=== PATIENT | male | born 1955 | race Caucasian/White ===

== ENCOUNTER 2018-05-06 17:23 | Inpatient (IN) ==
--- NOTE | 2018-05-06 17:44 | Emergency Department Note ---
Disposition Clinical Impression: ACS (acute coronary syndrome) Disposition: Admitted As Inpatient Referrals: NONE,PCP [Primary Care Provider] - General Adult HPI - General Chief complaint: ED Chest Pain Stated complaint: CP Time Seen by Provider: 05/06/18 17:29 Source: patient Limitations: no limitations Nursing Notes Reviewed: Yes Vital Signs Reviewed: Yes - History of Present Illness HPI Narrative: ED attending attestation note: I examined this patient and my medical decision-making was reviewed with the transitional year resident PGY1, angélica MENDIOLA. I agree with the documented findings, disposition and treatment plan as described except to the extent set forth below. Briefly: 62-year-old male history of September 27 years ago had a stress test done in 2005 but nothing since several weeks to months of chest pain nonexertional worse over the past several days going to his neck and left arm. Patient has a heart score of 5+, patient will undergo troponin chest x-ray screening labs. Patient and aspirated this morning. Admission anticipated, disposition pending Pain Scale: 5 - Related Data Home Medications Medication Instructions Recorded Confirmed Amlodipine Besylate 10 mg PO HS 09/11/15 02/07/18 Dicyclomine 20 mg PO QID 09/11/15 02/07/18 Losartan Potassium [Cozaar] 100 mg PO HS 09/11/15 02/07/18 Metformin HCl [Glucophage] 1,000 mg PO BID 09/11/15 02/07/18 Metoprolol [Lopressor] 25 mg PO BID 09/11/15 02/07/18 [place]-3/Dha/Epa/Fish Oil [Fish Oil 1 each PO HS 09/11/15 02/07/18 1,000 mg Softgel] Potassium Chloride [Klor-Con 10 meq PO HS 09/11/15 02/07/18 Sprinkle] Pravastatin Sodium [Pravachol] 80 mg PO HS 09/11/15 02/07/18 Zolpidem [Ambien] 10 mg PO HS 09/11/15 02/07/18 hydroCHLOROthiazide 12.5 mg PO HS 09/11/15 02/07/18 [Hydrochlorothiazide] Aspirin Enteric Coated [Aspirin EC] 81 mg PO DAILY 10/18/15 02/07/18 Cholecalciferol (Vitamin D3) 10,000 unit PO DAILY 10/18/15 02/07/18 [Vitamin D3] Diltiazem HCl [Cardizem LA] 360 mg PO HS 10/18/15 02/07/18 Omeprazole [PriLOSEC] 20 mg PO BIDAC 10/18/15 02/07/18 Vitamin E 1,000 unit PO DAILY 10/18/15 02/07/18 Oxycodone HCl/Acetaminophen 1 tab PO Q6H PRN 11/08/15 02/07/18 [Percocet 10-325 mg Tablet] Pregabalin [Lyrica] 150 mg PO DAILY 11/02/16 02/07/18 Insulin Glargine,Hum.rec.anlog 80 units SQ HS 08/02/17 02/07/18 [[place]jeo Solostar] Insulin NPH, HUMAN [HumuLIN N] 30 unit SQ ACHS 08/02/17 02/07/18 Previous Rx's Medication Instructions Recorded Loperamide HCl [Imodium A-D] 2 - 4 mg PO BID PRN #120 tablet 02/03/16 diazePAM [Valium] 10 mg PO BID PRN #60 tablet 02/28/16 Venlafaxine [Effexor] 37.5 mg PO BID #60 tablet 08/03/16 Allergies Allergy/AdvReac Type Severity Reaction Status Date / Time ibuprofen Allergy Hives Verified 02/07/18 11:06 Past Medical History - Past Medical History Medical history: Reports: arthritis, cancer, COPD, coronary artery disease, diabetes, hypertension Surgical history: Reports: cancer surgery, cholecystectomy, coronary bypass (CABG) Psychiatric history: Reports: anxiety - Social History Smoking Status: Current every day smoker Smokeless Tobacco Status: No Alcohol use: Reports: none Drug use: Reports: none Physical Exam - General Limitations: no limitations Course Vital Signs Temperature 97.7 F 05/06/18 17:27 Pulse Rate 89 05/06/18 17:27 Respiratory Rate 21 05/06/18 17:27 Blood Pressure 117/71 05/06/18 17:27 O2 Sat by Pulse Oximetry 96 05/06/18 17:27 Temperature 97.7 F 05/06/18 17:27 Pulse Rate 89 05/06/18 17:27 Respiratory Rate 21 05/06/18 17:27 Blood Pressure 117/71 05/06/18 17:27 O2 Sat by Pulse Oximetry 97 05/06/18 17:27 Oxygen Delivery Oxygen Delivery Room Air
[2018-05-06 17:55] LABS: Basophils # 0.1 K/mcL (0.0-0.2); Basophils % 0.6 %; Eosinophils # 0.1 K/mcL (0.0-0.6); Eosinophils % 0.9 %; Hematocrit 41.2 % (37.5-50.1); Hemoglobin 13.5 g/dL (12.9-16.9); Immature Granulocytes % 0.3 % (0-4); Lymphocytes # 1.8 K/mcL (0.6-4.6); Mean Corpuscular HGB Conc 32.8 g/dL (31.6-35.5); Mean Corpuscular Volume 91.6 fL (83.0-100.0); Mean Platelet Volume 11.6 fL (9.4-12.4); Monocytes # 0.8 K/mcL (0.0-1.3); Monocytes % 8.4 %; Platelet Count 150 K/mcL (140-400); Red Cell Distribution Width 13.9 % (11.5-14.5); Segmented Neutrophils % 71.8 %
[2018-05-06] MEDS ORDERED: Nitroglycerin 0.4 MG TAB.SUBL SL PRN (17:55)
[2018-05-06 18:03] LABS: INR 1.4; Prothrombin Time 15.4 Seconds (9.4-12.1)
[2018-05-06 18:15] LABS: BUN/Creatinine Ratio 14 (6-26); Blood Urea Nitrogen 16 mg/dL (8-23); Calcium 9.3 mg/dL (8.6-10.3); Carbon Dioxide 21 mEq/L (23-29); Chloride 103 mEq/L (98-107); Glucose 190 mg/dL (70-105); Osmolality,Calculated 290 (280-300); Potassium 3.2 mEq/L (3.5-5.1); Sodium 137 mEq/L (136-145); eGFR For Non-African Americans > 60 (> 60)
[2018-05-06 18:27] LABS: Troponin I 1.62 ng/mL (< 0.04)
[2018-05-06] MEDS ORDERED: *HR* Heparin 5,000 UNIT/ML VIAL IVP ONE (18:35)
[2018-05-06] MEDS ORDERED: *HR* Heparin 5,000 UNIT/ML VIAL IVP PRN (18:35)
--- NOTE | 2018-05-06 18:43 | Emergency Department Note ---
Disposition Clinical Impression: ACS (acute coronary syndrome) Disposition: Admitted As Inpatient Condition: Fair Referrals: NONE,PCP [Non-Partnered Physician] - Forms: ED Satisfaction Letter Time of Disposition: 18:42 General Adult HPI - General Chief complaint: ED Chest Pain Stated complaint: CP Time Seen by Provider: 05/06/18 17:29 Source: patient Mode of arrival: ambulatory Limitations: no limitations - History of Present Illness HPI Narrative: Patient is a 62-year-old male with past medical history of quadruple bypass 18 years ago, PCI in 2006 hours CAD, diabetes, hypertension presents to the emergency room in for evaluation of chest pain has been going on for the past m onth intermittently however it was constant today. Describes it as a left-sided chest pressure with radiation into the left arm. Rates it as a 5 out of 10. States is made worse with exertion. Pain Scale: 2 - Related Data Home Medications Medication Instructions Recorded Confirmed Amlodipine Besylate 10 mg PO HS 09/11/15 02/07/18 Dicyclomine 20 mg PO QID 09/11/15 02/07/18 Losartan Potassium [Cozaar] 100 mg PO HS 09/11/15 02/07/18 Metformin HCl [Glucophage] 1,000 mg PO BID 09/11/15 02/07/18 Metoprolol [Lopressor] 25 mg PO BID 09/11/15 02/07/18 [place]-3/Dha/Epa/Fish Oil [Fish Oil 1 each PO HS 09/11/15 02/07/18 1,000 mg Softgel] Potassium Chloride [Klor-Con 10 meq PO HS 09/11/15 02/07/18 Sprinkle] Pravastatin Sodium [Pravachol] 80 mg PO HS 09/11/15 02/07/18 Zolpidem [Ambien] 10 mg PO HS 09/11/15 02/07/18 hydroCHLOROthiazide 12.5 mg PO HS 09/11/15 02/07/18 [Hydrochlorothiazide] Aspirin Enteric Coated [Aspirin EC] 81 mg PO DAILY 10/18/15 02/07/18 Cholecalciferol (Vitamin D3) 10,000 unit PO DAILY 10/18/15 02/07/18 [Vitamin D3] Diltiazem HCl [Cardizem LA] 360 mg PO HS 10/18/15 02/07/18 Omeprazole [PriLOSEC] 20 mg PO BIDAC 10/18/15 02/07/18 Vitamin E 1,000 unit PO DAILY 10/18/15 02/07/18 Oxycodone HCl/Acetaminophen 1 tab PO Q6H PRN 11/08/15 02/07/18 [Percocet 10-325 mg Tablet] Pregabalin [Lyrica] 150 mg PO DAILY 11/02/16 02/07/18 Insulin Glargine,Hum.rec.anlog 80 units SQ HS 08/02/17 02/07/18 [Toujeo Solostar] Insulin NPH, HUMAN [HumuLIN N] 30 unit SQ ACHS 08/02/17 02/07/18 Previous Rx's Medication Instructions Recorded Loperamide HCl [Imodium A-D] 2 - 4 mg PO BID PRN #120 tablet 02/03/16 diazePAM [Valium] 10 mg PO BID PRN #60 tablet 02/28/16 Venlafaxine [Effexor] 37.5 mg PO BID #60 tablet 08/03/16 Allergies Allergy/AdvReac Type Severity Reaction Status Date / Time ibuprofen Allergy Hives Verified 02/07/18 11:06 All systems ED: reviewed and negative except as stated. Review of Systems: As Per HPI Constitutional: Denies: fever, chills Cardiovascular: Reports: chest pain. Denies: palpitations, dyspnea on exertion, edema, syncope, paroxysmal nocturnal dyspnea Respiratory: Denies: cough, dyspnea, wheezes Gastrointestinal: Denies: abdominal pain, nausea, vomiting Musculoskeletal: Denies: back pain, neck pain Integumentary: Denies: rash Past Medical History - Past Medical History Attestation: Yes The following information was validated with the patient. Medical history: Reports: arthritis, cancer, COPD, coronary artery disease, diabetes, hypertension Surgical history: Reports: cancer surgery, cholecystectomy, coronary bypass (CABG) Psychiatric history: Reports: anxiety - Social History Smoking Status: Current every day smoker Smokeless Tobacco Status: No Alcohol use: Reports: none Drug use: Reports: none Physical Exam CONSTITUTIONAL: Well-appearing; well-nourished; A&O X 3, in no apparent distress. Vitals within normal limits. HEAD: Normocephalic; atraumatic EYES: PERRL, no scleral icterus NOSE: The nose is normal in appearance without rhinorrhea NECK: No JVD or distended neck veins RESP: Normal chest excursion with respiration; breath sounds clear and equal bi laterally; no wheezes, rhonchi, or rales CARD: Regular rhythm, without murmurs, rub or gallop ABD: Non-distended; non-tender, soft, without rigidity, rebound or guarding,no pulsatile mass CHEST: No pain with palpation SKIN: Normal for age and race; warm and dry without diaphoresis ; no apparent l esions EXTREMITIES: Pulses are 2 plus and equal times 4 extremities, no peripheral edema or calf muscle pain - General Limitations: no limitations Course Course Narrative: Patient underwent evaluation for his chest pain. He received 1 dose of nitroglycerin which completely resolved his pain. He take a full dose of aspirin prior to arrival at home. His EKG is not ischemic however his troponin is elevated. I discussed the patient's case with cardiology on-call, Dr. Henson and he agreed with starting the patient on ACS low-dose heparin. I discussed the patient's case with the hospitalist on-call, Dr. Delicia ruiz and he agrees to accept the patient. Vital Signs Temperature 97.7 F 05/06/18 17:27 Pulse Rate 89 05/06/18 17:27 Respiratory Rate 21 05/06/18 17:27 Blood Pressure 117/71 05/06/18 17:27 O2 Sat by Pulse Oximetry 96 05/06/18 17:27 Temperature 97.7 F 05/06/18 17:27 Pulse Rate 75 05/06/18 18:20 Respiratory Rate 22 05/06/18 18:20 Blood Pressure 97/59 05/06/18 18:20 O2 Sat by Pulse Oximetry 100 05/06/18 18:22 Oxygen Delivery Oxygen Delivery Room Air Medical Decision Making - Medical Records Medical records reviewed: Yes I reviewed the patient's medical records. - Lab Data Lab results reviewed: Yes I reviewed the patient's lab results. Result diagrams: 05/06/18 17:30 05/06/18 17:30 Lab Results 05/06/18 05/06/18 05/06/18 Range/Units 17:30 17:30 17:30 WBC 9.8 (4.3-11.1) K/mcL RBC 4.50 (4.19-5.50) M/mcL Hgb 13.5 (12.9-16.9) g/dL Hct 41.2 (37.5-50.1) % MCV 91.6 (83.0-100.0) fL MCH 30.0 (28.0-33.3) pg MCHC 32.8 (31.6-35.5) g/dL RDW 13.9 (11.5-14.5) % Plt Count 150 (140-400) K/mcL MPV 11.6 (9.4-12.4) fL Immature Gran % 0.3 (0-4) % Seg Neutrophils % 71.8 % Lymphocytes % 18.0 % Monocytes % 8.4 % Eosinophils % 0.9 % Basophils % 0.6 % Neutrophils # 7.0 (1.6-8.9) K/mcL Lymphocytes # 1.8 (0.6-4.6) K/mcL Monocytes # 0.8 (0.0-1.3) K/mcL Eosinophils # 0.1 (0.0-0.6) K/mcL Basophils # 0.1 (0.0-0.2) K/mcL PT 15.4 H (9.4-12.1) Seconds INR 1.4 Sodium 137 (136-145) mEq/L Potassium 3.2 L (3.5-5.1) mEq/L Chloride 103 (98-107) mEq/L Carbon Dioxide 21 L (23-29) mEq/L BUN 16 (8-23) mg/dL Creatinine 1.17 (0.70-1.30) mg/dL Est GFR ( Amer) > 60 (> 60) Est GFR (Non-Af Amer) > 60 (> 60) BUN/Creatinine Ratio 14 (6-26) Glucose 190 H (70-105) mg/dL Calculated Osmolality 290 (280-300) Calcium 9.3 (8.6-10.3) mg/dL Troponin I 1.62 H* (< 0.04) ng/mL - Radiology Data Radiology results reviewed: Yes I reviewed the patient's radiology results. Chest X-Ray 05/06/18 17:41 IMPRESSION: Small right pleural effusion. D/ / Trevor Duncan / Trevor Duncan Interpreting Provider: Trevor Duncan - EKG Data EKG #1 EKG attestation: Yes I reviewed and interpreted this EKG. EKG results narrative: EKG done at 17:29 shows atrial fibrillation at a rate of 77 normal axis, intervals within normal limits no signs of ST elevation or Q waves present. Patient does have an isolated PVC as well as minimal depressions in the V4 th rough V6 however these are unchanged when compared to EKG done on April 172017.
[2018-05-06] MEDS ORDERED: Heparin 25,000 UNIT/500 ML D5W 25,000 UNIT/500 ML BAG IVC SCH (18:45)
[2018-05-06] MEDS ORDERED: Aspirin 325 MG TABLET PO ONE (19:03)
[2018-05-06] MEDS ORDERED: OXYCODONE Oral CONC 10 MG/0.5 ML ORAL.SYG SL PRN ×2 (19:05)
[2018-05-06] MEDS ORDERED: Naloxone 0.4 MG/ML INJ IVP PRN (19:05)
[2018-05-06] MEDS ORDERED: Dextrose Gel 15 GM/37.5 ML TUBE PO PRN ×2 (19:09)
[2018-05-06] MEDS ORDERED: *HR* Dextrose 50 % in Water (Syg) 50 ML SYRINGE IVP PRN (19:09)
[2018-05-06] MEDS ORDERED: D5% in Water 1,000 ML IVC PRN (19:09)
[2018-05-06] MEDS ORDERED: Perflutren Lipid Microsphere 1.3 ML in 0.9 % Sodium Chloride 8.7 ML IVP ONE (20:11)
[2018-05-06 20:15] LABS: Hematocrit 38.6 % (37.5-50.1); Hemoglobin 12.5 g/dL (12.9-16.9); Mean Corpuscular HGB Conc 32.4 g/dL (31.6-35.5); Mean Corpuscular Hemoglobin 29.8 pg (28.0-33.3); Mean Corpuscular Volume 91.9 fL (83.0-100.0); Mean Platelet Volume 11.9 fL (9.4-12.4); Platelet Count 137 K/mcL (140-400); Red Cell Distribution Width 14.1 % (11.5-14.5)
--- NOTE | 2018-05-06 20:15 | Internal Med History&Physical ---
Date of Encounter: 05/06/18 Time of Encounter: 19:45 Internal Medicine - H&P: HPI Chief complaint: Chest pain Admitted From: Home History of present illness: Mr. Hernández is a 62 year old male with past medical history of CAD status post CABG in 2005, hypertension, diabetes, prostate cancer status post TURBT and radiotherapy, ex-smoker, who presented to the ED with 1 month history of chest pain. Substernal, described as heaviness, initially was intermittent but became constant for the last 2 days, radiates to L arm, relieved with nitro given in the ED. No aggravating factors. Denies SOB, palpitation, lightheadedness, N/V, or diaphoresis. No orthopnea, PND, or leg swelling. Denies any fever/chills, or GI/ symptoms. In the ED, he was afebrile and hemodynamically stable. Labwork showed elevated troponin of 1.62 with EKG showing atrial fibrillation and ST depression in V5 and 6 which appears to be slightly more prominent compared to the previous. Potassium was low at 3.2. Patient was started on heparin drip and admitted for further management. Past Med Surg Social Fam HX - Past Medical History Attestation: Yes The following information was validated with the patient. Medical history: arthritis, cancer, COPD, coronary artery disease, diabetes, hypertension Additional medical history: prostate cancer with mets to bladder Psychiatric history: anxiety - Past Surgical History Surgical History: cancer surgery, cholecystectomy, coronary bypass (CABG) Additional surgical history: back surgery, carpal tunnel, transurethral resection bladder tumor removal surgery - Social History Smoking Status: Former smoker Smokeless Tobacco Status: No Alcohol use: none Drug use: none - Additional Family History Additional family history: No family history of premature CAD Internal Medicine - H&P: Meds Amlodipine Besylate 10 mg PO HS 09/11/15 [History] Dicyclomine 20 mg PO QID 09/11/15 [History] Losartan Potassium [Cozaar] 100 mg PO HS 09/11/15 [History] Metformin HCl [Glucophage] 1,000 mg PO BID 09/11/15 [History] Metoprolol [Lopressor] 25 mg PO BID 09/11/15 [History] [place]-3/Dha/Epa/Fish Oil [Fish Oil 1,000 mg Softgel] 1 each PO HS 09/11/15 [History] Potassium Chloride [Klor-Con Sprinkle] 10 meq PO HS 09/11/15 [History] Pravastatin Sodium [Pravachol] 80 mg PO HS 09/11/15 [History] Zolpidem [Ambien] 10 mg PO HS 09/11/15 [History] hydroCHLOROthiazide [Hydrochlorothiazide] 12.5 mg PO HS 09/11/15 [History] Aspirin Enteric Coated [Aspirin EC] 81 mg PO DAILY 10/18/15 [History] Cholecalciferol (Vitamin D3) [Vitamin D3] 10,000 unit PO DAILY 10/18/15 [History] Diltiazem HCl [Cardizem LA] 360 mg PO HS 10/18/15 [History] Omeprazole [PriLOSEC] 20 mg PO BIDAC 10/18/15 [History] Vitamin E 1,000 unit PO DAILY 10/18/15 [History] Oxycodone HCl/Acetaminophen [Percocet 10-325 mg Tablet] 1 tab PO Q6H PRN 11/08/15 [History] Loperamide HCl [Imodium A-D] 2 - 4 mg PO BID PRN #120 tablet 02/03/16 [Rx] diazePAM [Valium] 10 mg PO BID PRN #60 tablet 02/28/16 [Rx] Venlafaxine [Effexor] 37.5 mg PO BID #60 tablet 08/03/16 [Rx] Pregabalin [Lyrica] 150 mg PO DAILY 11/02/16 [History] Insulin Glargine,Hum.rec.anlog [Magdalene [place]] 80 units SQ HS 08/02/17 [History] Insulin NPH, HUMAN [HumuLIN N] [address] [facility] 08/02/17 [History] Allergy/AdvReac Type Severity Reaction Status Date / Time ibuprofen Allergy Hives Verified 02/07/18 11:06 All Systems PM: A 10-system review of systems was performed and is negative for pertinent findings except as documented above in the HPI. - Constitutional Vitals: Temp Pulse Resp BP Pulse Ox 97.7 F 75 22 97/59 100 05/06/18 17:27 05/06/18 18:20 05/06/18 18:20 05/06/18 18:20 05/06/18 18:22 Exam: General: Alert and oriented, not in acute distress. HEENT:EOMI, pupils equal, round and reactive. Cardiovascular:Normal S1 & S2, No JVD. Pulse irregular but normal rate Lungs: clear to auscultation, no wheezes/rales Abdomen:Soft, non-tender, no rigidity. Extremities:No deformity or swelling Neurological:Normal cognition and motor skills. Non-focal Skin:Normal color, no rash, no lesions. Pulses:Carotid and radial pulses normal +2. Rest of the physical exam is non contributory Internal Med - H&P Results - Labs CBC & Chem 7: 05/06/18 17:30 05/06/18 17:30 Labs: Short CBC 05/06/18 Range/Units 17:30 WBC 9.8 (4.3-11.1) K/mcL Hgb 13.5 (12.9-16.9) g/dL Hct 41.2 (37.5-50.1) % Plt Count 150 (140-400) K/mcL Neutrophils # 7.0 (1.6-8.9) K/mcL BMP 05/06/18 17:30 Sodium 137 Potassium 3.2 L Chloride 103 Carbon Dioxide 21 L BUN 16 Creatinine 1.17 Glucose 190 H Calcium 9.3 Cardiac Enzymes 05/06/18 Range/Units 17:30 Troponin I 1.62 H* (< 0.04) ng/mL - Impressions ITS Impressions Chest X-Ray 05/06/18 17:41 IMPRESSION: Small right pleural effusion. D/ / Trevor Duncan / Trevor Duncan Interpreting Provider: Trevor Duncan - Assessment and plan (1) NSTEMI (non-ST elevated myocardial infarction) Current Visit: Yes Status: Acute Assessment and plan: presented with atypical chest pain over a month, known history of CAD s/p CABG in 2005 trop 1.62, EKG afib with ST depression in V5-6 started on heparin gtt in the ED, continue load with ASA, continue 81mg QD from tomorrow onward continue home dose of statin and bb nitro PRN telemetry, trend troponin echocardiogram cardiology consult, NPO after midnight in case he is taken for [facility] (2) Afib Current Visit: Yes Status: Acute Assessment and plan: new onset, no prior history of afib noted CHADSVASC 3 for history of HTN, vascular disease, and DM currently rate controlled on heparin gtt for NSTEMI as above, continue continue home dose of bb will likely need terminal press operator AC at the time of discharge Qualifiers: Atrial fibrillation type: unspecified Qualified Code(s): I48.91 - Unspecified atrial fibrillation (3) Diabetes Current Visit: No Status: Chronic Assessment and plan: moderate dose sliding scale coverage while home meds are being reconciled Accuchecks AC+HS Qualifiers: Diabetes mellitus type: type 2 Diabetes mellitus [facility] insulin use: with [facility] use Diabetes mellitus complication status: with unspecified complications Qualified Code(s): E11.8 - Type 2 diabetes mellitus with unspecified complications; Z79.4 - [facility] (current) use of insulin (4) Hypertension Current Visit: Yes Status: Chronic Assessment and plan: hold off on home meds Qualifiers: Hypertension type: essential hypertension Qualified Code(s): I10 - Essential (primary) hypertension (5) Hypokalemia Current Visit: Yes Status: Acute Assessment and plan: replete orally check tomorrow with Mg (6) DVT prophylaxis Current Visit: Yes Status: Acute Assessment and plan: heparin gtt - Time Spent With Patient Total time spent is greater than 50% in coordination of care (as documented) at patient's floor/unit and/or counseling patient: Greater than 35 minutes
[2018-05-06 20:22] LABS: Heparin anti-factor XA UFH 0.5 IU/mL (0.30-0.70)
[2018-05-06 20:23] LABS: INR 1.4; Prothrombin Time 15.4 Seconds (9.4-12.1)
[2018-05-06] MEDS: Insulin LISPRO 300 UNITS/3 ML VIAL SQ SCH (22:27)
[2018-05-07 01:10] LABS: Basophils # 0.1 K/mcL (0.0-0.2); Basophils % 0.6 %; Eosinophils # 0.1 K/mcL (0.0-0.6); Eosinophils % 1.4 %; Hematocrit 38.2 % (37.5-50.1); Hemoglobin 12.5 g/dL (12.9-16.9); Immature Granulocytes % 0.2 % (0-4); Lymphocytes # 1.8 K/mcL (0.6-4.6); Lymphocytes % 19.7 %; Mean Corpuscular HGB Conc 32.7 g/dL (31.6-35.5); Mean Corpuscular Hemoglobin 29.8 pg (28.0-33.3); Mean Corpuscular Volume 91.2 fL (83.0-100.0); Mean Platelet Volume 11.7 fL (9.4-12.4); Monocytes # 0.9 K/mcL (0.0-1.3); Monocytes % 9.7 %; Neutrophils # 6.2 K/mcL (1.6-8.9); Platelet Count 134 K/mcL (140-400); Red Blood Count 4.19 M/mcL (4.19-5.50); Red Cell Distribution Width 13.9 % (11.5-14.5); Segmented Neutrophils % 68.4 %
[2018-05-07 01:26] LABS: BUN/Creatinine Ratio 16 (6-26); Blood Urea Nitrogen 17 mg/dL (8-23); Carbon Dioxide 21 mEq/L (23-29); Chloride 107 mEq/L (98-107); Glucose 155 mg/dL (70-105); Osmolality,Calculated 293 (280-300); Potassium 3.2 mEq/L (3.5-5.1); Sodium 139 mEq/L (136-145); eGFR For Non-African Americans > 60 (> 60)
[2018-05-07] MEDS: *HR* Heparin 5,000 UNIT/ML VIAL IVP PRN ×2 (01:35→08:49)
[2018-05-07] MEDS: Insulin LISPRO 300 UNITS/3 ML VIAL SQ SCH ×4 (08:16→21:20)
[2018-05-07] MEDS: Aspirin Enteric Coated 81 MG Tablet PO SCH (08:17)
--- NOTE | 2018-05-07 09:41 | Internal Med Progress Note ---
Hospitalist Progress Note - Encounter Date of Encounter: 05/07/18 Time of Encounter: 09:40 - Subjective Interval History: 62 year old male with past medical history of CAD status post CABG in 2005, hypertension, diabetes, prostate cancer status post TURBT and radiotherapy, ex- smoker he is admitted and being managed for Afib with RVR and suspected NSTEMI Currently chest pain free, awaiting cardio eval - Exam Vitals: Temp Pulse Resp BP Pulse Ox 98.3 F 98 16 118/84 91 05/07/18 06:33 05/07/18 06:33 05/07/18 06:33 05/07/18 06:33 05/07/18 06:33 Exam: General: Alert and oriented, not in acute distress. HEENT:EOMI, pupils equal, round and reactive. Cardiovascular:Normal S1 & S2, No JVD. Pulse irregular but normal rate Lungs: clear to auscultation, no wheezes/rales Abdomen:Soft, non-tender, no rigidity. Extremities:No deformity or swelling Neurological:Normal cognition and motor skills. Non-focal Skin:Normal color, no rash, no lesions. Pulses:Carotid and radial pulses normal +2. Rest of the physical exam is non contributory - Assessment and Plan (1) NSTEMI (non-ST elevated myocardial infarction) Current Visit: Yes Status: Acute Assessment and Plan: presented with atypical chest pain over a month, known history of CAD s/p CABG in 2005 trop 1.62, EKG afib with ST depression in V5-6 Peak trop 2.01 Continue ASA, BB, Statin Continue heparin drip, keep NPO for possible LHC today Follow ECHO Follow cardio eval (2) Afib Current Visit: Yes Status: Acute Assessment and Plan: new onset, no prior history of afib noted CHADSVASC 3 for history of HTN, vascular disease, and DM Follow ECHO Continue heparin, BB Currently HR controlled, continue tele Will need oral a/c on discharge-defer to cardiology (3) Diabetes Current Visit: Yes Status: Chronic Assessment and Plan: moderate dose sliding scale coverage while home meds are being reconciled Patient is on high doses of insulin at home Start levemir HS Continue Accuchecks AC+HS A1C with morning labs (4) Hypertension Current Visit: Yes Status: Chronic Assessment and Plan: Resume home HCTZ Continue BB Continue to monitor (5) DVT prophylaxis Current Visit: Yes Status: Acute Assessment and Plan: heparin gtt (6) Hypokalemia Current Visit: Yes Status: Acute Assessment and Plan: replaced po Mag WNL continue to monitor - Time Spent with Patient Total time spent is greater than 50% in coordination of care (as documented) at patient's floor/unit and/or counseling patient: Plan of Care Discussed with: patient Internal Medicine: Result - Labs CBC & Chem 7: 05/07/18 00:47 05/07/18 00:47 Labs: Short CBC 05/06/18 05/06/18 05/07/18 Range/Units 17:30 19:34 00:47 WBC 9.8 9.1 9.0 (4.3-11.1) K/mcL Hgb 13.5 12.5 L 12.5 L (12.9-16.9) g/dL Hct 41.2 38.6 38.2 (37.5-50.1) % Plt Count 150 137 L 134 L (140-400) K/mcL Neutrophils # 7.0 6.2 (1.6-8.9) K/mcL BMP 05/06/18 05/07/18 17:30 00:47 Sodium 137 139 Potassium 3.2 L 3.2 L Chloride 103 107 Carbon Dioxide 21 L 21 L BUN 16 17 Creatinine 1.17 1.04 Glucose 190 H 155 H Calcium 9.3 9.0 Cardiac Enzymes 05/06/18 05/06/18 05/07/18 Range/Units 17:30 23:15 05:42 Troponin I 1.62 H* 2.01 H* 1.59 H* (< 0.04) ng/mL - ABG Interpretation ABG results: PT/INR, D-dimer PT 15.4 Seconds (9.4-12.1) H 05/06/18 19:34 - Impressions Impressions Chest X-Ray 05/06/18 17:41 IMPRESSION: Small right pleural effusion. D/ / Trevor Duncan / Trevor Duncan Interpreting Provider: Trevor Duncan Consult Discharge Plan - Plan Referrals: Pennie Guardado [Primary Care Provider] - (2) Afib Qualifiers: Atrial fibrillation type: unspecified Qualified Code(s): I48.91 - Unspecified atrial fibrillation (3) Diabetes Qualifiers: Diabetes mellitus type: type 2 Diabetes mellitus terminal press operator insulin use: with terminal press operator use Diabetes mellitus complication status: with unspecified complications Qualified Code(s): E11.8 - Type 2 diabetes mellitus with unspecified complications; Z79.4 - longterm (current) use of insulin (4) Hypertension Qualifiers: Hypertension type: essential hypertension Qualified Code(s): I10 - Essential (primary) hypertension
--- NOTE | 2018-05-07 10:16 | Cardiology Consult Note ---
Addendum entered and electronically signed by Jennifer Henson MD 05/07/18 10:31: I have personally performed a face to face evaluation on this patient. I have reviewed and agree with the care plan. History and Exam by me shows: Pt with intermittent CP for past month worsening yesterday. Tried taking ASA with no relief of symptoms. Cardiac enzymes abnormal consistent with nonSTEMI. Has known hx of CAD s/p CABGx4 in 2007 (MITCHELL to LAD, SVG to diag 1, SVG to OM1, SVG to R PDA). Will proceed with diagnostic cardiac catheterization and possible PCI later today. All risks/benefits discussed with patient by me. Agreeable to proceed. Original Note: Date of Encounter: 05/07/18 Time of Encounter: 08:45 Assessment and Plan (1) NSTEMI (non-ST elevated myocardial infarction) Current Visit: Yes Status: Acute C/o ongoing chest pain increasing over past week. He is found to have NSTEMI. He has a history of a four-vessel bypass with no recent workup. Troponin elevated up to 2.01 and now trending down. He is currently chest pain- free. I agree with heparin drip. LHC is recommended. LHC risks, benefits, and alternatives reviewed with patient and he agrees to proceed. TTE is pending. Continue aspirin, statin, and beta ruslan. (2) Afib Current Visit: Yes Status: Acute EKG shows atrial fibrillation with heart rate 80. There is ST depression in the lateral leads. Patient denies history of A. fib. He is currently rate controlled. Continue beta ruslan. Continue heparin drip. Further recommendation for long-term anticoagulation after his left heart cath. We did discuss anticoagulation with Coumadin versus NOAC. Qualifiers: Atrial fibrillation type: unspecified Qualified Code(s): I48.91 - Unspecified atrial fibrillation (3) CAD (coronary artery disease) Current Visit: Yes Status: Acute H/o 4V (MITCHELL-LAD, SVG-1st dx, SVG-1st OM, SVG-PDA) CABG [place] [address] Mixon. Qualifiers: Coronary Disease-Associated Artery/Lesion type: [place] artery [place] vs. transplanted heart: [place] heart Associated angina: without angina Qualified Code(s): I25.10 - Atherosclerotic heart disease of [place] coronary artery without angina pectoris Discussion w patient/family: The assessment and plan as outlined above was discussed with the patient and/or family members who expressed understanding and agreement. All questions were answered. Thank you for involving us in the care of your patient. Please call with any questions. History of Present Illness Consult date: 05/07/17 Requesting physician: Eduar Hayes Consult reason: NSTEMI Chief complaint: Chest pain for one month History of present illness: Mr. Hernández is a 62 year old male with past medical history of CAD status post 4V CABG in 2005, COPD, hypertension, diabetes type 2, and hyperlipidemia. He presents with complaint of midsternal chest pain ongoing for one month that is increased over the past week. Complains of intermittent shortness of breath and lower extremity edema. Denies nausea, vomiting, or diaphoresis. Denies palpi tations. He was taking frequent doses of asa at home with no relief. He is given one sublingual nitroglycerin in the ER with relief of his chest pain. He denies recent cardiac workup and does not follow with cardiology. Cardiology consulted for NSTEMI. Past Med Surg Social Fam HX - Past Medical History Medical history: arthritis, cancer, COPD, coronary artery disease, diabetes, hypertension Additional medical history: prostate cancer with mets to bladder Psychiatric history: anxiety - Past Surgical History Surgical History: cancer surgery, cholecystectomy, coronary bypass (CABG) Additional surgical history: back surgery, carpal tunnel, transurethral resection bladder tumor removal surgery - Social History Smoking Status: Former smoker Smokeless Tobacco Status: No Alcohol use: none Drug use: none - Family History Father Hx Family Cardiac Disorders: Yes (CABG, CAD) Medications and Allergies Amlodipine Besylate 10 mg PO HS 09/11/15 [History] Dicyclomine 20 mg PO QID 09/11/15 [History] Losartan Potassium [Cozaar] 100 mg PO HS 09/11/15 [History] Metformin HCl [Glucophage] 1,000 mg PO DAILY 09/11/15 [History] Metoprolol [Lopressor] 25 mg PO DAILY 09/11/15 [History] [place]-3/Dha/Epa/Fish Oil [Fish Oil 1,000 mg Softgel] 2 each PO HS 09/11/15 [History] Potassium Chloride [Klor-Con Sprinkle] 10 meq PO HS 09/11/15 [History] Pravastatin Sodium [Pravachol] 80 mg PO HS 09/11/15 [History] Zolpidem [Ambien] 10 mg PO HS 09/11/15 [History] hydroCHLOROthiazide [Hydrochlorothiazide] 25 mg PO HS 09/11/15 [History] Aspirin Enteric Coated [Aspirin EC] 81 mg PO DAILY 10/18/15 [History] Cholecalciferol (Vitamin D3) [Vitamin D3] 1,000 unit PO DAILY 10/18/15 [History] Diltiazem HCl [Cardizem LA] 360 mg PO DAILY 10/18/15 [History] Omeprazole [PriLOSEC] 20 mg PO DAILY 10/18/15 [History] Vitamin E 1,000 unit PO DAILY 10/18/15 [History] Oxycodone HCl/Acetaminophen [Percocet 10-325 mg Tablet] 1 tab PO Q6H PRN 11/08/15 [History] Loperamide HCl [Imodium A-D] 2 - 4 mg PO BID PRN #120 tablet 02/03/16 [Rx] diazePAM [Valium] 10 mg PO BID PRN #60 tablet 02/28/16 [Rx] Venlafaxine [Effexor] 37.5 mg PO BID #60 tablet 08/03/16 [Rx] Pregabalin [Lyrica] 300 mg PO DAILY 11/02/16 [History] Insulin Glargine,Hum.rec.anlog [Magdalene Garciaostnaman] 80 units SQ HS 08/02/17 [History] Insulin NPH, HUMAN [HumuLIN N] 30 unit SQ ACHS 08/02/17 [History] Albuterol Sulfate [Proair Hfa] 1 puff IH Q6HR PRN 05/06/18 [History] Atorvastatin [Lipitor] 20 mg PO HS 05/06/18 [History] Budesonide/Formoterol 160/4.5 [Symbicort 160/4.5] 2 puff IH BID 05/06/18 [History] Empagliflozin [Jardiance] 25 mg PO DAILY 05/06/18 [History] Glimepiride [Amaryl] 4 mg PO DAILY 05/06/18 [History] Insulin Glargine,Hum.rec.anlog [Toujeo Solostar] 100 units SQ HS 05/06/18 [History] Iron Polysaccharide Complex [Pro Fe] 180 mg PO DAILY 05/06/18 [History] Lipase/Protease/Amylase [[place] Saeed 24,000 Units Capsule] 24,000 units PO DAILY 05/06/18 [History] OxyCODONE/APAP 10325 1 tab PO TID PRN 05/06/18 [History] SitaGLIPtin [Januvia] 100 mg PO DAILY 05/06/18 [History] Tamsulosin [Flomax] 0.4 mg PO DAILY 05/06/18 [History] Tiotropium [Spiriva] 18 mcg IH DAILY 05/06/18 [History] Allergy/AdvReac Type Severity Reaction Status Date / Time ibuprofen Allergy Hives Verified 02/07/18 11:06 All Systems Review: The remainder of the systems were reviewed and are negative Physical Examination Vital Signs, Last 4 Hours Temp Pulse Resp BP Pulse Ox 05/07/18 06:33 98.3 F 98 16 118/84 91 General: Conversant, No Apparent Distress HEENT: Atraumatic, Normocephaly, Mucus Membranes Moist Neck: No JVD, Normal carotid pulses Cardiac: Reg Rate and Rhythm, Normal S1 and S2, No Murmur Lungs: Normal Breath Sounds, No Wheeze, Rales, Rhonchi Neuro: Alert and responsive, No focal deficits noted Abdomen: Soft, Non-Tender Skin: No rashes noted on visualized skin Musculoskeletal: No Chest Wall Tenderness Extremities: No Clubbing, No Cyanosis, No Edema, Normal Pulses Results 05/07/18 00:47 05/07/18 00:47 Lab Results 05/06/18 05/06/18 05/06/18 17:30 17:30 17:30 WBC 9.8 Hgb 13.5 Hct 41.2 Plt Count 150 INR 1.4 Sodium 137 Potassium 3.2 L Chloride 103 Carbon Dioxide 21 L BUN 16 Creatinine 1.17 Glucose 190 H Calcium 9.3 Magnesium Troponin I 1.62 H* 05/06/18 05/06/18 05/06/18 19:34 19:34 23:15 WBC 9.1 Hgb 12.5 L Hct 38.6 Plt Count 137 L INR 1.4 Sodium Potassium Chloride Carbon Dioxide BUN Creatinine Glucose Calcium Magnesium Troponin I 2.01 H* 05/07/18 05/07/18 05/07/18 00:47 00:47 05:42 WBC 9.0 Hgb 12.5 L Hct 38.2 Plt Count 134 L INR Sodium 139 Potassium 3.2 L Chloride 107 Carbon Dioxide 21 L BUN 17 Creatinine 1.04 Glucose 155 H Calcium 9.0 Magnesium 2.0 Troponin I 1.59 H* - Imaging and Cardiology Echo: pending - EKG Interpretation EKG results cardiology: personally reviewed Consult Discharge Plan - Plan Referrals: Pennie Guardado [Primary Care Provider] -
--- NOTE | 2018-05-07 10:37 | Pre-Sedation Evaluation ---
Pre-sedation evaluation - Pre-sedation checklist Date of procedure: 05/07/18 Procedure: [facility] Recent Vitals: Last Vital Signs Temp 98.3 F 05/07/18 06:33 Pulse 98 05/07/18 06:33 Resp 16 05/07/18 06:33 BP 118/84 05/07/18 06:33 Pulse Ox 91 05/07/18 06:33 H&P (including ROS) documented in medical record: Yes Previous reaction to sedatives/anesthetics: No Dietary Status: NPO after Midnight Airway Assessment: Patient can open mouth completely, TMJ function normal, Micrognathia (under-bite, receding chin) absent, Neck with adequate range of mot ion Dentition: No loose teeth or bridges Possible difficult airway: No ASA Classification *see protocol: CLASS II-Mild systemic disease Plan of Care: Pt appropriate candidate for procedure/moderate/conscious sedation, Risks/benefits of procedure/sedation discussed w/ patient/family Cardiac Registry (Cardio Only) - Functional Capacity Functional Capacity: < 4 METS - Clincal Frailty Scale Clinical Frailty Scale: Vulnerable
[2018-05-07] MEDS ORDERED: diazePAM 10 MG TABLET PO PRN (11:19)
[2018-05-07] MEDS ORDERED: Ipratropium/Albuterol Neb 3 ML IH PRN (11:20)
[2018-05-07] MEDS ORDERED: 0.9 % Sodium Chloride 1,000 ML ONE (11:51)
[2018-05-07] MEDS ORDERED: *HR* Heparin 10,000 UNIT/10 ML VIAL ONE (11:51)
[2018-05-07] MEDS ORDERED: Heparin 1,000 UNITS/500 mL 500 ML ONE (11:51)
[2018-05-07] MEDS ORDERED: Nitroglycerin 1,000 MCG/10 ML VIAL IV ONE (11:52)
[2018-05-07] MEDS ORDERED: ISOVUE-370 200 ML INFUS..BTL ONE (11:52)
[2018-05-07] MEDS ORDERED: *HR* Midazolam HCl 2 MG/2 ML VIAL ONE ×2 (12:02→12:40)
[2018-05-07] MEDS ORDERED: *HR* FentaNYL (PF) 100 MCG/2 ML VIAL ONE (12:02)
[2018-05-07] MEDS ORDERED: *HR* Bivalirudin 250 MG VIAL IVC ONE (12:56)
[2018-05-07] MEDS ORDERED: *HR* Ticagrelor 90 MG TABLET ONE (13:03)
--- NOTE | 2018-05-07 13:43 | Invasive Diagnostic Lab Proc ---
Name: Dickson Hernández Date of Study: 05/07/2018 Date: 1955 Ht: 72.8in Medical Record#: [id number] Age: 62 Wt: 242.51lb Gender: Male BSA: 2.33 Order #: [id number] BMI: 32.14 Physicians Procedure Physician: Jennifer Henson MD, [facility] Referring MD: Referring MD: Staff Name Position Time In Sites, Sun RT (R) Monitor 12:01 PM Socorro Monroe RT (R) Scrub 12:01 PM Geoff Robles RN Enterostomal Therapy Nurse 12:01 PM Procedures Performed Procedure L HRT ART/GRFT ANGIO PRQ REVASC BYP GRAFT 1 VSL Pre-Procedure Checklist Informed consent is complete signed and on chart. H&P is on chart. ID band is on and ID verified with patient. Patient NPO for procedure The procedure was described for the patient and questions were answered. Blood Pressure: 128/80 ECG is on chart. Rhythm: Atrial Fibrillation Plan of Care Patient will tolerate the procedure without complications. Adequate level of comfort will be maintained. Hemodynamics will remain stable Patient will recover from procedure without complications. Respiratory function will be maintained. Cardiac rhythm will remain stable. Patient temperature will be maintained. Patient and/or family have verbalized understanding of the procedure. Patient Education Chief Complaint/Reason for Test: Cardiac Cath Developmental Category: Geriatric (65+ years) Developmentally Appropriate for Age: Yes Learning Barriers: None Education Needs: Procedure Education Method: Verbal Information Taught: Cardiac Cath Educational Evaluation: Able to repeat information Intravenous Access Time IV Size Location DC'd Fluid/Drip Rate Units RN 20g 1 04/15" Patent On Arrival Lt Antecubital 0.9NaCl 50 ml/hr Geoff Robles RN Allergies ibuprofen Vital Signs Time BP (mmHg) HR (bpm) O2 Sat. RR (bpm) LOC 12:12 PM / % 5 = Fully awake and oriented or at pre-proc level 12:12 PM / % 4 = Oriented but drowsy 12:27 PM / % 4 = Oriented but drowsy 12:43 PM / % 4 = Oriented but drowsy 12:58 PM / % 4 = Oriented but drowsy 12:14 PM 103 / 52 193 94 % 14 12:19 PM 128 / 80 107 96 % 21 12:24 PM 122 / 82 112 95 % 10 12:29 PM 129 / 90 106 94 % 22 12:34 PM 122 / 83 98 94 % 19 12:39 PM 129 / 95 96 94 % 14 12:44 PM 129 / 86 131 93 % 22 12:49 PM 111 / 88 99 93 % 12:54 PM 121 / 81 109 95 % 21 12:59 PM 118 / 84 103 93 % 20 01:04 PM 120 / 79 103 94 % 22 01:09 PM 121 / 77 % Procedural Medications Time Medication Dose Units Method Given By 12:12 PM Oxygen 2 L/min nasal cannula Geoff Robles RN 12:13 PM Versed 2 mg Intravenous Geoff Robles RN 12:13 PM Fentanyl 50 mcg Intravenous Geoff Robles RN 12:23 PM Benadryl 25 mg Intravenous Geoff Robles RN 12:24 PM Lidocaine 2% 20 ml Subcutaneous Jennifer Henson MD, FAC 12:39 PM Angiomax 0.75mg/kg bolus: 16.5 ml Intravenous Geoff Robles RN 12:39 PM Angiomax 1.75mg/kg/hr: 38.5 ml Intravenous Geoff Robles RN 12:40 PM Versed 1 mg Intravenous Geoff Robles RN 12:40 PM Fentanyl 25 mcg Intravenous Geoff Robles RN 01:03 PM Nitroglycerin 200 mcg Intracoronary Jennifer Henson MD, FACC 01:15 PM Brilinta 180 mg Orally crushed Geoff Robles RN ASA Classification: CLASS II- Mild systemic disease (i.e. well-controlled diabetes, hypertension, asthma, cigarette smoking) Danny Score Preprocedure Postprocedure Activity 2- Moves 4 extremities sustained head lift Activity 2- Moves 4 extremities sustained head lift Circulation 2- SBP +/= 20 points of pre-anesthetic level Circulation 2- SBP +/= 20 points of pre-anesthetic level Consciousness 2- Awake and alert oriented x 3 Consciousness 2- Awake and alert oriented x 3 O2 Saturation 2- Able to maintain O2 satruation of 92% on room air O2 Saturation 2- Able to maintain O2 satruation of 92% on room air Respiratory 2- Able to deep breathe and cough well Respiratory 2- Able to deep breathe and cough well Total Score 10 Total Score 10 Contrast Agent: Isovue Diagnostic Contrast: 150 ml Total Contrast: 150 ml Fluoro Dose: 52803 mGy Procedure Log Time Note Enter By 12:01 PM Pt arrived to label rewinder 2 at 12:01 [email or web address] 12:01 PM Sun Khan RT (R) Position: Monitor Time in: 12: [email or web address] 12:01 PM Socorro Monroe RT (R) Position: Scrub Time in: 12: [email or web address] 12:01 PM Geoff Robles RN Position: Enterostomal Therapy Nurse Time in: 12:01 [email or web address] 12:01 PM Patient charges- Angio tray pack, Navilyst 3mm J, Pulse Oximetry and ACIST tubing and transducer [email or web address] 12:02 PM CathStat 12:12 PM Physician arrived 12:12 tsites 12:12 PM Meet and greet completed tsites 12:12 PM Sign in performed according to hospital policy. Informed consent was obtained. tsites 12:12 PM Procedure start 12:12 tsites 12:12 PM Time: 12:12 Oxygen on at 2 L/min per nasal cannula by Geoff Robles RN tsites 12:12 PM Time: 12:12 Patient comfortable and pain free: Yes tsites 12:12 PM Time: 12:12LOC: 5 = Fully awake and oriented or at pre-proc level tsites 12:12 PM Clinical Presentation: Non-STEMI tsites 12:13 PM Hair removed from procedure site in procedure lab using clippers. Bilateral groin prepped with Chloraprep by Geoff Robles RN, then patient was draped. Skin intact. tsites 12:13 PM Time: 12:13 Versed 2 mg Intravenous Given by Geoff Robles RN tsites 12:13 PM Time: 12:13 Fentanyl 50 mcg Intravenous Given by Geoff Robles RN tsites 12:13 PM Vitals capture started with the following parameters, Patient=Adult, Interval=5 min, Initial Yqmfxwyt=674 mmHg, Deflation Rate=5 mmHg, Cuff placed on Right Arm 12:14 PM JQ=072 bpm, NGQX=525/52 mmhg, SpO2=94.0 %, Resp=14 B/min, EtCO2=28 mmHg 12:16 PM Recorded ECG: HR=96 Condition=Condition 1 12:16 PM Pressure channel 1 zero failed. 12:19 PM CM=272 bpm, BRDF=804/80 mmhg, SpO2=96.0 %, Resp=21 B/min, EtCO2=36 mmHg 12:21 PM Pressure channel 1 zero failed. 12:21 PM Pressure channel 1 zero failed. 12:21 PM Pressure channel 1 zero failed. 12:21 PM Pressure channel 1 zero failed. 12:23 PM Time out was performed according to hospital policy. Conscious sedation and anesthesia was achieved (see medication log with in this report above) tsites 12:23 PM Time: 12:23 Benadryl 25 mg Intravenous Given by Geoff Robles RN tsites 12:24 PM IV=042 bpm, RJQA=695/82 mmhg, SpO2=95.0 %, Resp=10 B/min, EtCO2=36 mmHg 12:24 PM Time: 12:24 20 ml Lidocaine 2% to right groin Subcutaneous Given by Jennifer Henson MD, [facility] tsites 12:24 PM Access obtained by percutaneous puncture. 5Fr 10cm Terumo [place] sheath placed in right Femoral artery. [id number] tsites 12:25 PM 5Fr FL 4 catheter inserted over the wire [facility] tsites 12:25 PM 0.035 145cm Navilyst 3mmJ wire [id number] tsites 12:25 PM LCA angiography performed in multiple views. tsites 12:26 PM Recorded Pressure: Ao, HR=94, Condition=Condition 1 (Aorta) Ao 92/65/79 12:27 PM wire reinserted catheter removed tsites 12:27 PM Time: 12:12LOC: 4 = Oriented but drowsy tsites 12:27 PM Time: 12:12 Patient comfortable and pain free: Yes tsites 12:28 PM RCA angiography performed in multiple views. tsites 12:29 PM CI=134 bpm, NWSQ=304/90 mmhg, SpO2=94.0 %, Resp=22 B/min 12:30 PM wire reinserted catheter removed tsites 12:31 PM 5Fr IM catheter inserted over the wire [id number] tsites 12:32 PM Recorded Pressure: Ao, NB=698, Condition=Condition 1 (Aorta) Ao 14/-29/-11 12:32 PM wire reinserted catheter removed tsites 12:33 PM 5Fr Pigtail catheter inserted over the wire [facility] tsites 12:33 PM Catheter crossed the aortic valve and was selectively placed in the left ventricle. Pressures recorded on pullback for left heart catheterization. tsites 12:33 PM Pressure channel 1 zero failed. 12:33 PM Pressure channel 1 zero failed. 12:33 PM Pressure channel 1 zero failed. 12:33 PM Recorded Pressure: LV, HA=994, Condition=Condition 1 (Left Ventricle) LV 125/6/20 12:34 PM Bolus angiogram of left Ventricle complete: 8 ml/sec for a total of 24 mls tsites 12:34 PM HR=98 bpm, GXFZ=088/83 mmhg, SpO2=94.0 %, Resp=19 B/min 12:34 PM Recorded Pressure: LV, Ao, HR=90, Condition=Condition 1 (Left Ventricle) LV 223/99/178, (Aorta) Ao 100/75/87 12:35 PM PCI Status Urgent tsites 12:35 PM Sheath exchanged for a 6 Fr 11 cm Cordis Charisse sheath [id number] tsites 12:36 PM Inflation device was opened. tsites 12:39 PM HR=96 bpm, QVRL=534/95 mmhg, SpO2=94.0 %, Resp=14 B/min, EtCO2=36 mmHg 12:39 PM Time: 12:39 Angiomax 0.75mg/kg bolus: 16.5 ml Intravenous Given by Geoff Robles RN Pinedo pump tsites 12:39 PM Time: 12:39 Angiomax 1.75mg/kg/hr: 38.5 ml Intravenous Given by Geoff Robles RN Pinedo pump tsites 12:40 PM 6Fr JR 4 Runway guide catheter was used to cannulate the PCI vessel successfully. reused? No tsites 12:40 PM Time: 12:40 Versed 1 mg Intravenous Given by Geoff Robles RN tsites 12:40 PM Time: 12:40 Fentanyl 25 mcg Intravenous Given by Geoff Robles RN tsites 12:41 PM Filter wire inserted to target lesion. tsites 12:43 PM Time: 12:27 Patient comfortable and pain free: Yes tsites 12:43 PM Time: 12:27LOC: 4 = Oriented but drowsy tsites 12:44 PM BZ=035 bpm, HIZI=206/86 mmhg, SpO2=93.0 %, Resp=22 B/min, EtCO2=36 mmHg 12:48 PM 2.75mm x 16mm Synergy drug-eluting stent across target lesion- successful Lot #[id number] tsites 12:48 PM unable to advance tsites 12:48 PM Stent delivery system removed intact. undeployed tsites 12:48 PM 2.0 mm x 12 mm Emerge Monorail balloon across target lesion- successful. reused? No tsites 12:49 PM Lesion found in Ramus. Pre Stenosis: 95 Pre PURVI Flow: 3: Complete and Brisk Flow/Perfusion tsites 12:49 PM HR=99 bpm, DUUE=889/88 mmhg, SpO2=93.0 %, EtCO2=36 mmHg 12:49 PM Lesion found in Ramus. Pre Stenosis: 80 Pre PURVI Flow: 3: Complete and Brisk Flow/Perfusion tsites 12:51 PM Balloon catheter removed intact. tsites 12:51 PM 1.2 mm x 15 mm Emerge Monorail balloon across target lesion- successful. reused? No tsites 12:52 PM Balloon catheter removed intact. tsites 12:52 PM filter wire removed intact. tsites 12:53 PM .014 [place] 190cm guide wire across target lesion- successful. reused? No tsites 12:54 PM WP=251 bpm, MBTV=369/81 mmhg, SpO2=95 %, Resp=21 B/min 12:54 PM 1.2x 15 balloon reinserted tsites 12:56 PM Balloon inflated @ 10 ozzy for 20 seconds tsites 12:56 PM Balloon catheter removed intact. tsites 12:56 PM 2.75x 16 synergy reinserted tsites 12:58 PM Time: 12:43LOC: 4 = Oriented but drowsy tsites 12:58 PM Time: 12:43 Patient comfortable and pain free: Yes tsites 12:59 PM LA=329 bpm, TQKI=115/84 mmhg, SpO2=93 %, Resp=20 B/min 12:59 PM Stent deployed @ 12 ozzy for 30 seconds tsites 01:00 PM Stent balloon reinflated @ 12 ozzy for 13 seconds tsites 01:00 PM Stent delivery system removed intact. tsites 01:01 PM 2.75mm x 12mm Synergy drug-eluting stent across target lesion- successful Lot #[id number] tsites 01:02 PM Stent deployed @ 14 ozzy for 30 seconds tsites 01:03 PM Stent delivery system removed intact. tsites 01:04 PM Time: 13:03 Nitroglycerin 200 mcg Intracoronary Given by Jennifer Henson MD, [facility] tsites 01:04 PM MR=868 bpm, DUEF=532/79 mmhg, SpO2=94 %, Resp=22 B/min 01:04 PM Guide wire removed intact. tsites 01:05 PM wire reinserted catheter removed tsites 01:05 PM Bolus angiogram of right Femoral complete: 2 ml/sec for a total of 4 mls tsites 01:06 PM Procedure completed at 13:06 05/07/2018 tsites 01:06 PM Sign out completed: Radiation Dose 1575 mGy, 24898 cGy/cm2 Fluoro Time: 14.6 Isovue 370 - 200ml contrast 150 ml given by Jennifer Henson MD, [facility]. Complications: None. The patient was discharged out of the clinical lab clerk in stable condition. Cardiac Rehab Consult needed: YesConfirmed administered medications: No tsites 01:09 PM YZXR=607/77 mmhg 01:09 PM Isovue 370 - 200ml,1 Bottle(s) used. tsites 01:09 PM Sheath left in place to be pulled on floor/holding areaV+Pad tsites 01:09 PM Estimated Blood Loss: less than 20cc tsites 01:09 PM Post ECG Atrial Fibrillation tsites 01:09 PM Post Blood Pressure 121/77 tsites 01:09 PM 13:09 Post Pulses Bilateral DP & PT 2+ tsites 01:10 PM Information taught Cardiac Cath and PCI tsites 01:13 PM Education needs Procedure, Plan of Care, and Responsibilities of Patient in Care tsites 01:13 PM Learning barriers :None tsites 01:13 PM Education Methods Verbal tsites 01:13 PM Education evaluation Able to repeat information tsites 01:13 PM Site status No bleeding/hematoma - Rt Groin as reported by Socorro Monroe RT (R) at 13:13 tsites 01:13 PM Opsite applied tsites 01:13 PM Plavix, Effient or Brilinta given Yes tsites 01:13 PM Delay to floor No tsites 01:13 PM no family tsites 01:14 PM Time: 12:58 Patient comfortable and pain free: Yes tsites 01:14 PM Time: 12:58LOC: 4 = Oriented but drowsy tsites 01:15 PM Time: 13:15 Brilinta 180 mg Orally crushed Given by Geoff Robles RN tsites 01:17 PM Report given to bettie [email or web address] Pt taken to ICU Room #7. 13:17 tsites 01:17 PM Patient out of room: 13:17 tsites 01:22 PM Lesion found in Proximal RCA. Pre Stenosis: 100 Pre PURVI Flow: tsites 01:22 PM Lesion found in Proximal LMCA. Pre Stenosis: 50 Pre PURVI Flow: tsites 01:22 PM Lesion found in Distal LMCA. Pre Stenosis: 99 Pre PURVI Flow: tsites 01:23 PM Lesion found in Proximal LAD. Pre Stenosis: 100 Pre PURVI Flow: tsites 01:23 PM Lesion found in Proximal Circumflex. Pre Stenosis: 90 Pre PURVI Flow: tsites 01:23 PM Lesion found in 1st Marginal. Pre Stenosis: 50 Pre PURVI Flow: tsites 01:24 PM Lesion found in Ramus. Pre Stenosis: 100 Pre PURVI Flow: tsites Complications Complication None Hemodynamics Pressures Site Systolic/A Wave Diastolic/V Wave Mean AO 92 65 79 AO 14 -29 -11 LV 125 6 20 LV 223 99 178 AO 100 75 87 Post Procedure Information Blood Pressure: 121/77 mmHg Rhythm: Atrial Fibrillation Post procedural instructions were given Closure Device Time Device Success/Fail 05/07/2018 1:21:00 PM Manual Compression Site Checks Time Location Status Staff Sheath In? Note 01:13 PM Rt Groin No bleeding/hematoma Socorro Monroe RT (R) Pulses Time Site Pre-Procedure Post-Procedure Note Bilateral DP & PT 1+ Bilateral radial 2+ 1:09:00 PM Bilateral DP & PT 2+ Updated by Sun Khan RT (R) on 05/07/2018 1:35:34 PM Sun Khan RT electronically signed on 05/07/2018 1:36:08 PM with status of Final
[2018-05-07] MEDS ORDERED: *HR* LORazepam 2 MG/ML VIAL IVP ONE (14:47)
[2018-05-07] MEDS ORDERED: *HR* Metoprolol 5 MG/5 ML VIAL IVP ONE ×3 (14:48→14:57)
[2018-05-07] MEDS ORDERED: methylPREDNISolone 125 MG/2 ML VIAL ONE (14:53)
[2018-05-07] MEDS ORDERED: *HR* Morphine 2 MG/ML SYRINGE IVP ONE (14:55)
[2018-05-07] MEDS: methylPREDNISolone 125 MG/2 ML VIAL IVP ONE ×2 (14:56→15:13)
[2018-05-07] MEDS ORDERED: Ondansetron 4 MG/2 ML VIAL ONE (15:22)
[2018-05-07] MEDS ORDERED: Furosemide 40 MG/4 ML VIAL IVP ONE (15:25)
[2018-05-07] MEDS ORDERED: Ondansetron 4 MG/2 ML VIAL IVP PRN (15:27)
[2018-05-07] MEDS ORDERED: *HR* Morphine 2 MG/ML SYRINGE IVP PRN (15:34)
[2018-05-07] MEDS: Ipratropium Neb 0.5 MG NEBULIZER IH SCH ×2 (16:07→19:52)
[2018-05-07] MEDS: Levalbuterol Neb 0.63 MG/3 ML IH SCH ×2 (16:07→19:52)
--- NOTE | 2018-05-07 16:11 | Event Note ---
<Kane James - Last Filed: 05/07/18 15:58> Date of Encounter: 05/07/18 Time of Encounter: 14:40 Rapid response was called on this patient at approximately 1440 and I responded immediately. I presented to the room where the patient was in atrial fibrillation with rapid ventricular response. He appeared in severe distress and was pale, cool and diaphoretic. I reviewed the patient's history with the nurse. He was admitted for an STEMI and had cardiac catheterization today with 2 stents. On my arrival, the patient had a heart rate of 144 those irregularly irregular. Blood pressure was elevated with systolic blood pressure in 140s, and heart rate greater than 35. His respiratory sounds included significant wheezes bilaterally with diminished breath sounds. I was informed that Dr. Jennifer Henson had been informed of the patient's current condition and had ordered a Cardizem drip however it was on route from pharmacy. I was also informed that the patient had received 10 mg push with little effect. I immediately ordered for the patient to receive 5 mg of Lopressor q5m and for his blood pressure to be recycled. I also ordered 125 mg Solu-Medrol IV. She did not complain of significant chest pain however he did have significant shortness of breath and a sense of impending doom and felt that he was going to . He continued to stay very diaphoretic. Blood pressure remained strongly give the patient 1 mg of Ativan and 2 mg of IV morphine. Cardizem drip was initiated first at 5 mg and then uptitrated to 10 mg with very little success. The Lopressor pushes did initially break the RVR, however he rapidly went back into atrial fibrillation with RVR. Dr. Jennifer Henson was contacted again and spoke with the patient's nurse. It was her opinion that the symptoms may be associated with crush Sultana toe which the patient received prior to catheterization. She recommended that the patient received 40 mg Lasix IV, IV Ativan/Valium for supportive measures, and breathing treatments. I continued IV morphine as the patient appears to be suffering from pain and symptoms related to the NSTEMI from which he presented. the patient has improved clinically however he will continue to be monitored in the ICU. his cardizem drip is currently at 15mg and he appears to be more comfortable. HR has come down to 100-115 with intermittent bumps. He no longer feels as though he will . <Eduar Hayes T - Last Filed: 05/07/18 16:24> Date of Encounter: 05/07/18 Symptomatic but stable Afib with RVR, as well as anxiety , he may have some COPDE component as he was wheezing diffusely. I was present for most of the event and agree with Dr. James's documentation as above
[2018-05-07] MEDS ORDERED: *HR* Heparin 5,000 UNIT/ML VIAL IVP PRN ×2 (18:00)
[2018-05-07] MEDS ORDERED: *HR* Heparin 5,000 UNIT/ML VIAL IVP ONE (18:00)
[2018-05-07] MEDS: Insulin DETEMIR 100 UNIT/ML X5UNITS SQ SCH (21:20)
[2018-05-07] MEDS: hydroCHLOROthiazide 25 MG TABLET PO SCH (21:22)
[2018-05-08] MEDS: Levalbuterol Neb 0.63 MG/3 ML IH SCH ×6 (00:30→21:07)
[2018-05-08] MEDS: Ipratropium Neb 0.5 MG NEBULIZER IH SCH ×6 (00:30→21:07)
[2018-05-08] MEDS: Heparin 25,000 UNIT/500 ML D5W 25,000 UNIT/500 ML BAG IVC SCH ×3 (01:30→16:37)
[2018-05-08] MEDS: Tiotropium 18 MCG inhalation IH SCH (07:49)
[2018-05-08 08:24] LABS: Basophils % 0.1 %; Eosinophils % 0.1 %; Hematocrit 38.8 % (37.5-50.1); Hemoglobin 12.7 g/dL (12.9-16.9); Immature Granulocytes % 0.6 % (0-4); Lymphocytes # 0.9 K/mcL (0.6-4.6); Lymphocytes % 9.5 %; Mean Corpuscular HGB Conc 32.7 g/dL (31.6-35.5); Mean Corpuscular Hemoglobin 30.2 pg (28.0-33.3); Mean Corpuscular Volume 92.2 fL (83.0-100.0); Mean Platelet Volume 11.9 fL (9.4-12.4); Monocytes # 0.6 K/mcL (0.0-1.3); Monocytes % 5.6 %; Neutrophils # 8.3 K/mcL (1.6-8.9); Platelet Count 151 K/mcL (140-400); Red Blood Count 4.21 M/mcL (4.19-5.50); Red Cell Distribution Width 13.9 % (11.5-14.5); Segmented Neutrophils % 84.1 %
[2018-05-08 08:43] LABS: BUN/Creatinine Ratio 21 (6-26); Blood Urea Nitrogen 19 mg/dL (8-23); Calcium 9.3 mg/dL (8.6-10.3); Carbon Dioxide 23 mEq/L (23-29); Chloride 107 mEq/L (98-107); Glucose 169 mg/dL (70-105); Osmolality,Calculated 298 (280-300); Potassium 3.6 mEq/L (3.5-5.1); Sodium 141 mEq/L (136-145); eGFR For Non-African Americans > 60 (> 60)
[2018-05-08] MEDS: Pregabalin 75 MG CAPSULE PO SCH (09:04)
[2018-05-08] MEDS: Aspirin Enteric Coated 81 MG Tablet PO SCH (09:04)
[2018-05-08] MEDS: Insulin LISPRO 300 UNITS/3 ML VIAL SQ SCH ×4 (09:05→20:46)
--- NOTE | 2018-05-08 10:44 | Internal Med Progress Note ---
Hospitalist Progress Note - Encounter Date of Encounter: 05/08/18 Time of Encounter: 10:25 - Subjective Interval History: Patient is doing better today. Denies any chest pain or palpitations. No nausea or vomiting. No shortness of breath. Wants to get up from bed and ambulate in his room. - Exam Vitals: Temp Pulse Resp BP Pulse Ox 98.4 F 98 16 93/78 98 05/08/18 00:26 05/08/18 08:00 05/08/18 07:35 05/08/18 06:00 05/08/18 10:00 Exam: General: Patient is alert, no acute distress, oriented x 3 ENT: Mucous membranes moist Respiratory: Good respiratory effort. Normal breath sounds. No wheezing or crackles. Cardiovascular: Regular rate and rhythm. s1 and s2 normal No clicks, rubs, gallops, or murmurs. No pedal edema Abdomen: Abdomen is soft, nontender. Bowel sounds are present Musculoskeletal: Spontaneously moving all extremities Skin: warm, dry, intact. Neuro: Alert oriented x 3 normal cranial nerves, no focal deficits - Assessment and Plan (1) NSTEMI (non-ST elevated myocardial infarction) Current Visit: Yes Status: Acute Assessment and Plan: Status post-left heart catheterization and placement of drug-eluting stents. Continue aspirin and Plavix. Plan is for staged PCI possibly tomorrow. (2) Afib Current Visit: Yes Status: Chronic Assessment and Plan: Patient's Cardizem drip was held earlier this morning. Heart rate ranging bet ween 101 10 at this time. Patient is asymptomatic. Continue IV heparin. (3) Diabetes Current Visit: Yes Status: Chronic Assessment and Plan: Blood glucose 150 this morning. Continue current sliding scale insulin and Levemir. We will continue to monitor blood sugars closely. (4) Hypertension Current Visit: Yes Status: Chronic Assessment and Plan: Blood pressure is well controlled. We will continue to monitor closely. (5) DVT prophylaxis Current Visit: Yes Status: Acute Assessment and Plan: Continue IV heparin (6) Hypokalemia Current Visit: Yes Status: Acute Assessment and Plan: Resolved. - Time Spent with Patient Total time spent is greater than 50% in coordination of care (as documented) at patient's floor/unit and/or counseling patient: Plan of Care Discussed with: patient Internal Medicine: Result - Labs CBC & Chem 7: 05/08/18 07:53 05/08/18 07:53 Labs: Short CBC 05/08/18 Range/Units 07:53 WBC 9.9 (4.3-11.1) K/mcL Hgb 12.7 L (12.9-16.9) g/dL Hct 38.8 (37.5-50.1) % Plt Count 151 (140-400) K/mcL Neutrophils # 8.3 (1.6-8.9) K/mcL BMP 05/08/18 07:53 Sodium 141 Potassium 3.6 Chloride 107 Carbon Dioxide 23 BUN 19 Creatinine 0.90 Glucose 169 H Calcium 9.3 - ABG Interpretation ABG results: PT/INR, D-dimer PT 15.4 Seconds (9.4-12.1) H 05/06/18 19:34 Consult Discharge Plan - Plan Referrals: Pennie Guardado [Primary Care Provider] - (2) Afib Qualifiers: Atrial fibrillation type: unspecified Qualified Code(s): I48.91 - Unspecified atrial fibrillation (3) Diabetes Qualifiers: Diabetes mellitus type: type 2 Diabetes mellitus mcfp insulin use: with intermediate school teacher use Diabetes mellitus complication status: with unspecified complications Qualified Code(s): E11.8 - Type 2 diabetes mellitus with unspecified complications; Z79.4 - terminal clerk (current) use of insulin (4) Hypertension Qualifiers: Hypertension type: essential hypertension Qualified Code(s): I10 - Essential (primary) hypertension
--- NOTE | 2018-05-08 10:49 | Cardiology Progress Note ---
Date of Encounter: 05/08/18 Time of Encounter: 10:47 Assessment and Plan Discussion w patient/family: The assessment and plan as outlined above was discussed with the patient and/or family members who expressed understanding and agreement. All questions were answered. Thank you for involving us in the care of your patient. Please call with any questions. Stable, NSTEMI. Plan for staged PCI, possibly tomorrow. Continue rate control for AF. Subjective Principal diagnosis: NSTEMI Interval history: Episode of SOB yesterday, possibly secondary to Brillinta. Has resolved. No symptoms today. Objective Vital Signs, Last 4 Hours Temp Pulse Resp BP Pulse Ox 05/08/18 10:00 98 05/08/18 09:00 111 16 144/105 95 05/08/18 08:00 97.5 F L 99 18 143/93 93 05/08/18 07:35 16 97 05/08/18 07:00 98 18 96/64 98 General: Conversant, No Apparent Distress HEENT: Atraumatic, Normocephaly, Mucus Membranes Moist Neck: No JVD, Normal carotid pulses Cardiac: Reg Rate and Rhythm, Normal S1 and S2, No Murmur Lungs: Normal Breath Sounds, No Wheeze, Rales, Rhonchi Neuro: Alert and responsive, No focal deficits noted Abdomen: Soft, Non-Tender Skin: No rashes noted on visualized skin Results 05/08/18 07:53 05/08/18 07:53 Lab Results 05/08/18 05/08/18 07:53 07:53 WBC 9.9 Hgb 12.7 L Hct 38.8 Plt Count 151 Sodium 141 Potassium 3.6 Chloride 107 Carbon Dioxide 23 BUN 19 Creatinine 0.90 Glucose 169 H Calcium 9.3 Consult Discharge Plan - Plan Referrals: Pennie Guardado [Primary Care Provider] -
[2018-05-08] MEDS: hydroCHLOROthiazide 25 MG TABLET PO SCH (20:44)
[2018-05-08] MEDS: Insulin DETEMIR 100 UNIT/ML X5UNITS SQ SCH (20:44)
[2018-05-08] MEDS: Budesonide/Formoterol 160/4.5 1 PUFF INH IH SCH (21:06)
[2018-05-08] MEDS: Cholecalciferol (D-3) 1,000 UNIT TABLET PO SCH (21:06)
[2018-05-09] MEDS: Levalbuterol Neb 0.63 MG/3 ML IH SCH ×7 (00:13→23:38)
[2018-05-09] MEDS: Ipratropium Neb 0.5 MG NEBULIZER IH SCH ×7 (00:13→23:38)
[2018-05-09 06:58] LABS: Basophils # 0.1 K/mcL (0.0-0.2); Basophils % 0.7 %; Eosinophils # 0.2 K/mcL (0.0-0.6); Eosinophils % 1.9 %; Hematocrit 39.8 % (37.5-50.1); Hemoglobin 12.9 g/dL (12.9-16.9); Immature Granulocytes % 0.1 % (0-4); Lymphocytes # 2.9 K/mcL (0.6-4.6); Lymphocytes % 27.6 %; Mean Corpuscular HGB Conc 32.4 g/dL (31.6-35.5); Mean Corpuscular Hemoglobin 29.5 pg (28.0-33.3); Mean Corpuscular Volume 91.1 fL (83.0-100.0); Mean Platelet Volume 11.6 fL (9.4-12.4); Monocytes # 0.8 K/mcL (0.0-1.3); Monocytes % 7.2 %; Neutrophils # 6.6 K/mcL (1.6-8.9); Platelet Count 147 K/mcL (140-400); Red Blood Count 4.37 M/mcL (4.19-5.50); Red Cell Distribution Width 13.6 % (11.5-14.5); Segmented Neutrophils % 62.5 %
[2018-05-09 07:17] LABS: BUN/Creatinine Ratio 26 (6-26); Blood Urea Nitrogen 23 mg/dL (8-23); Calcium 9.2 mg/dL (8.6-10.3); Carbon Dioxide 25 mEq/L (23-29); Chloride 106 mEq/L (98-107); Glucose 176 mg/dL (70-105); Osmolality,Calculated 296 (280-300); Potassium 3.7 mEq/L (3.5-5.1); Sodium 139 mEq/L (136-145); eGFR For Non-African Americans > 60 (> 60)
[2018-05-09] MEDS: Heparin 25,000 UNIT/500 ML D5W 25,000 UNIT/500 ML BAG IVC SCH ×2 (08:04→23:10)
[2018-05-09] MEDS: Cholecalciferol (D-3) 1,000 UNIT TABLET PO SCH (08:05)
[2018-05-09] MEDS: Pregabalin 75 MG CAPSULE PO SCH (08:05)
[2018-05-09] MEDS: Aspirin Enteric Coated 81 MG Tablet PO SCH (08:06)
[2018-05-09] MEDS: Iron Polysaccharide Complex 150 MG CAPSULE PO SCH (08:06)
[2018-05-09] MEDS: Insulin LISPRO 300 UNITS/3 ML VIAL SQ SCH ×4 (08:07→20:02)
[2018-05-09] MEDS: Budesonide/Formoterol 160/4.5 1 PUFF INH IH SCH ×2 (08:18→20:13)
[2018-05-09] MEDS: Tiotropium 18 MCG inhalation IH SCH (08:20)
--- NOTE | 2018-05-09 08:49 | Internal Med Progress Note ---
<Emiliano Dominguez - Last Filed: 05/09/18 12:05> Hospitalist Progress Note - Encounter Date of Encounter: 05/09/18 Time of Encounter: 10:00 - Exam Vitals: Temp Pulse Resp BP Pulse Ox 98.5 F 106 24 132/86 99 05/09/18 07:53 05/09/18 11:00 05/09/18 11:00 05/09/18 11:00 05/09/18 11:00 - Assessment and Plan (1) NSTEMI (non-ST elevated myocardial infarction) Current Visit: Yes Status: Acute (2) Afib Current Visit: Yes Status: Chronic (3) Diabetes Current Visit: Yes Status: Chronic (4) Hypertension Current Visit: Yes Status: Chronic (5) DVT prophylaxis Current Visit: Yes Status: Acute (6) Hypokalemia Current Visit: Yes Status: Acute - Time Spent with Patient Total time spent is greater than 50% in coordination of care (as documented) at patient's floor/unit and/or counseling patient: Internal Medicine: Result - Labs CBC & Chem 7: 05/09/18 06:23 05/09/18 06:23 Labs: Short CBC 05/09/18 Range/Units 06:23 WBC 10.5 (4.3-11.1) K/mcL Hgb 12.9 (12.9-16.9) g/dL Hct 39.8 (37.5-50.1) % Plt Count 147 (140-400) K/mcL Neutrophils # 6.6 (1.6-8.9) K/mcL BMP 05/09/18 06:23 Sodium 139 Potassium 3.7 Chloride 106 Carbon Dioxide 25 BUN 23 Creatinine 0.88 Glucose 176 H Calcium 9.2 - ABG Interpretation ABG results: PT/INR, D-dimer PT 15.4 Seconds (9.4-12.1) H 05/06/18 19:34 Consult Discharge Plan - Plan Referrals: Pennie Guardado [Primary Care Provider] - Prescriptions: Apixaban [Eliquis] 5 mg PO BID #60 tablet - Attending Attestation I saw evaluated and examined this patient and my medical decision-making was reviewed with the Resident Physician, Skyler Vidales. I agree with the documented findings, disposition and treatment plan as described except to any changes set forth below. We independently had [id number] contact with the patient. Patient is doing better today. Denies any more chest pain. Has been nothing by mouth overnight in anticipation for possible high risk PCI planned for later today. Denies any palpitations. No nausea or vomiting. General: Patient is alert, no acute distress, oriented x 3 Respiratory: Good respiratory effort. Normal breath sounds. No wheezing or crackles. Cardiovascular: Regular rate and rhythm. s1 and s2 normal No clicks, rubs, gal lops, or murmurs. No pedal edema Abdomen: Abdomen is soft, nontender. Bowel sounds are present Musculoskeletal: Spontaneously moving all extremities Skin: warm, dry, intact. Neuro: Alert oriented x 3 normal cranial nerves, no focal deficits Acute non-ST elevation RI: Patient found to have severe three-vessel disease. Had successful drug-eluting stents placed in the proximal and distal body of the SVG to ramus. Cardiology following. Plan for staged PCI of left main and proximal circumflex. Continue aspirin, Plavix, statin and metoprolol. High risk for complications Atrial fibrillation with RVR: Rate controlled this morning. We will resume oral Cardizem that the patient was taking at home. Continue metoprolol. Plan for anticoagulation with Eliquis at discharge. Patient remains on IV heparin for now. Diabetes mellitus type 2: Fairly controlled. Continue current insulin regimen. Essential hypertension: Blood pressure is well controlled at this time. DVT prophylaxis with IV heparin at this time. <Skyler Vidales - Last Filed: 05/09/18 14:52> Hospitalist Progress Note - Encounter Date of Encounter: 05/09/18 Time of Encounter: 08:49 - Subjective Interval History: Patient was seen and examined at bedside this morning. He states that overall he is feeling well with no complaints at this time. His chest pain has resolved and has not been present since his admission. He did undergo a left heart catheterization yesterday with 1 stent placed. He tolerated the procedure well. No overnight events. - Exam Vitals: Temp Pulse Resp BP Pulse Ox 98.5 F 119 20 199/67 97 05/09/18 07:53 05/09/18 08:19 05/09/18 08:19 05/09/18 08:19 05/09/18 08:19 Exam: Gen.: Vitals noted. No acute distress. AAOx3, resting comfortably in bed. HEENT: PERRL/EOMI, oropharynx clear, Normocephalic, atraumatic, MMM Cardiac: Irregularly irregular rhythm, rate controlled. no murmur, +S1/S2, No BLE edema Pulmonary: CTA bilaterally, no wheezes, rales or rhonchi, equal chest expansion, unlabored breathing Abdomen: soft, nontender, BS noted, no guarding, no palpable HSM Skin: warm and dry, no visible lesions. MSK: ROM not assessed, no joint swelling noted, gait no assessed while in bed. Non tender calf or clubbing Neuro: A&Ox3, moves all extremities, no focal deficits, sensation intact Psych: Appropriate mood and behavior, AOx3 - Assessment and Plan (1) NSTEMI (non-ST elevated myocardial infarction) Current Visit: Yes Status: Acute Assessment and Plan: - Patient presented with chest pains, resolved. - Previous history of CAD status post CABG in 2005 - Troponin on presentation peaked at 2.01 - Lateral ST depressions on EKG on presentation - Cardiology has been consulted, appreciate recommendations - Patient is status post left heart catheterization with 1 drug-eluting stent placed on 05/08/18 - Echocardiogram 05/06/18 shows ejection fraction of 5055% with indeterminate diastolic dysfunction - LHC on 05/08/18 shows severe three-vessel CAD and EF of 50%. Successful ANGELINA to the proximal and distal body of the SVG to ramus. Patent bypass grafts - Patient also notably had a reaction to Brillinta, has been monitored in ICU. Desaturated, became cool, diaphoretic, feeling of impending , please see event note. Plan - Patient scheduled for staged PCI of left main, proximal circumflex this afternoon - Continue aggressive medical management - Continue medications per cardiology recommendations including DAPT (2) CAD (coronary artery disease) Current Visit: Yes Status: Chronic Assessment and Plan: - As above for NSTEMI (3) Afib Current Visit: Yes Status: Chronic Assessment and Plan: - Per cardiology note, new onset - Currently in normal sinus rhythm - Possibly brought on by NSTEMI above/ischemia - Currently rate is elevated and 130s - Cardiology following, appreciate recommendations - Currently anticoagulated with heparin drip for NSTEMI as above Plan - Continue rate control as BP allows. Currently on cardizem 360 mg, metoprolol 100 mg BID - Per cardiology notes, to discuss anticoagulation as outpatient after PCI today (4) Diabetes Current Visit: Yes Status: Chronic Assessment and Plan: - Relatively well controlled on this admission with most recent reading of 169 - Insulin-dependent at home with 30 units twice a day basal - Hemoglobin A1c on 05/08/18 of 6.6% - Continue sliding scale insulin, ADA diet when cleared by cardiology (5) Hypertension Current Visit: Yes Status: Chronic Assessment and Plan: - We will control this time with most recent reading of 103/83 - Continue home medications (6) DVT prophylaxis Current Visit: Yes Status: Acute Assessment and Plan: - On heparin gtt for NSTEMI as above - Time Spent with Patient Total time spent is greater than 50% in coordination of care (as documented) at patient's floor/unit and/or counseling patient: Internal Medicine: Result - Labs CBC & Chem 7: 05/09/18 06:23 05/09/18 06:23 Labs: Short CBC 05/09/18 Range/Units 06:23 WBC 10.5 (4.3-11.1) K/mcL Hgb 12.9 (12.9-16.9) g/dL Hct 39.8 (37.5-50.1) % Plt Count 147 (140-400) K/mcL Neutrophils # 6.6 (1.6-8.9) K/mcL BMP 05/09/18 06:23 Sodium 139 Potassium 3.7 Chloride 106 Carbon Dioxide 25 BUN 23 Creatinine 0.88 Glucose 176 H Calcium 9.2 - ABG Interpretation ABG results: PT/INR, D-dimer PT 15.4 Seconds (9.4-12.1) H 05/06/18 19:34 <Emiliano Dominguez - Last Filed: 05/09/18 12:05> (2) Afib Qualifiers: Atrial fibrillation type: unspecified Qualified Code(s): I48.91 - Unspecified atrial fibrillation (3) Diabetes Qualifiers: Diabetes mellitus type: type 2 Diabetes mellitus terminal superintendent insulin use: with terminal superintendent use Diabetes mellitus complication status: with unspecified complications Qualified Code(s): E11.8 - Type 2 diabetes mellitus with unspecified complications; Z79.4 - [facility] (current) use of insulin (4) Hypertension Qualifiers: Hypertension type: essential hypertension Qualified Code(s): I10 - Essential (primary) hypertension <Skyler Vidales - Last Filed: 05/09/18 14:52> (2) CAD (coronary artery disease) Qualifiers: Coronary Disease-Associated Artery/Lesion type: bypass graft [place] vs. transplanted heart: [place] heart Associated angina: without angina Qualified Code(s): I25.810 - Atherosclerosis of coronary artery bypass graft(s) without angina pectoris (3) Afib Qualifiers: Atrial fibrillation type: unspecified Qualified Code(s): I48.91 - Unspecified atrial fibrillation (4) Diabetes Qualifiers: Diabetes mellitus type: type 2 Diabetes mellitus prison insulin use: with prison use Diabetes mellitus complication status: with unspecified complications Qualified Code(s): E11.8 - Type 2 diabetes mellitus with unspecified complications; Z79.4 - [facility] (current) use of insulin (5) Hypertension Qualifiers: Hypertension type: essential hypertension Qualified Code(s): I10 - Essential (primary) hypertension
[2018-05-09 09:07] LABS: Estimated Average Glucose 143 mg/dl; Hemoglobin A1C 6.6 %
--- NOTE | 2018-05-09 09:18 | Event Note ---
Date of Encounter: 05/09/18 Time of Encounter: 09:16 - Cardiology Event Note Plan for review of [facility] films by interventionalist and possible [facility] later today for staged PCI with rotablade later today. Patient denies chest pain or SOB. He is resting comfortable. Remains of heparin gtt for afib. I will antonio check eliquis for d/c planning. Indication for snf AC with coumadin or NOAC reviewed. Patient voiced understanding. Continue asa, plavix, statin, bb. [facility] 05/07/18: There is a 50% stenosis in the Proximal LMCA. Heavily calicified There is a 99% stenosis in the Distal LMCA. heavily calcified * Left Anterior Descending There is a 100% stenosis in the Proximal LAD- GRADE AND CENTER MARKER. * Circumflex There is a 90% stenosis in the Proximal Circumflex- heavy calicified There is a 50% stenosis in the 1st Marginal. * Ramus There is a 12 mm long, 95% stenosis in the proximal body of the SVG to Ramus. The lesion has a PURVI flow of 3 and has no thrombus present. An intervention was performed on the svg to Ramus with a final stenosis of 0%. There were no lesion complications. The final PURVI flow was 3. There is a 16 mm long, 80% stenosis in the distal body of the SVG to Ramus. The lesion has a PURVI flow of 3 and has no thrombus present. An intervention was performed on the svg to Ramus with a final stenosis of 0%. There were no lesion complications. The final PURVI flow was 3. There is a 100% stenosis in the [place] Ramus. * Right Coronary Artery There is a 100% stenosis in the Proximal RCA- GRADE AND CENTER MARKER. Additional Findings: Grafts * The saphenous vein graft to the 1st Diagonal is occluded. * The left internal mammary graft to the LAD is patent. * The saphenous vein graft to the Right PDA is occluded. * The saphenous vein graft to the Ramus has a 95% stenosis in the proximal body of graft and 80% stenosis in the distal body of graft. Vital Signs Temp Pulse Resp BP Pulse Ox 05/09/18 09:00 89 20 115/63 95 05/09/18 08:19 119 20 99/67 97 05/09/18 07:53 98.5 F 05/09/18 07:00 98 20 123/92 96 05/09/18 06:00 102 17 126/73 93 05/09/18 05:01 96 15 112/66 93 05/09/18 04:45 16 94 05/09/18 04:02 97.8 F 83 19 108/74 94 05/09/18 03:00 100 16 113/74 94 05/09/18 02:18 105 05/09/18 02:00 97.8 F 91 16 117/80 94 05/09/18 01:01 107 16 114/72 94 05/09/18 00:16 96 14 102/63 95 05/09/18 00:13 18 95 05/08/18 23:00 97.7 F 101 17 120/71 95 05/08/18 22:00 112 16 105/61 95 05/08/18 21:09 14 97 05/08/18 21:00 108 14 112/83 94 05/08/18 20:21 97.7 F 05/08/18 20:00 118 19 127/84 95 05/08/18 19:00 99 18 143/86 95 05/08/18 18:00 115 18 103/76 94 05/08/18 17:00 100 14 119/62 91 05/08/18 16:00 100 16 117/63 05/08/18 15:54 97.7 F 05/08/18 15:35 20 96 05/08/18 15:00 104 16 125/85 95 05/08/18 14:00 99 18 112/81 05/08/18 12:16 98.4 F 05/08/18 12:00 81 16 115/76 94 05/08/18 11:30 16 97 05/08/18 11:00 86 16 91/63 96 05/08/18 10:00 93 16 112/67 99 Intake and Output 05/08/18 05/09/18 05/09/18 23:59 07:59 15:59 Intake Total 279 / 279 500 / 500 Output Total 800 / 800 350 / 350 500 / 500 Balance -521 / -521 150 / 150 -500 / -500 Intake: IV Fluids 279 / 279 500 / 500 Heparin 25,000 UNIT/500 ML D5W 279 / 279 500 / 500 25,000 unit In 500 ml @ 14 UNIT /KG/HR 30.688 mls/hr IVC . [id number] NEREIDA Rx#:[id number] Output: Urine 800 / 800 500 / 500 Catheter 350 / 350 Other: Stool Size Moderate Stool Consistency formed Stool Color Brown # Bowel Movements 1 Weight 115 kg 115 kg Blood Glucose* 210 156 Patient Weight 05/09/18 23:59 Weight 115 kg
--- NOTE | 2018-05-09 10:03 | Electrocardiograph Report ---
[address] [place], [place] [address] Test Date: 2018-05-06 Pat Name: [facility] Department: EXAMC1 Room: [facility] Gender: M Learning Consultant: : 1955 Requested By: Truman Fisher Order Number: [id number] Reading MD: Hair Bates Measurements Intervals [place] Rate: 77 P: [place]: QRS: 73 QRSD: 112 T: 167 QT: 366 QTc: 415 Interpretive Statements Atrial fibrillation Ventricular premature complex Borderline intraventricular conduction delay Abnormal T, consider ischemia, lateral leads Electronically Signed On 05-09-2018 10:02:11 EST by Hair Bates
[2018-05-09] MEDS ORDERED: *HR* Heparin 10,000 UNIT/10 ML VIAL ONE (12:18)
[2018-05-09] MEDS ORDERED: Heparin 1,000 UNITS/500 mL 500 ML ONE (12:18)
[2018-05-09] MEDS ORDERED: 0.9 % Sodium Chloride 1,000 ML ONE ×5 (12:18→16:51)
[2018-05-09] MEDS ORDERED: ISOVUE-370 200 ML INFUS..BTL ONE ×3 (12:18→15:17)
[2018-05-09] MEDS ORDERED: Nitroglycerin 1,000 MCG/10 ML VIAL IV ONE (12:19)
[2018-05-09] MEDS: Diltiazem CD (24hr) 180 MG CAPSULE PO SCH (13:08)
--- NOTE | 2018-05-09 14:02 | Pre-Sedation Evaluation ---
Pre-sedation evaluation - Pre-sedation checklist Date of procedure: 05/09/18 Procedure: Heart sadie Recent Vitals: Last Vital Signs Temp 98.6 F 05/09/18 12:08 Pulse 135 05/09/18 13:00 Resp 18 05/09/18 13:00 BP 103/83 05/09/18 13:00 Pulse Ox 96 05/09/18 13:00 H&P (including ROS) documented in medical record: Yes Previous reaction to sedatives/anesthetics: Yes; explain in comment Dietary Status: NPO after Midnight Dentition: No loose teeth or bridges ASA Classification *see protocol: CLASS II-Mild systemic disease Cardiac Registry (Cardio Only) - Functional Capacity Functional Capacity: >=4 METS with symptoms - Clincal Frailty Scale Clinical Frailty Scale: Managing Well
[2018-05-09] MEDS ORDERED: *HR* FentaNYL (PF) 100 MCG/2 ML VIAL ONE (14:06)
[2018-05-09] MEDS ORDERED: *HR* Midazolam HCl 2 MG/2 ML VIAL ONE (14:06)
[2018-05-09] MEDS ORDERED: *HR* Atropine Sulfate 1 MG/10 ML SYRINGE ONE ×2 (14:17→16:51)
[2018-05-09] MEDS ORDERED: Tirofiban 12.5 MG/250ML 12.5 MG/250 ML BAG ONE (14:28)
--- NOTE | 2018-05-09 14:58 | Electrocardiograph Report ---
[address] [address] Test Date: 2018-05-07 Pat Name: [facility] Department: 109 Room: [facility] Gender: M Hose Maker: : 1955 Requested By: Jennifer Henson Order Number: [id number] Reading MD: Hair Bates Measurements Intervals [place] Rate: 109 P: [place]: 0 QRS: 56 QRSD: 106 T: 35 QT: 367 QTc: 431 Interpretive Statements ATRIAL FIBRILLATION WITH RAPID VENTRICULAR RESPONSE WITH ABERRANT CONDUCTION OR VENTRICULAR PREMATURE COMPLEXES MODERATE ST DEPRESSION Electronically Signed On 05-09-2018 14:57:07 EST by Hair Bates
[2018-05-09] MEDS ORDERED: Tirofiban 12.5 MG/250ML 12.5 MG/250 ML BAG IVC SCH (15:45)
--- NOTE | 2018-05-09 16:00 | Invasive Diagnostic Lab Proc ---
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 H&P is on chart. ID band is on and ID verified with patient. Patient NPO for procedure The procedure was described for the patient and questions were answered. Blood Pressure: 123/63 ECG is on chart. Rhythm: NSR Plan of Care Patient will tolerate the procedure without complications. Adequate level of comfort will be maintained. Hemodynamics will remain stable Patient will recover from procedure without complications. Respiratory function will be maintained. Cardiac rhythm will remain stable. Patient temperature will be maintained. Patient and/or family have verbalized understanding of the procedure. Patient Education Chief Complaint/Reason for Test: Cardiac Cath Developmental Category: Adult (18-64 years) Developmentally Appropriate for Age: Yes Learning Barriers: None Education Needs: Procedure Education Method: Verbal Information Taught: Cardiac Cath Educational Evaluation: Able to repeat information Intravenous Access Time IV Size Location DC'd Fluid/Drip Rate Units RN 18g 1 1/4" Patent On Arrival Rt Antecubital 18g 1 1/4" Patent On Arrival Lt Antecubital 0.9NaCl 25 ml/hr Yulissa Go RN Allergies ibuprofen Vital Signs Time BP (mmHg) HR (bpm) O2 Sat. RR (bpm) LOC 02:04 PM / % 5 = Fully awake and oriented or at pre-proc level 03:09 PM / % 4 = Oriented but drowsy 03:24 PM / % 4 = Oriented but drowsy 02:08 PM 137 / 107 86 97 % 17 02:13 PM 141 / 92 113 95 % 11 02:18 PM 119 / 99 70 96 % 14 02:23 PM 133 / 100 96 96 % 18 02:28 PM 141 / 94 102 95 % 17 02:34 PM 124 / 88 121 96 % 17 02:38 PM 130 / 99 111 97 % 17 02:43 PM 137 / 89 90 96 % 17 02:49 PM 135 / 89 101 96 % 18 02:54 PM 132 / 70 104 96 % 17 02:58 PM 116 / 94 100 96 % 17 03:03 PM 122 / 90 103 97 % 18 03:08 PM 129 / 102 93 97 % 17 03:13 PM 130 / 100 94 96 % 18 03:18 PM 129 / 104 115 95 % 19 03:23 PM 133 / 90 115 97 % 15 03:29 PM 134 / 97 105 97 % 21 03:34 PM 124 / 83 96 97 % 16 Procedural Medications Time Medication Dose Units Method Given By 02:04 PM Oxygen 2 L/min nasal cannula Yulissa Go RN 02:08 PM Versed 1 mg Intravenous Yulissa Go RN 02:08 PM Fentanyl 50 mcg Intravenous Yulissa Go RN 02:17 PM Lidocaine 2% 19 ml Subcutaneous Lebron Leavitt MD 02:28 PM Aggrastat Bolus: 58 ml Intravenous Yulissa Go RN 02:28 PM Aggrastat 12.5mg/250ml 21 ml Intravenous Yulissa Go RN 03:18 PM Heparin 2000 units Intravenous Yulissa Go RN 03:22 PM Heparin 1000 units Intravenous Yulissa Go RN 03:33 PM Plavix 75 mg Orally Yulissa Go RN ASA Classification: CLASS II- Mild systemic disease (i.e. well-controlled diabetes, hypertension, asthma, cigarette smoking) Danny Score Preprocedure Postprocedure Activity 2- Moves 4 extremities sustained head lift Activity 2- Moves 4 extremities sustained head lift Circulation 2- SBP +/= 20 points of pre-anesthetic level Circulation 2- SBP +/= 20 points of pre-anesthetic level Consciousness 2- Awake and alert oriented x 3 Consciousness 2- Awake and alert oriented x 3 O2 Saturation 2- Able to maintain O2 satruation of 92% on room air O2 Saturation 2- Able to maintain O2 satruation of 92% on room air Respiratory 2- Able to deep breathe and cough well Respiratory 2- Able to deep breathe and cough well Total Score 10 Total Score 10 Contrast Agent: Isovue Diagnostic Contrast: 173 ml Total Contrast: 173 ml Fluoro Dose: 573 mGy Activated Clotting Time Time Seconds to Clot 02:30 PM 241 03:19 PM 156 03:34 PM 186 Procedure Log Time Note Enter By 02:03 PM 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 Informed consent was obtained. tsites 02:04 PM Procedure start 14:04 tsites 02:04 PM Time: 14: Oxygen on at 2 L/min per nasal cannula by Yulissa Go RN tsites 02:04 PM Time: 14:04 Patient comfortable and pain free: Yes tsites 02:04 PM Time: 14:04LOC: 5 = Fully awake and oriented or at pre-proc level tsites 02:04 PM Clinical Presentation: Unstable angina tsites 02:08 PM Recorded ECG: FT=227 Condition=Condition 1 02:08 PM Vitals capture started with the following parameters, Patient=Adult, Interval=5 min, Initial Fgircfoa=867 mmHg, Deflation Rate=3 mmHg, Cuff placed on Right Arm 02:08 PM CathStat 02:08 PM Recorded ECG: CJ=834 Condition=Condition 1 02:08 PM Hair removed from procedure site in holding area using clippers. Bilateral groin prepped with Chloraprep by Socorro Monroe RT (R), then patient was draped. Skin intact. tsites 02:08 PM HR=86 bpm, VBZP=259/107 mmhg, SpO2=97.0 %, Resp=17 B/min, EtCO2=36 mmHg 02:08 PM Time: 14:08 Versed 1 mg Intravenous Given by Yulissa Go RN tsites 02:09 PM Time: 14:08 Fentanyl 50 mcg Intravenous Given by Yulissa Go RN tsites 02:13 PM IZ=174 bpm, XQKN=576/92 mmhg, SpO2=95.0 %, Resp=11 B/min 02:14 PM Pressure channel 1 zeroed. 02:17 PM Time out was performed according to hospital policy. Conscious sedation and anesthesia was achieved (see medication log with in this report above) tsites 02:18 PM HR=70 bpm, EOMJ=208/99 mmhg, SpO2=96.0 %, Resp=14 B/min, EtCO2=30 mmHg 02:20 PM Time: 14:17 19 ml Lidocaine 2% to right groin Subcutaneous Given by Lebron Leavitt MD tsites 02:21 PM Micro-Introducer Kit utilized for sheath placement tsites 02:21 PM Access obtained by percutaneous puncture. 4Fr 10cm Micro kit sheath placed in right Femoral artery. [id number] tsites 02:23 PM HR=96 bpm, ZRGT=735/100 mmhg, SpO2=96.0 %, Resp=18 B/min, EtCO2=32 mmHg 02:24 PM Sheath exchanged for a 6 Fr 11 cm Terumo [place] sheath [id number] tsites 02:24 PM PCI Status Urgent tsites 02:24 PM 6Fr XB LAD 3.5 [place] Bright-Tip guide catheter was used to cannulate the PCI vessel successfully. reused? No tsites 02:24 PM Inflation device was opened. tsites 02:24 PM 0.035 145cm Navilyst 3mmJ wire [id number] tsites 02:25 PM LCA angiography performed in multiple views. tsites 02:25 PM Recorded Pressure: Ao, XA=286, Condition=Condition 1 (Aorta) Ao 128/90/108 02:27 PM .014 [employer] [place] 190cm guide wire across target lesion- successful. reused? no LAD tsites 02:28 PM Time: 14:28 Aggrastat Bolus: 58 ml Intravenous Given by Yulissa Go RN Pinedo pump tsites 02:28 PM LB=991 bpm, WEJH=669/94 mmhg, SpO2=95.0 %, Resp=17 B/min, EtCO2=36 mmHg 02:29 PM Time: 14:28 Aggrastat 12.5mg/250ml 21 ml Intravenous Given by Yulissa Go RN Pinedo pump tsites 02:30 PM At 14:30 the ACT was 241 seconds. tsites 02:33 PM .014 [place] Scaler 50 190cm guide wire across target lesion- successful. reused? No tsites 02:34 PM MC=380 bpm, AATY=559/88 mmhg, SpO2=96.0 %, Resp=17 B/min, EtCO2=36 mmHg 02:36 PM Recorded Pressure: Ao, RH=560, Condition=Condition 1 (Aorta) Ao 113/85/99 02:38 PM YE=563 bpm, UYVJ=616/99 mmhg, SpO2=97.0 %, Resp=17 B/min, EtCO2=36 mmHg 02:43 PM HR=90 bpm, YDMZ=921/89 mmhg, SpO2=96 %, Resp=17 B/min 02:46 PM Guide wire removed intact. tsites 02:47 PM .014 [place] 190cm guide wire across target lesion- successful. reused? No tsites 02:49 PM 02:54 PM 02:55 PM 02:57 PM 2.0 mm x 12 mm Emerge Monorail balloon across target lesion- successful. reused? No tsites 02:58 PM Balloon inflated @ 6 ozzy for 7 seconds tsites 02:58 PM Balloon inflated @ 10 ozzy for 10 seconds tsites 02:58 PM 02:58 PM Balloon inflated @ 12 ozzy for 8 seconds tsites 02:59 PM Balloon inflated @ 10 ozzy for 5 seconds tsites 03:01 PM Balloon catheter removed intact. tsites 03:01 PM 2.5 mm x 12 mm Emerge [employer]orail balloon across target lesion- successful. reused? No tsites 03:02 PM Balloon inflated @ 10 ozzy for 11 seconds tsites 03:03 PM Balloon inflated @ 12 ozzy for 9 seconds tsites 03:03 PM 03:06 PM Guide wire removed intact. tsites 03:08 PM 2.0x12 balloon reinserted tsites 03:08 PM 03:13 PM 03:14 PM Balloon catheter removed intact. tsites 03:15 PM Guide wire removed intact. tsites 03:15 PM .014 [place] 300cm guide wire across target lesion- successful. reused? No tsites 03:16 PM 6Fr [place] microguide guide catheter was used to cannulate the PCI vessel successfully. reused? No tsites 03:16 PM ACT drawn tsites 03:18 PM Time: 15:18 Heparin 2000 units Intravenous Given by Yulissa Go RN tsites 03:18 PM 03:19 PM At 15:19 the ACT was 156 seconds. tsites 03:22 PM Guide wire removed intact. tsites 03:22 PM Time: 15:22 Heparin 1000 units Intravenous Given by Yulissa Go RN tsites 03:23 PM 03:24 PM Time: 15:09 Patient comfortable and pain free: Yes tsites 03:24 PM Time: 15:09LOC: 4 = Oriented but drowsy tsites 03:[address] Leavitt notified of radiation exposure tsites 03:25 PM micro catheter removed intact. tsites 03:26 PM 2.5x 12 balloon reinserted tsites 03:27 PM Balloon inflated @ 14 ozzy for 8 seconds tsites 03:27 PM Balloon inflated @ 14 ozzy for 20 seconds tsites 03:29 PM Balloon catheter removed intact. tsites 03:29 PM Guide wire removed intact. tsites 03:29 PM Guide catheter removed intact. tsites 03:29 PM 03:30 PM Procedure completed at 15:29 05/09/2018 tsites 03:30 PM Did you address PURVI flow and Dominance? Yes tsites 03:30 PM Sign out completed: Radiation Dose 5596 mGy, 573 Gy/cm2 Fluoro Time: 41.3 Isovue 370 - 200ml contrast 173 ml given by Lebron Leavitt MD. Complications: None. 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 Cardiac Rehab Consult needed: YesConfirmed administered medications: Yes tsites 03:30 PM Isovue 370 - 200ml,2 Bottle(s) used. tsites 03:31 PM Sheath left in place to be pulled on floor/holding areaV+Pad tsites 03:31 PM Estimated Blood Loss: less than 20cc tsites 03:31 PM Post ECG Atrial Fibrillation tsites 03:31 PM Post Blood Pressure 134/97 tsites 03:31 PM 15:31 Post Pulses Bilateral DP & PT 2+ tsites 03:31 PM Information taught Cardiac Cath, PCI, and ALL AROUND PRESSER tsites 03:31 PM Education needs Procedure, Responsibilities of Patient in Care, and Plan of Care tsites 03:31 PM Learning barriers :None tsites 03:31 PM Education Methods Verbal tsites 03:32 PM Education evaluation Able to repeat information tsites 03:32 PM Site status No bleeding/hematoma - Rt Groin as reported by Socorro Monroe RT (R) at 15:32 tsites 03:32 PM Opsite applied tsites 03:32 PM Plavix, Effient or Brilinta given Yes tsites 03:32 PM Delay to floor No tsites 03:32 PM Family placed in consult room. tsites 03:33 PM Report given to aditya ÁLVAREZ Pt taken to ICU Room #7. 15:33 tsites 03:33 PM Time: 15:33 Plavix 75 mg Orally Given by Yulissa Go RN tsites 03:33 PM act drawn tsites 03:34 PM Patient out of room: 15:34 tsites 03:35 PM At 15:34 the ACT was 186 seconds. tsites 03:35 PM Lesion found in Distal LMCA. Pre Stenosis: 99 Pre PURVI Flow: 2: Partial Flow/Perfusion (> 1 but < 3) tsites 03:35 PM Left Main Coronary Artery with 99% stenosis tsites 03:39 PM Time: 15:24LOC: 4 = Oriented but drowsy tsites 03:39 PM Time: 15:24 Patient comfortable and pain free: Yes tsites 03:42 PM Lesion found in Proximal Circumflex. Pre Stenosis: 90 Pre PURVI Flow: tsites Complications Complication None Hemodynamics Pressures Site Systolic/A Wave Diastolic/V Wave Mean AO 128 90 108 AO 113 85 99 Post Procedure Information Blood Pressure: 134/97 mmHg Rhythm: Atrial Fibrillation Post procedural instructions were given Closure Device Time Device Success/Fail 05/09/2018 3:36:00 PM Manual Compression Successful Site Checks Time Location Status Staff Sheath In? Note 03:32 PM Rt Groin No bleeding/hematoma Socorro Monroe RT (R) Pulses Time Site Pre-Procedure Post-Procedure Note Bilateral radial 2+ Bilateral DP 2+ 3:31:00 PM Bilateral DP & PT 2+ Updated by Sun Khan RT (R) on 05/09/2018 3:50:17 PM Sun Khan RT electronically signed on 05/09/2018 3:51:05 PM with status of Final
[2018-05-09] MEDS: hydroCHLOROthiazide 25 MG TABLET PO SCH (20:01)
[2018-05-09] MEDS: Insulin DETEMIR 100 UNIT/ML X5UNITS SQ SCH (21:48)
[2018-05-10] MEDS: Levalbuterol Neb 0.63 MG/3 ML IH SCH ×2 (03:54→07:45)
[2018-05-10] MEDS: Ipratropium Neb 0.5 MG NEBULIZER IH SCH ×2 (03:54→07:45)
[2018-05-10 04:25] LABS: Basophils # 0.1 K/mcL (0.0-0.2); Basophils % 0.8 %; Eosinophils # 0.2 K/mcL (0.0-0.6); Eosinophils % 2.5 %; Hematocrit 38.6 % (37.5-50.1); Hemoglobin 12.5 g/dL (12.9-16.9); Immature Granulocytes % 0.3 % (0-4); Lymphocytes % 21.9 %; Mean Corpuscular HGB Conc 32.4 g/dL (31.6-35.5); Mean Corpuscular Hemoglobin 29.6 pg (28.0-33.3); Mean Corpuscular Volume 91.5 fL (83.0-100.0); Mean Platelet Volume 11.3 fL (9.4-12.4); Monocytes # 0.8 K/mcL (0.0-1.3); Neutrophils # 6.1 K/mcL (1.6-8.9); Platelet Count 158 K/mcL (140-400); Red Blood Count 4.22 M/mcL (4.19-5.50); Red Cell Distribution Width 13.7 % (11.5-14.5); Segmented Neutrophils % 65.5 %
[2018-05-10 04:44] LABS: BUN/Creatinine Ratio 20 (6-26); Blood Urea Nitrogen 17 mg/dL (8-23); Carbon Dioxide 23 mEq/L (23-29); Chloride 105 mEq/L (98-107); Glucose 203 mg/dL (70-105); Osmolality,Calculated 291 (280-300); Potassium 3.9 mEq/L (3.5-5.1); Sodium 137 mEq/L (136-145); eGFR For Non-African Americans > 60 (> 60)
[2018-05-10] MEDS: Pregabalin 75 MG CAPSULE PO SCH (07:22)
[2018-05-10] MEDS: Diltiazem CD (24hr) 180 MG CAPSULE PO SCH (07:22)
[2018-05-10] MEDS: Aspirin Enteric Coated 81 MG Tablet PO SCH (07:22)
[2018-05-10] MEDS: Iron Polysaccharide Complex 150 MG CAPSULE PO SCH (07:23)
[2018-05-10] MEDS: Cholecalciferol (D-3) 1,000 UNIT TABLET PO SCH (07:23)
[2018-05-10] MEDS: Insulin LISPRO 300 UNITS/3 ML VIAL SQ SCH (07:24)
[2018-05-10] MEDS: Budesonide/Formoterol 160/4.5 1 PUFF INH IH SCH (07:44)
[2018-05-10] MEDS: Tiotropium 18 MCG inhalation IH SCH (07:47)
[2018-05-10 09:00] VITALS: BP 113/75
--- NOTE | 2018-05-10 09:44 | Cardiology Progress Note ---
Date of Encounter: 05/10/18 Time of Encounter: 09:40 Assessment and Plan (1) NSTEMI (non-ST elevated myocardial infarction) Current Visit: Yes Status: Acute Patient with PMH significant for 4V CABG in 2008 presented with typical chest pain. Troponin elevated up to 2.01 and now trending down. Urgent LHC completed showed 2/4 patent bypass. 05/07/18 and he received PCI to the SVG to Ramus artery. MITCHELL -LAD patent. See report above. LHC 05/09/18 with plan for staged PCI to severe LMCA and LCx artery. He received PTCA to the LMCA to 50%. Recommended to have staged PCI of the LCx artery in out-patient setting. DAPT with asa and plavix uninterrupted for minimum one year reviewed with patient. Continue statin , bb, SL NTG PRN, and imdur. He will be on triple therapy with eliquis due to afib. He will need to hold eliquis 48 hours prior to his next LHC. Cardiac rehab will be considered after staged PCI. Patient is chest pain free. Out-pt f/u will be coordinated by [facility]. (2) Afib Current Visit: Yes Status: Chronic EKG shows atrial fibrillation with heart rate 80. There is ST depression in the lateral leads. Patient denies history of A. fib. He is currently rate controlled. Continue beta ruslan. AVg HR 93 BMP over last 24 hours. We did discuss anticoagulation with Coumadin versus NOAC including indication, benefits, SE, and alternatives. He agrees with plan. Eliquis antonio checked and is 3$ a month. Qualifiers: Atrial fibrillation type: unspecified Qualified Code(s): I48.91 - Unspecified atrial fibrillation (3) CAD (coronary artery disease) Current Visit: Yes Status: Chronic H/o 4V (MITCHELL-LAD, SVG-1st dx, SVG-1st OM, SVG-PDA) CABG [place] [address] Mixon. Qualifiers: Coronary Disease-Associated Artery/Lesion type: bypass graft [place] vs. transplanted heart: [place] heart Associated angina: without angina Qualified Code(s): I25.810 - Atherosclerosis of coronary artery bypass graft(s) without angina pectoris Discussion w patient/family: The assessment and plan as outlined above was discussed with the patient and/or family members who expressed understanding and agreement. All questions were answered. Thank you for involving us in the care of your patient. Please call wi th any questions. Subjective Principal diagnosis: NSTEMI Objective Vital Signs, Last 4 Hours Temp Pulse Resp BP Pulse Ox 05/10/18 08:00 80 16 113/75 93 05/10/18 07:34 97.7 F 05/10/18 06:00 92 15 113/69 99 General: Conversant, No Apparent Distress HEENT: Atraumatic, Normocephaly, Mucus Membranes Moist Neck: No JVD, Normal carotid pulses Cardiac: Reg Rate and Rhythm, Normal S1 and S2, No Murmur Lungs: Normal Breath Sounds, No Wheeze, Rales, Rhonchi Neuro: Alert and responsive, No focal deficits noted Abdomen: Soft, Non-Tender Skin: No rashes noted on visualized skin Musculoskeletal: No Chest Wall Tenderness Extremities: No Clubbing, No Cyanosis, No Edema, Normal Pulses, Other (right groin with ecchymosis, no hematoma. ) Results 05/10/18 04:08 05/10/18 04:08 Lab Results 05/10/18 05/10/18 04:08 04:08 WBC 9.2 Hgb 12.5 L Hct 38.6 Plt Count 158 Sodium 137 Potassium 3.9 Chloride 105 Carbon Dioxide 23 BUN 17 Creatinine 0.83 Glucose 203 H Calcium 9.0 - Imaging and Cardiology Cardiac cath: report reviewed (There is a 50% stenosis in the Proximal LMCA. Heavily calicified There is a 99% stenosis in the Distal LMCA. 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 * Circumflex There is a 90% stenosis in the Proximal Circumflex- heavy calici fied There is a 50% stenosis in the 1st Marginal. * Ramus There is a 12 mm long, 95% stenosis in the proximal body of the SVG to Ramus. The lesion has a PURVI flow of 3 and has no thrombus present. An intervention was performed on the svg to Ramus with a final stenosis of 0%. There were no lesion complications. The final PURVI flow was 3. There is a 16 mm long, 80% stenosis in the distal body of the SVG to Ramus. The lesion has a PURVI flow of 3 and has no thrombus present. An intervention was performed on the svg to Ramus with a final stenosis of 0%. There were no lesion complications. The final PURVI flow was 3. There is a 100% stenosis in the [place] Ramus. 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 Additional Findings: Grafts * The saphenous vein graft to the 1st Diagonal is occluded. * The left internal mammary graft to the LAD is patent. * The saphenous vein graft to the Right PDA is occluded. * The saphenous vein graft to the Ramus has a 95% stenosis in the proximal body of graft and 80% stenosis in the distal body of graft.) Consult Discharge Plan - Plan Referrals: Pennie Guardado [Primary Care Provider] - Prescriptions: Apixaban [Eliquis] 5 mg PO BID #60 tablet
[2018-05-10] MEDS ORDERED: Isosorbide MONOnitrate (24 HR) 30 MG TAB.ER.24H PO SCH (10:15)
[2018-05-10] MEDS ORDERED: Apixaban 5 MG TABLET PO SCH (10:15)
--- NOTE | 2018-05-10 10:21 | Discharge Summary ---
<Emiliano Dominguez - Last Filed: 05/10/18 15:36> Orders not resulted at time of discharge: Pending orders 05/09/18 15:52 ECG 12 lead ECG [ECG] Routine 05/10/18 07:00 ECG 12 lead ECG [ECG] Routine Date of Encounter: 05/10/18 Time of Encounter: 15:36 - Discharge Diagnosis (1) NSTEMI (non-ST elevated myocardial infarction) Status: Acute (2) Afib Status: Chronic Qualifiers: Atrial fibrillation type: unspecified Qualified Code(s): I48.91 - Unspecified atrial fibrillation (3) Diabetes Status: Chronic Qualifiers: Diabetes mellitus type: type 2 Diabetes mellitus buttermaker continuous churn insulin use: with buttermaker continuous churn use Diabetes mellitus complication status: with unspecified complications Qualified Code(s): E11.8 - Type 2 diabetes mellitus with unspecified complications; Z79.4 - residential (current) use of insulin (4) Hypertension Status: Chronic Qualifiers: Hypertension type: essential hypertension Qualified Code(s): I10 - Essential (primary) hypertension (5) DVT prophylaxis Status: Acute (6) Hypokalemia Status: Acute Hospital course: Mr. Hernández is a 62 year old male - Time Spent with Patient Total time spent providing and/or coordinating discharge services: - Discharge Medications Prescriptions: Nitroglycerin 0.4 mg SL Q5MIN PRN #20 tab PRN Reason: Chest Pain Apixaban [Eliquis] 5 mg PO BID #60 tablet Clopidogrel [Plavix] 75 mg PO DAILY #20 tablet Home Medications: Aspirin Enteric Coated [Aspirin EC] 162 mg PO DAILY 10/18/15 [History] Diltiazem HCl [Cardizem LA] 360 mg PO DAILY 10/18/15 [History] diazePAM [Valium] 10 mg PO BID PRN #60 tablet 02/28/16 [Rx] Insulin NPH, HUMAN [HumuLIN N] 30 unit SQ TID 08/02/17 [History] Albuterol Sulfate [Proair Hfa] 1 puff IH Q6HR PRN 05/06/18 [History] Budesonide/Formoterol 160/4.5 [Symbicort 160/4.5] 2 puff IH BID 05/06/18 [History] Glimepiride [Amaryl] 4 mg PO DAILY 05/06/18 [History] Insulin Glargine,Hum.rec.anlog [Tousethpetra Solostar] 100 units SQ HS 05/06/18 [History] Iron Polysaccharide Complex [Pro Fe] 180 mg PO DAILY 05/06/18 [History] Lipase/Protease/Amylase [[place] Saeed 24,000 Units Capsule] 1 each PO TIDWM 05/06/18 [History] Tiotropium [Spiriva] 18 mcg IH DAILY 05/06/18 [History] Atorvastatin Calcium [Lipitor] 20 mg PO DAILY 05/07/18 [History] Cholecalciferol (D-3) [Vitamin D] 1,000 unit PO BID 05/07/18 [History] Empagliflozin [Jardiance] 10 mg PO DAILY 05/07/18 [History] Lipase/Protease/Amylase [Georgia Saeed 12,000 Units Capsule] 1 each PO BID PRN 05/07/18 [History] Losartan/Hydrochlorothiazide [Losartan-Hctz 100-25 mg Tab] 1 each PO DAILY 05/07/18 [History] Metformin HCl [Glucophage] 1,000 mg PO BID 05/07/18 [History] Metoprolol [Lopressor] 25 mg PO BID 05/07/18 [History] Multivitamin [Daily Multiple Vitamin] 1 each PO DAILY 05/07/18 [History] NALOXONE 4 MG Nasal Eolia [Narcan] 4 mg NS AD 05/07/18 [History] Mcclelland-3/Dha/Epa/Fish Oil [Fish Oil 1,000 mg Softgel] 2 each PO BID 05/07/18 [History] Omeprazole [PriLOSEC] 20 mg PO DAILY 05/07/18 [History] Oxycodone HCl/Acetaminophen [Percocet 10-325 mg Tablet] 1 each PO TID PRN 05/07/18 [History] Potassium Chloride [Klor-Con 10] 10 meq PO DAILY 05/07/18 [History] Pregabalin [Lyrica] 300 mg PO DAILY 05/07/18 [History] SitaGLIPtin [Januvia] 100 mg PO DAILY 05/07/18 [History] Tamsulosin HCl [Flomax] 0.4 mg PO DAILY 05/07/18 [History] Zolpidem [Ambien] 10 mg PO HS 05/07/18 [History] Apixaban [Eliquis] 5 mg PO BID #60 tablet 05/09/18 [Rx] Clopidogrel [Plavix] 75 mg PO DAILY #20 tablet 05/10/18 [Rx] Nitroglycerin 0.4 mg SL Q5MIN PRN #20 tab 05/10/18 [Rx] Allergies/Adverse Reactions: Allergy/AdvReac Type Severity Reaction Status Date / Time ibuprofen Allergy Hives Verified 05/07/18 15:15 ticagrelor [From Brilinta] AdvReac Difficulty Verified 05/10/18 08:47 Breathing Date of admission: 05/07/18 09:59 Primary care physician: Pennie Guardado Consults: 05/06/18 19:08 Consult to Cardiology [CONS] Routine Comment: Consulting Provider: Cardiology Ayleen Reason for Consult: NSTEMI Call Completed: No 05/07/18 13:20 Consult to Cardiac Rehabilitation-Phase1 [CONS] Routine Comment: Reason for Consult: post op PCI Call Completed: Yes 05/09/18 15:52 Consult to Cardiac Rehabilitation-Phase1 [CONS] Routine Comment: Reason for Consult: AMI Call Completed: Yes Consult to Nurse Navigator [CONS] Routine Comment: - Constitutional Vitals: Temp Pulse Resp BP Pulse Ox 97.7 F 80 16 113/75 93 05/10/18 07:34 05/10/18 08:00 05/10/18 08:00 05/10/18 08:00 05/10/18 08:00 - Patient Status Disposition: Home, Self-Care Condition: Good - Discharge Instructions Follow Up With: Pennie Guardado [Primary Care Provider] - Additional Instructions: Please follow up with both your PCP as well as cardiology. Take all medications as prescribed and return to the emergency room with any further chest pains, or signs of bleeding. - Attending Attestation My medical decision-making was reviewed with the Resident Physician, Skyler Vidales. I agree with the documented findings, disposition and treatment pl an as described except to any changes set forth below. Patient with history of coronary artery disease, diabetes, hypertension, COPD was hospitalized here for non-ST elevation UT. He was evaluated by cardiology and placed on IV heparin drip. He underwent left heart catheterization which showed severe three-vessel disease. Patient initially underwent placement of drug-eluting stents to the SVG to Ramus. He also had lesions in his left main and left proximal circumflex. He underwent a staged PCI to his left mainstem today. He still requires PCI to his left circumflex and cardiology plans to do this as outpatient at a later date. Patient has been chest pain-free since his initial stents. He is clinically stable for discharge at this time. He will continue to take aspirin and plavix. I was not able to see him today as he left the hospital prior to my rounds. <Skyler Vidales - Last Filed: 05/10/18 16:57> - NOTES TO OUTPATIENT PROVIDER Notes to Outpatient Provider: Patient admitted with NSTEMI. Did undergo left heart catheterization with 1 drug eluding stent placed. Discharged on eliquis, aspirin and plavix. Orders not resulted at time of discharge: Pending orders 05/09/18 15:52 ECG 12 lead ECG [ECG] Routine 05/10/18 07:00 ECG 12 lead ECG [ECG] Routine Date of Encounter: 05/10/18 Time of Encounter: 08:00 - Discharge Diagnosis (1) NSTEMI (non-ST elevated myocardial infarction) Priority: Primary Status: Acute (2) CAD (coronary artery disease) Priority: Secondary Status: Chronic Qualifiers: Coronary Disease-Associated Artery/Lesion type: bypass graft Samish vs. transplanted heart: menominee heart Associated angina: without angina Qualified Code(s): I25.810 - Atherosclerosis of coronary artery bypass graft(s) without angina pectoris (3) Afib Priority: Secondary Status: Chronic Qualifiers: Atrial fibrillation type: unspecified Qualified Code(s): I48.91 - Unspecified atrial fibrillation (4) Diabetes Priority: Secondary Status: Chronic Qualifiers: Diabetes mellitus type: type 2 Diabetes mellitus buttermaker continuous churn insulin use: with chcf use Diabetes mellitus complication status: with unspecified complications Qualified Code(s): E11.8 - Type 2 diabetes mellitus with unspecified complications; Z79.4 - residential (current) use of insulin (5) Hypertension Priority: Secondary Status: Chronic Qualifiers: Hypertension type: essential hypertension Qualified Code(s): I10 - Essential (primary) hypertension (6) DVT prophylaxis Priority: Secondary Status: Acute Hospital course: Mr. Hernández is a 62 year old male with past medical history of COPD, CAD status post CABG, diabetes, hypertension, prostate cancer presenting emergency room with complaint of chest pains. Patient described typical chest pain in the emergency department and EKG at that time shows atrial fibrillation with ST depressions in V5 and 6 which were slightly more prominent when compared to previous. Vital signs at time of presentation showed respiratory rate of 21. Otherwise within normal limits. Labs were significant for an elevated troponin with a peak at 2.01 and potassium of 3.2. He was evaluated by cardiology and did undergo left heart catheterization on 05/07/18 with 1 drug-eluting stent placed to the ramus artery. Staged left heart catheterization performed on 05/09/18 for severe LMCA and left circumflex artery. He did have PTCA to the LMCA and had resolution of his chest pains. He was placed on aspirin and Brillinta initially however he did experience a reaction to the brillinta and was subsequently transferred to the ICU for tachycardia, hypoxia and altered mental status. The symptoms have since resolved after discontinuation. He was subsequently placed on aspirin and Plavix for dual antiplatelet therapy for 1 year. It is recommended that he follow-up with [facility] cardiology for possible PCI to left circumflex in outpatient setting. This is being arranged through [facility]. He will also be started on eliquis for atrial fibrillation. On day of discharge, he is anxious to return home and agrees to follow-up as outpatient. He will be discharged home in stable medical condition with close follow-up. All questions were answered. - Time Spent with Patient Total time spent providing and/or coordinating discharge services: Date of admission: 05/07/18 09:59 Primary care physician: Pennie Guardado Consults: 05/06/18 19:08 Consult to Cardiology [CONS] Routine Comment: Consulting Provider: Jake Abbasi Reason for Consult: NSTEMI Call Completed: No 05/07/18 13:20 Consult to Cardiac Rehabilitation-Phase1 [CONS] Routine Comment: Reason for Consult: post op PCI Call Completed: Yes 05/09/18 15:52 Consult to Cardiac Rehabilitation-Phase1 [CONS] Routine Comment: Reason for Consult: AMI Call Completed: Yes Consult to Nurse Navigator [CONS] Routine Comment: Discharging clinician: Skyler Vidales Anticipated date of discharge: 05/10/18 - Constitutional Vitals: Temp Pulse Resp BP Pulse Ox 97.7 F 80 16 113/75 93 05/10/18 07:34 05/10/18 08:00 05/10/18 08:00 05/10/18 08:00 05/10/18 08:00 Exam: Gen.: Vitals noted. No acute distress. AAOx3, resting comfortably in bed. HEENT: PERRL/EOMI, oropharynx clear, Normocephalic, atraumatic, MMM Cardiac: Irregularly irregular rhythm, rate controlled. no murmur, +S1/S2, No BLE edema Pulmonary: CTA bilaterally, no wheezes, rales or rhonchi, equal chest expansion, unlabored breathing Abdomen: soft, nontender, BS noted, no guarding, no palpable HSM Skin: warm and dry, no visible lesions. MSK: ROM not assessed, no joint swelling noted, gait no assessed while in bed. Non tender calf or clubbing Neuro: A&Ox3, moves all extremities, no focal deficits, sensation intact Psych: Appropriate mood and behavior, AOx3 - Patient Status Functional capacity at discharge: independent ambulation Overall status at discharge: patient is back to baseline - Diet and Activity Activity: increase activity as tolerated, return to work once cleared by your PCP/specialist, resume usual activities as tolerated Diet: low salt diet
--- NOTE | 2018-05-10 18:54 | Electrocardiograph Report ---
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
== END 2018-05-10 10:30 | disposition home or self-care (01) | DRG 247 ==
LOC: EMEROOARM 17:23 → 2NENU 17:23 → SUATTDRO 05-07 09:59 → ICNU 05-07 14:39
PROVIDERS: ADMIT Internal Medicine; ATTEND Internal Medicine

== ENCOUNTER 2018-11-15 20:17 | Observation (INO) ==
[2018-11-15 21:11] LABS: INR 1.5; Prothrombin Time 17.4 Seconds (9.4-12.1)
[2018-11-15 21:13] LABS: Activated Partial Thrombo Time 33.3 Seconds (26.0-36.0)
[2018-11-15 21:34] LABS: BUN/Creatinine Ratio 23 (6-26); Blood Urea Nitrogen 24 mg/dL (8-23); Calcium 9.1 mg/dL (8.6-10.3); Carbon Dioxide 21 mEq/L (23-29); Chloride 97 mEq/L (98-107); Glucose 459 mg/dL (70-105); Osmolality,Calculated 292 (280-300); Sodium 129 mEq/L (136-145); Troponin I 19.17 ng/mL (< 0.04); eGFR For African Americans > 60 (> 60); eGFR For Non-African Americans > 60 (> 60)
[2018-11-15 21:42] LABS: Basophils % 0.3 %; Eosinophils % 0.2 %; Hematocrit 43.1 % (37.5-50.1); Hemoglobin 13.7 g/dL (12.9-16.9); Immature Granulocytes % 0.6 % (0-4); Lymphocytes # 1.1 K/mcL (0.6-4.6); Lymphocytes % 7.7 %; Mean Corpuscular HGB Conc 31.8 g/dL (31.6-35.5); Mean Corpuscular Hemoglobin 26.2 pg (28.0-33.3); Mean Corpuscular Volume 82.4 fL (83.0-100.0); Mean Platelet Volume 11.8 fL (9.4-12.4); Monocytes % 6.9 %; Neutrophils # 11.8 K/mcL (1.6-8.9); Platelet Count 216 K/mcL (140-400); Red Blood Count 5.23 M/mcL (4.19-5.50); Red Cell Distribution Width 17.2 % (11.5-14.5); Segmented Neutrophils % 84.3 %
[2018-11-16] MEDS ORDERED: 0.9 % Sodium Chloride 1,000 ML IVC SCH (00:30)
[2018-11-16] MEDS ORDERED: Nitroglycerin 1 INCH/GM PACKET TP ONE (00:31)
[2018-11-16] MEDS ORDERED: Naloxone 0.4 MG/ML INJ IVP PRN (06:35)
[2018-11-16] MEDS ORDERED: D5% in Water 1,000 ML IVC PRN (06:54)
[2018-11-16] MEDS ORDERED: Dextrose Gel 15 GM/37.5 ML TUBE PO PRN ×2 (06:54)
[2018-11-16] MEDS ORDERED: *HR* Dextrose 50 % in Water (Syg) 50 ML SYRINGE IVP PRN (06:54)
--- NOTE | 2018-11-16 07:11 | Internal Med History&Physical ---
Date of Encounter: 11/16/18 Time of Encounter: 06:26 Internal Medicine - H&P: HPI Chief complaint: Chest pain Admitted From: Emergency Dept Plans for Post Hospital Care: Home History of present illness: Mr. Hernández is a 63 year old male Patient presented to the emergency department with chest pain. He has significant history of recent PCI at [facility] on 10/22/18. He was discharged and had follow up with his PCP with no issues. He had a scheduled appointment with his dentist to have 2 teeth extracted at was causing him discomfort. He had the teeth removed on11/14/18, and had increased discomfort throughout the day since en. He also had on and off chest pain. He took multiple snaps but the discomfort and chest pain did not improve. Due to his history he was concerned of possible cardiac issue and he came to the emergency department for further evaluation. In the emergency room patient's initial vital signs were within normal limits. CBC: Notable for a white count of 14.0 BMP: Sodium 129, chloride 97, Glucose 459. Troponin 19.17 BNP 543 INR 1.5 Chest xray: No acute process. Initial EKG: atrial fibrillation with RVR, rate 123, QTc 434, No ST elevations. Compared to previous EKG no significant changes In the ER patient received IV fluids and 0.5 inch nitropaste. He was admitted to the hospital for further evaluation. Medical records from [facility] were requested by the patient's nurse upon arrival to the medical floor. On my assessment patient is resting comfortably in the hospital bed in no acute distress. He denies chest pain, abdominal pain, diarrhea and constipation. He did have an episode of vomiting on the ride over to the ER. He is a full code. Past Med Surg Social Fam HX - Past Medical History Medical history: arthritis, atrial fibrillation, cancer, COPD, coronary artery disease, diabetes, hypertension Additional medical history: prostate cancer with mets to bladder Psychiatric history: anxiety - Past Surgical History Surgical History: cancer surgery, cholecystectomy, coronary bypass (CABG) Additional surgical history: back surgery, carpal tunnel, transurethral resection bladder tumor removal surgery - Social History Smoking Status: Former smoker Smokeless Tobacco Status: No Alcohol use: none Drug use: none - Family History Father Hx Family Cardiac Disorders: Yes (CABG, CAD) Brother Hx Family Cardiac Disorders: Yes Internal Medicine - H&P: Meds Diltiazem HCl [Cardizem LA] 360 mg PO DAILY 10/18/15 [History] Albuterol Sulfate [Proair Hfa] 1 puff IH Q6HR PRN 05/06/18 [History] Budesonide/Formoterol 160/4.5 [Symbicort 160/4.5] 2 puff IH BID 05/06/18 [History] Glimepiride [Amaryl] 4 mg PO DAILY 05/06/18 [History] Insulin Glargine,Hum.rec.anlog [Toujeo Solostar] 100 units SQ HS 05/06/18 [History] Iron Polysaccharide Complex [Pro Fe] 180 mg PO DAILY 05/06/18 [History] Lipase/Protease/Amylase [Georgia Saeed 24,000 Units Capsule] 2 each PO TIDWM 05/06/18 [History] Tiotropium [Spiriva] 18 mcg IH DAILY 05/06/18 [History] Atorvastatin Calcium [Lipitor] 20 mg PO DAILY 05/07/18 [History] Cholecalciferol (D-3) [Vitamin D] 1,000 unit PO BID 05/07/18 [History] Lipase/Protease/Amylase [Georgia Saeed 12,000 Units Capsule] 1 each PO BID PRN 05/07/18 [History] Losartan/Hydrochlorothiazide [Losartan-Hctz 100-25 mg Tab] 1 each PO DAILY 05/07/18 [History] Naloxone [Narcan] 4 mg NS AD 05/07/18 [History] Omeprazole [PriLOSEC] 20 mg PO DAILY 05/07/18 [History] Oxycodone HCl/Acetaminophen [Percocet 10-325 mg Tablet] 1 each PO TID PRN 05/07/18 [History] Potassium Chloride [Klor-Con 10] 10 meq PO DAILY 05/07/18 [History] Pregabalin [Lyrica] 300 mg PO DAILY 05/07/18 [History] SitaGLIPtin [Januvia] 100 mg PO DAILY 05/07/18 [History] Tamsulosin HCl [Flomax] 0.4 mg PO DAILY 05/07/18 [History] Zolpidem [Ambien] 10 mg PO HS 05/07/18 [History] Apixaban [Eliquis] 5 mg PO BID #60 tablet 05/09/18 [Rx] Clopidogrel [Plavix] 75 mg PO DAILY #20 tablet 05/10/18 [Rx] Nitroglycerin 0.4 mg SL Q5MIN PRN #20 tab 05/10/18 [Rx] Insulin LISPRO [Humalog Kwikpen U-100] See Protocol SQ TIDWM PRN 09/22/18 [History] Metformin HCl [Glucophage] 1,000 mg PO BID #0 09/22/18 [Rx] Empagliflozin [Jardiance] 25 mg PO DAILY 10/21/18 [History] Venlafaxine [Effexor] 37.5 mg PO BID 10/21/18 [History] Aspirin Enteric Coated [Aspirin EC] 81 mg PO HS #0 10/22/18 [Rx] Metoprolol XL (24 HR) Succ [Toprol Xl] 50 mg PO BID #60 tab.er.24h 10/22/18 [Rx] Spironolactone [Aldactone] 12.5 mg PO DAILY #15 tablet 10/22/18 [Rx] Allergy/AdvReac Type Severity Reaction Status Date / Time ibuprofen Allergy Hives Verified 11/15/18 20:22 ticagrelor [From Brilinta] AdvReac Difficulty Verified 11/15/18 20:22 Breathing All Systems PM: A 10-system review of systems was performed and is negative for pertinent findings except as documented above in the HPI. - Constitutional Vitals: Temp Pulse Resp BP Pulse Ox 97.5 F L 89 17 114/77 96 11/16/18 04:49 11/16/18 04:49 11/16/18 04:49 11/16/18 04:49 11/16/18 04:49 General appearance: Present: cooperative, A&O X 3, pleasant, no acute distress, answers questions appropriately Exam: - - Head Head exam: Present: normal inspection - Eye Eye exam: Present: EOMI, normal appearance - Respiratory Respiratory exam: Present: CTAB. Absent: rales, respiratory distress, rhonchi, wheezes - Cardiovascular Cardiovascular exam: Present: irregular rhythm. Absent: diastolic murmur, systolic murmur - GI/Abdominal GI/Abdominal exam: Present: normal bowel sounds, soft. Absent: tenderness - Extremities Exam Extremities exam: Present: warm, radial pulses palpable and symmetrical. Absent: calf tenderness, pedal edema, tenderness - Neurological Exam Neurological exam: Present: no focal deficits, strengths equal and symetr throughout. Absent: facial droop, speech deficit - Skin Skin exam: Present: dry, normal color, warm Internal Med - H&P Results - Labs CBC & Chem 7: 11/15/18 21:17 11/15/18 20:44 Labs: Short CBC 11/15/18 Range/Units 21:17 WBC 14.0 H (4.3-11.1) K/mcL Hgb 13.7 (12.9-16.9) g/dL Hct 43.1 (37.5-50.1) % Plt Count 216 (140-400) K/mcL Neutrophils # 11.8 H (1.6-8.9) K/mcL BMP 11/15/18 20:44 Sodium 129 L Potassium 4.0 Chloride 97 L Carbon Dioxide 21 L BUN 24 H Creatinine 1.04 Glucose 459 H Calcium 9.1 Cardiac Enzymes 11/15/18 Range/Units 20:44 Troponin I 19.17 H* (< 0.04) ng/mL - Impressions ITS Impressions Chest X-Ray 11/15/18 20:29 IMPRESSION: No acute process. D/ / Matt Hyde MD / Matt Hyde MD Interpreting Provider: Matt Hyde MD - Assessment and Plan (1) Chest pain Current Visit: No Status: Acute Assessment and plan: With associated elevated troponin of 19.17. Patient's chest pain now resolved with application of nitropaste. Elevated troponin could be related to recent heart cath, patient's chest pain now resolved. Cardiac telemetry Continue to trend troponin Cardiology consult, follow up recommendations Hold Eliquis, start heparin drip Qualifiers: Chest pain type: unspecified Qualified Code(s): R07.9 - Chest pain, unspecified (2) Afib Current Visit: No Status: Chronic Assessment and plan: Initially atrial fibrillation with RVR, patient's rate improved without much intervention. He remains in afib which is chronic for him. Continue home meds and anticoagulation. Continue to monitor. Qualifiers: Atrial fibrillation type: chronic Qualified Code(s): I48.2 - Chronic atrial fibrillation (3) Hyponatremia Current Visit: Yes Status: Acute Assessment and plan: Sodium of 129 on ER lab work. Patient has been started on IV fluids by the ER. Continue to monitor Repeat labs in the morning. (4) Diabetes Current Visit: No Status: Chronic Assessment and plan: Patient is an insulin dependent diabetic Monitor sugars Q6H NPO except meds until evaluated by cardiology Low dose insulin sliding scale as needed Hold home meds. 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
[2018-11-16] MEDS ORDERED: *HR* Heparin 5,000 UNIT/ML VIAL IVP ONE (07:19)
[2018-11-16] MEDS ORDERED: *HR* Heparin 5,000 UNIT/ML VIAL IVP PRN ×2 (07:19)
[2018-11-16] MEDS ORDERED: *HR* OxyCODONE/APAP 10/325 TABLET PO PRN (07:25)
[2018-11-16] MEDS ORDERED: Heparin 25,000 UNIT/250 ML D5W 25,000 UNIT/250 ML IV.SOLN IVC SCH (07:30)
[2018-11-16 08:07] LABS: Hematocrit 40.8 % (37.5-50.1); Mean Corpuscular HGB Conc 31.9 g/dL (31.6-35.5); Mean Corpuscular Volume 81.6 fL (83.0-100.0); Mean Platelet Volume 11.3 fL (9.4-12.4); Platelet Count 175 K/mcL (140-400); Red Cell Distribution Width 17.3 % (11.5-14.5); White Blood Count 13.8 K/mcL (4.3-11.1)
[2018-11-16 08:09] LABS: Heparin anti-factor XA UFH 0.48 IU/mL (0.30-0.70); INR 1.4
[2018-11-16 08:24] LABS: BUN/Creatinine Ratio 24 (6-26); Blood Urea Nitrogen 21 mg/dL (8-23); Carbon Dioxide 24 mEq/L (23-29); Chloride 100 mEq/L (98-107); Glucose 374 mg/dL (70-105); Osmolality,Calculated 288 (280-300); Potassium 3.8 mEq/L (3.5-5.1); Sodium 130 mEq/L (136-145); eGFR For African Americans > 60 (> 60); eGFR For Non-African Americans > 60 (> 60)
[2018-11-16] MEDS ORDERED: Diltiazem CD (24hr) 180 MG CAPSULE PO SCH (09:00)
[2018-11-16] MEDS ORDERED: Aspirin 81 MG TAB.CHEW PO SCH (09:00)
[2018-11-16] MEDS ORDERED: Pregabalin 50 MG CAPSULE PO SCH (09:00)
[2018-11-16] MEDS ORDERED: Apixaban 5 MG TABLET PO SCH (09:00)
[2018-11-16] MEDS ORDERED: Metoprolol XL (24 HR) Succ 50 MG TAB.ER.24H PO SCH (09:00)
--- NOTE | 2018-11-16 11:00 | Cardiology Consult Note ---
<Abdiaziz Sky R - Last Filed: 11/16/18 11:20> Date of Encounter: 11/16/18 Time of Encounter: 10:59 Assessment and Plan (1) NSTEMI (non-ST elevated myocardial infarction) Status: Acute Troponins 19.17, 16.88. On Heparin gtt, ASA, Plavix, Statin, BB. Hx of CAD s/p CABG s/p recent ANGELINA to LM in September 2018. Was transferred to [facility] 10/2018 for high risk PCI. No records to review to see details. Per pt, stent cards are at home. Discussed repeat LHC. R/B/A discussed. Given hx of complexity of lesions, pt prefers to be transferred back to [facility], which is reasonable. Of note, pt is unsure if he has been on Plavix on home. On currently. Known reduced EF 30-35% 10/2018. Will continue to follow until transferred to [facility]. Discussed with hospitalist. (2) Ischemic cardiomyopathy Status: Acute EF 30-35%. Continue BB. On ARB at home, would recommend resuming. (3) CAD (coronary artery disease) Status: Chronic Hx of CAD s/p CABG s/p recent ANGELINA to LM in September 2018, then high risk PCI at [facility] 10/2018. NSTEMI as above. Continue ASA, Plavix, Statin, BB. Qualifiers: Coronary Disease-Associated Artery/Lesion type: bypass graft [place] vs. transplanted heart: teller heart Associated angina: with unspecified angina Qualified Code(s): I25.709 - Atherosclerosis of coronary artery bypass graft(s), unspecified, with unspecified angina pectoris Discussion w patient/family: The assessment and plan as outlined above was discussed with the patient and/or family members who expressed understanding and agreement. All questions were answered. Thank you for involving us in the care of your patient. Please call with any questions. I will discuss all the above with Dr. Mcmahon and make changes as necessary. History of Present Illness Consult date: 11/16/18 Consult reason: NSTEMI Chief complaint: chest pain History of present illness: Mr. Hernández is a 63 year old male with PMH of CAD s/p CABG s/p PCI, HFrEF, Afib, HTN, DMII, and COPD who presented to the ED with complaints of chest pain. He had recent high risk PCI at [facility] 10/2018. On Wednesday he saw his dentist to have 2 teeth extracted at was causing him discomfort. Since tooth extraction he has been having midsternal chest pain with left arm aching. Troponin 19.17, 16.88. Cardiology consulted for further recs. He is unsure if he has been taking Plavix since PCI. Per pt, so many med adjustments have been made that it is difficult for him to keep straight. Prior CV testing: Limited TTE 10/22/18: LVEF 30-35%. Grossly normal right ventricular size with mild hypokinesis. LHC 09/21/18: There is severe three vessel coronary artery disease. S/P CABG 2 of 4 patent bypass grafts. Patient had successful PTCA/Drug-Eluting Stent placement in the distal Left Main. Heavily calcified highly tortuous Left main to CIRC. Dilation of calcified Left main into ostial CIRC with type A dissection covered with Stent Circ distal to distal edge of Left Main/Ostial CIRC STENT severe disease 95% focal lesion unable to cross any balloons (Threader1.2 failed to cross). Highly tortuous proximal CIRC less likely candidate for Rotablator. PURVI 3 Flow Left main into all branches of CIRC. Limited TTE 09/14/18: LVEF 45%. Mild global LV systolic dysfunction. Past Med Surg Social Fam HX - Past Medical History Medical history: arthritis, atrial fibrillation, cancer, COPD, coronary artery disease, diabetes, hypertension Additional medical history: prostate cancer with mets to bladder Psychiatric history: anxiety - Past Surgical History Surgical History: cancer surgery, cholecystectomy, coronary bypass (CABG) Additional surgical history: back surgery, carpal tunnel, transurethral resection bladder tumor removal surgery - Social History Smoking Status: Former smoker Smokeless Tobacco Status: No Alcohol use: none Drug use: none - Family History Father Hx Family Cardiac Disorders: Yes (CABG, CAD) Brother Hx Family Cardiac Disorders: Yes Medications and Allergies Diltiazem HCl [Cardizem LA] 360 mg PO DAILY 10/18/15 [History] Albuterol Sulfate [Proair Hfa] 1 puff IH Q6HR PRN 05/06/18 [History] Budesonide/Formoterol 160/4.5 [Symbicort 160/4.5] 2 puff IH BID 05/06/18 [Histor y] Glimepiride [Amaryl] 4 mg PO DAILY 05/06/18 [History] Insulin Glargine,Hum.rec.anlog [Toujeo Solostar] 100 units SQ HS 05/06/18 [History] Iron Polysaccharide Complex [Pro Fe] 180 mg PO DAILY 05/06/18 [History] Lipase/Protease/Amylase [[place] Saeed 24,000 Units Capsule] 2 each PO TIDWM 05/06/18 [History] Tiotropium [Spiriva] 18 mcg IH DAILY 05/06/18 [History] Atorvastatin Calcium [Lipitor] 20 mg PO DAILY 05/07/18 [History] Cholecalciferol (D-3) [Vitamin D] 1,000 unit PO BID 05/07/18 [History] Lipase/Protease/Amylase [[place] Saeed 12,000 Units Capsule] 1 each PO BID PRN 05/07/18 [History] Losartan/Hydrochlorothiazide [Losartan-Hctz 100-25 mg Tab] 1 each PO DAILY 05/07/18 [History] Naloxone [Narcan] 4 mg NS AD 05/07/18 [History] Omeprazole [PriLOSEC] 20 mg PO DAILY 05/07/18 [History] Oxycodone HCl/Acetaminophen [Percocet 10-325 mg Tablet] 1 each PO TID PRN 05/07/18 [History] Potassium Chloride [Klor-Con 10] 10 meq PO DAILY 05/07/18 [History] Pregabalin [Lyrica] 300 mg PO DAILY 05/07/18 [History] SitaGLIPtin [Januvia] 100 mg PO DAILY 05/07/18 [History] Tamsulosin HCl [Flomax] 0.4 mg PO DAILY 05/07/18 [History] Zolpidem [Ambien] 10 mg PO HS 05/07/18 [History] Apixaban [Eliquis] 5 mg PO BID #60 tablet 05/09/18 [Rx] Clopidogrel [Plavix] 75 mg PO DAILY #20 tablet 05/10/18 [Rx] Nitroglycerin 0.4 mg SL Q5MIN PRN #20 tab 05/10/18 [Rx] Insulin LISPRO [Humalog Kwikpen U-100] See Protocol SQ TIDWM PRN 09/22/18 [History] Metformin HCl [Glucophage] 1,000 mg PO BID #0 09/22/18 [Rx] Empagliflozin [Jardiance] 25 mg PO DAILY 10/21/18 [History] Venlafaxine [Effexor] 37.5 mg PO BID 10/21/18 [History] Aspirin Enteric Coated [Aspirin EC] 81 mg PO HS #0 10/22/18 [Rx] Metoprolol XL (24 HR) Succ [Toprol Xl] 50 mg PO BID #60 tab.er.24h 10/22/18 [Rx] Spironolactone [Aldactone] 12.5 mg PO DAILY #15 tablet 10/22/18 [Rx] Allergy/AdvReac Type Severity Reaction Status Date / Time ibuprofen Allergy Hives Verified 11/15/18 20:22 ticagrelor [From Brilinta] AdvReac Difficulty Verified 11/15/18 20:22 Breathing All Systems Review: The remainder of the systems were reviewed and are negative - Cardiovascular Cardiovascular: as per HPI, chest pain at rest, radiating jaw, neck or arm pain - Gastrointestinal Gastrointestinal: nausea Physical Examination Vital Signs, Last 4 Hours Temp Pulse Resp BP Pulse Ox 11/16/18 07:08 99.1 F 94 16 104/59 97 Vital Signs Temp Pulse Resp BP Pulse Ox 11/16/18 07:08 99.1 F 94 16 104/59 97 11/16/18 04:49 97.5 F L 89 17 114/77 96 11/15/18 23:30 94 21 105/65 99 11/15/18 21:38 96 24 119/79 97 11/15/18 20:54 100 11/15/18 20:23 98.8 F 59 20 120/75 99 Intake and Output 11/15/18 11/16/18 11/16/18 23:59 07:59 15:59 Intake Total 24 / 24 Output Total 350 / 350 Balance -350 / -326 24 / -326 Intake: Oral 24 / 24 Output: Urine 350 / 350 Other: Weight 106.594 kg 113.3 kg Patient Weight 11/16/18 23:59 Weight 113.3 kg General: Conversant, No Apparent Distress HEENT: Atraumatic, Normocephaly, Mucus Membranes Moist Neck: No JVD, Normal carotid pulses Cardiac: Other (irregularly irregular rhythm) Lungs: Normal Breath Sounds, No Wheeze, Rales, Rhonchi Neuro: Alert and responsive, No focal deficits noted Abdomen: Soft, Non-Tender Skin: No rashes noted on visualized skin Musculoskeletal: No Chest Wall Tenderness Extremities: No Clubbing, No Cyanosis, No Edema, Normal Pulses Results 11/16/18 07:51 11/16/18 07:51 Lab Results 11/15/18 11/15/18 11/15/18 20:44 20:44 21:17 WBC 14.0 H Hgb 13.7 Hct 43.1 Plt Count 216 INR 1.5 APTT 33.3 Sodium 129 L Potassium 4.0 Chloride 97 L Carbon Dioxide 21 L BUN 24 H Creatinine 1.04 Glucose 459 H Calcium 9.1 Troponin I 19.17 H* B-Natriuretic Peptide 11/15/18 11/16/18 11/16/18 21:17 07:51 07:51 WBC 13.8 H Hgb 13.0 Hct 40.8 Plt Count 175 INR APTT Sodium Potassium Chloride Carbon Dioxide BUN Creatinine Glucose Calcium Troponin I 16.88 H* B-Natriuretic Peptide 543 H 11/16/18 11/16/18 07:51 07:51 WBC Hgb Hct Plt Count INR 1.4 APTT Sodium 130 L Potassium 3.8 Chloride 100 Carbon Dioxide 24 BUN 21 Creatinine 0.88 Glucose 374 H Calcium 9.0 Troponin I B-Natriuretic Peptide Short CBC 11/16/18 11/15/18 Range/Units 07:51 21:17 WBC 13.8 H 14.0 H (4.3-11.1) K/mcL Hgb 13.0 13.7 (12.9-16.9) g/dL Hct 40.8 43.1 (37.5-50.1) % Plt Count 175 216 (140-400) K/mcL Neutrophils # 11.8 H (1.6-8.9) K/mcL BMP 11/16/18 11/15/18 Range/Units 07:51 20:44 Sodium 130 L 129 L (136-145) mEq/L Potassium 3.8 4.0 (3.5-5.1) mEq/L Chloride 100 97 L (98-107) mEq/L Carbon Dioxide 24 21 L (23-29) mEq/L BUN 21 24 H (8-23) mg/dL Creatinine 0.88 1.04 (0.70-1.30) mg/dL Glucose 374 H 459 H (70-105) mg/dL Calcium 9.0 9.1 (8.6-10.3) mg/dL Cardiac Enzymes 11/16/18 11/15/18 Range/Units 07:51 20:44 Troponin I 16.88 H* 19.17 H* (< 0.04) ng/mL Impressions Chest X-Ray 11/15/18 20:29 IMPRESSION: No acute process. D/ / Matt Hyde MD / Matt Hyde MD Interpreting Provider: Matt Hyde MD Active Medications Aspirin (Aspirin) 162 mg PO DAILY [facility] Stop: 05/18/19 09:01 Last Admin: 11/16/18 09:39 Dose: 162 mg Documented by: Aspirin (Aspirin Ec) 81 mg PO HS [facility] Stop: 05/18/19 21:01 Atorvastatin Calcium (Lipitor) 20 mg PO DAILY [facility] Stop: 05/18/19 09:01 Last Admin: 11/16/18 09:38 Dose: 20 mg Documented by: Clopidogrel Bisulfate (Plavix) 75 mg PO DAILY [facility] Stop: 05/18/19 09:01 Last Admin: 11/16/18 09:38 Dose: 75 mg Documented by: Dextrose/Water (Dextrose 50% (Syg)) 25 ml IVP AD PRN PRN Reason: Hypoglycemia Stop: 05/18/19 06:55 Diltiazem HCl (Cardizem Cd) 360 mg PO DAILY [facility] Stop: 05/18/19 09:01 Last Admin: 11/16/18 09:37 Dose: 360 mg Documented by: Glucagon (Glucagen) 1 mg IM ONCE PRN PRN Reason: Hypoglycemia Stop: 05/18/19 06:55 Glucose (Gluctose) 15 gm PO ONCE PRN PRN Reason: Hypoglycemia Stop: 05/18/19 06:55 Glucose (Gluctose) 30 gm PO ONCE PRN PRN Reason: Hypoglycemia Stop: 05/18/19 06:55 Heparin Sodium (Porcine) (Heparin) 4,000 unit IVP Q6HR PRN PRN Reason: SEE COMMENTS Stop: 05/18/19 07:20 Heparin Sodium (Porcine) (Heparin) 2,000 unit IVP Q6H PRN PRN Reason: SEE COMMENTS Stop: 05/18/19 07:20 Sodium Chloride (0.9 % Sodium Chloride) 1,000 mls @ 100 mls/hr IVC .Q10H [facility] Stop: 05/18/19 00:31 Last Admin: 11/16/18 00:48 Dose: 100 mls/hr Documented by: Dextrose (Dextrose 5%) 1,000 mls @ 100 mls/hr IVC .Q10H PRN PRN Reason: HYPOGLYCEMIA Stop: 05/18/19 06:55 Heparin Sodium/Dextrose (Heparin 25,000 Unit/250 Ml D5w) 25,000 unit in 250 mls @ 13.596 mls/hr IVC .[id number] [facility]; Protocol Stop: 05/18/19 07:31 Insulin Human Lispro (Humalog) 0 units SQ Q6HR [facility]; Protocol Stop: 05/18/19 12:01 Metoprolol Succinate (Toprol Xl) 50 mg PO BID [facility] Stop: 05/18/19 09:01 Last Admin: 11/16/18 09:41 Dose: Not Given Documented by: Naloxone HCl (Narcan) 0.4 mg IVP Q2MPRN PRN PRN Reason: SEE COMMENTS Stop: 05/18/19 06:36 Omeprazole (Prilosec) 20 mg PO DAILY [facility]; Protocol Stop: 05/18/19 09:01 Last Admin: 11/16/18 09:38 Dose: 20 mg Documented by: Oxycodone/Acetaminophen (Percocet 10/325) 1 each PO TID PRN PRN Reason: Pain Stop: 05/18/19 07:26 Pregabalin (Lyrica) 300 mg PO DAILY [facility] Stop: 05/18/19 09:01 Last Admin: 11/16/18 09:39 Dose: 300 mg Documented by: - Imaging and Cardiology Echo: report reviewed Cardiac cath: report reviewed - EKG Interpretation EKG results cardiology: personally reviewed (A-Fib RVR rate 123), other (12 hr tele AVG HR 95, A-Fib) Consult Discharge Plan - Plan Instructions: Chest Pain (DC) Referrals: Pennie Guardado [Primary Care Provider] - <Pratibha Mcmahon - Last Filed: 11/16/18 19:44> Date of Encounter: 11/16/18 - Attending Attestation Patient was seen and evaluated independently by me. Findings, assessment and plan were discussed at length with patient, questions answered. Agree with nurse practitioner's/resident's documentation. Addition as follows, 63yoCM ho HFrEF 30-35%, CAD CABG, 2/4 grafts patent (MITCHELL-LAD, SVG-ramus), LM- ostial LCx stent and recent high risk PCI to LCx at [facility] , Afib, DM2, HTN, COPD. P/w chest pain radiation to left arm. Trop max 19. ECG Afib, IVCD, LAD. Unclear why pt has been only on eliquis and ASA instead of plavix after [facility] PCI. A: NSTEMI after <1 month PCI-LCx, on eliquis/ASA without plavix CAD CABG 2/4 patent grafts, complicated LM-ostial LCx then LCx PCI HFrEF, chronic, recent worsening LVEF Afib, rate ctr ok, on eliquis P: c/w heparin drip, ASA resume plavix plan LHC, but pt wants to be transfer to [facility] for LHC outpt f/u for indication of ICD Pratibha Mcmahon MD, PhD Assessment and Plan Discussion w patient/family: The assessment and plan as outlined above was discussed with the patient and/or family members who expressed understanding and agreement. All questions were answered. Thank you for involving us in the care of your patient. Please call with any questions. History of Present Illness History of present illness: Mr. Hernández is a 63 year old male All Systems Review: The remainder of the systems were reviewed and are negative Physical Examination Vital Signs, Last 4 Hours Temp Pulse Resp BP Pulse Ox 11/16/18 15:55 98.5 F 78 16 91/65 97 Results 11/16/18 07:51 11/16/18 07:51 Lab Results 11/15/18 11/15/18 11/15/18 20:44 20:44 21:17 WBC 14.0 H Hgb 13.7 Hct 43.1 Plt Count 216 INR 1.5 APTT 33.3 Sodium 129 L Potassium 4.0 Chloride 97 L Carbon Dioxide 21 L BUN 24 H Creatinine 1.04 Glucose 459 H Calcium 9.1 Troponin I 19.17 H* B-Natriuretic Peptide 11/15/18 11/16/18 11/16/18 21:17 07:51 07:51 WBC 13.8 H Hgb 13.0 Hct 40.8 Plt Count 175 INR APTT Sodium Potassium Chloride Carbon Dioxide BUN Creatinine Glucose Calcium Troponin I 16.88 H* B-Natriuretic Peptide 543 H 11/16/18 11/16/18 11/16/18 07:51 07:51 13:35 WBC Hgb Hct Plt Count INR 1.4 APTT Sodium 130 L Potassium 3.8 Chloride 100 Carbon Dioxide 24 BUN 21 Creatinine 0.88 Glucose 374 H Calcium 9.0 Troponin I 15.06 H* B-Natriuretic Peptide
--- NOTE | 2018-11-16 11:34 | Discharge Summary ---
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 Hernández is a 63 year old male Patient presented to the emergency department with chest pain. He has significant history of recent PCI at [facility] on 10/22/18. He was discharged and had follow up with his PCP with no issues. He had a scheduled appointment with his dentist to have 2 teeth extracted at was causing him discomfort. He had the teeth removed on11/14/18, and had increased discomfort throughout the day since then. He also had on and off chest pain. He took multiple snaps but the discomfort and chest pain did not improve. Due to his history he was concerned of possible cardiac issue and he came to the emergency department for further evaluation. In the emergency room patient's initial vital signs were within normal limits. CBC: Notable for a white count of 14.0 BMP: Sodium 129, chloride 97, Glucose 459. Troponin 19.17 BNP 543 INR 1.5 Chest xray: No acute process. Initial EKG: atrial fibrillation with RVR, rate 123, QTc 434, No ST elevations. Compared to previous EKG no significant changes In the ER patient received IV fluids and 0.5 inch nitropaste. He was admitted to the hospital for further evaluation. Medical records from [facility] were requested by the patient's nurse upon arrival to the medical floor. On my assessment patient is resting comfortably in the hospital bed in no acute distress. He denies chest pain, abdominal pain, diarrhea and constipation. He did have an episode of vomiting on the ride over to the ER. He is a full code." She presented with above presentation and had above ED course. Opponents was 19, BNP of 543 he was started on heparin drip ( eliquis held) and his aspirin and Plavix was continued. pt is unsure if he has been on Plavix and eliquis at home. Losartan, HCTZ and spironolactone was held secondary to blood pressure (91/60). His beta blockers adn statins were resumed. Chest pain resolved with Nitropaste. Cardiology was consulted - recommended to continue with heparin drip. and he which to be transferred to [facility] for further management of above. [facility] was called and accepted the patient. nursing staff aware. i discussed risks of transfer including deat, cardiopulmonry arrest and he would like to be transferred to [facility]. previous cardiovascular testing. Limited TTE 10/22/18: LVEF 30-35%. Grossly normal right ventricular size with mild hypokinesis. [facility] 09/21/18: There is severe three vessel coronary artery disease. S/P CABG 2 of 4 patent bypass grafts. Patient had successful PTCA/Drug-Eluting Stent placement in the distal Left Main. Heavily calcified highly tortuous Left main to CIRC. Dilation of calcified Left main into ostial CIRC with type A dissection covered with Stent Circ distal to distal edge of Left Main/Ostial CIRC STENT severe disease 95% focal lesion unable to cross any balloons (Threader1.2 failed to cross). Highly tortuous proximal CIRC less likely candidate for Rotablator. PURVI 3 Flow Left main into all branches of CIRC. Limited TTE 09/14/18: LVEF 45%. Mild global LV systolic dysfunction. medications below were not reconciled as he will be transferred to [facility]- for Dr. Hernández to reconcile home medications as per his discretion. Discharge discussed with: patient, family, human performance consultant - Time Spent with Patient Total time spent providing and/or coordinating discharge services: Time spent: Greater than 30 minutes (35) - Discharge Medications Prescriptions: No Action Diltiazem HCl [Cardizem LA] 360 mg PO DAILY Iron Polysaccharide Complex [Pro Fe] 180 mg PO DAILY Tiotropium [Spiriva] 18 mcg IH DAILY Budesonide/Formoterol 160/4.5 [Symbicort 160/4.5] 2 puff IH BID Albuterol Sulfate [Proair Hfa] 1 puff IH Q6HR PRN PRN Reason: Shortness Of Breath Glimepiride [Amaryl] 4 mg PO DAILY Lipase/Protease/Amylase [[place] Saeed 24,000 Units Capsule] 2 each PO TIDWM Insulin Glargine,Hum.rec.anlog [Toujeo Solostar] 100 units SQ HS Losartan/Hydrochlorothiazide [Losartan-Hctz 100-25 mg Tab] 1 each PO DAILY Pregabalin [Lyrica] 300 mg PO DAILY Lipase/Protease/Amylase [[place]ia Saeed 12,000 Units Capsule] 1 each PO BID PRN PRN Reason: with snacks Oxycodone HCl/Acetaminophen [Percocet 10-325 mg Tablet] 1 each PO TID PRN PRN Reason: Pain Tamsulosin HCl [Flomax] 0.4 mg PO DAILY Omeprazole [PriLOSEC] 20 mg PO DAILY SitaGLIPtin [Januvia] 100 mg PO DAILY Zolpidem [Ambien] 10 mg PO HS Naloxone [Narcan] 4 mg NS AD Potassium Chloride [Klor-Con 10] 10 meq PO DAILY Atorvastatin Calcium [Lipitor] 20 mg PO DAILY Cholecalciferol (D-3) [Vitamin D] 1,000 unit PO BID Apixaban [Eliquis] 5 mg PO BID #60 tablet Nitroglycerin 0.4 mg SL Q5MIN PRN #20 tab PRN Reason: Chest Pain Clopidogrel [Plavix] 75 mg PO DAILY #20 tablet Insulin LISPRO [Humalog Kwikpen U-100] See Protocol SQ TIDWM PRN PRN Reason: SLIDING SCALE Metformin HCl [Glucophage] 1,000 mg PO BID #0 Venlafaxine [Effexor] 37.5 mg PO BID Empagliflozin [Jardiance] 25 mg PO DAILY Spironolactone [Aldactone] 12.5 mg PO DAILY #15 tablet Metoprolol XL (24 HR) Succ [Toprol Xl] 50 mg PO BID #60 tab.er.24h Aspirin Enteric Coated [Aspirin EC] 81 mg PO HS #0 Home Medications: Diltiazem HCl [Cardizem LA] 360 mg PO DAILY 10/18/15 [History] Albuterol Sulfate [Proair Hfa] 1 puff IH Q6HR PRN 05/06/18 [History] Budesonide/Formoterol 160/4.5 [Symbicort 160/4.5] 2 puff IH BID 05/06/18 [History] Glimepiride [Amaryl] 4 mg PO DAILY 05/06/18 [History] Insulin Glargine,Hum.rec.anlog [Toujeo Solostar] 100 units SQ HS 05/06/18 [History] Iron Polysaccharide Complex [Pro Fe] 180 mg PO DAILY 05/06/18 [History] Lipase/Protease/Amylase [Georgia Saeed 24,000 Units Capsule] 2 each PO TIDWM 05/06/18 [History] Tiotropium [Spiriva] 18 mcg IH DAILY 05/06/18 [History] Atorvastatin Calcium [Lipitor] 20 mg PO DAILY 05/07/18 [History] Cholecalciferol (D-3) [Vitamin D] 1,000 unit PO BID 05/07/18 [History] Lipase/Protease/Amylase [Georgia Saeed 12,000 Units Capsule] 1 each PO BID PRN 05/07/18 [History] Losartan/Hydrochlorothiazide [Losartan-Hctz 100-25 mg Tab] 1 each PO DAILY 05/07/18 [History] Naloxone [Narcan] 4 mg NS AD 05/07/18 [History] Omeprazole [PriLOSEC] 20 mg PO DAILY 05/07/18 [History] Oxycodone HCl/Acetaminophen [Percocet 10-325 mg Tablet] 1 each PO TID PRN 05/07/18 [History] Potassium Chloride [Klor-Con 10] 10 meq PO DAILY 05/07/18 [History] Pregabalin [Lyrica] 300 mg PO DAILY 05/07/18 [History] SitaGLIPtin [Januvia] 100 mg PO DAILY 05/07/18 [History] Tamsulosin HCl [Flomax] 0.4 mg PO DAILY 05/07/18 [History] Zolpidem [Ambien] 10 mg PO HS 05/07/18 [History] Apixaban [Eliquis] 5 mg PO BID #60 tablet 05/09/18 [Rx] Clopidogrel [Plavix] 75 mg PO DAILY #20 tablet 05/10/18 [Rx] Nitroglycerin 0.4 mg SL Q5MIN PRN #20 tab 05/10/18 [Rx] Insulin LISPRO [Humalog Kwikpen U-100] See Protocol SQ TIDWM PRN 09/22/18 [History] Metformin HCl [Glucophage] 1,000 mg PO BID #0 09/22/18 [Rx] Empagliflozin [Jardiance] 25 mg PO DAILY 10/21/18 [History] Venlafaxine [Effexor] 37.5 mg PO BID 10/21/18 [History] Aspirin Enteric Coated [Aspirin EC] 81 mg PO HS #0 10/22/18 [Rx] Metoprolol XL (24 HR) Succ [Toprol Xl] 50 mg PO BID #60 tab.er.24h 10/22/18 [Rx] Spironolactone [Aldactone] 12.5 mg PO DAILY #15 tablet 10/22/18 [Rx] Allergies/Adverse Reactions: Allergy/AdvReac Type Severity Reaction Status Date / Time ibuprofen Allergy Hives Verified 11/15/18 20:22 ticagrelor [From Brilinta] AdvReac Difficulty Verified 11/15/18 20:22 Breathing Date of admission: 11/16/18 01:54 Primary care physician: Pennie Guardado Consults: 11/16/18 07:09 Consult to Cardiology [CONS] Routine Comment: Consulting Provider: Cardiology Ayleen Reason for Consult: Elevated troponin, chest pain Call Completed: No - Constitutional Vitals: Temp Pulse Resp BP Pulse Ox 98.5 F 87 16 91/66 97 11/16/18 11:06 11/16/18 11:06 11/16/18 11:06 11/16/18 11:06 11/16/18 11:06 General appearance: Present: cooperative, A&O X 3, pleasant, no acute distress, answers questions appropriately Exam: General: Patient is alert, oriented, no acute distress, obese Head: atraumatic, normocephalic, Eye: normal appearance, PERRL, no scleral icterus, no conjunctival injection ENT: mucous membranes moist, normal external ear exam Neck: normal inspection, trachea midline, full ROM, could not appreciate JVD Chest: normal inspection, symmetric chest rise Respiratory: Distant breath sounds secondary to body habitus, Good respiratory effort. Bilateral breath sounds are clear without wheezing, crackles, or rhonchi. Cardiovascular: Regular rate and rhythm. s1 and s2 No clicks, rubs, gallops, or murmors. Abdomen: Bowel sounds present normoactive x-4 quadrants. Abdomen is soft, nondistended. no Epigastric tenderness. No guarding or rebound. No organomegaly noted, obese musculoskeletal: Spontaneously moving all extremities. Skin: warm, dry, intact. Neuro: Alert and oriented x4. No focal deficit Psych: Patient's affect is normal - Patient Status Disposition: Transfer Critical Access Hosp Condition: Serious Functional capacity at discharge: independent ambulation Overall status at discharge: patient is not back to baseline - Discharge Instructions Follow Up With: Pennie Guardado [Primary Care Provider] - Forms: ED Satisfaction Letter
[2018-11-16] MEDS ORDERED: Insulin LISPRO 300 UNITS/3 ML VIAL SQ SCH (12:00)
--- NOTE | 2018-11-16 13:45 | Electrocardiograph Report ---
[address] [place], [place] [address] Test Date: 2018-11-15 Pat Name: [facility] Department: [id number] Room: 2NE16 Gender: M Banana Handler: : 1955 Requested By: [id number] Order Number: [id number] Reading MD: Davion Vasquez Measurements Intervals [place] Rate: 91 P: MS: QRS: -80 QRSD: 132 T: 112 QT: 389 QTc: 479 Interpretive Statements Atrial fibrillation Nonspecific IVCD with LAD LVH with secondary repolarization abnormality Electronically Signed On 11-16-2018 13:44:10 EDT by Davion Vasquez
[2018-11-16 15:57] VITALS: BP 91/65
[2018-11-16] MEDS ORDERED: Aspirin Enteric Coated 81 MG Tablet PO SCH (21:00)
--- NOTE | 2018-11-17 15:10 | Electrocardiograph Report ---
[address] [address] Test Date: 2018-11-15 Pat Name: [facility] Department: [id number] Room: 2NE16 Gender: M Security Tech: Jaylin : 1955 Requested By: Coy Robertson Order Number: [id number] Reading MD: Dagoberto Henson Measurements Intervals [place] Rate: 123 P: MT: 0 QRS: -28 QRSD: 130 T: 84 QT: 361 QTc: 434 Interpretive Statements ATRIAL FIBRILLATION WITH RAPID VENTRICULAR RESPONSE BORDERLINE LEFT AXIS DEVIATION MODERATE INTRAVENTRICULAR CONDUCTION DELAY MODERATE ST DEPRESSION Electronically Signed On 11-17-2018 15:08:47 EDT by Dagoberto Henson
== END 2018-11-16 16:35 | disposition critical access hospital (66) ==
LOC: 2NENU 20:17 → EMEROOARM 20:17 → 2NENU 11-16 03:24
PROVIDERS: ADMIT Internal Medicine; ATTEND Internal Medicine

== ENCOUNTER 2018-12-11 00:02 | Inpatient (IN) ==
[2018-12-11 02:25] LABS: Hematocrit 33.5 % (37.5-50.1); Hemoglobin 10.2 g/dL (12.9-16.9); Immature Granulocytes % 0.2 % (0-4); Lymphocytes % 15.4 %; Mean Corpuscular HGB Conc 30.4 g/dL (31.6-35.5); Mean Corpuscular Hemoglobin 26.9 pg (28.0-33.3); Mean Corpuscular Volume 88.4 fL (83.0-100.0); Mean Platelet Volume 11.5 fL (9.4-12.4); Platelet Count 140 K/mcL (140-400); Red Blood Count 3.79 M/mcL (4.19-5.50); Red Cell Distribution Width 19.1 % (11.5-14.5); Segmented Neutrophils % 72.7 %; White Blood Count 8.5 K/mcL (4.3-11.1)
[2018-12-11 02:26] LABS: Basophils # 0.1 K/mcL (0.0-0.2); Basophils % 0.6 %; Eosinophils # 0.2 K/mcL (0.0-0.6); Eosinophils % 1.8 %; Lymphocytes # 1.3 K/mcL (0.6-4.6); Monocytes # 0.8 K/mcL (0.0-1.3); Monocytes % 9.3 %; Neutrophils # 6.2 K/mcL (1.6-8.9)
[2018-12-11 02:35] LABS: BUN/Creatinine Ratio 26 (6-26); Blood Urea Nitrogen 34 mg/dL (8-23); Calcium 8.6 mg/dL (8.6-10.3); Carbon Dioxide 21 mEq/L (23-29); Chloride 106 mEq/L (98-107); Glucose 306 mg/dL (70-105); Osmolality,Calculated 303 (280-300); Potassium 3.4 mEq/L (3.5-5.1); Sodium 137 mEq/L (136-145); eGFR For African Americans > 60 (> 60); eGFR For Non-African Americans 55 (> 60)
[2018-12-11 02:41] LABS: Troponin I 0.04 ng/mL (< 0.04)
[2018-12-11] MEDS ORDERED: Furosemide 40 MG/4 ML VIAL IVP ONE (03:00)
--- NOTE | 2018-12-11 03:00 | Emergency Department Note ---
Disposition Clinical Impression: Congestive heart failure Qualifiers: Heart failure type: unspecified Heart failure chronicity: acute on chronic Qualified Code(s): I50.9 - Heart failure, unspecified Disposition: Admitted As Inpatient Condition: Fair Time of Disposition: 04:53 SOB HPI - General Chief Complaint: ED Extremity Problem,Nontraumatic Stated Complaint: SOB, BLE swelling Time Seen by Provider: 12/11/18 02:59 Source: patient Limitations: no limitations Nursing Notes Reviewed: Yes Vital Signs Reviewed: Yes - History of Present Illness Patient is a 63-year-old male presented with shortness of breath as well as bilateral lower extremity swelling. Patient has no history of CAD status post CABG 2 as well as multiple stents. Patient also has known history of hypertension, hyperlipidemia, diabetes, COPD and CHF. Patient is hypertensive shortness of breath over the past few days worse over the past 24-48 hours. He is also notes increase in his dry weight approximately 10-15 pounds. 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 Patient states that he does have increasing shortness of breath or any type of exertion, worse over the past few days. He also has increased shortness of breath when lying flat. Patient has been taking his home medications as prescribed. Patient denies chest pain, palpitations, nausea, vomiting, fevers or chills. No recent cough or change in sputum production. - Related Data Home Medications Medication Instructions Recorded Confirmed Diltiazem HCl [Cardizem LA] 360 mg PO DAILY 10/18/15 11/16/18 Albuterol Sulfate [Proair Hfa] 1 puff IH Q6HR PRN 05/06/18 11/16/18 Budesonide/Formoterol 160/4.5 2 puff IH BID 05/06/18 11/16/18 [Symbicort 160/4.5] Glimepiride [Amaryl] 4 mg PO DAILY 05/06/18 11/16/18 Insulin Glargine,Hum.rec.anlog 100 units SQ HS 05/06/18 11/16/18 [Magdalene Mayfield] Iron Polysaccharide Complex [Pro 180 mg PO DAILY 05/06/18 11/16/18 Fe] Lipase/Protease/Amylase [Elvison Dr 2 each PO TIDWM 05/06/18 11/16/18 24,000 Units Capsule] Tiotropium [Spiriva] 18 mcg IH DAILY 05/06/18 11/16/18 Atorvastatin Calcium [Lipitor] 20 mg PO DAILY 05/07/18 11/16/18 Cholecalciferol (D-3) [Vitamin D] 1,000 unit PO BID 05/07/18 11/16/18 Lipase/Protease/Amylase [Creon Dr 1 each PO BID PRN 05/07/18 11/16/18 12,000 Units Capsule] Losartan/Hydrochlorothiazide 1 each PO DAILY 05/07/18 11/16/18 [Losartan-Hctz 100-25 mg Tab] Naloxone [Narcan] 4 mg NS AD 05/07/18 11/16/18 Omeprazole [PriLOSEC] 20 mg PO DAILY 05/07/18 11/16/18 Oxycodone HCl/Acetaminophen 1 each PO TID PRN 05/07/18 11/16/18 [Percocet 10-325 mg Tablet] Potassium Chloride [Klor-Con 10] 10 meq PO DAILY 05/07/18 11/16/18 Pregabalin [Lyrica] 300 mg PO DAILY 05/07/18 11/16/18 SitaGLIPtin [Januvia] 100 mg PO DAILY 05/07/18 11/16/18 Tamsulosin HCl [Flomax] 0.4 mg PO DAILY 05/07/18 11/16/18 Zolpidem [Ambien] 10 mg PO HS 05/07/18 11/16/18 Insulin LISPRO [Humalog Kwikpen See Protocol SQ TIDWM PRN 09/22/18 11/16/18 U-100] Empagliflozin [Jardiance] 25 mg PO DAILY 10/21/18 11/16/18 Venlafaxine [Effexor] 37.5 mg PO BID 10/21/18 11/16/18 Previous Rx's Medication Instructions Recorded Apixaban [Eliquis] 5 mg PO BID #60 tablet 05/09/18 Clopidogrel [Plavix] 75 mg PO DAILY #20 tablet 05/10/18 Nitroglycerin 0.4 mg SL Q5MIN PRN #20 tab 05/10/18 Metformin HCl [Glucophage] 1,000 mg PO BID #0 09/22/18 Aspirin Enteric Coated [Aspirin EC] 81 mg PO HS #0 10/22/18 Metoprolol XL (24 HR) Succ [Toprol 50 mg PO BID #60 tab.er.24h 10/22/18 Xl] Spironolactone [Aldactone] 12.5 mg PO DAILY #15 tablet 10/22/18 Allergies Allergy/AdvReac Type Severity Reaction Status Date / Time ibuprofen Allergy Hives Verified 12/11/18 00:39 ticagrelor [From Brilinta] AdvReac Difficulty Verified 12/11/18 00:39 Breathing All systems ED: reviewed and negative except as stated. Review of Systems: As Per HPI Constitutional: Denies: fever, chills ENT ED: Denies: congestion Cardiovascular: Reports: dyspnea on exertion. Denies: chest pain, palpitations, syncope Respiratory: Reports: dyspnea. Denies: cough, wheezes, sputum production Gastrointestinal: Denies: abdominal pain, nausea, vomiting Genitourinary: Denies: urgency, dysuria Musculoskeletal: Denies: back pain Integumentary: Denies: rash Neurological: Denies: headache, weakness, numbness Endocrine: Denies: fatigue Past Medical History - Past Medical History Medical history: Reports: arthritis, atrial fibrillation, cancer, CHF, COPD, coronary artery disease, diabetes, hypertension, myocardial infarction Surgical history: Reports: cancer surgery, cholecystectomy, coronary bypass (CABG) Psychiatric history: Reports: anxiety - Social History Smoking Status: Former smoker Smokeless Tobacco Status: No Alcohol use: Reports: none Drug use: Reports: none Physical Exam - General Limitations: no limitations General appearance: alert - Head Head exam: atraumatic, normocephalic, normal inspection - Eye Eye exam: Present: normal appearance, PERRL, EOMI - ENT ENT exam: normal exam, normal oropharynx, mucous membranes moist - Neck Neck exam: Present: normal inspection, full ROM, trachea midline - Chest Chest inspection: Present: normal inspection, symmetric chest wall rise - Respiratory Respiratory exam: Present: prolonged expiratory phase (With diffuse crackles at the bases, minimal wheezing heard throughout) - Cardiovascular Cardiovascular exam: Present: regular rate, normal rhythm, normal heart sounds - Abdominal Exam Abdominal exam: Present: soft, Non-Tender. Absent: tenderness, distention, guarding, rebound, rigidity - Extremities Exam Extremities exam: Present: normal capillary refill, pedal edema (2+ pitting edema to the bilateral lower extremities). Absent: tenderness, calf tenderness - Expanded Lower Extremity Exam Neurovascular/Tendon exam: Absent: motor deficit, sensory deficit, tendon deficit - Neurological Exam Neurological exam: Present: alert, oriented X3 - Psychiatric Psychiatric exam: Present: normal affect, normal mood - Skin Skin exam: Present: warm, dry, intact, normal color Course Vital Signs Temperature 98 F 12/11/18 00:34 Pulse Rate 81 12/11/18 00:34 Respiratory Rate 16 12/11/18 00:34 Blood Pressure 123/75 12/11/18 00:34 O2 Sat by Pulse Oximetry 97 12/11/18 00:34 Temperature 98 F 12/11/18 00:34 Pulse Rate 81 12/11/18 00:34 Respiratory Rate 16 12/11/18 00:34 Blood Pressure 123/75 12/11/18 00:34 O2 Sat by Pulse Oximetry 97 12/11/18 00:34 Oxygen Delivery Oxygen Delivery Room Air Shortness of Breath/Dyspnea - MDM Narrative Medical decision making narrative: Patient is a 63-year-old male presenting with dyspnea and bilateral lower extremity swelling. On examination, patient is in no acute distress, does have crackles to the bases with 2+ bilateral pitting edema. Patient has increased from his dry weight. Patient does not wear oxygen at home. Patient has known history of CAD status post CABG as well as stenting, hypertension, hyperlipidemia, diabetes, COPD and CHF. CBC, BMP as well as troponin and BNP will be performed. CBC is relatively unremarkable. BMP shows slight elevation in kidney function. Troponin is 0.04. Patient denies all chest pain. He will be given aspirin here in the ER. BNP is elevated in the 1800s, he was given 40 mg IV of Lasix. Patient does not have any current respiratory distress, therefore BiPAP is not utilized at this time. Chest x-ray does show pulmonary edema. Given patient's fluid overload on examination as well as chest x-ray, patient will be admitted for fluid overload and CHF exacerbation. Patient agreeable to disposition of admission. - Differential Diagnosis Likely: acute exacerbation of chronic obstructive airways disease, congestive heart failure, pneumonia - Medical Records Medical records reviewed: Yes I reviewed the patient's medical records. - Lab Data Lab results reviewed: Yes I reviewed the patient's lab results. Result diagrams: 12/11/18 02:09 12/11/18 02:09 Lab Results 12/11/18 12/11/18 12/11/18 Range/Units 01:00 02:09 02:09 WBC (4.3-11.1) K/mcL RBC (4.19-5.50) M/mcL Hgb (12.9-16.9) g/dL Hct (37.5-50.1) % MCV (83.0-100.0) fL MCH (28.0-33.3) pg MCHC (31.6-35.5) g/dL RDW (11.5-14.5) % Plt Count (140-400) K/mcL MPV (9.4-12.4) fL Immature Gran % (0-4) % Seg Neutrophils % % Lymphocytes % % Monocytes % % Eosinophils % % Basophils % % Neutrophils # (1.6-8.9) K/mcL Lymphocytes # (0.6-4.6) K/mcL Monocytes # (0.0-1.3) K/mcL Eosinophils # (0.0-0.6) K/mcL Basophils # (0.0-0.2) K/mcL Sodium 137 (136-145) mEq/L Potassium 3.4 L (3.5-5.1) mEq/L Chloride 106 (98-107) mEq/L Carbon Dioxide 21 L (23-29) mEq/L BUN 34 H (8-23) mg/dL Creatinine 1.32 H (0.70-1.30) mg/dL Est GFR ( Amer) > 60 (> 60) Est GFR (Non-Af Amer) 55 L (> 60) BUN/Creatinine Ratio 26 (6-26) Glucose 306 H (70-105) mg/dL Calculated Osmolality 303 H (280-300) Calcium 8.6 (8.6-10.3) mg/dL Troponin I 0.04 H* (< 0.04) ng/mL B-Natriuretic Peptide 1838 H (Less than 100) pg/mL Specimen Rejected MCV Delta 12/11/18 Range/Units 02:09 WBC 8.5 (4.3-11.1) K/mcL RBC 3.79 L (4.19-5.50) M/mcL Hgb 10.2 L (12.9-16.9) g/dL Hct 33.5 L (37.5-50.1) % MCV 88.4 D (83.0-100.0) fL MCH 26.9 L (28.0-33.3) pg MCHC 30.4 L (31.6-35.5) g/dL RDW 19.1 H (11.5-14.5) % Plt Count 140 (140-400) K/mcL MPV 11.5 (9.4-12.4) fL Immature Gran % 0.2 (0-4) % Seg Neutrophils % 72.7 % Lymphocytes % 15.4 % Monocytes % 9.3 % Eosinophils % 1.8 % Basophils % 0.6 % Neutrophils # 6.2 (1.6-8.9) K/mcL Lymphocytes # 1.3 (0.6-4.6) K/mcL Monocytes # 0.8 (0.0-1.3) K/mcL Eosinophils # 0.2 (0.0-0.6) K/mcL Basophils # 0.1 (0.0-0.2) K/mcL Sodium (136-145) mEq/L Potassium (3.5-5.1) mEq/L Chloride (98-107) mEq/L Carbon Dioxide (23-29) mEq/L BUN (8-23) mg/dL Creatinine (0.70-1.30) mg/dL Est GFR ( Amer) (> 60) Est GFR (Non-Af Amer) (> 60) BUN/Creatinine Ratio (6-26) Glucose (70-105) mg/dL Calculated Osmolality (280-300) Calcium (8.6-10.3) mg/dL Troponin I (< 0.04) ng/mL B-Natriuretic Peptide (Less than 100) pg/mL Specimen Rejected - Radiology Data Radiology results reviewed: Yes I reviewed the patient's radiology results. Chest X-Ray 12/11/18 00:41 IMPRESSION: Findings compatible with pulmonary edema with moderate-sized right pleural effusion. D/ / Shade Dyson / Shade Dyson Interpreting Provider: Shade Dyson - EKG Data EKG attestation: Yes I reviewed and interpreted this EKG. Attestation Statement - Attestation Attestation: I have seen this patient with the resident physician, I have personally evaluated this patient. I had reviewed the chart and document dictation by the resident physician and aM in agreement with the information documented by the resident physician. Please see documentation by the resident physician for complete chart including past medical history, family medical history, review of systems, current history and physical and laboratory and imaging studies. I was present for all procedures, provided direct supervision for all procedures, was present for the entirety of all procedures and provided direct guidance during the procedures. Please see documentation by the resident physician for any procedures performed. I have reviewed all interpretations of EKGs, and reviewed all EKGs performed on patient's as well. I have also reviewed reports of imaging as provided by radiology. Patient presents emergency Department with chief complaint of 2-3 days of increasing bilateral lower extremity edema shortness of breath and weight gain consistent with his history of CHF. On physical examination patient had 1-2+ bilateral lower extremity edema, few faint crackles in the bases questionably on exam, but no evidence of significant increased work of breathing, no significant JVD. Cranial nerves are grossly intact. Heart is irregularly irregular, normal rate. Abdomen is soft and nontender. Basic laboratory studies revealed a troponin of 0.04, significantly elevated BNP at over 1800. Chest x-ray findings consistent with CHF. EKG was A. fib rate controlled no evidence of acute ischemia. Patient was admitted to the hospital for further evaluation and management of acute CHF exacerbation he was given IV Lasix.
[2018-12-11] MEDS ORDERED: Aspirin 81 MG TAB.CHEW PO ONE (04:53)
[2018-12-11] MEDS ORDERED: Acetaminophen 325 MG TABLET PO PRN (07:34)
[2018-12-11] MEDS ORDERED: Ondansetron 4 MG/2 ML VIAL IVP PRN (07:34)
[2018-12-11] MEDS ORDERED: Naloxone 0.4 MG/ML INJ IVP PRN (07:34)
--- NOTE | 2018-12-11 07:34 | Internal Med History&Physical ---
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 Was here in October for NSTEMI req xfer to [facility] for high risk PCI, and then after having stopped plavix experienced stent thrombosis treated medically again at [facility] in early November. He states he was at baseline weight 230, feeling good at that discharge, able to walk without dyspnea, and had only some residual ankle edema. States that he was given a scale, and told to weight himself daily and get checked if it increased. He states he has now gained 30 lbs, and with feeling SOB when lying flat or with any exertion, and his abd feel s full, he decided to come to ED. Denies fevers, chest pain, N/V/D. States compliance with meds. In the ED, vitals T 98, HR 80, RR 16, SBP 120, satting 95-97% RA. ECG shows A- Fib. CXR showing pulm vasc congestion and edema. Labs w BNP 1800, trop 0.04, Cr 1.3, K 3.4, Hb 10. Given lasix 40 iv x1 and admitted. Past medical, surgical, social, and family histories reviewed and updated as below. 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 cardiac stents x4 - Social History Smoking Status: Former smoker Smokeless Tobacco Status: No Alcohol use: none Drug use: none - Family History Father Hx Family Cardiac Disorders: Yes (CABG, CAD) Brother Hx Family Cardiac Disorders: Yes Internal Medicine - H&P: Meds Diltiazem HCl [Cardizem LA] 360 mg PO DAILY 10/18/15 [History] Budesonide/Formoterol 160/4.5 [Symbicort 160/4.5] 2 puff IH BID 05/06/18 [History] Insulin Glargine,Hum.rec.anlog [[place] Solostar] 100 units SQ HS 05/06/18 [History] Iron Polysaccharide Complex [Pro Fe] 180 mg PO DAILY 05/06/18 [History] Lipase/Protease/Amylase [Creon Dr 24,000 Units Capsule] 2 each PO TID 05/06/18 [History] Tiotropium [Spiriva] 18 mcg IH DAILY 05/06/18 [History] Atorvastatin Calcium [Lipitor] 20 mg PO DAILY 05/07/18 [History] Cholecalciferol (D-3) [Vitamin D] 1,000 unit PO BID 05/07/18 [History] Losartan/Hydrochlorothiazide [Losartan-Hctz 100-25 mg Tab] 1 each PO DAILY 05/07/18 [History] Naloxone [Narcan] 4 mg NS AD 05/07/18 [History] Oxycodone HCl/Acetaminophen [Percocet 10-325 mg Tablet] 1 each PO TID PRN 05/07/18 [History] Potassium Chloride [Klor-Con 10] 10 meq PO DAILY 05/07/18 [History] Pregabalin [Lyrica] 300 mg PO DAILY 05/07/18 [History] SitaGLIPtin [Januvia] 100 mg PO DAILY 05/07/18 [History] Zolpidem [Ambien] 10 mg PO HS 05/07/18 [History] Apixaban [Eliquis] 5 mg PO BID #60 tablet 05/09/18 [Rx] Clopidogrel [Plavix] 75 mg PO DAILY #20 tablet 05/10/18 [Rx] Nitroglycerin 0.4 mg SL Q5MIN PRN #20 tab 05/10/18 [Rx] Insulin LISPRO [Humalog Kwikpen U-100] See Protocol SQ TIDWM PRN 09/22/18 [History] Venlafaxine [Effexor] 37.5 mg PO BID 10/21/18 [History] Aspirin Enteric Coated [Aspirin EC] 81 mg PO HS #0 10/22/18 [Rx] Metoprolol XL (24 HR) Succ [Toprol Xl] 50 mg PO BID #60 tab.er.24h 10/22/18 [Rx] Spironolactone [Aldactone] 12.5 mg PO DAILY #15 tablet 10/22/18 [Rx] HumuLIN N 35 units SQ DAILY 12/11/18 [History] Allergy/AdvReac Type Severity Reaction Status Date / Time ibuprofen Allergy Hives Verified 12/11/18 00:39 ticagrelor [From Brilinta] AdvReac Difficulty Verified 12/11/18 00:39 Breathing All Systems PM: A 10-system review of systems was performed and is negative for pertinent findings except as documented above in the HPI. - Constitutional Vitals: Temp Pulse Resp BP Pulse Ox 97.7 F 68 16 125/86 93 12/11/18 06:03 12/11/18 06:03 12/11/18 06:03 12/11/18 06:03 12/11/18 06:03 Exam: General: NAD, good eye contact, chronically ill appearing but in no distress, obese Head: Atraumatic, normocephalic. Face symmetric Eyes: EOMI, sclerae anicteric ENT: Mucous membranes moist. Normal oral mucosa and poor dentition. Trachea midline. Thoracic: No visible chest wall deformities. Does have blunting R base a few inches, and bibasilar trace/fine crackles w inspiration Cardio: Normal S1 and S2, regular rate and rhythm, no murmurs. Unable to appreciate JVD Abdomen: Soft, nontender, nondistended, obese. Extremities: Warm, well perfused. DP pulses 2+ b/l. No clubbing, cyanosis. Significant pitting edema through b/l legs, mild dependent in thighs, and trace lower body wall edema Skin: Intact. No rashes, bruises, or ulcers Neuro: Awake, fully oriented. Good memory, concentration, attention. Speech fluent. CN II-XII grossly intact. Strength 5/5 in b/l UE and LE Internal Med - H&P Results - Labs CBC & Chem 7: 12/11/18 02:09 12/11/18 02:09 Labs: Short CBC 12/11/18 Range/Units 02:09 WBC 8.5 (4.3-11.1) K/mcL Hgb 10.2 L (12.9-16.9) g/dL Hct 33.5 L (37.5-50.1) % Plt Count 140 (140-400) K/mcL Neutrophils # 6.2 (1.6-8.9) K/mcL BMP 12/11/18 02:09 Sodium 137 Potassium 3.4 L Chloride 106 Carbon Dioxide 21 L BUN 34 H Creatinine 1.32 H Glucose 306 H Calcium 8.6 Cardiac Enzymes 12/11/18 Range/Units 02:09 Troponin I 0.04 H* (< 0.04) ng/mL - Impressions ITS Impressions Chest X-Ray 12/11/18 00:41 IMPRESSION: Findings compatible with pulmonary edema with moderate-sized right pleural effusion. D/ / Shade Dyson / Shade Dyson Interpreting Provider: Shade Dyson - Summary of Assessment and Plan Summary of Assessment and Plan: Dickson Hernández is a 63 M w hx ICM HFrEF 20%, HTN, DM2, A-Fib on AC, COPD, metastatic prostate cancer to bladder, CAD s/p 4vCABG '08 & 3x PCI, who p/w exertional dyspnea, pedal edema, 30 lb weight gain, CXR w edema, and BNP 1800, w Cr 1.3, consistent with acute on chronic HFrEF and SHRUTHI. Acute on Chronic HFrEF 20%: on last TTE at [facility] 11/2018 - Lasix 40 iv bid (home dose 40 po bid) - GDMT: BB as below for A-Fib, ARB as below for SHRUTHI - needs ICD SHRUTHI: holding losartan and hctz, check bmp daily A-Fib: AC on apixaban, rhythm on amio 200 daily, rate on toprol 75 bid R Pleural Effusion: noted, stable to mild increase from before, likely 2/2 CHF Hypokalemia: replace and monitor Hypomagnesemia: replace and monitor CAD s/p CABG, PCI: ASA, plavix, lipitor 40. Keep K>4, Mg>2 HTN: BB, ARB, HCTZ as above DM2: uncontrolled, w hyperglycemia, holding PO meds, home basal 50 qhs, +SSI COPD: home symbicort, spiriva BPH: home flomax Other home meds: creon, lyrica, omeprazole, zolipidem, venlafaxine Obesity: BMI 38 PPx: eliquis Tele: yes Activity: up ad kelly FEN: cardiac ADA 1.5L, no MIVF Lines: PIV Consults: Code: Full Dispo: patient requires inpatient eval and management at this time. Anticipate 3-4 days. Will be homegoing
[2018-12-11 09:36] LABS: Albumin 3.8 g/dL (3.5-5.7); Albumin/Globulin Ratio 1.6 (1.1-2.2); Bilirubin,Direct 0.2 mg/dL (0.0-0.2); Bilirubin,Indirect 0.4 mg/dL (0.0-1.2); Bilirubin,Total 0.6 mg/dL (0.3-1.0); Globulin 2.4 g/dL (2.4-3.5); Magnesium 1.8 mg/dL (1.6-2.6); Total Protein 6.2 g/dL (6.4-8.9)
[2018-12-11] MEDS: Furosemide 40 MG/4 ML VIAL IVP SCH ×2 (09:36→17:30)
[2018-12-11] MEDS: *HR* OxyCODONE/APAP 10/325 TABLET PO PRN (19:52)
[2018-12-11] MEDS: Budesonide/Formoterol 160/4.5 1 PUFF INH IH SCH (22:13)
[2018-12-11] MEDS: Levalbuterol Neb 1.25 MG/3 ML IH SCH (22:13)
[2018-12-12] MEDS: Levalbuterol Neb 1.25 MG/3 ML IH SCH ×4 (04:26→22:52)
[2018-12-12 06:48] LABS: Hematocrit 33.9 % (37.5-50.1); Hemoglobin 10.5 g/dL (12.9-16.9); Mean Corpuscular Hemoglobin 27.3 pg (28.0-33.3); Mean Corpuscular Volume 88.1 fL (83.0-100.0); Platelet Count 137 K/mcL (140-400); Red Blood Count 3.85 M/mcL (4.19-5.50); Red Cell Distribution Width 19.2 % (11.5-14.5); White Blood Count 8.2 K/mcL (4.3-11.1)
[2018-12-12 07:18] LABS: BUN/Creatinine Ratio 27 (6-26); Blood Urea Nitrogen 30 mg/dL (8-23); Calcium 8.9 mg/dL (8.6-10.3); Carbon Dioxide 27 mEq/L (23-29); Chloride 106 mEq/L (98-107); Glucose 260 mg/dL (70-105); Osmolality,Calculated 311 (280-300); Sodium 143 mEq/L (136-145); Troponin I 0.05 ng/mL (< 0.04); eGFR For African Americans > 60 (> 60); eGFR For Non-African Americans > 60 (> 60)
[2018-12-12] MEDS ORDERED: Insulin DETEMIR 100 UNIT/ML X5UNITS SQ STA (07:39)
[2018-12-12] MEDS: Furosemide 40 MG/4 ML VIAL IVP SCH ×2 (07:43→17:10)
[2018-12-12] MEDS ORDERED: *HR* Dextrose 50 % in Water (Syg) 50 ML SYRINGE IVP PRN (07:46)
[2018-12-12] MEDS ORDERED: D5% in Water 1,000 ML IVC PRN (07:46)
[2018-12-12] MEDS ORDERED: Dextrose Gel 15 GM/37.5 ML TUBE PO PRN ×2 (07:46)
[2018-12-12] MEDS ORDERED: Insulin LISPRO 300 UNITS/3 ML VIAL SQ ONE (07:58)
[2018-12-12] MEDS: Insulin LISPRO 300 UNITS/3 ML VIAL SQ SCH ×3 (08:02→17:10)
[2018-12-12] MEDS: Apixaban 5 MG TABLET PO SCH ×2 (09:53→20:56)
[2018-12-12] MEDS ORDERED: Tiotropium 18 MCG inhalation IH SCH (10:00)
[2018-12-12] MEDS: Budesonide/Formoterol 160/4.5 1 PUFF INH IH SCH ×2 (11:13→22:52)
[2018-12-12] MEDS: *HR* Amiodarone 200 MG TABLET PO SCH ×2 (12:03→20:56)
[2018-12-12] MEDS: Diltiazem CD (24hr) 180 MG CAPSULE PO SCH (12:03)
--- NOTE | 2018-12-12 12:05 | Internal Med Progress Note ---
Hospitalist Progress Note - Encounter Date of Encounter: 12/12/18 Time of Encounter: 12:03 - Subjective Interval History: Pt was seen and examined at bedside. Patient denies any acute issues and concerns only. Patient reports leg swelling. Pt reports shortness of breath. Patient reports that he gain 20-30 pounds and possible month or so. Patient rep orts that he felt a little better after diuresis yesterday. We will continue monitor patient. - Exam Vitals: Temp Pulse Resp BP Pulse Ox 97.6 F 98 18 118/70 93 12/12/18 11:47 12/12/18 11:47 12/12/18 11:47 12/12/18 11:47 12/12/18 11:47 Exam: General: NAD, alert and oriented 3 Head: Atraumatic, normocephalic. Face symmetric RS: Bibasilar rales Cardio: Normal S1 and S2, regular rate and rhythm, no murmurs. Unable to appreciate JVD Abdomen: Soft, nontender, nondistended, obese. Extremities: Warm, well perfused. DP pulses 2+ b/l pitting edema No clubbing, cyanosis. Significant pitting edema through b/l legs, mild dependent in thighs, and trace lower body wall edema Skin: Intact. No rashes, bruises, or ulcers Neuro: Awake, fully oriented. Good memory, concentration, attention. Speech fluent. CN II-XII grossly intact. Strength 5/5 in b/l UE and LE Psychiatry: Alert and oriented 3 - Assessment and Plan (1) CHF exacerbation Current Visit: Yes Status: Acute Assessment and Plan: Patient was hospitalized for acute CHF exacerbation with bilateral leg swelling and difficulty breathing. Patient has recorded on IV Lasix therapy. Patient also had a GI on presentation which seems to be cardiorenal in origin since his creatinine has improved. We will continue diuresis. - IV Lasix - Strict I's and O's - Dialy weight -Fluid and salt restricted cardiac diet (2) CAD (coronary artery disease) Current Visit: No Status: Chronic Assessment and Plan: Continue aspirin, Plavix, beta ruslan, ARB and statin. (3) Afib Current Visit: No Status: Chronic Assessment and Plan: Continue amiodarone, diltiazem, and ELiquis (4) Diabetes Current Visit: No Status: Chronic Assessment and Plan: Continue basal and bolus regimen. (5) Hypertension Current Visit: No Status: Chronic Assessment and Plan: Continue metoprolol and Cardizem. Continue losartan and hydrochlorothiazide. (6) Pancreatic insufficiency Current Visit: Yes Status: Chronic Assessment and Plan: Continue home Creon - Time Spent with Patient Total time spent is greater than 50% in coordination of care (as documented) at patient's floor/unit and/or counseling patient: 25 - 35 minutes Plan of Care Discussed with: patient Internal Medicine: Result - Labs CBC & Chem 7: 12/12/18 06:36 12/12/18 06:36 Labs: Short CBC 12/12/18 Range/Units 06:36 WBC 8.2 (4.3-11.1) K/mcL Hgb 10.5 L (12.9-16.9) g/dL Hct 33.9 L (37.5-50.1) % Plt Count 137 L (140-400) K/mcL BMP 12/12/18 06:36 Sodium 143 Potassium 4.0 Chloride 106 Carbon Dioxide 27 BUN 30 H Creatinine 1.13 Glucose 260 H Calcium 8.9 Cardiac Enzymes 12/11/18 12/12/18 Range/Units 13:52 06:36 Troponin I 0.04 H* 0.05 H* (< 0.04) ng/mL Consult Discharge Plan - Plan Referrals: Pennie Guardado [Primary Care Provider] - (1) CHF exacerbation Qualifiers: Heart failure type: systolic Qualified Code(s): I50.23 - Acute on chronic systolic (congestive) heart failure (2) CAD (coronary artery disease) Qualifiers: Coronary Disease-Associated Artery/Lesion type: bypass graft [place] vs. transplanted heart: [place] heart Associated angina: with unspecified angina Qualified Code(s): I25.709 - Atherosclerosis of coronary artery bypass graft(s), unspecified, with unspecified angina pectoris (3) Afib Qualifiers: Atrial fibrillation type: chronic Qualified Code(s): I48.2 - Chronic atrial fibrillation (4) Diabetes Qualifiers: Diabetes mellitus type: type 2 Diabetes mellitus superintendent marine oil terminal insulin use: with group home use Diabetes mellitus complication status: with hyperglycemia Qualified Code(s): E11.65 - Type 2 diabetes mellitus with hyperglycemia; Z79.4 - FDC (current) use of insulin (5) Hypertension Qualifiers: Hypertension type: essential hypertension Qualified Code(s): I10 - Essential (primary) hypertension
[2018-12-12] MEDS: *HR* OxyCODONE/APAP 10/325 TABLET PO PRN (17:13)
[2018-12-12] MEDS: Pregabalin 75 MG CAPSULE PO SCH (20:55)
[2018-12-12] MEDS ORDERED: Insulin LISPRO 300 UNITS/3 ML VIAL SQ SCH (21:22)
[2018-12-12] MEDS: Ciprofloxacin/Dex *EAR* Susp 7.5 ML BOTTLE LEFT EAR SCH (22:34)
[2018-12-13 02:15] LABS: Basophils # 0.1 K/mcL (0.0-0.2); Basophils % 0.6 %; Eosinophils # 0.2 K/mcL (0.0-0.6); Eosinophils % 1.9 %; Hematocrit 32.2 % (37.5-50.1); Hemoglobin 9.6 g/dL (12.9-16.9); Immature Granulocytes % 0.4 % (0-4); Lymphocytes # 1.4 K/mcL (0.6-4.6); Mean Corpuscular HGB Conc 29.8 g/dL (31.6-35.5); Mean Corpuscular Hemoglobin 26.8 pg (28.0-33.3); Mean Corpuscular Volume 89.9 fL (83.0-100.0); Mean Platelet Volume 11.5 fL (9.4-12.4); Monocytes # 0.8 K/mcL (0.0-1.3); Monocytes % 10.7 %; Neutrophils # 5.4 K/mcL (1.6-8.9); Platelet Count 135 K/mcL (140-400); Red Blood Count 3.58 M/mcL (4.19-5.50); Red Cell Distribution Width 19.3 % (11.5-14.5); Segmented Neutrophils % 68.4 %; White Blood Count 7.9 K/mcL (4.3-11.1)
[2018-12-13 02:37] LABS: BUN/Creatinine Ratio 25 (6-26); Blood Urea Nitrogen 26 mg/dL (8-23); Carbon Dioxide 24 mEq/L (23-29); Chloride 106 mEq/L (98-107); Glucose 295 mg/dL (70-105); Magnesium 1.8 mg/dL (1.6-2.6); Osmolality,Calculated 310 (280-300); Potassium 3.5 mEq/L (3.5-5.1); Sodium 142 mEq/L (136-145); eGFR For African Americans > 60 (> 60); eGFR For Non-African Americans > 60 (> 60)
[2018-12-13] MEDS ORDERED: Insulin Human Regular 10 UNIT in 0.9 % Sodium Chloride 10 ML IV ONE (02:40)
[2018-12-13] MEDS: Levalbuterol Neb 1.25 MG/3 ML IH SCH (04:07)
[2018-12-13] MEDS ORDERED: Tiotropium 18 MCG inhalation IH SCH (07:00)
[2018-12-13 07:16] VITALS: BP 125/76
[2018-12-13] MEDS: Diltiazem CD (24hr) 180 MG CAPSULE PO SCH (07:41)
[2018-12-13] MEDS: *HR* Amiodarone 200 MG TABLET PO SCH (07:41)
[2018-12-13] MEDS: Pregabalin 75 MG CAPSULE PO SCH (07:41)
[2018-12-13] MEDS: Insulin LISPRO 300 UNITS/3 ML VIAL SQ SCH (07:42)
[2018-12-13] MEDS: Apixaban 5 MG TABLET PO SCH (07:42)
[2018-12-13] MEDS: Furosemide 40 MG/4 ML VIAL IVP SCH (07:42)
[2018-12-13] MEDS: *HR* OxyCODONE/APAP 10/325 TABLET PO PRN (07:47)
[2018-12-13] MEDS: Ciprofloxacin/Dex *EAR* Susp 7.5 ML BOTTLE LEFT EAR SCH (07:54)
[2018-12-13] MEDS ORDERED: *HR* OxyCODONE/APAP 10/325 TABLET PO PRN (08:22)
[2018-12-13] MEDS ORDERED: Losartan/HCTZ 50-12.5 TABLET PO SCH (09:00)
[2018-12-13] MEDS ORDERED: Aspirin 81 MG TAB.CHEW PO SCH (09:00)
--- NOTE | 2018-12-13 09:05 | Discharge Summary ---
- NOTES TO OUTPATIENT PROVIDER Notes to Outpatient Provider: She was presented to the hospital with complaint of difficulty breathing, bilateral leg pain, and weight gain of approximately 30 pounds. Patient was admitted for CHF exacerbation. In hospital patient improved well with the diuretic therapy and was able to lost 25 pounds. She will be discharged on Lasix 40 twice a day and potassium supplements. Please follow up with patient within 1 week to repeat BMP. Date of Encounter: 12/13/18 Time of Encounter: 09:00 - Discharge Diagnosis (1) CHF exacerbation Priority: Primary Status: Acute Qualifiers: Heart failure type: systolic Qualified Code(s): I50.23 - Acute on chronic systolic (congestive) heart failure (2) CAD (coronary artery disease) Priority: Secondary Status: Chronic Qualifiers: Coronary Disease-Associated Artery/Lesion type: bypass graft [place] vs. transplanted heart: [place] heart Associated angina: with unspecified angina Qualified Code(s): I25.709 - Atherosclerosis of coronary artery bypass graft(s), unspecified, with unspecified angina pectoris (3) Afib Priority: Primary Status: Chronic Qualifiers: Atrial fibrillation type: chronic Qualified Code(s): I48.2 - Chronic atrial fibrillation (4) Diabetes Priority: Secondary Status: Chronic Qualifiers: Diabetes mellitus type: type 2 Diabetes mellitus long term care social worker insulin use: with long term care social worker use Diabetes mellitus complication status: with hyperglycemia Qualified Code(s): E11.65 - Type 2 diabetes mellitus with hyperglycemia; Z79.4 - watermelon inspector (current) use of insulin (5) Hypertension Priority: Secondary Status: Chronic Qualifiers: Hypertension type: essential hypertension Qualified Code(s): I10 - Essential (primary) hypertension (6) Pancreatic insufficiency Priority: Secondary Status: Chronic Hospital course: Mr. 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 Patient was hospitalized for CHF exacerbation. Patient responded very well to the IV diuretic therapy. Patient's admission weight was 121 kg and on discharge his weight dropped down to 109 kg. patient's Lasix dose changed to 40 mg by mouth twice a day. Patient was discharged in stable condition. Patient was discharged on Lasix 40 mg by mouth twice a day and potassium supplement. Follow-up with primary Wider within a week to repeat BMP. Follow up with firearms inspector in 2 weeks. Patient reports that he has appointment with his firearms inspector on 12/28/2018. Patient was advised to keep that appointment. Discharge discussed with: patient, nurse - Time Spent with Patient Total time spent providing and/or coordinating discharge services: 35 Time spent: Greater than 30 minutes - Discharge Medications Prescriptions: Continued Diltiazem HCl [Cardizem LA] 360 mg PO DAILY Iron Polysaccharide Complex [Pro Fe] 180 mg PO DAILY Tiotropium [Spiriva] 18 mcg IH DAILY Budesonide/Formoterol 160/4.5 [Symbicort 160/4.5] 2 puff IH BID Lipase/Protease/Amylase [[place] Dr 24,000 Units Capsule] 1 cap PO TIDWM Insulin Glargine,Hum.rec.anlog [Magdalene [place]] 80 units SQ HS Losartan/Hydrochlorothiazide [Losartan-Hctz 100-25 mg Tab] 1 each PO DAILY Pregabalin [Lyrica] 300 mg PO BID Oxycodone HCl/Acetaminophen [Percocet 10-325 mg Tablet] 1 each PO TID PRN PRN Reason: Pain SitaGLIPtin [Januvia] 100 mg PO DAILY Zolpidem [Ambien] 10 mg PO HS Naloxone [Narcan] 4 mg NS AD Cholecalciferol (D-3) [Vitamin D] 1,000 unit PO BID Apixaban [Eliquis] 5 mg PO BID #60 tablet Nitroglycerin 0.4 mg SL Q5MIN PRN #20 tab PRN Reason: Chest Pain Clopidogrel [Plavix] 75 mg PO DAILY #20 tablet Insulin LISPRO [Humalog Kwikpen U-100] See Protocol SQ TIDWM PRN PRN Reason: SLIDING SCALE Venlafaxine [Effexor] 37.5 mg PO BID Spironolactone [Aldactone] 12.5 mg PO DAILY #15 tablet Aspirin Enteric Coated [Aspirin EC] 81 mg PO HS #0 Insulin NPH, HUMAN [HumuLIN N] 35 unit SQ QAM Amiodarone HCl 200 mg PO BID Atorvastatin [Lipitor] 40 mg PO HS Docusate Sodium [Dok] 200 mg PO DAILY PRN PRN Reason: Constipation Metoprolol XL (24 HR) Succ [Toprol Xl] 75 mg PO BID Omeprazole 20 mg PO DAILY Polyethylene Glycol 3350 17 gm PO DAILY PRN PRN Reason: Constipation Tamsulosin HCl 0.4 mg PO DAILY Changed Potassium Chloride [Klor-Con 10] 20 meq PO DAILY 15 Days #15 tablet.er Furosemide [Lasix] 40 mg PO BID 15 Days #30 tablet Home Medications: Diltiazem HCl [Cardizem LA] 360 mg PO DAILY 10/18/15 [History] Budesonide/Formoterol 160/4.5 [Symbicort 160/4.5] 2 puff IH BID 05/06/18 [History] Insulin Glargine,Hum.rec.anlog [[place] Solostar] 80 units SQ HS 05/06/18 [History] Iron Polysaccharide Complex [Pro Fe] 180 mg PO DAILY 05/06/18 [History] Lipase/Protease/Amylase [[place] Dr 24,000 Units Capsule] 1 cap PO TIDWM 05/06/18 [History] Tiotropium [Spiriva] 18 mcg IH DAILY 05/06/18 [History] Cholecalciferol (D-3) [Vitamin D] 1,000 unit PO BID 05/07/18 [History] Losartan/Hydrochlorothiazide [Losartan-Hctz 100-25 mg Tab] 1 each PO DAILY 05/07/18 [History] Naloxone [Narcan] 4 mg NS AD 05/07/18 [History] Oxycodone HCl/Acetaminophen [Percocet 10-325 mg Tablet] 1 each PO TID PRN 05/07/18 [History] Pregabalin [Lyrica] 300 mg PO BID 05/07/18 [History] SitaGLIPtin [Januvia] 100 mg PO DAILY 05/07/18 [History] Zolpidem [Ambien] 10 mg PO HS 05/07/18 [History] Apixaban [Eliquis] 5 mg PO BID #60 tablet 05/09/18 [Rx] Clopidogrel [Plavix] 75 mg PO DAILY #20 tablet 05/10/18 [Rx] Nitroglycerin 0.4 mg SL Q5MIN PRN #20 tab 05/10/18 [Rx] Insulin LISPRO [Humalog Kwikpen U-100] See Protocol SQ TIDWM PRN 09/22/18 [History] Venlafaxine [Effexor] 37.5 mg PO BID 10/21/18 [History] Aspirin Enteric Coated [Aspirin EC] 81 mg PO HS #0 10/22/18 [Rx] Spironolactone [Aldactone] 12.5 mg PO DAILY #15 tablet 10/22/18 [Rx] Amiodarone HCl 200 mg PO BID 12/11/18 [History] Atorvastatin [Lipitor] 40 mg PO HS 12/11/18 [History] Docusate Sodium [Dok] 200 mg PO DAILY PRN 12/11/18 [History] Insulin NPH, HUMAN [HumuLIN N] 35 unit SQ QAM 12/11/18 [History] Metoprolol XL (24 HR) Succ [Toprol Xl] 75 mg PO BID 12/11/18 [History] Omeprazole 20 mg PO DAILY 12/11/18 [History] Polyethylene Glycol 3350 17 gm PO DAILY PRN 12/11/18 [History] Tamsulosin HCl 0.4 mg PO DAILY 12/11/18 [History] Furosemide [Lasix] 40 mg PO BID 15 Days #30 tablet 12/13/18 [Rx] Potassium Chloride [Klor-Con 10] 20 meq PO DAILY 15 Days #15 tablet.er 12/13/18 [Rx] Allergies/Adverse Reactions: Allergy/AdvReac Type Severity Reaction Status Date / Time ibuprofen Allergy Hives Verified 12/11/18 12:17 ticagrelor [From Brilinta] AdvReac Difficulty Verified 12/11/18 12:17 Breathing Date of admission: 12/11/18 07:34 Primary care physician: Pennie Guardado Discharging clinician: Chris Bergman - Constitutional Vitals: Temp Pulse Resp BP Pulse Ox 97.9 F 97 18 125/76 93 12/13/18 07:10 12/13/18 07:10 12/13/18 07:10 12/13/18 07:10 12/13/18 07:10 General appearance: Present: cooperative, A&O X 3 Exam: General: NAD, alert and oriented 3 Head: Atraumatic, normocephalic. Face symmetric RS: Bibasilar rales Cardio: Normal S1 and S2, regular rate and rhythm, no murmurs. Unable to appreciate JVD Abdomen: Soft, nontender, nondistended, obese. Extremities: Warm, well perfused. DP pulses 2+ b/l pitting edema No clubbing, cyanosis. Significant pitting edema through b/l legs, mild dependent in thighs, and trace lower body wall edema Skin: Intact. No rashes, bruises, or ulcers Neuro: Awake, fully oriented. Good memory, concentration, attention. Speech fluent. CN II-XII grossly intact. Strength 5/5 in b/l UE and LE Psychiatry: Alert and oriented 3 - Patient Status Disposition: Home, Self-Care Condition: Good Overall status at discharge: patient is progressing back to baseline - Discharge Instructions Follow Up With: Pennie Guardado [Primary Care Provider] - - Diet and Activity Activity: increase activity as tolerated Diet: diabetic diet, low salt diet
--- NOTE | 2018-12-15 11:13 | Electrocardiograph Report ---
[facility] Test Date: 2018-12-11 Pat Name: Ltac, Located Within [facility] Department: 104 Room: 2A34 Gender: M [employer] Delivery System: : 1955 Requested By: Valentin Huizar Order Number: [id number] Reading MD: Bin Crowley Measurements Intervals [place] Rate: 74 P: FL: 0 QRS: -20 QRSD: 145 T: 95 QT: 423 QTc: 451 Interpretive Statements ATRIAL FIBRILLATION INTRAVENTRICULAR CONDUCTION DELAY Electronically Signed On 12-15-2018 11:12:17 EDT by Bin Crowley
== END 2018-12-13 09:51 | disposition home or self-care (01) | DRG 292 ==
LOC: 2ANU 00:02 → EMEROOARM 00:02 → 2ANU 05:42 → SUATTDRO 07:34 → 2ANU 12-12 17:32
PROVIDERS: ADMIT Internal Medicine; ATTEND Family Medicine

== ENCOUNTER 2018-12-20 22:22 | Observation (INO) ==
[2018-12-20 23:00] LABS: Basophils # 0.1 K/mcL (0.0-0.2); Basophils % 0.4 %; Eosinophils % 0.1 %; Hematocrit 38.2 % (37.5-50.1); Hemoglobin 11.7 g/dL (12.9-16.9); Immature Granulocytes % 0.4 % (0-4); Lymphocytes # 1.5 K/mcL (0.6-4.6); Lymphocytes % 10.8 %; Mean Corpuscular HGB Conc 30.6 g/dL (31.6-35.5); Mean Corpuscular Hemoglobin 26.7 pg (28.0-33.3); Mean Corpuscular Volume 87.2 fL (83.0-100.0); Mean Platelet Volume 12.9 fL (9.4-12.4); Monocytes # 1.1 K/mcL (0.0-1.3); Monocytes % 8.2 %; Neutrophils # 10.8 K/mcL (1.6-8.9); Platelet Count 172 K/mcL (140-400); Red Blood Count 4.38 M/mcL (4.19-5.50); Red Cell Distribution Width 19.5 % (11.5-14.5); Segmented Neutrophils % 80.1 %; White Blood Count 13.6 K/mcL (4.3-11.1)
[2018-12-20] MEDS ORDERED: Ipratropium/Albuterol Neb 3 ML IH ONE (23:04)
[2018-12-20 23:15] LABS: Activated Partial Thrombo Time 39.4 Seconds (26.0-36.0)
[2018-12-20 23:20] LABS: INR 4.6
[2018-12-20 23:24] LABS: Calcium 9.2 mg/dL (8.6-10.3); Potassium 3.9 mEq/L (3.5-5.1)
--- NOTE | 2018-12-20 23:30 | Emergency Department Note ---
Disposition Clinical Impression: SHRUTHI (acute kidney injury), Elevated troponin Disposition: Admitted As Inpatient Condition: Good Forms: ED Satisfaction Letter Time of Disposition: 01:00 General Adult HPI - General Chief complaint: ED Chest Pain Stated complaint: Chest Tingle Time Seen by Provider: 12/20/18 22:52 Source: patient Mode of arrival: ambulatory Limitations: no limitations Nursing Notes Reviewed: Yes Vital Signs Reviewed: Yes - History of Present Illness HPI Narrative: Patient is a 63-year-old male that presents the emergency department with rep orts of chest tingling. Patient states that he had 2 episodes of approximately 20 seconds of tingling in his chest one last night and one tonight. Patient states that he does have some mild shortness of breath which is a little bit worse than his baseline shortness of breath. Patient denies any nausea vomiting or diarrhea. Patient denies any diaphoresis. Patient denies any radiation of his tingling. Patient states that he has chest pain-free. Patient states that he is supposed to be taken Lasix twice today is limited taking it once a day. Patient states that he does have some peripheral edema however is not significantly worse than usual. Pain Scale: 4 - Related Data Home Medications Medication Instructions Recorded Confirmed Diltiazem HCl [Cardizem LA] 360 mg PO DAILY 10/18/15 12/11/18 Budesonide/Formoterol 160/4.5 2 puff IH BID 05/06/18 12/11/18 [Symbicort 160/4.5] Insulin Glargine,Hum.rec.anlog 80 units SQ HS 05/06/18 12/11/18 [Magdalene Mayfield] Iron Polysaccharide Complex [Pro 180 mg PO DAILY 05/06/18 12/11/18 Fe] Lipase/Protease/Amylase [Creon Dr 1 cap PO TIDWM 05/06/18 12/11/18 24,000 Units Capsule] Tiotropium [Spiriva] 18 mcg IH DAILY 05/06/18 12/11/18 Cholecalciferol (D-3) [Vitamin D] 1,000 unit PO BID 05/07/18 12/11/18 Losartan/Hydrochlorothiazide 1 each PO DAILY 05/07/18 12/11/18 [Losartan-Hctz 100-25 mg Tab] Oxycodone HCl/Acetaminophen 1 each PO TID PRN 05/07/18 12/11/18 [Percocet 10-325 mg Tablet] Pregabalin [Lyrica] 300 mg PO BID 05/07/18 12/11/18 SitaGLIPtin [Januvia] 100 mg PO DAILY 05/07/18 12/11/18 Zolpidem [Ambien] 10 mg PO HS 05/07/18 12/11/18 Insulin LISPRO [Humalog Kwikpen See Protocol SQ TIDWM PRN 09/22/18 12/11/18 U-100] Venlafaxine [Effexor] 37.5 mg PO BID 10/21/18 12/11/18 Amiodarone HCl 200 mg PO BID 12/11/18 12/11/18 Atorvastatin [Lipitor] 40 mg PO HS 12/11/18 12/11/18 Docusate Sodium [Dok] 200 mg PO DAILY PRN 12/11/18 12/11/18 Insulin NPH, HUMAN [HumuLIN N] 35 unit SQ QAM 12/11/18 12/11/18 Metoprolol XL (24 HR) Succ [Toprol 75 mg PO BID 12/11/18 12/11/18 Xl] Omeprazole 20 mg PO DAILY 12/11/18 12/11/18 Polyethylene Glycol 3350 17 gm PO DAILY PRN 12/11/18 12/11/18 Tamsulosin HCl 0.4 mg PO DAILY 12/11/18 12/11/18 Previous Rx's Medication Instructions Recorded Apixaban [Eliquis] 5 mg PO BID #60 tablet 05/09/18 Clopidogrel [Plavix] 75 mg PO DAILY #20 tablet 05/10/18 Nitroglycerin 0.4 mg SL Q5MIN PRN #20 tab 05/10/18 Aspirin Enteric Coated [Aspirin EC] 81 mg PO HS #0 10/22/18 Spironolactone [Aldactone] 12.5 mg PO DAILY #15 tablet 10/22/18 Furosemide [Lasix] 40 mg PO BID 15 Days #30 tablet 12/13/18 Potassium Chloride [Klor-Con 10] 20 meq PO DAILY 15 Days #15 12/13/18 tablet.er Allergies Allergy/AdvReac Type Severity Reaction Status Date / Time ibuprofen Allergy Hives Verified 12/20/18 22:30 ticagrelor [From Brilinta] AdvReac Difficulty Verified 12/20/18 22:30 Breathing All systems ED: reviewed and negative except as stated. Constitutional: Denies: fever Cardiovascular: Reports: other (Chest tingling). Denies: chest pain Respiratory: Reports: dyspnea Gastrointestinal: Denies: abdominal pain, nausea, vomiting Integumentary: Reports: other Neurological: Denies: weakness, numbness, paresthesias Past Medical History - Past Medical History Medical history: Reports: arthritis, atrial fibrillation, cancer, CHF, COPD, coronary artery disease, diabetes, hypertension, myocardial infarction Surgical history: Reports: cancer surgery, cholecystectomy, coronary bypass (CABG) Psychiatric history: Reports: anxiety - Social History Smoking Status: Former smoker Smokeless Tobacco Status: No Alcohol use: Reports: none Drug use: Reports: none Physical Exam - General Limitations: no limitations General appearance: alert, in no apparent distress - Head Head exam: atraumatic, normocephalic - Eye Eye exam: Present: normal appearance, EOMI - Neck Neck exam: Present: normal inspection, full ROM, trachea midline - Respiratory Respiratory exam: Present: wheezes (Bilaterally ). Absent: respiratory distress - Cardiovascular Cardiovascular exam: Present: regular rate, normal rhythm, normal heart sounds, +S1, +S2 - Abdominal Exam Abdominal exam: Present: soft, Non-Tender, normal bowel sounds - Neurological Exam Neurological exam: Present: alert, oriented X3 - Psychiatric Psychiatric exam: Present: normal affect, normal mood - Skin Skin exam: Present: warm, dry, intact Course Vital Signs Temperature 97.9 F 12/20/18 22:30 Pulse Rate 110 12/20/18 22:30 Respiratory Rate 20 12/20/18 22:30 Blood Pressure 113/83 12/20/18 22:30 O2 Sat by Pulse Oximetry 96 12/20/18 22:30 Temperature 97.9 F 12/20/18 22:30 Pulse Rate 86 12/20/18 23:51 Respiratory Rate 18 12/21/18 00:24 Blood Pressure 142/78 12/20/18 23:51 O2 Sat by Pulse Oximetry 91 12/21/18 00:24 Oxygen Delivery Oxygen Delivery Room Air Medical Decision Making - MDM Narrative Medical decision making narrative: Due the patient is not emergency Department with reports of chest tingling and mild increase in shortness of breath we will obtain basic laboratory testing, chest x-ray EKG and presentation at the breathing treatment. Patient had a nonsustained run of ventricular tachycardia. Patient's laboratory testing shows no acute kidney injury. Patient's troponin is 0.054 this does appear to be intermittent chronic for the patient. Patient's EKG showed atrial fibrillation at a rate of 110. His rate did improve on its own without any acute intervention down into the 80s. Spoke with the patient's knee is comfortable with being admitted to the hospital. Patient will be admitted to the hospital for further evaluation and management of his acute kidney injury, ACS rule out. The patient's chest x-ray also showed a pleural effusion on the right. This did appear to be enlarged from his previous chest x-ray. Called spoke the admitting hospitalist and they have accepted the patient to their service. - Medical Records Medical records reviewed: Yes I reviewed the patient's medical records. - Lab Data Lab results reviewed: Yes I reviewed the patient's lab results. Result diagrams: 12/20/18 22:42 12/20/18 22:42 Lab Results 12/20/18 12/20/18 12/20/18 Range/Units 22:42 22:42 22:42 WBC 13.6 H (4.3-11.1) K/mcL RBC 4.38 (4.19-5.50) M/mcL Hgb 11.7 L (12.9-16.9) g/dL Hct 38.2 (37.5-50.1) % MCV 87.2 (83.0-100.0) fL MCH 26.7 L (28.0-33.3) pg MCHC 30.6 L (31.6-35.5) g/dL RDW 19.5 H (11.5-14.5) % Plt Count 172 (140-400) K/mcL MPV 12.9 H (9.4-12.4) fL Immature Gran % 0.4 (0-4) % Seg Neutrophils % 80.1 % Lymphocytes % 10.8 % Monocytes % 8.2 % Eosinophils % 0.1 % Basophils % 0.4 % Neutrophils # 10.8 H (1.6-8.9) K/mcL Lymphocytes # 1.5 (0.6-4.6) K/mcL Monocytes # 1.1 (0.0-1.3) K/mcL Eosinophils # 0.0 (0.0-0.6) K/mcL Basophils # 0.1 (0.0-0.2) K/mcL PT 52.0 H* (9.4-12.1) Seconds INR 4.6 H* APTT 39.4 H (26.0-36.0) Seconds Sodium (136-145) mEq/L Potassium (3.5-5.1) mEq/L Chloride (98-107) mEq/L Carbon Dioxide (23-29) mEq/L BUN (8-23) mg/dL Creatinine (0.70-1.30) mg/dL Est GFR ( Amer) (> 60) Est GFR (Non-Af Amer) (> 60) BUN/Creatinine Ratio (6-26) Glucose (70-105) mg/dL Calculated Osmolality (280-300) Calcium (8.6-10.3) mg/dL Troponin I (< 0.04) ng/mL B-Natriuretic Peptide 2999 H (Less than 100) pg/mL 12/20/18 Range/Units 22:42 WBC (4.3-11.1) K/mcL RBC (4.19-5.50) M/mcL Hgb (12.9-16.9) g/dL Hct (37.5-50.1) % MCV (83.0-100.0) fL MCH (28.0-33.3) pg MCHC (31.6-35.5) g/dL RDW (11.5-14.5) % Plt Count (140-400) K/mcL MPV (9.4-12.4) fL Immature Gran % (0-4) % Seg Neutrophils % % Lymphocytes % % Monocytes % % Eosinophils % % Basophils % % Neutrophils # (1.6-8.9) K/mcL Lymphocytes # (0.6-4.6) K/mcL Monocytes # (0.0-1.3) K/mcL Eosinophils # (0.0-0.6) K/mcL Basophils # (0.0-0.2) K/mcL PT (9.4-12.1) Seconds INR APTT (26.0-36.0) Seconds Sodium 139 (136-145) mEq/L Potassium 3.9 (3.5-5.1) mEq/L Chloride 102 (98-107) mEq/L Carbon Dioxide 24 (23-29) mEq/L BUN 39 H (8-23) mg/dL Creatinine 1.75 H (0.70-1.30) mg/dL Est GFR ( Amer) 48 L (> 60) Est GFR (Non-Af Amer) 40 L (> 60) BUN/Creatinine Ratio 22 (6-26) Glucose 273 H (70-105) mg/dL Calculated Osmolality 307 H (280-300) Calcium 9.2 (8.6-10.3) mg/dL Troponin I 0.05 H* (< 0.04) ng/mL B-Natriuretic Peptide (Less than 100) pg/mL - Radiology Data Radiology results reviewed: Yes I reviewed the patient's radiology results. Chest X-Ray 12/20/18 22:32 IMPRESSION: Progressive right basilar pleuroparenchymal disease. D/ / Ronen Barry MD / Ronen Barry MD Interpreting Provider: Ronen Barry MD - EKG Data EKG #1 EKG attestation: Yes I reviewed and interpreted this EKG.
[2018-12-20 23:34] LABS: Troponin I 0.05 ng/mL (< 0.04)
[2018-12-21] MEDS ORDERED: Aspirin 81 MG TAB.CHEW PO STA (00:34)
--- NOTE | 2018-12-21 01:13 | Emergency Department Note ---
Disposition Clinical Impression: SHRUTHI (acute kidney injury), Elevated troponin Disposition: Admitted As Inpatient Condition: Good Time of Disposition: 01:00 General Adult HPI - General Chief complaint: ED Chest Pain Stated complaint: Chest Tingle Time Seen by Provider: 12/20/18 22:52 Source: patient Mode of arrival: ambulatory Limitations: no limitations Nursing Notes Reviewed: Yes Vital Signs Reviewed: Yes - History of Present Illness Pain Scale: 4 - Related Data Home Medications Medication Instructions Recorded Confirmed Diltiazem HCl [Cardizem LA] 360 mg PO DAILY 10/18/15 12/20/18 Budesonide/Formoterol 160/4.5 2 puff IH BID 05/06/18 12/20/18 [Symbicort 160/4.5] Insulin Glargine,Hum.rec.anlog 80 units SQ HS 05/06/18 12/20/18 [Toujeo Solostar] Iron Polysaccharide Complex [Pro 180 mg PO DAILY 05/06/18 12/20/18 Fe] Lipase/Protease/Amylase [Creon Dr 1 cap PO TIDWM 05/06/18 12/20/18 24,000 Units Capsule] Tiotropium [Spiriva] 18 mcg IH DAILY 05/06/18 12/20/18 Cholecalciferol (D-3) [Vitamin D] 1,000 unit PO BID 05/07/18 12/20/18 Losartan/Hydrochlorothiazide 1 each PO DAILY 05/07/18 12/20/18 [Losartan-Hctz 100-25 mg Tab] Oxycodone HCl/Acetaminophen 1 each PO TID PRN 05/07/18 12/20/18 [Percocet 10-325 mg Tablet] Pregabalin [Lyrica] 300 mg PO BID 05/07/18 12/20/18 SitaGLIPtin [Januvia] 100 mg PO DAILY 05/07/18 12/20/18 Zolpidem [Ambien] 10 mg PO HS 05/07/18 12/20/18 Insulin LISPRO [Humalog Kwikpen See Protocol SQ TIDWM PRN 09/22/18 12/20/18 U-100] Venlafaxine [Effexor] 37.5 mg PO BID 10/21/18 12/20/18 Amiodarone HCl 200 mg PO BID 12/11/18 12/20/18 Atorvastatin [Lipitor] 40 mg PO HS 12/11/18 12/20/18 Docusate Sodium [Dok] 200 mg PO DAILY PRN 12/11/18 12/20/18 Insulin NPH, HUMAN [HumuLIN N] 35 unit SQ QAM 12/11/18 12/20/18 Metoprolol XL (24 HR) Succ [Toprol 75 mg PO BID 12/11/18 12/20/18 Xl] Omeprazole 20 mg PO DAILY 12/11/18 12/20/18 Polyethylene Glycol 3350 17 gm PO DAILY PRN 12/11/18 12/20/18 Tamsulosin HCl 0.4 mg PO DAILY 12/11/18 12/20/18 Previous Rx's Medication Instructions Recorded Apixaban [Eliquis] 5 mg PO BID #60 tablet 05/09/18 Clopidogrel [Plavix] 75 mg PO DAILY #20 tablet 05/10/18 Nitroglycerin 0.4 mg SL Q5MIN PRN #20 tab 05/10/18 Aspirin Enteric Coated [Aspirin EC] 81 mg PO HS #0 10/22/18 Spironolactone [Aldactone] 12.5 mg PO DAILY #15 tablet 10/22/18 Furosemide [Lasix] 40 mg PO BID 15 Days #30 tablet 12/13/18 Potassium Chloride [Klor-Con 10] 20 meq PO DAILY 15 Days #15 12/13/18 tablet.er Allergies Allergy/AdvReac Type Severity Reaction Status Date / Time ibuprofen Allergy Hives Verified 12/20/18 22:30 ticagrelor [From Brilinta] AdvReac Difficulty Verified 12/20/18 22:30 Breathing Constitutional: Denies: fever Cardiovascular: Reports: other (Chest tingling). Denies: chest pain Respiratory: Reports: dyspnea Gastrointestinal: Denies: abdominal pain, nausea, vomiting Integumentary: Reports: other Neurological: Denies: weakness, numbness, paresthesias Past Medical History - Past Medical History Medical history: Reports: arthritis, atrial fibrillation, cancer, CHF, COPD, coronary artery disease, diabetes, hypertension, myocardial infarction Surgical history: Reports: cancer surgery, cholecystectomy, coronary bypass (CABG) Psychiatric history: Reports: anxiety - Social History Smoking Status: Former smoker Smokeless Tobacco Status: No Alcohol use: Reports: none Drug use: Reports: none Physical Exam - General Limitations: no limitations General appearance: alert, in no apparent distress Course Vital Signs Temperature 97.9 F 12/20/18 22:30 Pulse Rate 110 12/20/18 22:30 Respiratory Rate 20 12/20/18 22:30 Blood Pressure 113/83 12/20/18 22:30 O2 Sat by Pulse Oximetry 96 12/20/18 22:30 Temperature 97.9 F 12/20/18 22:30 Pulse Rate 92 12/21/18 00:47 Respiratory Rate 20 12/21/18 00:47 Blood Pressure 114/86 12/21/18 00:47 O2 Sat by Pulse Oximetry 97 12/21/18 00:47 Oxygen Delivery Oxygen Delivery Room Air Medical Decision Making - Medical Records Medical records reviewed: Yes I reviewed the patient's medical records. - Lab Data Lab results reviewed: Yes I reviewed the patient's lab results. Result diagrams: 12/20/18 22:42 12/20/18 22:42 Lab Results 12/20/18 12/20/18 12/20/18 Range/Units 22:42 22:42 22:42 WBC 13.6 H (4.3-11.1) K/mcL RBC 4.38 (4.19-5.50) M/mcL Hgb 11.7 L (12.9-16.9) g/dL Hct 38.2 (37.5-50.1) % MCV 87.2 (83.0-100.0) fL MCH 26.7 L (28.0-33.3) pg MCHC 30.6 L (31.6-35.5) g/dL RDW 19.5 H (11.5-14.5) % Plt Count 172 (140-400) K/mcL MPV 12.9 H (9.4-12.4) fL Immature Gran % 0.4 (0-4) % Seg Neutrophils % 80.1 % Lymphocytes % 10.8 % Monocytes % 8.2 % Eosinophils % 0.1 % Basophils % 0.4 % Neutrophils # 10.8 H (1.6-8.9) K/mcL Lymphocytes # 1.5 (0.6-4.6) K/mcL Monocytes # 1.1 (0.0-1.3) K/mcL Eosinophils # 0.0 (0.0-0.6) K/mcL Basophils # 0.1 (0.0-0.2) K/mcL PT 52.0 H* (9.4-12.1) Seconds INR 4.6 H* APTT 39.4 H (26.0-36.0) Seconds Sodium (136-145) mEq/L Potassium (3.5-5.1) mEq/L Chloride (98-107) mEq/L Carbon Dioxide (23-29) mEq/L BUN (8-23) mg/dL Creatinine (0.70-1.30) mg/dL Est GFR ( Amer) (> 60) Est GFR (Non-Af Amer) (> 60) BUN/Creatinine Ratio (6-26) Glucose (70-105) mg/dL Calculated Osmolality (280-300) Calcium (8.6-10.3) mg/dL Troponin I (< 0.04) ng/mL B-Natriuretic Peptide 2999 H (Less than 100) pg/mL 12/20/18 Range/Units 22:42 WBC (4.3-11.1) K/mcL RBC (4.19-5.50) M/mcL Hgb (12.9-16.9) g/dL Hct (37.5-50.1) % MCV (83.0-100.0) fL MCH (28.0-33.3) pg MCHC (31.6-35.5) g/dL RDW (11.5-14.5) % Plt Count (140-400) K/mcL MPV (9.4-12.4) fL Immature Gran % (0-4) % Seg Neutrophils % % Lymphocytes % % Monocytes % % Eosinophils % % Basophils % % Neutrophils # (1.6-8.9) K/mcL Lymphocytes # (0.6-4.6) K/mcL Monocytes # (0.0-1.3) K/mcL Eosinophils # (0.0-0.6) K/mcL Basophils # (0.0-0.2) K/mcL PT (9.4-12.1) Seconds INR APTT (26.0-36.0) Seconds Sodium 139 (136-145) mEq/L Potassium 3.9 (3.5-5.1) mEq/L Chloride 102 (98-107) mEq/L Carbon Dioxide 24 (23-29) mEq/L BUN 39 H (8-23) mg/dL Creatinine 1.75 H (0.70-1.30) mg/dL Est GFR ( Amer) 48 L (> 60) Est GFR (Non-Af Amer) 40 L (> 60) BUN/Creatinine Ratio 22 (6-26) Glucose 273 H (70-105) mg/dL Calculated Osmolality 307 H (280-300) Calcium 9.2 (8.6-10.3) mg/dL Troponin I 0.05 H* (< 0.04) ng/mL B-Natriuretic Peptide (Less than 100) pg/mL - Radiology Data Radiology results reviewed: Yes I reviewed the patient's radiology results. Chest X-Ray 12/20/18 22:32 IMPRESSION: Progressive right basilar pleuroparenchymal disease. D/ / Ronen Barry MD / Ronen Barry MD Interpreting Provider: Ronen Barry MD - EKG Data EKG #1 EKG attestation: Yes I reviewed and interpreted this EKG. EKG results narrative: EKG shows atrial fibrillation with RVR with ventricular rate of 110. Left axis deviation. Intraventricular conduction delay. Possible old anterior IL. No significant ST segment elevation or depression. No arrhythmia or ectopy. No significant change from prior EKG dated 12/11/2018. Attestation Statement - Attestation Attestation: I, Eliseo Perez MD, personally evaluated this patient and discussed their management with the resident physician. I reviewed the resident's note and agree with the documented findings, medical decision making, and plan of care. I reviewed the residents documentation and agree with the residents assessment and plan of care. I have personally had face to face time with the patient. I personally supervised and was present for the hernandez/critical portions of the following procedures completed by the resident: EKG interpretation. 63-year-old male presents to the emergency department with a complaint of i ntermittent episodes of "tingling" in his chest. He states this happened yesterday and again this evening. He states he has no pain at this feels like a tingling sensation. It lasted about 20-30 seconds and then resolves. He does admit to some mild increased shortness of breath. He is concerned that he may be getting a cold because he does have some increased cough. No fever. Patient has a history of atrial fibrillation and is on Eliquis. He states that he is scheduled this Wednesday to have a cardioversion with Dr. Leavitt for his atrial fibrillation. He does have a prior cardiac history with IL and coronary artery stents. He also is a smoker and states that he no longer smokes however family told me outside the room that he does continue to smoke. On examination patient is a well-developed obese elderly male in no acute distress. He is mildly tachypneic and has some mild exertional dyspnea with sitting up. There is no cyanosis or diaphoresis. Chest is nontender to palpation. Breath sounds are equal bilaterally with scattered bilateral expiratory wheezes. No moist rales noted. Heart irregularly irregular with a normal rate at time of exam. Abdomen is soft and nontender with normal bowel sounds. There is 1+ pitting edema of the lower extremities bilaterally which p atient states is normal but may be slightly worse in the left leg today. EKG shows atrial fibrillation with RVR. No acute ischemic changes. No significant change from prior EKG. Chest x-ray shows progressive right basilar pleuroparenchymal disease. Labs reviewed. Creatinine 1.75 which is signi ficantly above his baseline. Troponin 0.05. BNP 2999. The hospitalist, Dr. Galvin, was consulted and accepted admission of the patient.
[2018-12-21] MEDS ORDERED: Naloxone 0.4 MG/ML INJ IVP PRN (02:13)
--- NOTE | 2018-12-21 02:14 | Internal Med History&Physical ---
<Shelly Arriaga - Last Filed: 12/21/18 06:51> Date of Encounter: 12/21/18 Time of Encounter: 02:14 Internal Medicine - H&P: HPI Chief complaint: Chest tingle Admitted From: Emergency Dept Plans for Post Hospital Care: Home History of present illness: Mr. 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 He stated that last night he had a tingle and is chest for 20 seconds while watching television. Then this evening he again have the chest tingle while watching television that lasted approximately 20 seconds. He did not have diaphoresis, nausea, shortness of breath, vision change, palpitations. The tingle was not painful however he was concerned with his cardiac history so he wanted to be evaluated. He reports that for the past few days he is had increased cough with yellow sputum production along with increased lower extremity swelling, and wheezing. At baseline he is short of breath. He has also gained weight approximately 30 pounds as he is normally 233 lbs and here he is 260 lbs. He reported that he read the instructions on his bottle of Lasix incorrectly and he was only taken at once daily rather than twice daily. He had been discharged 2 weeks ago with a CHF exacerbation for which his Lasix had been increased to twi ce daily. He denies smoking, drug use, alcohol use. He has significant family of cardiac disease including father having KS. He is a full code. Initial vitals in the ED were 97.9F, HR 110, RR 20, BP 113/83, SpO2 96% on room air. WBC 13.6, hemoglobin 11.7, creatinine 1.75, INR 4.6, troponin 0.05, BNP 2999. -In the ED the patient was given aspirin 324mg. -chest x-ray was concerning for progressive right basilar pleuroparenchymal disease. Past Med Surg Social Fam HX - Past Medical History Attestation: Yes The following information was validated with the patient. Source: patient Medical history: arthritis, atrial fibrillation, cancer, CHF, COPD, coronary artery disease, diabetes, hypertension, myocardial infarction Additional medical history: prostate cancer with mets to bladder Psychiatric history: anxiety - Past Surgical History Surgical History: cancer surgery, cholecystectomy, coronary bypass (CABG) Additional surgical history: back surgery, carpal tunnel, transurethral resection bladder tumor removal surgery. cardiac stents x4 - Social History Smoking Status: Former smoker Smokeless Tobacco Status: No Alcohol use: none Drug use: none - Family History Father Hx Family Cardiac Disorders: Yes (CABG, CAD) Brother Hx Family Cardiac Disorders: Yes Internal Medicine - H&P: Meds Diltiazem HCl [Cardizem LA] 360 mg PO DAILY 10/18/15 [History] Budesonide/Formoterol 160/4.5 [Symbicort 160/4.5] 2 puff IH BID 05/06/18 [History] Insulin Glargine,Hum.rec.anlog [Rodolfounelson Soljitendra] 80 units SQ HS 05/06/18 [Hist ory] Iron Polysaccharide Complex [Pro Fe] 180 mg PO DAILY 05/06/18 [History] Lipase/Protease/Amylase [Creon Dr 24,000 Units Capsule] 1 cap PO TIDWM 05/06/18 [History] Tiotropium [Spiriva] 18 mcg IH DAILY 05/06/18 [History] Cholecalciferol (D-3) [Vitamin D] 1,000 unit PO BID 05/07/18 [History] Losartan/Hydrochlorothiazide [Losartan-Hctz 100-25 mg Tab] 1 each PO DAILY 05/07/18 [History] Oxycodone HCl/Acetaminophen [Percocet 10-325 mg Tablet] 1 each PO TID PRN 05/07/18 [History] Pregabalin [Lyrica] 300 mg PO BID 05/07/18 [History] SitaGLIPtin [Januvia] 100 mg PO DAILY 05/07/18 [History] Zolpidem [Ambien] 10 mg PO HS 05/07/18 [History] Apixaban [Eliquis] 5 mg PO BID #60 tablet 05/09/18 [Rx] Clopidogrel [Plavix] 75 mg PO DAILY #20 tablet 05/10/18 [Rx] Nitroglycerin 0.4 mg SL Q5MIN PRN #20 tab 05/10/18 [Rx] Insulin LISPRO [Humalog Kwikpen U-100] See Protocol SQ TIDWM PRN 09/22/18 [History] Venlafaxine [Effexor] 37.5 mg PO BID 10/21/18 [History] Aspirin Enteric Coated [Aspirin EC] 81 mg PO HS #0 10/22/18 [Rx] Spironolactone [Aldactone] 12.5 mg PO DAILY #15 tablet 10/22/18 [Rx] Amiodarone HCl 200 mg PO BID 12/11/18 [History] Atorvastatin [Lipitor] 40 mg PO HS 12/11/18 [History] Docusate Sodium [Dok] 200 mg PO DAILY PRN 12/11/18 [History] Insulin NPH, HUMAN [HumuLIN N] 35 unit SQ QAM 12/11/18 [History] Metoprolol XL (24 HR) Succ [Toprol Xl] 75 mg PO BID 12/11/18 [History] Omeprazole 20 mg PO DAILY 12/11/18 [History] Polyethylene Glycol 3350 17 gm PO DAILY PRN 12/11/18 [History] Tamsulosin HCl 0.4 mg PO DAILY 12/11/18 [History] Furosemide [Lasix] 40 mg PO BID 15 Days #30 tablet 12/13/18 [Rx] Potassium Chloride [Klor-Con 10] 20 meq PO DAILY 15 Days #15 tablet.er 12/13/18 [Rx] Allergy/AdvReac Type Severity Reaction Status Date / Time ibuprofen Allergy Hives Verified 12/20/18 22:30 ticagrelor [From Brilinta] AdvReac Difficulty Verified 12/20/18 22:30 Breathing All Systems PM: A 10-system review of systems was performed and is negative for pertinent findings except as documented above in the HPI. - Constitutional Constitutional: no chills, no fever(s) - EENT Eyes: no blurry vision, no change in vision - Cardiovascular Cardiovascular ROS IM: chest pain (Chest tingle), edema, no palpitations - Respiratory Respiratory: cough, wheezing, excessive phlegm production, change in phlegm color - Gastrointestinal Gastrointestinal: no abdominal pain, no diarrhea, no nausea, no vomiting - Genitourinary Genitourinary ROS male: no dysuria - Musculoskeletal Musculoskeletal ROS IM: back pain, no joint swelling, no muscle cramps - Integumentary Integumentary IM: no rash, no skin ulcer - Neurological Neurological ROS: no dizziness, no frequent falls, no headache(s) - Psychiatric Psychiatric: no confusion - Endocrine Endocrine IM: no fatigue, no flushing - Constitutional Vitals: Temp Pulse Resp BP Pulse Ox 97.8 F 101 17 102/66 94 12/21/18 01:38 12/21/18 01:38 12/21/18 01:38 12/21/18 01:38 12/21/18 01:38 Exam: Gen.: Vitals noted. No acute distress. AAOx3 HEENT: oropharynx clear, Normocephalic, atraumatic Cardiac: irregular, no murmur, +S1/S2 Pulmonary: bilaterally wheezes and decreased breath sounds in right lower lobe with rales. equal chest expansion Abdomen: soft, nontender, Bowel sounds noted, no guarding MSK: ROM intact, no joint swelling noted Extremities: 2+ BLE edema, nontender calf, no cyanosis or clubbing Neuro: A&Ox3, moves all extremities, no focal deficits Psych: Appropriate mood and behavior Internal Med - H&P Results - Labs CBC & Chem 7: 12/21/18 06:20 12/20/18 22:42 Labs: Short CBC 12/20/18 Range/Units 22:42 WBC 13.6 H (4.3-11.1) K/mcL Hgb 11.7 L (12.9-16.9) g/dL Hct 38.2 (37.5-50.1) % Plt Count 172 (140-400) K/mcL Neutrophils # 10.8 H (1.6-8.9) K/mcL BMP 12/20/18 22:42 Sodium 139 Potassium 3.9 Chloride 102 Carbon Dioxide 24 BUN 39 H Creatinine 1.75 H Glucose 273 H Calcium 9.2 Cardiac Enzymes 12/20/18 Range/Units 22:42 Troponin I 0.05 H* (< 0.04) ng/mL - Impressions ITS Impressions Chest X-Ray 12/20/18 22:32 IMPRESSION: Progressive right basilar pleuroparenchymal disease. D/ / Ronen Barry MD / Ronen Barry MD Interpreting Provider: Ronen Barry MD - Assessment and Plan (1) CHF exacerbation Current Visit: No Status: Acute Assessment and plan: Patient with congestive heart failure exacerbation secondary to not taking his Lasix correctly. Patient was discharged 2 weeks ago with acute on chronic congestive heart failure exacerbation and he was supposed to take Lasix twice a day however he was only taking it once a day by mistake. He has noticed lower extremity swelling, wheezing, orthopnea. He has had 30 pound weight gain. Dry weight 233lb and now 260lb. -BNP 2999 -chest x-ray was concerning for progressive right basilar pleuroparenchymal disease. On my review of the CXR compared to previous chest x-ray patient has increased right pleural effusion. -12/09/2018 TTE: LVEF = 30-35% -04/30/2018 TTE: EF = 50-55% -2+ bilateral lower extremity edema, wheezing, decreased breath sounds right lower lobe with rales plan: -lasix 40mg IV given once -continue home metoprolol, spironolactone. -holding losartan/hydrochlorothiazide due to SHRUTHI -strict I&O -fluid restrictive diet Qualifiers: Heart failure type: systolic Qualified Code(s): I50.23 - Acute on chronic systolic (congestive) heart failure (2) Chest pain Current Visit: No Status: Acute Assessment and plan: Patient with atypical chest pain. Patient describes a tingle sensation and the center of his chest without radiation. This lasted approximately 20 seconds while at rest. It was not painful and had no other associated symptoms during the sensation. In the ED the patient was given aspirin 324mg. -Unlikely ACS. Most likely from COPD exacerbation and CHF exacerbation. -EKG showing atrial fibrillation, HR 110, no ST changes indicating ischemia -troponin 0.05 plan: -continue cardiac telemetry -trend troponin -rest of plan as above Qualifiers: Chest pain type: other chest pain Qualified Code(s): R07.89 - Other chest pain; R07.8 - Other chest pain (3) SHRUTHI (acute kidney injury) Current Visit: Yes Status: Acute Assessment and plan: Acute kidney injury that is likely prerenal in etiology may be contributed by fluid overload from CHF exacerbation. -Creatinine 1.75 -baseline creatinine 1.0 plan: -will cautiously diurese -monitor serum creatinine -strict I&O -holding home losartan -continue renal protective strategy including renal dose medications and avoid toxic agents (4) Elevated troponin Current Visit: Yes Status: Acute Assessment and plan: Patient with mildly elevated troponin. Denies current chest pain -this is likely secondary to demand ischemia -troponin 0.05 -EKG showing atrial fibrillation, HR 110, no ST changes indicating ischemia -will trend troponin (5) Heart failure with reduced ejection fraction Current Visit: No Status: Acute Assessment and plan: Patient has known HFrEF. Patient takes metoprolol, losartan/hydrochlorothi azide, Lasix, spironolactone. -12/09/2018 TTE: LVEF = 30-35% -04/30/2018 TTE: EF = 50-55% -continue metoprolol, spironolactone. -Currently given IV Lasix -holding losartan/hydrochlorothiazide due to SHRUTHI Qualifiers: Heart failure chronicity: acute on chronic Qualified Code(s): I50.23 - Acute on chronic systolic (congestive) heart failure (6) Afib Current Visit: No Status: Chronic Assessment and plan: History of atrial fibrillation on anticoagulation with Eliquis and rate controlled with diltiazem and amiodarone. -Continue diltiazem and amiodarone, and Eliquis Qualifiers: Atrial fibrillation type: chronic Qualified Code(s): I48.2 - Chronic atrial fibrillation (7) Diabetes Current Visit: No Status: Chronic Assessment and plan: History of diabetes on insulin. 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 -Holding BP meds as patient is borderline low BP Qualifiers: Hypertension type: essential hypertension Qualified Code(s): I10 - Essential (primary) hypertension (9) CAD (coronary artery disease) Current Visit: No Status: Chronic Assessment and plan: Patient has known CAD. Patient takes aspirin, Plavix, metoprolol, losartan/hydrochlorothiazide, Lasix, spironolactone. -Continue home medications except for losartan/hydrochlorothiazide due to SHRUTHI Qualifiers: Coronary Disease-Associated Artery/Lesion type: bypass graft [place] vs. transplanted heart: [place] heart Associated angina: with unspecified angina Qualified Code(s): I25.709 - Atherosclerosis of coronary artery bypass graft(s), unspecified, with unspecified angina pectoris (10) DVT prophylaxis Current Visit: No Status: Acute (11) COPD exacerbation Current Visit: Yes Status: Acute Assessment and plan: Patient with COPD exacerbation having new and increased yellow sputum production, wheezing. -chest x-ray was concerning for progressive right basilar pleuroparenchymal disease. On my review of the CXR compared to previous chest x-ray patient has increased right pleural effusion. -Afebrile, WBC 13.6 plan: -continue prednisone -continue azithromycin -pro-calcitonin pending -continue supplemental oxygen PRN -continue duonebs -continue Symbicort - Time Spent With Patient Total time spent is greater than 50% in coordination of care (as documented) at patient's floor/unit and/or counseling patient: <Sven Galvin - Last Filed: 12/21/18 08:04> Date of Encounter: 12/21/18 Internal Medicine - H&P: HPI History of present illness: Mr. Hernández is a 63 year old male All Systems PM: A 10-system review of systems was performed and is negative for pertinent findings except as documented above in the HPI. - Constitutional Vitals: Temp Pulse Resp BP Pulse Ox 98.1 F 86 18 109/69 95 12/21/18 04:13 12/21/18 04:13 12/21/18 07:19 12/21/18 06:32 12/21/18 07:19 Internal Med - H&P Results - Labs CBC & Chem 7: 12/21/18 06:20 12/21/18 06:20 Labs: Short CBC 12/20/18 12/21/18 Range/Units 22:42 06:20 WBC 13.6 H 12.1 H (4.3-11.1) K/mcL Hgb 11.7 L 11.1 L (12.9-16.9) g/dL Hct 38.2 36.3 L (37.5-50.1) % Plt Count 172 148 (140-400) K/mcL Neutrophils # 10.8 H 9.1 H (1.6-8.9) K/mcL BMP 12/20/18 12/21/18 22:42 06:20 Sodium 139 140 Potassium 3.9 3.7 Chloride 102 102 Carbon Dioxide 24 24 BUN 39 H 38 H Creatinine 1.75 H 1.63 H Glucose 273 H 253 H Calcium 9.2 9.1 Cardiac Enzymes 12/20/18 12/21/18 Range/Units 22:42 06:20 Troponin I 0.05 H* 0.05 H* (< 0.04) ng/mL - Impressions ITS Impressions Chest X-Ray 12/20/18 22:32 IMPRESSION: Progressive right basilar pleuroparenchymal disease. 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 transplanted heart: [place] heart Associated angina: with unspecified angina Qualified Code(s): I25.709 - Atherosclerosis of coronary artery bypass graft(s), unspecified, with unspecified angina pectoris (6) Chest pain Current Visit: No Status: Acute Qualifiers: Chest pain type: other chest pain Qualified Code(s): R07.89 - Other chest pain; R07.8 - Other chest pain (7) Heart failure with reduced ejection fraction Current Visit: No Status: Acute Qualifiers: Heart failure chronicity: acute on chronic Qualified Code(s): I50.23 - Acute on chronic systolic (congestive) heart failure (8) CHF exacerbation Current Visit: No Status: Acute Qualifiers: Heart failure type: systolic Qualified Code(s): I50.23 - Acute on chronic systolic (congestive) heart failure (9) SHRUTHI (acute kidney injury) Current Visit: Yes Status: Acute (10) Elevated troponin Current Visit: Yes Status: Acute (11) COPD exacerbation Current Visit: Yes Status: Acute - Time Spent With Patient Total time spent is greater than 50% in coordination of care (as documented) at patient's floor/unit and/or counseling patient: - Attending Attestation Patient seen and examined independently, including review of objective data including labs. I agree with plan of care as documented below by the resident.
[2018-12-21] MEDS ORDERED: Furosemide 40 MG/4 ML VIAL IVP ONE (02:32)
[2018-12-21] MEDS ORDERED: *HR* Dextrose 50 % in Water (Syg) 50 ML SYRINGE IVP PRN (04:45)
[2018-12-21] MEDS ORDERED: Dextrose Gel 15 GM/37.5 ML TUBE PO PRN ×2 (04:45)
[2018-12-21] MEDS ORDERED: D5% in Water 1,000 ML IVC PRN (04:45)
[2018-12-21] MEDS ORDERED: Azithromycin 500 MG in 0.9 % Sodium Chloride 250 ML IVPB ONE (05:18)
[2018-12-21 06:35] LABS: Basophils # 0.1 K/mcL (0.0-0.2); Basophils % 0.5 %; Eosinophils # 0.1 K/mcL (0.0-0.6); Eosinophils % 0.9 %; Hematocrit 36.3 % (37.5-50.1); Hemoglobin 11.1 g/dL (12.9-16.9); Immature Granulocytes % 0.2 % (0-4); Lymphocytes # 1.8 K/mcL (0.6-4.6); Lymphocytes % 14.5 %; Mean Corpuscular HGB Conc 30.6 g/dL (31.6-35.5); Mean Corpuscular Hemoglobin 26.9 pg (28.0-33.3); Mean Corpuscular Volume 88.1 fL (83.0-100.0); Mean Platelet Volume 12.3 fL (9.4-12.4); Monocytes # 1.1 K/mcL (0.0-1.3); Monocytes % 8.8 %; Neutrophils # 9.1 K/mcL (1.6-8.9); Nucleated Red Blood Cells 0.2 /100 WBC (0); Platelet Count 148 K/mcL (140-400); Red Blood Count 4.12 M/mcL (4.19-5.50); Red Cell Distribution Width 19.3 % (11.5-14.5); Segmented Neutrophils % 75.1 %; White Blood Count 12.1 K/mcL (4.3-11.1)
[2018-12-21] MEDS ORDERED: Ipratropium/Albuterol Neb 3 ML IH PRN (06:51)
[2018-12-21 06:58] LABS: Calcium 9.1 mg/dL (8.6-10.3); Potassium 3.7 mEq/L (3.5-5.1); Troponin I 0.05 ng/mL (< 0.04)
[2018-12-21] MEDS: Budesonide/Formoterol 160/4.5 1 PUFF INH IH SCH ×2 (07:18→21:13)
[2018-12-21] MEDS ORDERED: Insulin LISPRO 300 UNITS/3 ML VIAL SQ SCH ×2 (08:00→21:58)
[2018-12-21] MEDS ORDERED: Insulin DETEMIR 100 UNIT/ML X5UNITS SQ SCH ×3 (09:00→21:00)
[2018-12-21] MEDS ORDERED: Insulin NPH 100 UNIT/ML (x5UNIT) SQ SCH (09:00)
[2018-12-21] MEDS: Spironolactone 25 MG TABLET PO SCH (09:06)
[2018-12-21] MEDS: predniSONE 20 MG TABLET PO SCH (09:07)
[2018-12-21] MEDS: *HR* Amiodarone 200 MG TABLET PO SCH ×2 (09:07→21:13)
[2018-12-21] MEDS: Diltiazem CD (24hr) 180 MG CAPSULE PO SCH (09:12)
[2018-12-21] MEDS ORDERED: Insulin DETEMIR 100 UNIT/ML X5UNITS SQ ONE (11:38)
[2018-12-21] MEDS: Insulin LISPRO 300 UNITS/3 ML VIAL SQ SCH ×2 (11:43→16:36)
--- NOTE | 2018-12-21 13:29 | Internal Med Progress Note ---
Hospitalist Progress Note - Encounter Date of Encounter: 12/21/18 Time of Encounter: 12:15 - Subjective Interval History: Mr gonzalez reports some slight improvement regarding his shortness of breath however continues to complain of dry cough. According to his CT scan from 2018 patient does have some parenchymal lung disease as well as pulmonary nodules. He reports good diuresis with Lasix and stated that he will be taken his Lasix twice daily. GEN: Denies fever, chills or malaise HEENT: Denies headache blurriness, or dysphagia RESP: Admits to SOB and dry cough CV: Denies chest pain or palpitations GI: Denies Nausea, vomiting, diarrhea or constipation Reviewed current in hospital medications with modifications see orders Reviewed Routine labs - Exam Vitals: Temp Pulse Resp BP Pulse Ox 97.9 F 110 18 108/69 90 12/21/18 11:30 12/21/18 11:30 12/21/18 11:30 12/21/18 11:30 12/21/18 11:30 Exam: GEN: NAD, A&O x 3, Pleasant and conversant SKIN: [place] warm acyanotic not jaundice HEART: Irregularly irregular rate and rhythm no murmurs appreciated LUNGS: Diminished minimal wheeze scattered crackles, overall non labored ABDOMEN; Soft, non tender or distended, BS x 4 normactive EXT: No LE edema, Pedal pulses 1+, radial pulses 2+ PSYCH: Mood and affect is appropriate - Assessment and Plan (1) Chest pain Current Visit: Yes Status: Acute Assessment and Plan: Troponin trended down from 0.05-0.04 and currently denies any chest pain complaints of dry productive cough of note patient had abnormal chest x-ray with concerns for parenchyma and pleural disease we will continue monitoring clinically correlate (2) Heart failure with reduced ejection fraction Current Visit: Yes Status: Acute Assessment and Plan: Patient urine at the bedside up appears to be concentrated, on exam he does not appear to have full overload the right eye euvolemic based on prior echocardiogram EF 30-35% patient has worsening serum creatinine will hold off on aggressive diuresis suspect other causes for his dyspnea, continue strict I's and O's (3) COPD exacerbation Current Visit: Yes Status: Acute Assessment and Plan: Continue DuoNeb there is concern for possible parenchymal and pleural lung disease given his history of amiodarone there is concern for pulmonary fibrosis we will obtain a CT of the chest to better delineate lung pathology as the underlying etiology for this exacerbation (4) Afib Current Visit: Yes Status: Chronic Assessment and Plan: History of atrial fibrillation on anticoagulation with Eliquis and rate controlled with diltiazem and amiodarone. He stated he has never had PFTs will check LFTs and TSH in a.m. patient will benefit from outpatient PFTs on the interim will obtain CT of the chest due to concern for pulmonary fibrosis from amiodarone (5) Diabetes Current Visit: Yes Status: Chronic Assessment and Plan: increase his insulin regimen basal and short acting due to poorly controlled point of care blood glucose check A1c in the morning (6) Hypertension Current Visit: Yes Status: Chronic Assessment and Plan: Normotensive continue current management (7) DVT prophylaxis Current Visit: Yes Status: Acute Assessment and Plan: We will resume apixaban (8) CAD (coronary artery disease) Current Visit: Yes Status: Chronic Assessment and Plan: Troponin was trended 0.05, 0.05, 0.04 in the setting of copd exacerbation, currently on atorvastatin clopidogrel aspirin (9) CHF exacerbation Current Visit: Yes Status: Acute Assessment and Plan: Monitor strict I's and O's does not appear to be overly volume overloaded suspect pulmonary causes for exacerbation rather CHF as stated above, hold off diuresis for now given worsening kidney status (10) SHRUTHI (acute kidney injury) Current Visit: Yes Status: Acute Assessment and Plan: Likely secondary to diuresis and monitor patient with CHF EF of 35% may not to lerate for hydration, baseline serum creatinine 0.8-1.2 (11) Elevated troponin Current Visit: Yes Status: Acute Assessment and Plan: Patient with mildly elevated troponin. Denies current chest pain -this is likely secondary to demand ischemia -troponin 0.05, troponin down to 0.04 -EKG showing atrial fibrillation, HR 110, no ST changes indicating ischemia -will trend troponin - Time Spent with Patient Total time spent is greater than 50% in coordination of care (as documented) at patient's floor/unit and/or counseling patient: Internal Medicine: Result - Labs CBC & Chem 7: 12/21/18 06:20 12/21/18 06:20 Labs: Short CBC 12/20/18 12/21/18 Range/Units 22:42 06:20 WBC 13.6 H 12.1 H (4.3-11.1) K/mcL Hgb 11.7 L 11.1 L (12.9-16.9) g/dL Hct 38.2 36.3 L (37.5-50.1) % Plt Count 172 148 (140-400) K/mcL Neutrophils # 10.8 H 9.1 H (1.6-8.9) K/mcL BMP 12/20/18 12/21/18 22:42 06:20 Sodium 139 140 Potassium 3.9 3.7 Chloride 102 102 Carbon Dioxide 24 24 BUN 39 H 38 H Creatinine 1.75 H 1.63 H Glucose 273 H 253 H Calcium 9.2 9.1 Cardiac Enzymes 12/20/18 12/21/18 12/21/18 Range/Units 22:42 06:20 12:25 Troponin I 0.05 H* 0.05 H* 0.04 H* (< 0.04) ng/mL - ABG Interpretation ABG results: PT/INR, D-dimer PT 52.0 Seconds (9.4-12.1) H* 12/20/18 22:42 - Impressions Impressions Chest X-Ray 12/20/18 22:32 IMPRESSION: Progressive right basilar pleuroparenchymal disease. D/ / Ronen Barry MD / Ronen Barry MD Interpreting Provider: Ronen Barry MD - VTE Reasons for not Prescribing Prophylaxis: Not indicated-Anticoagulated or INR therapeutic Consult Discharge Plan - Plan Referrals: Pennie Guardado [Primary Care Provider] - (1) Chest pain Qualifiers: Chest pain type: other chest pain Qualified Code(s): R07.89 - Other chest pain; R07.8 - Other chest pain (2) Heart failure with reduced ejection fraction Qualifiers: Heart failure chronicity: acute on chronic Qualified Code(s): I50.23 - Acute on chronic systolic (congestive) heart failure (4) Afib Qualifiers: Atrial fibrillation type: chronic Qualified Code(s): I48.2 - Chronic atrial fibrillation (5) Diabetes Qualifiers: Diabetes mellitus type: type 2 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 transplanted heart: [place] heart Associated angina: with unspecified angina Qualified Code(s): I25.709 - Atherosclerosis of coronary artery bypass graft(s), unspecified, with unspecified angina pectoris (9) CHF exacerbation Qualifiers: Heart failure type: systolic Qualified Code(s): I50.23 - Acute on chronic systolic (congestive) heart failure
[2018-12-21] MEDS: *HR* OxyCODONE/APAP 10/325 TABLET PO PRN ×2 (16:40→23:41)
[2018-12-21] MEDS ORDERED: Apixaban 5 MG TABLET PO SCH (21:00)
[2018-12-21] MEDS ORDERED: Aspirin Enteric Coated 81 MG Tablet PO SCH (21:00)
[2018-12-21] MEDS: Pregabalin 75 MG CAPSULE PO SCH (21:14)
[2018-12-21] MEDS: Metoprolol XL (24 HR) Succ 25 MG TAB.ER.24H PO SCH (21:14)
[2018-12-21] MEDS: Cholecalciferol (D-3) 1,000 UNIT (25MCG) TABLET PO SCH (21:14)
[2018-12-22] MEDS ORDERED: Insulin Human Regular 10 UNIT in 0.9 % Sodium Chloride 10 ML IV ONE (02:11)
[2018-12-22 06:17] LABS: Basophils % 0.2 %; Eosinophils % 0.2 %; Hematocrit 32.9 % (37.5-50.1); Immature Granulocytes % 0.7 % (0-4); Lymphocytes # 1.1 K/mcL (0.6-4.6); Lymphocytes % 10.2 %; Mean Corpuscular HGB Conc 30.4 g/dL (31.6-35.5); Mean Corpuscular Hemoglobin 26.8 pg (28.0-33.3); Mean Corpuscular Volume 88.2 fL (83.0-100.0); Mean Platelet Volume 13.1 fL (9.4-12.4); Monocytes # 1.1 K/mcL (0.0-1.3); Monocytes % 10.4 %; Neutrophils # 8.1 K/mcL (1.6-8.9); Platelet Count 138 K/mcL (140-400); Red Blood Count 3.73 M/mcL (4.19-5.50); Red Cell Distribution Width 19.3 % (11.5-14.5); Segmented Neutrophils % 78.3 %; White Blood Count 10.3 K/mcL (4.3-11.1)
[2018-12-22 06:26] LABS: Albumin 3.8 g/dL (3.5-5.7); Albumin/Globulin Ratio 1.5 (1.1-2.2); Bilirubin,Direct 0.2 mg/dL (0.0-0.2); Bilirubin,Indirect 0.4 mg/dL (0.0-1.2); Bilirubin,Total 0.6 mg/dL (0.3-1.0); Calcium 8.8 mg/dL (8.6-10.3); Globulin 2.6 g/dL (2.4-3.5); Magnesium 2.1 mg/dL (1.6-2.6); Potassium 3.4 mEq/L (3.5-5.1); Total Protein 6.4 g/dL (6.4-8.9)
[2018-12-22 07:27] LABS: Estimated Average Glucose 240 mg/dl
[2018-12-22] MEDS: Insulin LISPRO 300 UNITS/3 ML VIAL SQ SCH ×2 (07:50→12:02)
[2018-12-22] MEDS: Spironolactone 25 MG TABLET PO SCH (07:53)
[2018-12-22] MEDS: predniSONE 20 MG TABLET PO SCH (07:53)
[2018-12-22] MEDS: Cholecalciferol (D-3) 1,000 UNIT (25MCG) TABLET PO SCH (07:54)
[2018-12-22] MEDS: Pregabalin 75 MG CAPSULE PO SCH (07:54)
[2018-12-22] MEDS: Diltiazem CD (24hr) 180 MG CAPSULE PO SCH (07:54)
[2018-12-22] MEDS: Metoprolol XL (24 HR) Succ 25 MG TAB.ER.24H PO SCH (07:54)
[2018-12-22] MEDS: *HR* Amiodarone 200 MG TABLET PO SCH (07:54)
[2018-12-22] MEDS: *HR* OxyCODONE/APAP 10/325 TABLET PO PRN (08:05)
[2018-12-22] MEDS ORDERED: Iron Polysaccharide Complex 150 MG CAPSULE PO SCH (09:00)
[2018-12-22] MEDS ORDERED: Insulin DETEMIR 100 UNIT/ML X5UNITS SQ SCH (09:00)
[2018-12-22 10:58] VITALS: BP 91/61
[2018-12-22] MEDS: Budesonide/Formoterol 160/4.5 1 PUFF INH IH SCH (11:15)
--- NOTE | 2018-12-22 12:57 | Discharge Summary ---
- NOTES TO OUTPATIENT PROVIDER Notes to Outpatient Provider: Post hospital discharge for chest pain, COPD exacerbation and CHF. Patient will need pulmonary function testing given the finding of parenchyma/pleura disease on CT imaging since he is on amiodarone. Patient also noted to have liver cirrhosis might need outpatient workup and follow-up with gastroenterology Orders not resulted at time of discharge: Pending orders 12/22/18 07:36 Stool guiac [Occult Blood,Stool] [BF] Routine Date of Encounter: 12/22/18 Time of Encounter: 12:55 - Discharge Diagnosis (1) Chest pain Priority: Primary Status: Acute Assessment and Plan: Troponin trended down from 0.05-0.04 and currently denies any chest pain complaints of dry productive cough of note patient had abnormal chest x-ray with concerns for parenchyma and pleural disease CT of the chest revealed right pleural space disease with concern for soft tissue mass. He wanted for evaluation as an outpatient with repeat CT Qualifiers: Chest pain type: other chest pain Qualified Code(s): R07.89 - Other chest pain; R07.8 - Other chest pain (2) Heart failure with reduced ejection fraction Priority: Primary Status: Acute Assessment and Plan: Discharge and spironolactone, furosemide, and Toprol-XL likely not on an SIERRA inhibitor due to his kidney function Patient urine at the bedside up appears to be concentrated, on exam he does not appear to have full overload the right eye euvolemic based on prior echocardiogram EF 30-35% patient has worsening serum creatinine will hold off on aggressive diuresis suspect other causes for his dyspnea, continue strict I's and O's Qualifiers: Heart failure chronicity: acute on chronic Qualified Code(s): I50.23 - Acute on chronic systolic (congestive) heart failure (3) COPD exacerbation Priority: Primary Status: Acute Assessment and Plan: Continue DuoNeb there is concern for possible parenchymal and pleural lung disease given his history of amiodarone there is concern for pulmonary fibrosis we will obtain a CT of the chest to better delineate lung pathology as the underlying etiology for this exacerbation it revealed: Repeat CT of the chest in 6 months, pulmonary function test CT/CT chest wo con IMPRESSION: 1. Focal nonspecific soft tissue density in the right pleural space lateral mid right hemithorax, not well delineated without IV contrast. This is indeterminate but could reflect a soft tissue mass. IV contrast-enhanced CT chest correlation may be useful. 2. New right pleural effusion with right basilar relaxation atelectasis. 3. Cardiomegaly. 4. Calcific atherosclerosis aorta and coronary arteries status post CABG. 5. Blood pool density of the heart is lower than that of the myocardium, typical of anemia. 6. Hepatic morphologic features suggesting cirrhosis. 7. Abdominal ascites. (4) Afib Priority: Primary Status: Chronic Assessment and Plan: History of atrial fibrillation on anticoagulation with Eliquis and rate controlled with diltiazem and amiodarone. He stated he has never had PFTs will check LFTs and TSH in a.m. patient will benefit from outpatient PFTs on the interim will obtain CT of the chest due to concern for pulmonary fibrosis from amiodarone Qualifiers: Atrial fibrillation type: chronic Qualified Code(s): I48.2 - Chronic atrial fibrillation (5) Diabetes Priority: Secondary Status: Chronic Assessment and Plan: increase his insulin regimen basal and short acting due to poorly controlled point of care blood glucose check A1c 10, he is on a variety of insulin therapy at home in addition to DPP4 inhibitor suspect noncompliance he may benefit from outpatient diabetes educator Qualifiers: Diabetes mellitus type: type 2 Diabetes mellitus mcc insulin use: with mcc use Diabetes mellitus complication status: with hyperglycemia Qualified Code(s): E11.65 - Type 2 diabetes mellitus with hyperglycemia; 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 (6) Hypertension Priority: Secondary Status: Chronic Assessment and Plan: Normotensive continue current management Qualifiers: Hypertension type: essential hypertension Qualified Code(s): I10 - Essential (primary) hypertension (7) DVT prophylaxis Priority: Secondary Status: Acute Assessment and Plan: We will resume apixaban discharge today (8) CAD (coronary artery disease) Priority: Secondary Status: Chronic Assessment and Plan: Troponin was trended 0.05, 0.05, 0.04 in the setting of copd exacerbation, currently on atorvastatin clopidogrel aspirin Qualifiers: Coronary Disease-Associated Artery/Lesion type: bypass graft [place] vs. transplanted heart: [place] heart Associated angina: with unspecified angina Qualified Code(s): I25.709 - Atherosclerosis of coronary artery bypass graft(s), unspecified, with unspecified angina pectoris (9) SHRUTHI (acute kidney injury) Priority: Primary Status: Acute Assessment and Plan: Likely secondary to diuresis and monitor patient with CHF EF of 35% may not tolerate for hydration, baseline serum creatinine 0.8-1.2, serum creatinine improved from 1.75-1.6 for discharge likely due to combination of poor renal perfusion from his low cardiac output new finding of liver cirrhosis with ascites as such third spacing which reduces his intravascular volume (10) Elevated troponin Priority: Primary Status: Acute Assessment and Plan: Patient with mildly elevated troponin. Denies current chest pain -this is likely secondary to demand ischemia -troponin 0.05, troponin down to 0.04 -EKG showing atrial fibrillation, HR 110, no ST changes indicating ischemia - (11) Pleural disease Priority: Secondary Status: Acute Assessment and Plan: Incidental finding on CT imaging, patient on amiodarone as such may benefit from outpatient pulmonary function test, repeat CT of the chest in 6 months CT/CT chest wo con IMPRESSION: 1. Focal nonspecific soft tissue density in the right pleural space lateral mid right hemithorax, not well delineated without IV contrast. This is indeterminate but could reflect a soft tissue mass. IV contrast-enhanced CT chest correlation may be useful. 2. New right pleural effusion with right basilar relaxation atelectasis. 3. Cardiomegaly. 4. Calcific atherosclerosis aorta and coronary arteries status post CABG. 5. Blood pool density of the heart is lower than that of the myocardium, typical of anemia. 6. Hepatic morphologic features suggesting cirrhosis. 7. Abdominal ascites. (12) Liver cirrhosis Priority: Secondary Status: Acute Assessment and Plan: He reports a remote history of alcohol use in his teenage-young adult years denies any active drinking suspected GARCIA and fatty liver given his body habitus. He might need outpatient workup and follow-up with gastroenterology for other causes ie hepatitis b or c his workup could be done as an outpatient CT/CT chest wo con IMPRESSION: 1. Focal nonspecific soft tissue density in the right pleural space lateral mid right hemithorax, not well delineated without IV contrast. This is indeterminate but could reflect a soft tissue mass. IV contrast-enhanced CT chest correlation may be useful. 2. New right pleural effusion with right basilar relaxation atelectasis. 3. Cardiomegaly. 4. Calcific atherosclerosis aorta and coronary arteries status post CABG. 5. Blood pool density of the heart is lower than that of the myocardium, typical of anemia. 6. Hepatic morphologic features suggesting cirrhosis. 7. Abdominal ascites. Qualifiers: Hepatic cirrhosis type: unspecified hepatic cirrhosis Ascites presence: with ascites Qualified Code(s): K74.60 - Unspecified cirrhosis of liver; R18.8 - Other ascites Hospital course: Mr. Hernández is a 63 year old male hospitalized for CHF exacerbation workup included CT of the chest which revealed parenchyma and pleural disease with questionable status post soft tissue mass. Patient is on amiodarone as such amiodarone-induced pulmonary lung disease is high on differential. Patient will need outpatient follow up for PFTs, repeat CT of the chest in 6 months. His workup also revealed liver cirrhosis he will need outpatient follow-up with gastroenterology. Discharge discussed with: patient, nurse, social work, case management - Time Spent with Patient Total time spent providing and/or coordinating discharge services: - Discharge Medications Prescriptions: New predniSONE [PredniSONE] See Taper PO AD 9 Days #11 tablet Azithromycin [Zithromax] 250 mg PO DAILY #4 tablet Continued Diltiazem HCl [Cardizem LA] 360 mg PO DAILY Iron Polysaccharide Complex [Pro Fe] 180 mg PO DAILY Tiotropium [Spiriva] 18 mcg IH DAILY Budesonide/Formoterol 160/4.5 [Symbicort 160/4.5] 2 puff IH BID Lipase/Protease/Amylase [[place] Dr 24,000 Units Capsule] 1 cap PO TIDWM Insulin Glargine,Hum.rec.anlog [Toujeo Solostar] 80 units SQ HS Pregabalin [Lyrica] 300 mg PO BID Oxycodone HCl/Acetaminophen [Percocet 10-325 mg Tablet] 1 each PO TID PRN PRN Reason: Pain SitaGLIPtin [Januvia] 100 mg PO DAILY Zolpidem [Ambien] 10 mg PO HS Cholecalciferol (D-3) [Vitamin D] 1,000 unit PO BID Apixaban [Eliquis] 5 mg PO BID #60 tablet Nitroglycerin 0.4 mg SL Q5MIN PRN #20 tab PRN Reason: Chest Pain Clopidogrel [Plavix] 75 mg PO DAILY #20 tablet Insulin LISPRO [Humalog Kwikpen U-100] See Protocol SQ TIDWM PRN PRN Reason: SLIDING SCALE Venlafaxine [Effexor] 37.5 mg PO BID Spironolactone [Aldactone] 12.5 mg PO DAILY #15 tablet Aspirin Enteric Coated [Aspirin EC] 81 mg PO HS #0 Insulin NPH, HUMAN [HumuLIN N] 35 unit SQ QAM Amiodarone HCl 200 mg PO BID Atorvastatin [Lipitor] 40 mg PO HS Docusate Sodium [Dok] 200 mg PO DAILY PRN PRN Reason: Constipation Metoprolol XL (24 HR) Succ [Toprol Xl] 75 mg PO BID Omeprazole 20 mg PO DAILY Polyethylene Glycol 3350 17 gm PO DAILY PRN PRN Reason: Constipation Tamsulosin HCl 0.4 mg PO DAILY Potassium Chloride [Klor-Con 10] 20 meq PO DAILY 15 Days #15 tablet.er Discontinued Losartan/Hydrochlorothiazide [Losartan-Hctz 100-25 mg Tab] 1 each PO DAILY No Action Furosemide [Lasix] 40 mg PO BID 15 Days #30 tablet Home Medications: Diltiazem HCl [Cardizem LA] 360 mg PO DAILY 10/18/15 [History] Budesonide/Formoterol 160/4.5 [Symbicort 160/4.5] 2 puff IH BID 05/06/18 [History] Insulin Glargine,Hum.rec.anlog [[place]jeo Solostar] 80 units SQ HS 05/06/18 [History] Iron Polysaccharide Complex [Pro Fe] 180 mg PO DAILY 05/06/18 [History] Lipase/Protease/Amylase [[place] Dr 24,000 Units Capsule] 1 cap PO TIDWM 05/06/18 [History] Tiotropium [Spiriva] 18 mcg IH DAILY 05/06/18 [History] Cholecalciferol (D-3) [Vitamin D] 1,000 unit PO BID 05/07/18 [History] Oxycodone HCl/Acetaminophen [Percocet 10-325 mg Tablet] 1 each PO TID PRN 05/07/18 [History] Pregabalin [Lyrica] 300 mg PO BID 05/07/18 [History] SitaGLIPtin [Januvia] 100 mg PO DAILY 05/07/18 [History] Zolpidem [Ambien] 10 mg PO HS 05/07/18 [History] Apixaban [Eliquis] 5 mg PO BID #60 tablet 05/09/18 [Rx] Clopidogrel [Plavix] 75 mg PO DAILY #20 tablet 05/10/18 [Rx] Nitroglycerin 0.4 mg SL Q5MIN PRN #20 tab 05/10/18 [Rx] Insulin LISPRO [Humalog Kwikpen U-100] See Protocol SQ TIDWM PRN 09/22/18 [History] Venlafaxine [Effexor] 37.5 mg PO BID 10/21/18 [History] Aspirin Enteric Coated [Aspirin EC] 81 mg PO HS #0 10/22/18 [Rx] Spironolactone [Aldactone] 12.5 mg PO DAILY #15 tablet 10/22/18 [Rx] Amiodarone HCl 200 mg PO BID 12/11/18 [History] Atorvastatin [Lipitor] 40 mg PO HS 12/11/18 [History] Docusate Sodium [Dok] 200 mg PO DAILY PRN 12/11/18 [History] Insulin NPH, HUMAN [HumuLIN N] 35 unit SQ QAM 12/11/18 [History] Metoprolol XL (24 HR) Succ [Toprol Xl] 75 mg PO BID 12/11/18 [History] Omeprazole 20 mg PO DAILY 12/11/18 [History] Polyethylene Glycol 3350 17 gm PO DAILY PRN 12/11/18 [History] Tamsulosin HCl 0.4 mg PO DAILY 12/11/18 [History] Furosemide [Lasix] 40 mg PO BID 15 Days #30 tablet 12/13/18 [Rx] Potassium Chloride [Klor-Con 10] 20 meq PO DAILY 15 Days #15 tablet.er 12/13/18 [Rx] Azithromycin [Zithromax] 250 mg PO DAILY #4 tablet 12/22/18 [Rx] predniSONE [PredniSONE] See Taper PO AD 9 Days #11 tablet 12/22/18 [Rx] Allergies/Adverse Reactions: Allergy/AdvReac Type Severity Reaction Status Date / Time ibuprofen Allergy Hives Verified 12/21/18 19:35 ticagrelor [From Brilinta] AdvReac Difficulty Verified 12/21/18 19:35 Breathing Date of admission: 12/21/18 00:58 Primary care physician: Pennie Guardado Consults: 12/21/18 09:13 Consult to Nurse Navigator [CONS] Routine Comment: CHF Discharging clinician: Ingris Felixye Anticipated date of discharge: 12/22/18 - Constitutional Vitals: Temp Pulse Resp BP Pulse Ox 97.4 F L 66 16 91/61 91 12/22/18 10:52 12/22/18 10:52 12/22/18 11:17 12/22/18 10:52 12/22/18 11:17 Exam: GEN: Obese male NAD, A&O x 3, Pleasant and conversant SKIN: [place] warm acyanotic not jaundice HEART: Irregularly irregular rate and rhythm no murmurs appreciated LUNGS: Diminished minimal wheeze scattered crackles, overall non labored ABDOMEN; Soft, non tender somewhat distended, BS x 4 normactive EXT: No LE edema, Pedal pulses 1+, radial pulses 2+ PSYCH: Mood and affect is appropriate - Patient Status Disposition: Home, Self-Care Condition: Good Functional capacity at discharge: independent ambulation Overall status at discharge: patient is back to baseline - Discharge Instructions Follow Up With: Pennie Guardado [Primary Care Provider] - - Diet and Activity Activity: resume usual activities as tolerated Diet: low fat, low cholesterol, low salt diet - VTE Reasons for not Prescribing Prophylaxis: Not indicated-Anticoagulated or INR therapeutic
[2018-12-22] MEDS ORDERED: FLU Vac QV 19-20 (6Month+)/PF 0.5 ML SYRINGE IM ONE (14:00)
--- NOTE | 2018-12-22 14:02 | Physician Discharge Referral ---
Home Health/Hosp Referral Info Transfer to: Home Health Provider in Charge Post Discharge: PCP - Diagnosis (1) Chest pain Priority: Primary Status: Acute (2) Heart failure with reduced ejection fraction Priority: Primary Status: Acute (3) COPD exacerbation Priority: Primary Status: Acute (4) Afib Priority: Primary Status: Chronic (5) Diabetes Priority: Primary Status: Chronic (6) Hypertension Priority: Secondary Status: Chronic (7) DVT prophylaxis Priority: Secondary Status: Acute (8) CAD (coronary artery disease) Priority: Primary Status: Chronic (9) SHRUTHI (acute kidney injury) Priority: Primary Status: Acute (10) Elevated troponin Priority: Primary Status: Acute (11) Pleural disease Priority: Primary Status: Acute (12) Liver cirrhosis Priority: Primary Status: Acute - Respiratory Orders Smoking Cessation: Smoking cessation has been advised. For more information, call the [place] Tobacco Quit Line at 3-353-GXAN-NOW. - Diet/Nutrition Diet/Nutrition Orders: Renal (low salt high protein diet), Cardiac - Activity Activity Orders: Up ad kelly - Services Needed Following services are medically necessary services: Nursing, Home Health Aide, Physical Therapy - Transfer Medications Prescriptions: predniSONE [PredniSONE] See Taper PO AD 9 Days #11 tablet Azithromycin [Zithromax] 250 mg PO DAILY #4 tablet Home Medications: Diltiazem HCl [Cardizem LA] 360 mg PO DAILY 10/18/15 [History] Budesonide/Formoterol 160/4.5 [Symbicort 160/4.5] 2 puff IH BID 05/06/18 [History] Insulin Glargine,Hum.rec.anlog [Magdalene Mayfield] 80 units SQ HS 05/06/18 [History] Iron Polysaccharide Complex [Pro Fe] 180 mg PO DAILY 05/06/18 [History] Lipase/Protease/Amylase [[place] Dr 24,000 Units Capsule] 1 cap PO TIDWM 05/06/18 [History] Tiotropium [Spiriva] 18 mcg IH DAILY 05/06/18 [History] Cholecalciferol (D-3) [Vitamin D] 1,000 unit PO BID 05/07/18 [History] Oxycodone HCl/Acetaminophen [Percocet 10-325 mg Tablet] 1 each PO TID PRN 05/07/18 [History] Pregabalin [Lyrica] 300 mg PO BID 05/07/18 [History] SitaGLIPtin [Januvia] 100 mg PO DAILY 05/07/18 [History] Zolpidem [Ambien] 10 mg PO HS 05/07/18 [History] Apixaban [Eliquis] 5 mg PO BID #60 tablet 05/09/18 [Rx] Clopidogrel [Plavix] 75 mg PO DAILY #20 tablet 05/10/18 [Rx] Nitroglycerin 0.4 mg SL Q5MIN PRN #20 tab 05/10/18 [Rx] Insulin LISPRO [Humalog Kwikpen U-100] See Protocol SQ TIDWM PRN 09/22/18 [History] Venlafaxine [Effexor] 37.5 mg PO BID 10/21/18 [History] Aspirin Enteric Coated [Aspirin EC] 81 mg PO HS #0 10/22/18 [Rx] Spironolactone [Aldactone] 12.5 mg PO DAILY #15 tablet 10/22/18 [Rx] Amiodarone HCl 200 mg PO BID 12/11/18 [History] Atorvastatin [Lipitor] 40 mg PO HS 12/11/18 [History] Docusate Sodium [Dok] 200 mg PO DAILY PRN 12/11/18 [History] Insulin NPH, HUMAN [HumuLIN N] 35 unit SQ QAM 12/11/18 [History] Metoprolol XL (24 HR) Succ [Toprol Xl] 75 mg PO BID 12/11/18 [History] Omeprazole 20 mg PO DAILY 12/11/18 [History] Polyethylene Glycol 3350 17 gm PO DAILY PRN 12/11/18 [History] Tamsulosin HCl 0.4 mg PO DAILY 12/11/18 [History] Furosemide [Lasix] 40 mg PO BID 15 Days #30 tablet 12/13/18 [Rx] Potassium Chloride [Klor-Con 10] 20 meq PO DAILY 15 Days #15 tablet.er 12/13/18 [Rx] Azithromycin [Zithromax] 250 mg PO DAILY #4 tablet 12/22/18 [Rx] predniSONE [PredniSONE] See Taper PO AD 9 Days #11 tablet 12/22/18 [Rx] Allergies/Adverse Reactions: Allergy/AdvReac Type Severity Reaction Status Date / Time ibuprofen Allergy Hives Verified 12/21/18 19:35 ticagrelor [From Brilinta] AdvReac Difficulty Verified 12/21/18 19:35 Breathing Certification: Further, I certify that my clinical findings support that this patient is homebound (i.e. absences from home require considerable and taxing effort and are for medical reasons or scientologist services or infrequently or short duration when for other reasons) because: Homebound Reason: Leaving home requires considerable and taxing effort due to condition Attestation: My signature below is to certify that this patient is under my care and that I, or nurse practitioner, or a physician's reference assistant working with me, has a [id number] encounter with this patient.
--- NOTE | 2018-12-22 17:50 | Electrocardiograph Report ---
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
[2018-12-23] MEDS ORDERED: Azithromycin 250 MG TABLET PO SCH (09:00)
== END 2018-12-22 14:30 | disposition home or self-care (01) ==
LOC: 2ANU 22:22 → EMEROOARM 22:22 → SUATTDRO 12-21 00:58 → 2ANU 12-21 01:12
PROVIDERS: ADMIT Internal Medicine; ATTEND Pharmacist

== ENCOUNTER 2018-12-26 23:28 | Observation (INO) ==
[2018-12-27 00:01] LABS: Bilirubin,Urine Negative (Negative); Blood,Urine Large (Negative); Clarity,Urine Turbid (Clear); Color,Urine Dark Yellow (Yellow); Glucose,Urine (UA) >=1000 mg/dL (Normal); Ketones,Urine Negative (Negative); Leukocyte Esterase,Urine Negative (Negative); Nitrite,Urine Negative (Negative); Protein,Urine >=300 mg/dL (Neg-Trace); Urobilinogen,Urine Normal (Normal)
[2018-12-27] MEDS ORDERED: 0.9 % Sodium Chloride 500 ML IVC ONE (00:03)
[2018-12-27] MEDS ORDERED: Ipratropium/Albuterol Neb 3 ML IH ONE (00:04)
[2018-12-27] MEDS ORDERED: Pantoprazole 40 MG VIAL IVP ONE (00:05)
[2018-12-27 00:14] LABS: Bacteria,Urine Present per hpf (None-Few); RBC,Urine TNTC per hpf (0-3); WBC,Urine Present per hpf (0-3)
[2018-12-27 00:31] LABS: Basophils % 0.2 %; Eosinophils # 0.1 K/mcL (0.0-0.6); Eosinophils % 1.4 %; Hematocrit 33.6 % (37.5-50.1); Immature Granulocytes % 0.4 % (0-4); Lymphocytes # 0.9 K/mcL (0.6-4.6); Lymphocytes % 10.9 %; Mean Corpuscular HGB Conc 29.8 g/dL (31.6-35.5); Mean Corpuscular Hemoglobin 26.1 pg (28.0-33.3); Mean Corpuscular Volume 87.7 fL (83.0-100.0); Mean Platelet Volume 12.7 fL (9.4-12.4); Monocytes # 0.8 K/mcL (0.0-1.3); Monocytes % 9.6 %; Neutrophils # 6.6 K/mcL (1.6-8.9); Platelet Count 167 K/mcL (140-400); Red Blood Count 3.83 M/mcL (4.19-5.50); Red Cell Distribution Width 19.2 % (11.5-14.5); Segmented Neutrophils % 77.5 %; White Blood Count 8.5 K/mcL (4.3-11.1)
[2018-12-27 00:43] LABS: Activated Partial Thrombo Time 23.3 Seconds (26.0-36.0)
[2018-12-27 00:44] LABS: INR 1.9; Prothrombin Time 21.2 Seconds (9.4-12.1)
[2018-12-27 00:50] LABS: Calcium 8.6 mg/dL (8.6-10.3); Potassium 3.5 mEq/L (3.5-5.1)
[2018-12-27] MEDS: 0.9 % Sodium Chloride 500 ML ONE ×2 (01:03→02:22)
--- NOTE | 2018-12-27 01:39 | Emergency Department Note ---
Disposition Clinical Impression: Gross hematuria, Rectal bleeding, Anticoagulated, Pleural effusion, History of CHF (congestive heart failure) Disposition: Admitted As Inpatient Condition: Fair Referrals: Pennie Guardado [Primary Care Provider] - Time of Disposition: 01:43 General Adult HPI - General Chief complaint: ED GI Bleed Stated complaint: RECTAL BLEEDING/PEN BLEEDING Time Seen by Provider: 12/26/18 23:47 Source: patient Limitations: no limitations Nursing Notes Reviewed: Yes Vital Signs Reviewed: Yes - History of Present Illness HPI Narrative: Patient presents emergency Department with chief complaint of bleeding per rectum and bleeding from his penis and urine. The patient states that this started yesterday and worsened today and he was dribbling blood from his penis that he decided he should be seen he is on Eliquis as well as Plavix related to severe problems with his heart with coronary artery disease and atrial fibrillation. The patient states he was recently hospitalized for problems with his heart, and required cardiac catheterization. Patient states that he started having problems with his heart because they stopped his Plavix from having his tooth removed a year ago and then never restarted it and states that he has been having some competitions thereof. He denies headache neck pain chest pain or shortness of breath denies fevers chills cough or sputum production denies abdominal pain. He endorses blood per rectum with dark-appearing stool as well. He denies nausea or vomiting denies dizziness syncope or near syncope. Denies any acute swelling. Denies fevers. Denies sensation that he is incompletely emptying his bladder. Pain Scale: 0 - Related Data Home Medications Medication Instructions Recorded Confirmed Diltiazem HCl [Cardizem LA] 360 mg PO DAILY 10/18/15 12/20/18 Budesonide/Formoterol 160/4.5 2 puff IH BID 05/06/18 12/20/18 [Symbicort 160/4.5] Insulin Glargine,Hum.rec.anlog 80 units SQ HS 05/06/18 12/20/18 [[place]dalene Solostnaman] Iron Polysaccharide Complex [Pro 180 mg PO DAILY 05/06/18 12/20/18 Fe] Lipase/Protease/Amylase [[place] Saeed 1 cap PO TIDWM 05/06/18 12/20/18 24,000 Units Capsule] Tiotropium [Spiriva] 18 mcg IH DAILY 05/06/18 12/20/18 Cholecalciferol (D-3) [Vitamin D] 1,000 unit PO BID 05/07/18 12/20/18 Oxycodone HCl/Acetaminophen 1 each PO TID PRN 05/07/18 12/20/18 [Percocet 10-325 mg Tablet] Pregabalin [Lyrica] 300 mg PO BID 05/07/18 12/20/18 SitaGLIPtin [Januvia] 100 mg PO DAILY 05/07/18 12/20/18 Zolpidem [Ambien] 10 mg PO HS 05/07/18 12/20/18 Insulin LISPRO [Humalog Kwikpen See Protocol SQ TIDWM PRN 09/22/18 12/20/18 U-100] Venlafaxine [Effexor] 37.5 mg PO BID 10/21/18 12/20/18 Amiodarone HCl 200 mg PO BID 12/11/18 12/20/18 Atorvastatin [Lipitor] 40 mg PO HS 12/11/18 12/20/18 Docusate Sodium [Dok] 200 mg PO DAILY PRN 12/11/18 12/20/18 Insulin NPH, HUMAN [HumuLIN N] 35 unit SQ QAM 12/11/18 12/20/18 Metoprolol XL (24 HR) Succ [Toprol 75 mg PO BID 12/11/18 12/20/18 Xl] Omeprazole 20 mg PO DAILY 12/11/18 12/20/18 Polyethylene Glycol 3350 17 gm PO DAILY PRN 12/11/18 12/20/18 Tamsulosin HCl 0.4 mg PO DAILY 12/11/18 12/20/18 Previous Rx's Medication Instructions Recorded Apixaban [Eliquis] 5 mg PO BID #60 tablet 05/09/18 Clopidogrel [Plavix] 75 mg PO DAILY #20 tablet 05/10/18 Nitroglycerin 0.4 mg SL Q5MIN PRN #20 tab 05/10/18 Aspirin Enteric Coated [Aspirin EC] 81 mg PO HS #0 10/22/18 Spironolactone [Aldactone] 12.5 mg PO DAILY #15 tablet 10/22/18 Furosemide [Lasix] 40 mg PO BID 15 Days #30 tablet 12/13/18 Potassium Chloride [Klor-Con 10] 20 meq PO DAILY 15 Days #15 12/13/18 tablet.er Azithromycin [Zithromax] 250 mg PO DAILY #4 tablet 12/22/18 predniSONE [PredniSONE] See Taper PO AD 9 Days #11 tablet 12/22/18 Allergies Allergy/AdvReac Type Severity Reaction Status Date / Time ibuprofen Allergy Hives Verified 12/26/18 23:34 ticagrelor [From Brilinta] AdvReac Difficulty Verified 12/26/18 23:34 Breathing All systems ED: reviewed and negative except as stated. Review of Systems: As Per HPI Past Medical History - Past Medical History Medical history: Reports: arthritis, atrial fibrillation, cancer, CHF, COPD, coronary artery disease, diabetes, hypertension, myocardial infarction Surgical history: Reports: cancer surgery, cholecystectomy, coronary bypass (CABG) Psychiatric history: Reports: anxiety - Social History Smoking Status: Former smoker Smokeless Tobacco Status: No Alcohol use: Reports: none Drug use: Reports: none Physical Exam - General Limitations: no limitations General appearance: alert, in no apparent distress - Head Head exam: atraumatic, normocephalic - Eye Eye exam: Present: normal appearance, PERRL, other (No evidence of icterus no evidence of pallor) - ENT ENT exam: normal exam, normal oropharynx - Neck Neck exam: Present: normal inspection, full ROM, trachea midline. Absent: tenderness, meningismus - Chest Chest inspection: Present: normal inspection, symmetric chest wall rise - Respiratory Respiratory exam: Present: normal lung sounds bilaterally (Although slightly diminished at the bases right greater than left) - Cardiovascular Cardiovascular exam: Present: other (Irregularly irregular, tachycardic with a heart rate of 111 on the monitor, 2/6 systolic murmur no rubs or gallops) - Abdominal Exam Abdominal exam: Present: soft, other (Diffuse very mild tenderness of the superpubic abdomen, with some evidence of anasarca of the abdominal wall, no obvious fluid wave but difficult to assess secondary to habitus, no peritoneal sign, upper abdomen is completely nontender. No shake tenderness no percussion tenderness) - Rectal Exam Rectal exam: Present: other (Rectal examination performed by myself with nurse data analytics analyst at the bedside revealed dark brown almost rust-colored appearing stoo l, but no andrew melena no hematochezia) - Male exam: Present: normal inspection, normal testicular lie, other (There is some mild anasarca of the scrotal region but no evidence of superinfection or Bella's gangrene) - Extremities Exam Extremities exam: Present: other (Normal intact distal pulses, 1-2+ bilateral lower extremity edema without unilateral swelling palpable cord Homans sign or clinical evidence of DVT) - Expanded Lower Extremity Exam Neurovascular/Tendon exam: Present: normal capillary refill. Absent: pulse deficit, motor deficit, sensory deficit - Back Exam Back exam: Present: normal inspection, full ROM. Absent: tenderness - Neurological Exam Neurological exam: Present: alert, oriented X3, CN II-XII intact, reflexes normal. Absent: motor sensory deficit - Psychiatric Psychiatric exam: Present: normal affect, normal mood - Skin Skin exam: Present: warm, dry, intact, normal color, other (No pallor no jaundice). Absent: rash Course Vital Signs Temperature 97.9 F 12/26/18 23:32 Pulse Rate 111 12/26/18 23:32 Respiratory Rate 20 12/26/18 23:32 Blood Pressure 119/85 12/26/18 23:32 O2 Sat by Pulse Oximetry 97 12/26/18 23:32 Temperature 97.9 F 12/26/18 23:32 Pulse Rate 111 12/26/18 23:32 Respiratory Rate 20 12/26/18 23:32 Blood Pressure 119/85 12/26/18 23:32 O2 Sat by Pulse Oximetry 97 12/26/18 23:32 Oxygen Delivery Oxygen Delivery Room Air Medical Decision Making - [facility] Narrative Medical decision making narrative: The patient had an IV placed, he was placed on a monitor, reviewing his chart he has a known ejection fraction of 30-35% with severe global hypokinesis on echocardiogram from earlier this year, he was given 500 mL bolus over 21 hour, laboratory studies were ordered he was given 1 dose of IV proton pump inhibitor. He had a Carter catheter three-way irrigating catheter placed for gross he maturia, as he did give a urine sample that was pretty much pure blood at the bedside. CBC basic metabolic profile coags were ordered he is on Eliquis but recent hospitalization showed an INR 4.6. He had a type and screen ordered. Abdominal CT scan was ordered secondary to some mild tenderness with both urinary and rectal bleeding. Laboratory studies revealed normal white blood cell count stable hemoglobin of 10.0 unchanged from one week ago. Platelets were within acceptable limits. INR was 1.9. Renal panel was within acceptable limits. Urinalysis showed significant hematuria and negative nitrates negative esterase microscopic unable to be performed secondary to gross hematuria. CT scan of the abdomen and pelvis showed a right-sided pleural effusion, no obvious acute interbowel process there is some anasarca with some ascites, 3 cm abdominal aortic aneurysm without evidence of leak or rupture, some potential evidence of cystitis. Patient was admitted to the hospitalist for further evaluation and management, of rectal bleeding, gross hematuria, on anticoagulation. - Lab Data Lab results reviewed: Yes I reviewed the patient's lab results. Result diagrams: 12/27/18 00:08 12/27/18 00:08 Lab Results 12/26/18 12/27/18 12/27/18 Range/Units 23:45 00:08 00:08 WBC 8.5 (4.3-11.1) K/mcL RBC 3.83 L (4.19-5.50) M/mcL Hgb 10.0 L (12.9-16.9) g/dL Hct 33.6 L (37.5-50.1) % MCV 87.7 (83.0-100.0) fL MCH 26.1 L (28.0-33.3) pg MCHC 29.8 L (31.6-35.5) g/dL RDW 19.2 H (11.5-14.5) % Plt Count 167 (140-400) K/mcL MPV 12.7 H (9.4-12.4) fL Immature Gran % 0.4 (0-4) % Seg Neutrophils % 77.5 % Lymphocytes % 10.9 % Monocytes % 9.6 % Eosinophils % 1.4 % Basophils % 0.2 % Neutrophils # 6.6 (1.6-8.9) K/mcL Lymphocytes # 0.9 (0.6-4.6) K/mcL Monocytes # 0.8 (0.0-1.3) K/mcL Eosinophils # 0.1 (0.0-0.6) K/mcL Basophils # 0.0 (0.0-0.2) K/mcL PT 21.2 H D (9.4-12.1) Seconds INR 1.9 D APTT 23.3 L (26.0-36.0) Seconds Sodium (136-145) mEq/L Potassium (3.5-5.1) mEq/L Chloride (98-107) mEq/L Carbon Dioxide (23-29) mEq/L BUN (8-23) mg/dL Creatinine (0.70-1.30) mg/dL Est GFR ( Amer) (> 60) Est GFR (Non-Af Amer) (> 60) BUN/Creatinine Ratio (6-26) Glucose (70-105) mg/dL Calculated Osmolality (280-300) Calcium (8.6-10.3) mg/dL Ur Specimen Adequacy See below A Urine Color Dark Yellow (Yellow) Urine Clarity Turbid A (Clear) Urine pH 6.0 (5.0-8.0) pH Units Ur Specific [place] 1.030 H (1.010-1.025) Urine Protein >=300 H (Neg-Trace) mg/dL Urine Glucose (UA) >=1000 H (Normal) mg/dL Urine Ketones Negative (Negative) mg/dL Urine Blood Large H (Negative) Urine Nitrite Negative (Negative) Urine Bilirubin Negative (Negative) Urine Urobilinogen Normal (Normal) mg/dL Ur Leukocyte Esterase Negative (Negative) Urine Microscopic RBC TNTC H (0-3) per hpf Urine Microscopic WBC Present (0-3) per hpf Urine Bacteria Present (None-Few) per hpf Ur Culture Indicated? YES A (NO) Stool Occult Bld Scrn (Negative) Blood Type Antibody Screen 12/27/18 12/27/18 12/27/18 Range/Units 00:08 00:08 01:00 WBC (4.3-11.1) K/mcL RBC (4.19-5.50) M/mcL Hgb (12.9-16.9) g/dL Hct (37.5-50.1) % MCV (83.0-100.0) fL MCH (28.0-33.3) pg MCHC (31.6-35.5) g/dL RDW (11.5-14.5) % Plt Count (140-400) K/mcL MPV (9.4-12.4) fL Immature Gran % (0-4) % Seg Neutrophils % % Lymphocytes % % Monocytes % % Eosinophils % % Basophils % % Neutrophils # (1.6-8.9) K/mcL Lymphocytes # (0.6-4.6) K/mcL Monocytes # (0.0-1.3) K/mcL Eosinophils # (0.0-0.6) K/mcL Basophils # (0.0-0.2) K/mcL PT (9.4-12.1) Seconds INR APTT (26.0-36.0) Seconds Sodium 142 (136-145) mEq/L Potassium 3.5 (3.5-5.1) mEq/L Chloride 103 (98-107) mEq/L Carbon Dioxide 27 (23-29) mEq/L BUN 39 H (8-23) mg/dL Creatinine 1.55 H (0.70-1.30) mg/dL Est GFR ( Amer) 55 L (> 60) Est GFR (Non-Af Amer) 46 L (> 60) BUN/Creatinine Ratio 25 (6-26) Glucose 433 H (70-105) mg/dL Calculated Osmolality 322 H (280-300) Calcium 8.6 (8.6-10.3) mg/dL Ur Specimen Adequacy Urine Color (Yellow) Urine Clarity (Clear) Urine pH (5.0-8.0) pH Units Ur Specific [place] (1.010-1.025) Urine Protein (Neg-Trace) mg/dL Urine Glucose (UA) (Normal) mg/dL Urine Ketones (Negative) mg/dL Urine Blood (Negative) Urine Nitrite (Negative) Urine Bilirubin (Negative) Urine Urobilinogen (Normal) mg/dL Ur Leukocyte Esterase (Negative) Urine Microscopic RBC (0-3) per hpf Urine Microscopic WBC (0-3) per hpf Urine Bacteria (None-Few) per hpf Ur Culture Indicated? (NO) Stool Occult Bld Scrn Positive A (Negative) Blood Type A POSITIVE Antibody Screen NEGATIVE - Radiology Data Radiology results reviewed: Yes I reviewed the patient's radiology results.
[2018-12-27] MEDS ORDERED: 0.9 % Sodium Chloride 500 ML ONE (02:19)
[2018-12-27] MEDS ORDERED: traMADol 50 MG TABLET PO PRN (03:27)
[2018-12-27] MEDS ORDERED: Acetaminophen 325 MG TABLET PO PRN (03:27)
[2018-12-27] MEDS ORDERED: Dextrose Gel 15 GM/37.5 ML TUBE PO PRN ×2 (03:30)
[2018-12-27] MEDS ORDERED: *HR* Dextrose 50 % in Water (Syg) 50 ML SYRINGE IVP PRN (03:30)
--- NOTE | 2018-12-27 03:39 | Internal Med History&Physical ---
Date of Encounter: 12/27/18 Time of Encounter: 03:38 Internal Medicine - H&P: HPI Chief complaint: bleeding Admitted From: Home Plans for Post Hospital Care: Home History of present illness: Dickson Hernández is a 63-year-old man with hypertension, diabetes, COPD, heart failure with reduced ejection fraction secondary to ischemic cardiomyopathy, atrial fibrillation on apixaban and coronary artery disease status post CABG and multiple stents placed much recently done here in September 2018 and was managed here for an NSTEMI one week ago. He says he was also recently managed at [facility] for heart problems undergoing cardiac catheterization. He is currently on rivaroxaban and clopidogrel for his cardiac issues presents to the emergency room with 24 hours of bleeding during micturition as well as dark stool. He says the bleeding continued and became andrew blood dribbling out of his urethra and continue to have dark-appearing stool but denied associated shortness of breath, abdominal pain, chest pain, vomiting, dizziness or syncopal symptoms. In the ER he was hemodynamically stable however andrew hematuria was noticed and he was passing clots as well. CT scan revealed urinary bladder wall thickening and pericystic fat stranding. Stool testing was positive for occult blood. Due to the ongoing bleeding continuous bladder irrigation was started. He is admitted for further care. Vitals: Reviewed General: Obese white man lying in bed in no acute distress. Skin: Warm and supple. HEENT: Moist mucous membranes. + conjunctivae pallor. Neck: No lymphadenopathy. No JVD. No carotid bruits. No palpable thyroid. Chest: Reduced thoracic expansion. Diminished breath sounds in the bases. Heart: Irregularly irregular. Abdomen: Distended, soft and non-tender to palpation. No peritoneal reaction. Extremities: No clubbing, cyanosis. 3+ pitting edema. No calf tenderness. Normal distal pulses. Neurological: Awake, alert and oriented to person, place and time. No focal deficits. Psych: Affect appropriate. Assessment/Plan 1. Hematuria: Likely secondary to anticoagulant/antiplatelet use given the concomitant GI bleed as well. No anatomic lesions detected on imaging. CBI started and gradually starting to clear. Will continue this until bleeding stabilizes and clears. He may benefit from urologic evaluation if it persists over the course of the day. Monitor H/H. 2. Upper GI bleed: As detailed above, secondary to anticoagulant/antiplatelet therapy. May have an angiodysplastic lesion given the painless nature. He has no history of prior bleeding episodes. Medications will be on hold and he will remain NPO. Start pantoprazole 40mg q12hrs. Consider GI evaluation if it is not self-limiting. 3. CAD: Clopidogrel will be on hold given the current bleeding scenario. Asymptomatic. 4. Afib: Rate controlled. Apixaban on hold. Once bleeding stops, a review of what anticoagulation/antiplatelet agent he should continue on should be discussed based on further bleeding risk vs thrombotic risk. 5. HFrEF: Was given 1L of fluids in the ER due to the bleeding however will not continue further as he appears mildly volume overloadeded. Awaiting home medication reconciliation. 6. COPD: No signs of exacerbation at this time. Nebulizer therapy as needed. Daily LABA/ICS. 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 cardiac stents x4 - Social History Smoking Status: Former smoker Smokeless Tobacco Status: No Alcohol use: none Drug use: none - Family History Father Hx Family Cardiac Disorders: Yes (CABG, CAD) Brother Hx Family Cardiac Disorders: Yes Internal Medicine - H&P: Meds Diltiazem HCl [Cardizem LA] 360 mg PO DAILY 10/18/15 [History] Budesonide/Formoterol 160/4.5 [Symbicort 160/4.5] 2 puff IH BID 05/06/18 [History] Insulin Glargine,Hum.rec.anlog [[place] Solostar] 80 units SQ HS 05/06/18 [History] Iron Polysaccharide Complex [Pro Fe] 180 mg PO DAILY 05/06/18 [History] Lipase/Protease/Amylase [[place] Dr 24,000 Units Capsule] 1 cap PO TIDWM 05/06/18 [History] Tiotropium [Spiriva] 18 mcg IH DAILY 05/06/18 [History] Cholecalciferol (D-3) [Vitamin D] 1,000 unit PO BID 05/07/18 [History] Oxycodone HCl/Acetaminophen [Percocet 10-325 mg Tablet] 1 each PO TID PRN [History] Pregabalin [Lyrica] 300 mg PO BID 05/07/18 [History] SitaGLIPtin [Januvia] 100 mg PO DAILY 05/07/18 [History] Zolpidem [Ambien] 10 mg PO HS 05/07/18 [History] Apixaban [Eliquis] 5 mg PO BID #60 tablet 05/09/18 [Rx] Clopidogrel [Plavix] 75 mg PO DAILY #20 tablet 05/10/18 [Rx] Nitroglycerin 0.4 mg SL Q5MIN PRN #20 tab 05/10/18 [Rx] Insulin LISPRO [Humalog Kwikpen U-100] See Protocol SQ TIDWM PRN 09/22/18 [History] Venlafaxine [Effexor] 37.5 mg PO BID 10/21/18 [History] Aspirin Enteric Coated [Aspirin EC] 81 mg PO HS #0 10/22/18 [Rx] Spironolactone [Aldactone] 12.5 mg PO DAILY #15 tablet 10/22/18 [Rx] Amiodarone HCl 200 mg PO BID 12/11/18 [History] Atorvastatin [Lipitor] 40 mg PO HS 12/11/18 [History] Docusate Sodium [Dok] 200 mg PO DAILY PRN 12/11/18 [History] Insulin NPH, HUMAN [HumuLIN N] 35 unit SQ QAM 12/11/18 [History] Metoprolol XL (24 HR) Succ [Toprol Xl] 75 mg PO BID 12/11/18 [History] Omeprazole 20 mg PO DAILY 12/11/18 [History] Polyethylene Glycol 3350 17 gm PO DAILY PRN 12/11/18 [History] Tamsulosin HCl 0.4 mg PO DAILY 12/11/18 [History] Furosemide [Lasix] 40 mg PO BID 15 Days #30 tablet 12/13/18 [Rx] Potassium Chloride [Klor-Con 10] 20 meq PO DAILY 15 Days #15 tablet.er 12/13/18 [Rx] Azithromycin [Zithromax] 250 mg PO DAILY #4 tablet 12/22/18 [Rx] predniSONE [PredniSONE] See Taper PO AD 9 Days #11 tablet 12/22/18 [Rx] Allergy/AdvReac Type Severity Reaction Status Date / Time ibuprofen Allergy Hives Verified 12/26/18 23:34 ticagrelor [From Brilinta] AdvReac Difficulty Verified 12/26/18 23:34 Breathing All Systems PM: A 10-system review of systems was performed and is negative for pertinent findings except as documented above in the HPI. - Constitutional Vitals: Temp Pulse Resp BP Pulse Ox 97.8 F 110 18 127/75 95 12/27/18 03:07 12/27/18 03:07 12/27/18 03:07 12/27/18 03:07 12/27/18 03:07 Exam: . Internal Med - H&P Results - Labs CBC & Chem 7: 12/27/18 00:08 12/27/18 00:08 Labs: Short CBC 12/27/18 Range/Units 00:08 WBC 8.5 (4.3-11.1) K/mcL Hgb 10.0 L (12.9-16.9) g/dL Hct 33.6 L (37.5-50.1) % Plt Count 167 (140-400) K/mcL Neutrophils # 6.6 (1.6-8.9) K/mcL BMP 12/27/18 00:08 Sodium 142 Potassium 3.5 Chloride 103 Carbon Dioxide 27 BUN 39 H Creatinine 1.55 H Glucose 433 H Calcium 8.6 Urine 12/26/18 Range/Units 23:45 Urine Color Dark Yellow (Yellow) Urine Clarity Turbid A (Clear) Urine pH 6.0 (5.0-8.0) pH Units Ur Specific [place] 1.030 H (1.010-1.025) Urine Protein >=300 H (Neg-Trace) mg/dL Urine Glucose (UA) >=1000 H (Normal) mg/dL - Impressions ITS Impressions Abdomen/Pelvis CT 12/27/18 00:33 IMPRESSION: No definite acute abnormality identified to explain the patient's rectal bleeding and penile bleeding. There is suggestion of urinary bladder mural thickening, but the urinary bladder is incompletely distended. Pericystic fat stranding also present. Correlate with clinical evidence of cystitis. Cirrhosis with moderate volume ascites. Diffuse anasarca. Moderate to large right pleural effusion with adjacent airspace disease, likely atelectasis, but pneumonia still remains in the differential. 3.0 cm abdominal aortic aneurysm. Recommend follow-up every 3 years. Reference: J Am Joe Radiol 2013;10:789-794. D/ / Shashank Vargas MD / Shashank Vargas MD Interpreting Provider: Shashank Vargas MD - Time Spent With Patient Total time spent is greater than 50% in coordination of care (as documented) at patient's floor/unit and/or counseling patient:
[2018-12-27] MEDS: *HR* OxyCODONE Immed Rel 5 MG TABLET PO PRN ×3 (04:14→18:46)
[2018-12-27] MEDS ORDERED: *HR* Metoprolol 5 MG/5 ML VIAL IVP ONE (04:38)
[2018-12-27] MEDS: Insulin LISPRO 300 UNITS/3 ML VIAL SQ SCH ×3 (05:45→17:21)
[2018-12-27] MEDS: Pantoprazole 40 MG VIAL IVP SCH ×2 (05:45→17:22)
[2018-12-27 07:10] LABS: Hematocrit 32.8 % (37.5-50.1); Hemoglobin 10.1 g/dL (12.9-16.9)
--- NOTE | 2018-12-27 07:51 | Internal Med Progress Note ---
<DevingayatriGlenda Chongpankaj - Last Filed: 12/27/18 14:18> Hospitalist Progress Note - Encounter Date of Encounter: 12/27/18 - Exam Vitals: Temp Pulse Resp BP Pulse Ox 98.0 F 114 20 113/82 92 12/27/18 12:52 12/27/18 12:52 12/27/18 12:52 12/27/18 12:52 12/27/18 12:52 - Time Spent with Patient Total time spent is greater than 50% in coordination of care (as documented) at patient's floor/unit and/or counseling patient: Internal Medicine: Result - Labs CBC & Chem 7: 12/27/18 06:45 12/27/18 00:08 Labs: Short CBC 12/27/18 12/27/18 Range/Units 00:08 06:45 WBC 8.5 (4.3-11.1) K/mcL Hgb 10.0 L 10.1 L (12.9-16.9) g/dL Hct 33.6 L 32.8 L (37.5-50.1) % Plt Count 167 (140-400) K/mcL Neutrophils # 6.6 (1.6-8.9) K/mcL BMP 12/27/18 00:08 Sodium 142 Potassium 3.5 Chloride 103 Carbon Dioxide 27 BUN 39 H Creatinine 1.55 H Glucose 433 H Calcium 8.6 Urine 12/26/18 Range/Units 23:45 Urine Color Dark Yellow (Yellow) Urine Clarity Turbid A (Clear) Urine pH 6.0 (5.0-8.0) pH Units Ur Specific [place] 1.030 H (1.010-1.025) Urine Protein >=300 H (Neg-Trace) mg/dL Urine Glucose (UA) >=1000 H (Normal) mg/dL - ABG Interpretation ABG results: PT/INR, D-dimer PT 21.2 Seconds (9.4-12.1) H D 12/27/18 00:08 - Impressions Impressions Abdomen/Pelvis CT 12/27/18 00:33 IMPRESSION: No definite acute abnormality identified to explain the patient's rectal bleeding and penile bleeding. There is suggestion of urinary bladder mural thickening, but the urinary bladder is incompletely distended. Pericystic fat stranding also present. Correlate with clinical evidence of cystitis. Cirrhosis with moderate volume ascites. Diffuse anasarca. Moderate to large right pleural effusion with adjacent airspace disease, likely atelectasis, but pneumonia still remains in the differential. 3.0 cm abdominal aortic aneurysm. Recommend follow-up every 3 years. Reference: J Am Joe Radiol 2013;10:789-794. D/ / Shashank Vargas MD / Shashank Vargas MD Interpreting Provider: Shashank Vargas MD Consult Discharge Plan - Plan Referrals: Pennie Guardado [Primary Care Provider] - - Attending Attestation I saw evaluated and examined this patient and reviewed objective data including labs and my medical decision-making was reviewed with the Resident Physician/Medical Student. I agree with the documented findings, disposition and treatment plan as described except to any changes set forth below. We independently had [id number] contact with the patient. 63 year old male with history of CAD, CABG, on Xarelto and Plavix, prostate cancer with mets to bladder and heart failure with reduced ejection fraction presented to ED for hematuria and GIB. VS: reviewed, hemodynamically stable. He is in no acute distress, pleasant. CVS: RRR, lungs CTAB, abd: soft, nt/nd, Labs: reviewed, hgb maintaining at 10.1. Plan for GI consult for EGD and Urology consult, cycle H&H, monitor vital signs. <Trey Bennett - Last Filed: 12/27/18 17:04> Hospitalist Progress Note - Encounter Date of Encounter: 12/27/18 Time of Encounter: 08:30 - Subjective Interval History: Mr. Hernández is a 63 YOM with a history of HTN, diabetes, COPD, heart failure with reduced ejection fraction secondary to ischemic cardiomyopathy, Afib on apixaban and CAD status post CABG and multiple stents. Received cardiac cath and PCI at [facility] 10/26. Managed for NSTEMI here and transferred to [facility] early november. Presents to ER due to bleeding from penis and rectum and dark stools. Denies shortness of breath, chest pain, vomiting, dizziness, syncope. CT scan revealed urinary bladder wall thickening and pericystic fat stranding. Stool testing was positive for occult blood. Due to the ongoing bleeding continuous bladder irrigation was started. Patient's urine appears to have no hematuria today, lemonade colored. Denies any blood with bowel movements. Patient just states he is very thirsty. - Exam Vitals: Temp Pulse Resp BP Pulse Ox 98.1 F 104 16 112/79 92 12/27/18 07:45 12/27/18 07:45 12/27/18 07:45 12/27/18 07:45 12/27/18 07:45 Exam: General: No acute distress, alert and oriented x3. Obese Skin: warm, dry, intact Head: normocephalic, atraumatic ENT: PERRLA, EOMI, trachea midline Respiratory: Reduced breath sounds at the bases, weak respiratory effort, Cardiovascular: irregularly irregular, +S1, +S2, -S3, -S4, no rubs, gallops, or murmurs. Abdomen: equal bowel sounds x4. Distended, non-tender Extremities: Equal pulses bilaterally. 3+ pitting edema bilaterally on lower extremities. Neuro: alert and oriented x3, cranial nerves grossly intact. no focal deficits Psych: normal mentation and mood - Assessment and Plan (1) Gross hematuria Current Visit: Yes Status: Acute Assessment and Plan: Likely secondary to anticoagulant/antiplatelet use given the concomitant GI bleed as well. -Urology consulted -No anatomic lesions detected on imaging. -CBI per urology recommendations -Monitor H/H (2) Upper GI bleed Current Visit: Yes Status: Acute Assessment and Plan: As detailed above, secondary to anticoagulant/antiplatelet therapy. -EGD to be performed today -May have an angiodysplastic lesion given the painless nature. -He has no history of prior bleeding episodes. -Medications will be on hold and he will remain NPO. -Continue pantoprazole (3) CAD (coronary artery disease) Current Visit: Yes Status: Chronic Assessment and Plan: Continue to hold clopidogrel until bleeding resolves. Asymptomatic -Restart other home medications (4) Afib Current Visit: Yes Status: Chronic Assessment and Plan: home dosage of metoprolol 75mg BID restarted due to tachycardia. Amiodarone home dosage restarted as well as home dosage of cardizem. Apixaban on hold. Will likely need cardiology consult after GI EGD and hematuria resolves Once bleeding stops, a review of what anticoagulation/antiplatelet agent he should continue on should be discussed based on further bleeding risk vs thrombotic risk. (5) Heart failure with reduced ejection fraction Current Visit: Yes Status: Acute Assessment and Plan: Volume overloaded -home meds restarted -Monitor I&O (6) COPD (chronic obstructive pulmonary disease) Current Visit: Yes Status: Acute Assessment and Plan: No signs of exacerbation at this time. Nebulizer therapy as needed. home inhalers restarted (7) Pleural effusion Current Visit: Yes Status: Acute Assessment and Plan: CT scan shows Moderate to large right pleural effusion with adjacent airspace disease, likely atelectasis, but pneumonia still remains in the differential. Continue to monitor (8) Diabetes Current Visit: No Status: Chronic Assessment and Plan: Sliding scale insulin q6h while NPO (9) Hypertension Current Visit: Yes Status: Chronic Assessment and Plan: home medications restarted. DVT Prophylaxis: EPCDs - Summary of Assessment and Plan Summary of Assessment and Plan: As above - Time Spent with Patient Total time spent is greater than 50% in coordination of care (as documented) at patient's floor/unit and/or counseling patient: Internal Medicine: Result - Labs CBC & Chem 7: 12/27/18 06:45 12/27/18 00:08 Labs: Short CBC 12/27/18 12/27/18 Range/Units 00:08 06:45 WBC 8.5 (4.3-11.1) K/mcL Hgb 10.0 L 10.1 L (12.9-16.9) g/dL Hct 33.6 L 32.8 L (37.5-50.1) % Plt Count 167 (140-400) K/mcL Neutrophils # 6.6 (1.6-8.9) K/mcL BMP 12/27/18 00:08 Sodium 142 Potassium 3.5 Chloride 103 Carbon Dioxide 27 BUN 39 H Creatinine 1.55 H Glucose 433 H Calcium 8.6 Urine 12/26/18 Range/Units 23:45 Urine Color Dark Yellow (Yellow) Urine Clarity Turbid A (Clear) Urine pH 6.0 (5.0-8.0) pH Units Ur Specific [place] 1.030 H (1.010-1.025) Urine Protein >=300 H (Neg-Trace) mg/dL Urine Glucose (UA) >=1000 H (Normal) mg/dL - ABG Interpretation ABG results: PT/INR, D-dimer PT 21.2 Seconds (9.4-12.1) H D 12/27/18 00:08 - Impressions Impressions Abdomen/Pelvis CT 12/27/18 00:33 IMPRESSION: No definite acute abnormality identified to explain the patient's rectal bleeding and penile bleeding. There is suggestion of urinary bladder mural thickening, but the urinary bladder is incompletely distended. Pericystic fat stranding also present. Correlate with clinical evidence of cystitis. Cirrhosis with moderate volume ascites. Diffuse anasarca. Moderate to large right pleural effusion with adjacent airspace disease, likely atelectasis, but pneumonia still remains in the differential. 3.0 cm abdominal aortic aneurysm. Recommend follow-up every 3 years. Reference: J Am Joe Radiol 2013;10:789-794. D/ / Shashank Vargas MD / Shashank Vargas MD Interpreting Provider: Shashank Vargas MD <Trey Bennett E - Last Filed: 12/27/18 17:04> (3) CAD (coronary artery disease) Qualifiers: Coronary Disease-Associated Artery/Lesion type: bypass graft [place] vs. transplanted heart: [place] heart Associated angina: with unspecified angina Qualified Code(s): I25.709 - Atherosclerosis of coronary artery bypass graft(s), unspecified, with unspecified angina pectoris (4) Afib Qualifiers: Atrial fibrillation type: chronic Qualified Code(s): I48.2 - Chronic atrial fibrillation (5) Heart failure with reduced ejection fraction Qualifiers: Heart failure chronicity: acute on chronic Qualified Code(s): I50.23 - Acute on chronic systolic (congestive) heart failure (8) Diabetes Qualifiers: Diabetes mellitus type: type 2 Diabetes mellitus halfway insulin use: with terminal computer operator use Diabetes mellitus complication status: with hyperglycemia Qualified Code(s): E11.65 - Type 2 diabetes mellitus with hyperglycemia; Z79.4 - snf (current) use of insulin (9) Hypertension Qualifiers: Hypertension type: essential hypertension Qualified Code(s): I10 - Essential (primary) hypertension
[2018-12-27] MEDS ORDERED: D5% in Water 1,000 ML IVC PRN (08:17)
--- NOTE | 2018-12-27 10:13 | Gastroenterology Consult Note ---
<MarycarmenHolly Godoy - Last Filed: 12/27/18 10:10> Date of Encounter: 12/27/18 Time of Encounter: 09:50 - Time Spent With Patient Total time spent is greater than 50% in coordination of care (as documented) at patient's floor/unit and/or counseling patient: GI History of Present Illness - Data of Consult Patient: known to practice within the last 3 years Consult date: 12/27/18 Requesting Physician: Marietta Clifton MD - Consult Narrative Reason for consult: melena History of present illness: Dickson Hernández is a 63-year-old man with hypertension, diabetes, COPD, heart failure with EF 30-35%, atrial fibrillation and coronary artery disease. He is status post CABG and multiple stents, most recently placed here in September 2018 and was managed here for an NSTEMI one week ago. He is currently on rivaroxaban and clopidogrel for his cardiac issues presents to the emergency room with 24 hours of bleeding during micturition as well as dark stool. He says the bleeding continued and became andrew blood dribbling out of his urethra and continue to have dark-appearing stool but denied associated shortness of breath, abdominal pain, chest pain, vomiting, dizziness or syncopal symptoms. In the ER he was hemodynamically stable however andrew hematuria was noticed and he was passing clots as well. CT scan revealed urinary bladder wall thickening and pericystic fat stranding. Stool testing was positive for occult blood. Due to the ongoing bleeding continuous bladder irrigation was started, urine is now clear. Hgb 10.1 baseline 12-13. Anticoagulants are currently on hold. He denies any diarrhea, constipation, abdominal pain, nausea, GERD or dysphagia. Colonoscopy 09/11/2015: 9 colon polyps, largest 7 mm. Internal hemorrhoids, diverticulosis, diverticulitis. nsaids: asa anticoagulants: eliquis and plavix Impression and Plan: 1. Melena: pt is on asa, plavix and eliquis. Will proceed with EGD to rule out gastritis, duodenitis, MW tear or PUD as source of upper GI bleed. 2. Anemia: monitor H&H, transfuse as needed, EGD today 3. CAD: per cardiology Past Med Surg Social Fam HX - Past Medical History Medical history: arthritis, atrial fibrillation, cancer, CHF, COPD, coronary artery disease, diabetes, hypertension, myocardial infarction Additional medical history: prostate cancer with mets to bladder Psychiatric history: anxiety - Past Surgical History Surgical History: cancer surgery, cholecystectomy, coronary bypass (CABG) Additional surgical history: back surgery, carpal tunnel, transurethral resection bladder tumor removal surgery. cardiac stents x4 - Social History Smoking Status: Former smoker Smokeless Tobacco Status: No Alcohol use: none Drug use: none - Family History Father Hx Family Cardiac Disorders: Yes (CABG, CAD) Brother Hx Family Cardiac Disorders: Yes Review of Systems: GI: as per [place] GENERAL: denies fever, or chills EYES: denies yellow discoloration ENT: denies pain with swallowing or difficulty swallowing CARDIO: denies chest pain, palpitations RESP: Shortness of breath with exertion : denies change in color of urine NEURO: weakness HEME: Denies any bruising MS: complains of chronic pain and is asking for percocet DERM: denies rash or itching PSYCH: history of anxiety - Constitutional Vitals: Temp Pulse Resp BP Pulse Ox 98.1 F 104 16 112/79 92 12/27/18 07:45 12/27/18 07:45 12/27/18 07:45 12/27/18 07:45 12/27/18 07:45 Exam: CONSTITUTIONAL:alert, no acute distress.HEAD:normocephalic.EYES:no jaundice.NECK:no obvious swelling.HEART:regular rate and rhythm, murmur noted, mid-sternal scar well healed. LUNGS:bilateral fair air entry with inspiratory and expiratory wheezes bilaterally.ABDOMEN:non distended, soft, non tender, no masses pulpable, no organomegaly.RECTAL EXAM:Deferred.EXTREMITIES:no clubbing, cyanosis or edema.SKIN:no stigmata of chronic liver disease.NEUROLOGIC:no obvious focal defect. Results - Labs CBC & Chem 7: 12/27/18 06:45 12/27/18 00:08 Labs: Last Result 12/27/18 00:08 Calcium 8.6 Entire Visit 12/27/18 12/27/18 12/27/18 00:08 00:08 06:45 Hgb 10.0 L 10.1 L Hct 33.6 L 32.8 L PT 21.2 H D - ABG ABG results: PT/INR, D-dimer PT 21.2 Seconds (9.4-12.1) H D 12/27/18 00:08 - Impressions Impressions Abdomen/Pelvis CT 12/27/18 00:33 IMPRESSION: No definite acute abnormality identified to explain the patient's rectal bleeding and penile bleeding. There is suggestion of urinary bladder mural thickening, but the urinary bladder is incompletely distended. Pericystic fat stranding also present. Correlate with clinical evidence of cystitis. Cirrhosis with moderate volume ascites. Diffuse anasarca. Moderate to large right pleural effusion with adjacent airspace disease, likely atelectasis, but pneumonia still remains in the differential. 3.0 cm abdominal aortic aneurysm. Recommend follow-up every 3 years. Reference: J Am Joe Radiol 2013;10:789-794. D/ / Shashank Vargas MD / Shashank Vargas MD Interpreting Provider: Shashank Vargas MD Consult Discharge Plan - Plan Referrals: Pennie Guardado [Primary Care Provider] - <Paul Christina - Last Filed: 12/27/18 17:48> Date of Encounter: 12/27/18 Time of Encounter: 13:00 - Time Spent With Patient Total time spent is greater than 50% in coordination of care (as documented) at patient's floor/unit and/or counseling patient: GI History of Present Illness - Data of Consult Requesting Physician: Marietta Clifton MD - Consult Narrative History of present illness: Mr. Hernández is a 63 year old male - Constitutional Vitals: Temp Pulse Resp BP Pulse Ox 98.0 F 125 16 124/85 94 12/27/18 15:56 12/27/18 15:56 12/27/18 15:56 12/27/18 15:56 12/27/18 15:56 Results - Labs CBC & Chem 7: 12/27/18 06:45 12/27/18 00:08 Labs: Entire Visit 12/27/18 06:45 Hgb 10.1 L Hct 32.8 L - ABG ABG results: PT/INR, D-dimer PT 21.2 Seconds (9.4-12.1) H D 12/27/18 00:08 - Impressions Impressions Abdomen/Pelvis CT 12/27/18 00:33 IMPRESSION: No definite acute abnormality identified to explain the patient's rectal bleeding and penile bleeding. There is suggestion of urinary bladder mural thickening, but the urinary bladder is incompletely distended. Pericystic fat stranding also present. Correlate with clinical evidence of cystitis. Cirrhosis with moderate volume ascites. Diffuse anasarca. Moderate to large right pleural effusion with adjacent airspace disease, likely atelectasis, but pneumonia still remains in the differential. 3.0 cm abdominal aortic aneurysm. Recommend follow-up every 3 years. Reference: J Am Joe Radiol 2013;10:789-794. D/ / Shashank Vargas MD / Shashank Vargas MD Interpreting Provider: Shashank Vargsa MD - Attending Attestation I have personally performed a face to face evaluation on this patient. I have reviewed and agree with the care plan. History and Exam by me shows: Patient seen. Per patient he only had small amount of blood per rectum. On examination: Abdomen is soft. On rectal examination stools are brown Assessment: Patient with multiple medical problem including end-stage renal disease on dialysis and recent cardiac Stenting now with melena and rectal bleeding. Recommendation: EGD to make sure patient does not have any peptic ulcer disease
[2018-12-27] MEDS ORDERED: Metoprolol XL (24 HR) Succ 25 MG TAB.ER.24H PO SCH (11:15)
[2018-12-27] MEDS: Metoprolol XL (24 HR) Succ 25 MG TAB.ER.24H PO SCH ×2 (12:07→21:21)
[2018-12-27] MEDS ORDERED: *HR* Propofol 200 MG/20 ML VIAL IVP ONE (12:12)
[2018-12-27] MEDS ORDERED: Lidocaine -MPF 2% 2 ML VIAL ONE (12:29)
--- NOTE | 2018-12-27 12:48 | Anesthesia Evaluation PreOp ---
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: Denies Any Significant HX Other Medical History: Diabetes Type II, GERD Anesthesia History: No Prior Anesthetic Complications, Past Anesthesia Alcohol Use: none Drug use: none Medications and Allergies Diltiazem HCl [Cardizem LA] 360 mg PO DAILY 10/18/15 [History] Budesonide/Formoterol 160/4.5 [Symbicort 160/4.5] 2 puff IH BID 05/06/18 [History] Insulin Glargine,Hum.rec.anlog [Rodolfounelson Soljitendra] 80 units SQ HS 05/06/18 [History] Iron Polysaccharide Complex [Pro Fe] 180 mg PO DAILY 05/06/18 [History] Lipase/Protease/Amylase [Creon Dr 24,000 Units Capsule] 1 cap PO TIDWM 05/06/18 [History] Tiotropium [Spiriva] 18 mcg IH DAILY 05/06/18 [History] Cholecalciferol (D-3) [Vitamin D] 1,000 unit PO BID 05/07/18 [History] Oxycodone HCl/Acetaminophen [Percocet 10-325 mg Tablet] 1 each PO TID PRN 05/07/18 [History] Pregabalin [Lyrica] 300 mg PO BID 05/07/18 [History] SitaGLIPtin [Januvia] 100 mg PO DAILY 05/07/18 [History] Zolpidem [Ambien] 10 mg PO HS 05/07/18 [History] Apixaban [Eliquis] 5 mg PO BID #60 tablet 05/09/18 [Rx] Clopidogrel [Plavix] 75 mg PO DAILY #20 tablet 05/10/18 [Rx] Nitroglycerin 0.4 mg SL Q5MIN PRN #20 tab 05/10/18 [Rx] Insulin LISPRO [Humalog Kwikpen U-100] See Protocol SQ TIDWM PRN 09/22/18 [History] Venlafaxine [Effexor] 37.5 mg PO BID 10/21/18 [History] Aspirin Enteric Coated [Aspirin EC] 81 mg PO HS #0 10/22/18 [Rx] Spironolactone [Aldactone] 12.5 mg PO DAILY #15 tablet 10/22/18 [Rx] Amiodarone HCl 200 mg PO BID 12/11/18 [History] Atorvastatin [Lipitor] 40 mg PO HS 12/11/18 [History] Docusate Sodium [Dok] 200 mg PO DAILY PRN 12/11/18 [History] Insulin NPH, HUMAN [HumuLIN N] 35 unit SQ QAM 12/11/18 [History] Metoprolol XL (24 HR) Succ [Toprol Xl] 75 mg PO BID 12/11/18 [History] Omeprazole 20 mg PO DAILY 12/11/18 [History] Polyethylene Glycol 3350 17 gm PO DAILY PRN 12/11/18 [History] Tamsulosin HCl 0.4 mg PO DAILY 12/11/18 [History] Furosemide [Lasix] 40 mg PO BID 15 Days #30 tablet 12/13/18 [Rx] Potassium Chloride [Klor-Con 10] 20 meq PO DAILY 15 Days #15 tablet.er 12/13/18 [Rx] Azithromycin [Zithromax] 250 mg PO DAILY #4 tablet 12/22/18 [Rx] predniSONE [PredniSONE] See Taper PO AD 9 Days #11 tablet 12/22/18 [Rx] Albuterol Sulfate [Proventil Inhaler] 1 puff IH Q6H PRN 12/27/18 [History] Lipase/Protease/Amylase [[place] Saeed 12,000 Units Capsule] 1 cap PO BID 12/27/18 [History] Allergy/AdvReac Type Severity Reaction Status Date / Time ibuprofen Allergy Hives Verified 12/27/18 11:57 ticagrelor [From Brilinta] AdvReac Difficulty Verified 12/27/18 11:57 Breathing - Meds/Allergy Pre-op Review Medications Reviewed: Yes Allergies Reviewed: Yes Beta Blockers on Current Med List: Yes If Beta Blockers taken, Date/Time (Last Dose taken): 12/27/2018 at 1207 Anesthesia Results - Labs 12/27/18 06:45 12/27/18 00:08 - Imaging EKG: report reviewed (12/20/2018 ATRIAL FIBRILLATION WITH RAPID VENTRICULAR RESPONSE MARKED LEFT AXIS DEVIATION INTRAVENTRICULAR CONDUCTION DELAY POSSIBLE ANTERIOR MYOCARDIAL INFARCTION, PROBABLY OLD) Additional studies: 12/09/2018 Limited Echo Impressions: LVEF 30-35%. Severe global left ventricular systolic dysfunction. Mildly dilated left ventricle. Mild right ventricular dilatation with moderate to severe hypokinesis. No improvement of LVEF with worsening RV function c/w 10/22/18 study. 09/21/2018 Cardiac Cath Procedures Performed: Stent w/ PTCA Single Major Vessel PTCA Single Major Vessel CORONARY ART/GRFT ANGIO S&I Indications: Unstable Angina Worsening Angina Impressions: There is severe three vessel coronary artery disease. S/P CABG 2 of 4 patent bypass grafts. Patient had successful PTCA/Drug-Eluting Stent placement in the distal Left Main Heavily calcified highly tortuous Left main to CIRC. Dilation of calcified Left main into ostial CIRC with type A dissection covered with Stent Circ distal to distal edge of Left Main/Ostial CIRC STENT severe disease 95% focal lesion unable to cross any balloons (Threader1.2 failed to cross) Highly tortuous proximal CIRC less likely candidate for Rotablator PURVI 3 Flow Left main into all branches of CIRC. Recommendations: Optimal medical therapy of patient's disease. Aggressive risk factor modification. Plan to bring back patient for proximal circumflex PCI 08/12/2018 Stress Impression: Technically challenging perfusion images. Medium sized, mild intensity stress perfusion defect involving the inferior wall possibly representing ischemia. No perfusion evidence for infarct. Pharmacologic stress ECG is negative for ischemia at level of heart rate achieved. No appreciable change from baseline ECG. Gated EF = 34%. The left ventricle is dilated. Findings communicated to ordering provider. 05/06/2018 Echo Impressions: LVEF 50-55%. Indeterminate diastolic function. Normal right ventricular structure and function. Unable to estimate RVSP due to lack of TR jet. Normal LV chamber size, wall thickness. No significant valvular dysfunction. Anesthesia Exam Vital Signs/O2 Sat/Glucose, Most Recent Temp Pulse Resp BP Pulse Ox 98.0 F 111 16 119/77 91 12/27/18 11:55 12/27/18 11:55 12/27/18 11:55 12/27/18 11:55 12/27/18 11:55 Blood Glucose* 312 Height: 6'1''/1.85m Weight: 261 lbs/118.5 kg NPO (# of Hours): 8 Pain Scale: 0 Pain Scale Used: Numeric (1 - 10) - HEENT Pupil (Motor): EOMI Mallampati: II Teeth: Normal, Missing Oral Opening: Greater than 3 - SHIPPING AND RECEIVING SPECIALIST LOC: Oriented SHIPPING AND RECEIVING SPECIALIST Motor: Normal RUE, Normal RLE, Normal LLE, Normal Face, Deficit LUE SHIPPING AND RECEIVING SPECIALIST Sensory: Normal: RUE, LUE, RLE, LLE, Face - Cardiac Rhythm: Irregular Murmur: None - Pulmonary Breath Sounds: bilateral Clear (decreased BS) Respiratory Effort: Symmetrical Anesthesia Assess/Plan ASA Score: 4 Level of consciousness: Cooperative, Oriented, Tranquil Anesthetic Plan: MAC Monitoring Plan: Standard Monitors
--- NOTE | 2018-12-27 12:48 | Urology - Consult Note ---
Date of Encounter: 12/27/18 Time of Encounter: 11:45 - Assessment and Plan (1) Gross hematuria Current Visit: Yes Status: Acute Assessment and plan: Patient is a 63-year-old male who presents with a history of gross hematuria. P adrienne has a known history of prostate cancer and has been treated by radiation. 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 Anticoagulation has been held. Urine appears to be clearing. CBI has been titrated to a very slow drip. We will closely monitor urine and titrate CBI to urine appearance. I do not anticipate the need for catheter exchange at this time. (2) Radiation cystitis Current Visit: Yes Status: Acute Assessment and plan: Patient is a 63-year-old male who presents with a history of [place] 9 prostate cancer treated by external beam radiation in 2015. Patient is likely experie ncing radiation cystitis with gross hematuria. Vital signs are stable and afebrile. Hemoglobin is 10.1. Urine culture is pending. (3) SHRUTHI (acute kidney injury) Current Visit: No Status: Acute Assessment and plan: Patient is a 63-year-old male who presents with acute kidney injury. Serum creatinine from 12/22/2018 was 1.75, and it is currently 1.55. Patient currently has an indwelling Carter catheter that is draining sufficiently. (4) Prostate cancer Current Visit: Yes Status: Acute Assessment and plan: Patient is a 63-year-old male who presents with a history of [place] 9, locally invasive prostate cancer. Patient has completed radiation therapy as well as androgen deprivation therapy. Patient has followed with Dr. Rey. PSA from July 2018 is 0.10. Urology CN:HPI Consult date: 12/27/18 Reason for consult Urology: Gross Hematuria Requesting physician: Ta Ferro History of present illness: Patient is a 63-year-old male who presents with gross hematuria and a history of locally invasive prostate cancer. Patient was last evaluated by Dr. Grant in 2015. He has undergone external beam radiation as well as androgen deprivation therapy. His last recorded PSA was 0.10. Patient reports a 2 day history of gross hematuria and rectal bleeding. Patient presented to the emergency department where he underwent a CT of the abdomen and pelvis revealed possible cystitis but was otherwise reassuring from a standpoint. He has extensive coronary artery disease and has undergone CABG and multiple coronary stents, most recently in September 2018. Patient was hospitalized for a NSTEMI 1 week ago, and he is taking rivaroxaban and clopidogrel daily. An 18-[place] th ree-way Carter catheter was placed, and continuous bladder irrigation was initiated in the emergency department. Currently, on my evaluation, patient is sitting upright in bed in no apparent distress, and Carter catheter is indwelling draining transparent, clear yellow urine on slow drip CBI. Additionally, there is no known documented family history of prostate cancer or other malignancy. 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 cardiac stents x4 - Social History Smoking Status: Former smoker Smokeless Tobacco Status: No Alcohol use: none Drug use: none - Family History Father Hx Family Cardiac Disorders: Yes (CABG, CAD) Brother Hx Family Cardiac Disorders: Yes Medications and Allergies Diltiazem HCl [Cardizem LA] 360 mg PO DAILY 10/18/15 [History] Budesonide/Formoterol 160/4.5 [Symbicort 160/4.5] 2 puff IH BID 05/06/18 [History] Insulin Glargine,Hum.rec.anlog [Rodolfounelson Solostar] 80 units SQ HS 05/06/18 [Hi story] Iron Polysaccharide Complex [Pro Fe] 180 mg PO DAILY 05/06/18 [History] Lipase/Protease/Amylase [Creon Dr 24,000 Units Capsule] 1 cap PO TIDWM 05/06/18 [History] Tiotropium [Spiriva] 18 mcg IH DAILY 05/06/18 [History] Cholecalciferol (D-3) [Vitamin D] 1,000 unit PO BID 05/07/18 [History] Oxycodone HCl/Acetaminophen [Percocet 10-325 mg Tablet] 1 each PO TID PRN 05/07/18 [History] Pregabalin [Lyrica] 300 mg PO BID 05/07/18 [History] SitaGLIPtin [Januvia] 100 mg PO DAILY 05/07/18 [History] Zolpidem [Ambien] 10 mg PO HS 05/07/18 [History] Apixaban [Eliquis] 5 mg PO BID #60 tablet 05/09/18 [Rx] Clopidogrel [Plavix] 75 mg PO DAILY #20 tablet 05/10/18 [Rx] Nitroglycerin 0.4 mg SL Q5MIN PRN #20 tab 05/10/18 [Rx] Insulin LISPRO [Humalog Kwikpen U-100] See Protocol SQ TIDWM PRN 09/22/18 [Hist ory] Venlafaxine [Effexor] 37.5 mg PO BID 10/21/18 [History] Aspirin Enteric Coated [Aspirin EC] 81 mg PO HS #0 10/22/18 [Rx] Spironolactone [Aldactone] 12.5 mg PO DAILY #15 tablet 10/22/18 [Rx] Amiodarone HCl 200 mg PO BID 12/11/18 [History] Atorvastatin [Lipitor] 40 mg PO HS 12/11/18 [History] Docusate Sodium [Dok] 200 mg PO DAILY PRN 12/11/18 [History] Insulin NPH, HUMAN [HumuLIN N] 35 unit SQ QAM 12/11/18 [History] Metoprolol XL (24 HR) Succ [Toprol Xl] 75 mg PO BID 12/11/18 [History] Omeprazole 20 mg PO DAILY 12/11/18 [History] Polyethylene Glycol 3350 17 gm PO DAILY PRN 12/11/18 [History] Tamsulosin HCl 0.4 mg PO DAILY 12/11/18 [History] Furosemide [Lasix] 40 mg PO BID 15 Days #30 tablet 12/13/18 [Rx] Potassium Chloride [Klor-Con 10] 20 meq PO DAILY 15 Days #15 tablet.er 12/13/18 [Rx] Azithromycin [Zithromax] 250 mg PO DAILY #4 tablet 12/22/18 [Rx] predniSONE [PredniSONE] See Taper PO AD 9 Days #11 tablet 12/22/18 [Rx] Albuterol Sulfate [Proventil Inhaler] 1 puff IH Q6H PRN 12/27/18 [History] Lipase/Protease/Amylase [[place] Saeed 12,000 Units Capsule] 1 cap PO BID 12/27/18 [History] Allergy/AdvReac Type Severity Reaction Status Date / Time ibuprofen Allergy Hives Verified 12/27/18 11:57 ticagrelor [From Brilinta] AdvReac Difficulty Verified 12/27/18 11:57 Breathing Review of Systems - Constitutional no chills, no fatigue, no fever(s) - EENT Nose, mouth and throat: no dizziness, no headache(s) - Cardiovascular no chest pain, no diaphoresis, no dyspnea - Respiratory no cough, no dyspnea - Gastrointestinal no abdominal pain, no nausea, no vomiting - Genitourinary hematuria, no change in urinary stream, no dysuria, no flank pain, no urinary frequency, no urinary hesitancy, no urinary incontinence, no urinary urgency - Musculoskeletal no back pain, no muscle weakness - Integumentary no erythema, no rash - Neurological no confusion, no syncope - Psychiatric no anxiety, no confusion - Hematologic/Lymphatic no easy bleeding, no easy bruising - Allergic/Immunologic no throat swelling, no wheezing Exam Initial Vital Signs Temp Pulse Resp BP Pulse Ox 97.9 F 111 20 119/85 97 12/26/18 23:32 12/26/18 23:32 12/26/18 23:32 12/26/18 23:32 12/26/18 23:32 - General physical appearance Present: no distress, no pain - Eyes Present: PERRL, normal ocular movement - ENT Present: no hearing loss, no congestion - Neck Present: no masses, trachea midline, no lymphadenopathy - Respiratory Present: normal respiratory effort - Cardiovascular Cardiovascular exam IM: tachycardia - Abdomen Abdomen: Present: soft, non tender. Absent: distended - Genitourinary other (Carter catheter is indwelling and draining transparent, clear yellow urine into bedside bag) - Integumentary Present: no rash, no abnormal pigmentation - Neurologic Present: normal coordination - Musculoskeletal Present: other (Normal posture) Urology Results - Labs 12/27/18 06:45 12/27/18 00:08 Abnormal lab results RBC 3.83 M/mcL (4.19-5.50) L 12/27/18 00:08 Hgb 10.1 g/dL (12.9-16.9) L 12/27/18 06:45 Hct 32.8 % (37.5-50.1) L 12/27/18 06:45 MCH 26.1 pg (28.0-33.3) L 12/27/18 00:08 MCHC 29.8 g/dL (31.6-35.5) L 12/27/18 00:08 RDW 19.2 % (11.5-14.5) H 12/27/18 00:08 MPV 12.7 fL (9.4-12.4) H 12/27/18 00:08 PT 21.2 Seconds (9.4-12.1) H D 12/27/18 00:08 APTT 23.3 Seconds (26.0-36.0) L 12/27/18 00:08 BUN 39 mg/dL (8-23) H 12/27/18 00:08 Creatinine 1.55 mg/dL (0.70-1.30) H 12/27/18 00:08 Est GFR ( Amer) 55 (> 60) L 12/27/18 00:08 Est GFR (Non-Af Amer) 46 (> 60) L 12/27/18 00:08 Glucose 433 mg/dL (70-105) H 12/27/18 00:08 POC Glucose 319 mg/dL (70-99) H 12/27/18 05:30 Calculated Osmolality 322 (280-300) H 12/27/18 00:08 Ur Specimen Adequacy See below A 12/26/18 23:45 Urine Clarity Turbid (Clear) A 12/26/18 23:45 Ur Specific [place] 1.030 (1.010-1.025) H 12/26/18 23:45 Urine Protein >=300 mg/dL (Neg-Trace) H 12/26/18 23:45 Urine Glucose (UA) >=1000 mg/dL (Normal) H 12/26/18 23:45 Urine Blood Large (Negative) H 12/26/18 23:45 Urine Microscopic RBC TNTC per hpf (0-3) H 12/26/18 23:45 Ur Culture Indicated? YES (NO) A 12/26/18 23:45 Stool Occult Bld Scrn Positive (Negative) A 12/27/18 01:00 Diabetes panel 12/27/18 Range/Units 00:08 Sodium 142 (136-145) mEq/L Potassium 3.5 (3.5-5.1) mEq/L Chloride 103 (98-107) mEq/L Carbon Dioxide 27 (23-29) mEq/L BUN 39 H (8-23) mg/dL Creatinine 1.55 H (0.70-1.30) mg/dL Glucose 433 H (70-105) mg/dL Calcium 8.6 (8.6-10.3) mg/dL Calcium panel 12/27/18 Range/Units 00:08 Calcium 8.6 (8.6-10.3) mg/dL Pituitary panel 12/27/18 Range/Units 00:08 Sodium 142 (136-145) mEq/L Potassium 3.5 (3.5-5.1) mEq/L Chloride 103 (98-107) mEq/L Carbon Dioxide 27 (23-29) mEq/L BUN 39 H (8-23) mg/dL Creatinine 1.55 H (0.70-1.30) mg/dL Glucose 433 H (70-105) mg/dL Calcium 8.6 (8.6-10.3) mg/dL Adrenal panel 12/27/18 Range/Units 00:08 Sodium 142 (136-145) mEq/L Potassium 3.5 (3.5-5.1) mEq/L Chloride 103 (98-107) mEq/L Carbon Dioxide 27 (23-29) mEq/L BUN 39 H (8-23) mg/dL Creatinine 1.55 H (0.70-1.30) mg/dL Glucose 433 H (70-105) mg/dL Calcium 8.6 (8.6-10.3) mg/dL All other labs normal. - Imaging CT scan - abdomen: report reviewed, image reviewed CT scan - pelvis: report reviewed, image reviewed Consult Discharge Plan - Plan Referrals: Pennie Guardado [Primary Care Provider] -
[2018-12-27] MEDS: Fluconazole 100 MG TABLET PO SCH (15:26)
--- NOTE | 2018-12-27 15:58 | Electrocardiograph Report ---
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
[2018-12-27] MEDS ORDERED: *HR* Metoprolol 5 MG/5 ML VIAL IVP PRN (18:51)
[2018-12-27] MEDS ORDERED: Insulin LISPRO 300 UNITS/3 ML VIAL SQ SCH (21:00)
[2018-12-27] MEDS: Furosemide 40 MG TABLET PO SCH (21:21)
[2018-12-27] MEDS: Pregabalin 75 MG CAPSULE PO SCH (21:21)
[2018-12-27] MEDS: *HR* Amiodarone 200 MG TABLET PO SCH (21:21)
[2018-12-27] MEDS: Cholecalciferol (D-3) 1,000 UNIT (25MCG) TABLET PO SCH (21:21)
[2018-12-27] MEDS: Budesonide/Formoterol 160/4.5 1 PUFF INH IH SCH (22:46)
[2018-12-28] MEDS: *HR* OxyCODONE Immed Rel 5 MG TABLET PO PRN (05:35)
[2018-12-28] MEDS: Pantoprazole 40 MG VIAL IVP SCH (05:35)
[2018-12-28 05:44] LABS: Basophils % 0.2 %; Eosinophils # 0.1 K/mcL (0.0-0.6); Eosinophils % 0.4 %; Hematocrit 36.3 % (37.5-50.1); Hemoglobin 10.8 g/dL (12.9-16.9); Immature Granulocytes % 0.5 % (0-4); Lymphocytes # 1.4 K/mcL (0.6-4.6); Lymphocytes % 11.8 %; Mean Corpuscular HGB Conc 29.8 g/dL (31.6-35.5); Mean Corpuscular Hemoglobin 26.1 pg (28.0-33.3); Mean Corpuscular Volume 87.7 fL (83.0-100.0); Monocytes # 1.1 K/mcL (0.0-1.3); Monocytes % 9.1 %; Neutrophils # 9.3 K/mcL (1.6-8.9); Platelet Count 185 K/mcL (140-400); Red Blood Count 4.14 M/mcL (4.19-5.50); Red Cell Distribution Width 19.3 % (11.5-14.5); White Blood Count 11.9 K/mcL (4.3-11.1)
[2018-12-28 06:08] LABS: BUN/Creatinine Ratio 24 (6-26); Blood Urea Nitrogen 28 mg/dL (8-23); Calcium 8.8 mg/dL (8.6-10.3); Carbon Dioxide 27 mEq/L (23-29); Chloride 106 mEq/L (98-107); Glucose 237 mg/dL (70-105); Osmolality,Calculated 311 (280-300); Potassium 3.6 mEq/L (3.5-5.1); Sodium 144 mEq/L (136-145); eGFR For African Americans > 60 (> 60); eGFR For Non-African Americans > 60 (> 60)
[2018-12-28] MEDS: Budesonide/Formoterol 160/4.5 1 PUFF INH IH SCH (07:57)
[2018-12-28] MEDS: Metoprolol XL (24 HR) Succ 25 MG TAB.ER.24H PO SCH (08:52)
[2018-12-28] MEDS: *HR* Amiodarone 200 MG TABLET PO SCH (08:52)
[2018-12-28] MEDS: Furosemide 40 MG TABLET PO SCH (08:53)
[2018-12-28] MEDS: Pregabalin 75 MG CAPSULE PO SCH (08:53)
[2018-12-28] MEDS: Fluconazole 100 MG TABLET PO SCH (08:53)
[2018-12-28] MEDS: Cholecalciferol (D-3) 1,000 UNIT (25MCG) TABLET PO SCH (08:53)
[2018-12-28] MEDS: Insulin LISPRO 300 UNITS/3 ML VIAL SQ SCH ×2 (08:54→12:33)
[2018-12-28] MEDS ORDERED: Diltiazem CD (24hr) 180 MG CAPSULE PO SCH (09:00)
[2018-12-28] MEDS ORDERED: Iron Polysaccharide Complex 150 MG CAPSULE PO SCH (09:00)
[2018-12-28] MEDS ORDERED: Tiotropium 18 MCG inhalation IH SCH (10:00)
--- NOTE | 2018-12-28 10:15 | Internal Med Progress Note ---
Hospitalist Progress Note - Encounter Date of Encounter: 12/28/18 Time of Encounter: 08:55 - Subjective Interval History: 63YOM with history of CAD, CABG, on Xarelto and Plavix, prostate cancer with mets to bladder and heart failure with reduced ejection fraction presented to ED for hematuria and GIB. Patient has no acute complaints today besides some pain from his king. Patient was under the impression he would be leaving today. Denies any chest pain, shortness of breath, wheezing, confirms some coughing. - Exam Vitals: Temp Pulse Resp BP Pulse Ox 97.7 F 98 18 114/65 92 12/28/18 07:55 12/28/18 07:55 12/28/18 09:42 12/28/18 09:42 12/28/18 09:42 Exam: General: AOx3, no acute distress Obese Skin: warm, dry, intact Head: normocephalic, atraumatic ENT: PERRLA, EOMI, trachea midline Respiratory: Reduced breath sounds at the bases, weak respiratory effort, Cardiovascular: irregularly irregular, +S1, +S2, -S3, -S4, no rubs, gallops, or murmurs. Abdomen: equal bowel sounds x4. Distended, non-tender : king catheter in place and draining yellow urine Extremities: Equal pulses bilaterally. 3+ pitting edema bilaterally on lower extremities. Neuro: alert and oriented x3, cranial nerves grossly intact. no focal deficits Psych: normal mentation and mood - Assessment and Plan (1) Gross hematuria Current Visit: Yes Status: Acute Assessment and Plan: Likely secondary to anticoagulant/antiplatelet use given the concomitant GI bleed as well. -Urology consulted, recommendations appreciated. -No anatomic lesions detected on imaging. -CBI per urology recommendations -Monitor H/H (2) Upper GI bleed Current Visit: Yes Status: Acute Assessment and Plan: As detailed above, secondary to anticoagulant/antiplatelet therapy. -EGD performed yesterday, showed candidiasis. -Continue pantoprazole (3) CAD (coronary artery disease) Current Visit: Yes Status: Chronic Assessment and Plan: Restart plavix and aspirin. Continue other home medications. (4) Afib Current Visit: Yes Status: Chronic Assessment and Plan: home dosage of metoprolol restarted Amiodarone home dosage restarted as well as home dosage of cardizem. Apixaban restarted Will likely need cardiology consult after GI EGD and hematuria resolves (5) Heart failure with reduced ejection fraction Current Visit: Yes Status: Acute Assessment and Plan: Volume overloaded -Lasix given -home meds restarted -Monitor I&O (6) COPD (chronic obstructive pulmonary disease) Current Visit: Yes Status: Acute Assessment and Plan: No signs of exacerbation at this time. Nebulizer therapy as needed. home inhalers restarted (7) Pleural effusion Current Visit: Yes Status: Acute Assessment and Plan: CT scan shows Moderate to large right pleural effusion with adjacent airspace disease, likely atelectasis, but pneumonia still remains in the differential. Continue to monitor (8) Diabetes Current Visit: No Status: Chronic Assessment and Plan: Sliding scale insulin q6h while NPO (9) Hypertension Current Visit: Yes Status: Chronic Assessment and Plan: Continue home medications DVT Prophylaxis: EPCDs - Summary of Assessment and Plan Summary of Assessment and Plan: As above - Time Spent with Patient Total time spent is greater than 50% in coordination of care (as documented) at patient's floor/unit and/or counseling patient: Internal Medicine: Result - Labs CBC & Chem 7: 12/28/18 05:10 12/28/18 05:10 Labs: Short CBC 12/28/18 Range/Units 05:10 WBC 11.9 H (4.3-11.1) K/mcL Hgb 10.8 L (12.9-16.9) g/dL Hct 36.3 L (37.5-50.1) % Plt Count 185 (140-400) K/mcL Neutrophils # 9.3 H (1.6-8.9) K/mcL BMP 12/28/18 05:10 Sodium 144 Potassium 3.6 Chloride 106 Carbon Dioxide 27 BUN 28 H Creatinine 1.15 Glucose 237 H Calcium 8.8 - ABG Interpretation ABG results: PT/INR, D-dimer PT 21.2 Seconds (9.4-12.1) H D 12/27/18 00:08 Consult Discharge Plan - Plan Referrals: Pennie Guardado [Primary Care Provider] - (3) CAD (coronary artery disease) Qualifiers: Coronary Disease-Associated Artery/Lesion type: bypass graft [place] vs. 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
[2018-12-28] MEDS ORDERED: Fluconazole 100 MG TABLET PO ONE (10:46)
[2018-12-28 11:26] VITALS: BP 99/67
--- NOTE | 2018-12-28 11:53 | Urology Progress Note ---
Date of Encounter: 12/28/18 Time of Encounter: 11:20 - Assessment and Plan (1) Gross hematuria Current Visit: Yes Status: Acute (2) Radiation cystitis Current Visit: Yes Status: Acute Assessment and plan: Patient is a 63-year-old male who presents with a history of gross hematuria, radiation cystitis of prostate cancer. Hematuria is resolved, and urine has remained clear off CBI. Recommend to insert a plug in the inflow port of his catheter, and patient may be discharged with Carter in place. Patient may follow up in 1 week for an outpatient voiding trial with Dr. Grant. (3) SHRUTHI (acute kidney injury) Current Visit: No Status: Acute (4) Prostate cancer Current Visit: Yes Status: Acute Progress Note Narrative: Patient seen and examined lying in bed in no apparent distress. Carter catheter is indwelling and draining transparent, clear yellow urine into bedside bag. Patient is planning discharge later today. Objective Initial Vital Signs Temp Pulse Resp BP Pulse Ox 97.9 F 111 20 119/85 97 12/26/18 23:32 12/26/18 23:32 12/26/18 23:32 12/26/18 23:32 12/26/18 23:32 - General physical appearance Present: no distress, no pain - Respiratory Present: normal expansion, normal respiratory effort - Abdomen Present: soft, non tender. Absent: distended - Genitourinary Urine Appearance: Present: Clear - Integumentary Present: no rash, no abnormal pigmentation - Musculoskeletal Present: normal posture - Psychiatric Present: oriented to time, oriented to person, oriented to place, speech is normal, memory intact - Labs 12/28/18 05:10 12/28/18 05:10 Diabetes panel 12/28/18 Range/Units 05:10 Sodium 144 (136-145) mEq/L Potassium 3.6 (3.5-5.1) mEq/L Chloride 106 (98-107) mEq/L Carbon Dioxide 27 (23-29) mEq/L BUN 28 H (8-23) mg/dL Creatinine 1.15 (0.70-1.30) mg/dL Glucose 237 H (70-105) mg/dL Calcium 8.8 (8.6-10.3) mg/dL Calcium panel 12/28/18 Range/Units 05:10 Calcium 8.8 (8.6-10.3) mg/dL Pituitary panel 12/28/18 Range/Units 05:10 Sodium 144 (136-145) mEq/L Potassium 3.6 (3.5-5.1) mEq/L Chloride 106 (98-107) mEq/L Carbon Dioxide 27 (23-29) mEq/L BUN 28 H (8-23) mg/dL Creatinine 1.15 (0.70-1.30) mg/dL Glucose 237 H (70-105) mg/dL Calcium 8.8 (8.6-10.3) mg/dL Adrenal panel 12/28/18 Range/Units 05:10 Sodium 144 (136-145) mEq/L Potassium 3.6 (3.5-5.1) mEq/L Chloride 106 (98-107) mEq/L Carbon Dioxide 27 (23-29) mEq/L BUN 28 H (8-23) mg/dL Creatinine 1.15 (0.70-1.30) mg/dL Glucose 237 H (70-105) mg/dL Calcium 8.8 (8.6-10.3) mg/dL Consult Discharge Plan - Plan Referrals: Pennie Guardado [Primary Care Provider] -
[2018-12-28] MEDS ORDERED: Insulin DETEMIR 100 UNIT/ML X5UNITS SQ SCH (12:47)
--- NOTE | 2018-12-28 14:02 | Discharge Summary ---
<Emiliano Dominguez - Last Filed: 12/28/18 14:16> - NOTES TO OUTPATIENT PROVIDER Notes to Outpatient Provider: Recommend outpatient follow-up with cardiology for potential placement of left atrial appendage closure device. 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 transplanted heart: three affiliated heart Associated angina: with unspecified angina Qualified Code(s): I25.709 - Atherosclerosis of coronary artery bypass graft(s), unspecified, with unspecified angina pectoris (7) Atrial fibrillation with RVR Status: Resolved (8) COPD (chronic obstructive pulmonary disease) Status: Acute Hospital course: Mr. Hernández is a 63 year old male - Time Spent with Patient Total time spent providing and/or coordinating discharge services: - Discharge Medications Prescriptions: New Fluconazole [Diflucan] 200 mg PO DAILY 6 Days #6 tablet Continued Diltiazem HCl [Cardizem LA] 360 mg PO DAILY Iron Polysaccharide Complex [Pro Fe] 180 mg PO DAILY Tiotropium [Spiriva] 18 mcg IH DAILY Budesonide/Formoterol 160/4.5 [Symbicort 160/4.5] 2 puff IH BID Lipase/Protease/Amylase [[place] Saeed 24,000 Units Capsule] 1 cap PO TIDWM Insulin Glargine,Hum.rec.anlog [Magdalene Garciaostnaman] 80 units SQ HS Pregabalin [Lyrica] 300 mg PO BID Oxycodone HCl/Acetaminophen [Percocet 10-325 mg Tablet] 1 each PO TID PRN PRN Reason: Pain SitaGLIPtin [Januvia] 100 mg PO DAILY Zolpidem [Ambien] 10 mg PO HS Cholecalciferol (D-3) [Vitamin D] 1,000 unit PO BID Nitroglycerin 0.4 mg SL Q5MIN PRN #20 tab PRN Reason: Chest Pain Clopidogrel [Plavix] 75 mg PO DAILY #20 tablet Insulin LISPRO [Humalog Kwikpen U-100] See Protocol SQ TIDWM PRN PRN Reason: SLIDING SCALE Venlafaxine [Effexor] 37.5 mg PO BID Spironolactone [Aldactone] 12.5 mg PO DAILY #15 tablet Aspirin Enteric Coated [Aspirin EC] 81 mg PO HS #0 Insulin NPH, HUMAN [HumuLIN N] 35 unit SQ QAM Amiodarone HCl 200 mg PO BID Atorvastatin [Lipitor] 40 mg PO HS Docusate Sodium [Dok] 200 mg PO DAILY PRN PRN Reason: Constipation Metoprolol XL (24 HR) Succ [Toprol Xl] 75 mg PO BID Omeprazole 20 mg PO DAILY Polyethylene Glycol 3350 17 gm PO DAILY PRN PRN Reason: Constipation Tamsulosin HCl 0.4 mg PO DAILY Potassium Chloride [Klor-Con 10] 20 meq PO DAILY 15 Days #15 tablet.er Furosemide [Lasix] 40 mg PO BID 15 Days #30 tablet Albuterol Sulfate [Proventil Inhaler] 1 puff IH Q6H PRN PRN Reason: Shortness Of Breath Lipase/Protease/Amylase [[place] Saeed 12,000 Units Capsule] 1 cap PO BID Discontinued Apixaban [Eliquis] 5 mg PO BID #60 tablet predniSONE [PredniSONE] See Taper PO AD 9 Days #11 tablet Azithromycin [Zithromax] 250 mg PO DAILY #4 tablet Home Medications: Diltiazem HCl [Cardizem LA] 360 mg PO DAILY 10/18/15 [History] Budesonide/Formoterol 160/4.5 [Symbicort 160/4.5] 2 puff IH BID 05/06/18 [History] Insulin Glargine,Hum.rec.anlog [[place] Solostar] 80 units SQ HS 05/06/18 [Histor y] Iron Polysaccharide Complex [Pro Fe] 180 mg PO DAILY 05/06/18 [History] Lipase/Protease/Amylase [[place] Saeed 24,000 Units Capsule] 1 cap PO TIDWM 05/06/18 [History] Tiotropium [Spiriva] 18 mcg IH DAILY 05/06/18 [History] Cholecalciferol (D-3) [Vitamin D] 1,000 unit PO BID 05/07/18 [History] Oxycodone HCl/Acetaminophen [Percocet 10-325 mg Tablet] 1 each PO TID PRN 05/07/18 [History] Pregabalin [Lyrica] 300 mg PO BID 05/07/18 [History] SitaGLIPtin [Januvia] 100 mg PO DAILY 05/07/18 [History] Zolpidem [Ambien] 10 mg PO HS 05/07/18 [History] Clopidogrel [Plavix] 75 mg PO DAILY #20 tablet 05/10/18 [Rx] Nitroglycerin 0.4 mg SL Q5MIN PRN #20 tab 05/10/18 [Rx] Insulin LISPRO [Humalog Kwikpen U-100] See Protocol SQ TIDWM PRN 09/22/18 [History] Venlafaxine [Effexor] 37.5 mg PO BID 10/21/18 [History] Aspirin Enteric Coated [Aspirin EC] 81 mg PO HS #0 10/22/18 [Rx] Spironolactone [Aldactone] 12.5 mg PO DAILY #15 tablet 10/22/18 [Rx] Amiodarone HCl 200 mg PO BID 12/11/18 [History] Atorvastatin [Lipitor] 40 mg PO HS 12/11/18 [History] Docusate Sodium [Dok] 200 mg PO DAILY PRN 12/11/18 [History] Insulin NPH, HUMAN [HumuLIN N] 35 unit SQ QAM 12/11/18 [History] Metoprolol XL (24 HR) Succ [Toprol Xl] 75 mg PO BID 12/11/18 [History] Omeprazole 20 mg PO DAILY 12/11/18 [History] Polyethylene Glycol 3350 17 gm PO DAILY PRN 12/11/18 [History] Tamsulosin HCl 0.4 mg PO DAILY 12/11/18 [History] Furosemide [Lasix] 40 mg PO BID 15 Days #30 tablet 12/13/18 [Rx] Potassium Chloride [Klor-Con 10] 20 meq PO DAILY 15 Days #15 tablet.er 12/13/18 [Rx] Albuterol Sulfate [Proventil Inhaler] 1 puff IH Q6H PRN 12/27/18 [History] Lipase/Protease/Amylase [[place] Saeed 12,000 Units Capsule] 1 cap PO BID 12/27/18 [History] Fluconazole [Diflucan] 200 mg PO DAILY 6 Days #6 tablet 12/28/18 [Rx] Allergies/Adverse Reactions: Allergy/AdvReac Type Severity Reaction Status Date / Time ibuprofen Allergy Hives Verified 12/27/18 11:57 ticagrelor [From Brilinta] AdvReac Difficulty Verified 12/27/18 11:57 Breathing Date of admission: 12/27/18 01:59 Primary care physician: Pennie Guardado Consults: 12/27/18 07:56 Consult to Gastroenterology [CONS] Routine Consulting Provider: [facility] [place] Reason for Consult: GIB Call Completed: No 12/27/18 10:51 Consult to Urology [CONS] Routine Consulting Provider: [facility] Reason for Consult: hematuria. hx of prostate cancer with mets to bladder. On Plavix and Apixaban for CAD with recent NSTEMI, but these are currently being held. Call Completed: No - Constitutional Vitals: Temp Pulse Resp BP Pulse Ox 97.6 F 95 18 99/67 93 12/28/18 11:24 12/28/18 11:24 12/28/18 11:24 12/28/18 11:24 12/28/18 11:24 - Patient Status Disposition: Home, Self-Care Condition: Good - Discharge Instructions Instructions: Coronary Artery Disease (DC), Atrial Fibrillation (DC), Rectal Bleeding (DC), Chronic Obstructive Pulmonary Disease (DC), Acute Hematuria (DC), Chronic Hypertension (DC) Follow Up With: Willy Guevara MD [Partnered Physician] - 01/04/19 11:30 am (Possible Watchman device placement) Pennie Guardado [Primary Care Provider] - (in 1 week Called and left message with patient name and birthdate) Skyler Grant MD [Partnered Physician] - 01/02/19 10:30 am (Please follow up as schedule...) - Attending Attestation I saw evaluated and examined this patient and reviewed objective data including labs and my medical decision-making was reviewed with the Resident Physician. I agree with the documented findings, disposition and discharge plan as described except to any changes set forth below. We independently had [id number] contact with the patient. Patient with history of hypertension, diabetes, COPD and tonic systolic congestive heart failure, atrial fibrillation on Eliquis was hospitalized here with symptoms of hematuria and dark-colored stools. His antiplatelet agents and Eliquis were held and patient underwent upper GI endoscopy yesterday. He was found to have esophageal candidiasis. Patient has been placed on Diflucan for this. For his hematuria, urology was consulted and patient underwent bladder irrigation. Hematuria has now improved. Patient will be discharged with King catheter in place. His aspirin and Plavix have been resumed as patient underwent drug-eluting stent placement in September 2018 and will need to be on dual antiplatelet therapy for at least 1 year. However given his hematuria and episode of GI bleed, we recommend holding Eliquis and outpatient follow-up with cardiology for potential placement of left atrial appendage closure device. Patient agreeable to this plan of care. He will be discharged home today. Time spent on discharge: 8 min <Ta Ferro - Last Filed: 12/29/18 11:40> - NOTES TO OUTPATIENT PROVIDER Notes to Outpatient Provider: Mr Hernández was admitted for hematuria and melena. Eliquis was stopped, but ASA and Plavix were restarted. EGD showed candidiasis. Hematuria resolved with CBI, but will require outpatient follow up with urology. Date of Encounter: 12/29/18 Time of Encounter: 14:00 - Discharge Diagnosis (1) Gross hematuria Priority: Primary Status: Acute (2) Rectal bleeding Priority: Primary Status: Acute (3) Candidiasis of esophagus Priority: Secondary Status: Acute (4) Diabetes Priority: Secondary Status: Chronic Qualifiers: Diabetes mellitus type: type 2 Diabetes mellitus mcc insulin use: with mcc use Diabetes mellitus complication status: with hyperglycemia Qualified Code(s): E11.65 - Type 2 diabetes mellitus with hyperglycemia; Z79.4 - FDC (current) use of insulin (5) Hypertension Priority: Secondary Status: Chronic Qualifiers: Hypertension type: essential hypertension Qualified Code(s): I10 - Essential (primary) hypertension (6) CAD (coronary artery disease) Priority: Secondary Status: Chronic Qualifiers: Coronary Disease-Associated Artery/Lesion type: bypass graft [place] vs. transplanted heart: three affiliated heart Associated angina: with unspecified angina Qualified Code(s): I25.709 - Atherosclerosis of coronary artery bypass graft(s), unspecified, with unspecified angina pectoris (7) Atrial fibrillation with RVR Priority: Secondary Status: Resolved (8) COPD (chronic obstructive pulmonary disease) Priority: Secondary Status: Acute Hospital course: Mr. Hernández is a 63 year old male who was admitted for gross hematuria and rectal bleeding on 12/27/18. He has a PMH of Afib on Eliquis, prostate cancer, arthritis, COPD, CHF, and CAD s/p CABG and stents. Of note the patient was admitted at the facility approximately 2 weeks ago for an NSTEMI. He also recently had PCI performed in October 2018. Vital signs on admission were stable, but tachycardia was noted. Labs revealed anemia with Hgb 10.1. Urinalysis demonstrated significant protein, glucose, and large blood with TNTC red blood cells. Stool occult was positive. The patient's home ASA, Plavix, and Eliquis were held. A king catheter was placed and continuous bladder irrigation was initiated for the hematuria. The GI team was consulted for further evaluation of the positive stool occult. Urology evaluated the patient and titrated down the CBI during admission. They recommended follow up with voiding trial as outpatient. The GI team performed an EGD on 12/27 which revealed esophageal candidiasis, with no identified bleed. The patient was given Diflucan 200mg with a planned course of 7 days. The patient's hemoglobin remained stable throughout the admission. No further bleeding was noted. Home ASA and Plavix were restarted. Home Eliquis was held. The patient was recommended for close follow up with his PCP and cardiology. The patient was provided with a prescription for remaining days of Diflucan. Discharged to home in stable condition. Discharge discussed with: patient, nurse, instructional consultant - Time Spent with Patient Total time spent providing and/or coordinating discharge services: Date of admission: 12/27/18 01:59 Primary care physician: Pennie Guardado Consults: 12/27/18 07:56 Consult to Gastroenterology [CONS] Routine Consulting Provider: [facility] Reason for Consult: GIB Call Completed: No 12/27/18 10:51 Consult to Urology [CONS] Routine Consulting Provider: Urology [facility] Reason for Consult: hematuria. hx of prostate cancer with mets to bladder. On Plavix and Apixaban for CAD with recent NSTEMI, but these are currently being held. Call Completed: No - Constitutional Vitals: Temp Pulse Resp BP Pulse Ox 97.6 F 95 18 99/67 93 12/28/18 11:24 12/28/18 11:24 12/28/18 11:24 12/28/18 11:24 12/28/18 11:24 General appearance: Present: cooperative, A&O X 3, no acute distress, answers questions appropriately Exam: General: well developed male in no acute distress Head: NCAT Eyes: PERRL, EOMI, sclera anicteric Neck: supple, trachea midline Lungs: CTA bilaterally. Non-labored breathing. No wheezes, rales, or rhonchi Heart: RRR +s1 +s2 No murmurs, clicks, or rubs GI: abdomen soft, non-tender, non-distended. : king catheter in place Extremities: warm, radial pulses palpable and symmetrical. No edema, cyanosis, or calf tenderness Neuro: A&Ox3. No focal deficits. No speech difficulty or abnormality Skin: warm, dry, intact - Patient Status Functional capacity at discharge: independent ambulation Overall status at discharge: patient is progressing back to baseline - Diet and Activity Activity: increase activity as tolerated, resume usual activities as tolerated Diet: diabetic diet, low fat, low cholesterol, low salt diet
--- NOTE | 2018-12-28 17:48 | Electrocardiograph Report ---
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
[2018-12-28] MEDS ORDERED: Aspirin Enteric Coated 81 MG Tablet PO SCH (21:00)
[2018-12-29] MEDS ORDERED: Fluconazole 100 MG TABLET PO SCH (09:00)
[2018-12-29] MEDS ORDERED: Fluconazole 100 MG TABLET PO ONE (10:31)
== END 2018-12-28 15:59 | disposition home or self-care (01) ==
LOC: EMEROOARM 23:28 → 2ANU 23:28 → SUATTDRO 12-27 01:59 → 2ANU 12-27 02:47
PROVIDERS: ADMIT Internal Medicine; ATTEND Internal Medicine

== ENCOUNTER 2018-12-30 15:16 | Observation (INO) ==
--- NOTE | 2018-12-30 16:02 | Emergency Department Note ---
Disposition Clinical Impression: SHRUTHI (acute kidney injury) CHF exacerbation Qualifiers: Heart failure type: systolic Qualified Code(s): I50.23 - Acute on chronic systolic (congestive) heart failure Diabetes Qualifiers: Diabetes mellitus type: type 2 Diabetes mellitus fci insulin use: unspecified long term care phlebotomist insulin use status Diabetes mellitus complication status: with other specified complication Qualified Code(s): E11.69 - Type 2 diabetes mellitus with other specified complication Disposition: Admitted As Inpatient Time of Disposition: 17:35 General Adult HPI - General Chief complaint: ED Weakness Stated complaint: weakness Time Seen by Provider: 12/30/18 15:30 Source: patient, EMS Mode of arrival: EMS Limitations: no limitations Nursing Notes Reviewed: Yes Vital Signs Reviewed: Yes - History of Present Illness HPI Narrative: 63M with PMHx of COPD, DM, afib currently holding eliquis due to hematuria and bloody stools, and CHF with EF 30-35% presents emergency department via EMS with the complaint of worsening leg swelling and weakness. Patient was just released from the hospital 2 days ago with a Carter catheter in place and states since he has been home he has been feeling even weaker than when he was in the hospital. He is normally able to move around his house on his own and take care of his ADLs without problems but the past 2 days he has been getting short of breath moving from his bed to his chair. EMS states that upon arrival his Carter bag was full and they emptied and educated him on how to take care of a Carter bag. Patient was visibly dyspneic while walking for EMS and they placed him on oxygen for his transport here. Patient also admits to a productive cough of yellowish sputum. He denies fever, chills, chest pain, abdominal pain. He states his feet feel like they are about to split open. He also admits to a brief period of palpitations prior to EMSs arrival which has now gone away. Pain Scale: 0 - Related Data Home Medications Medication Instructions Recorded Confirmed Diltiazem HCl [Cardizem LA] 360 mg PO DAILY 10/18/15 12/27/18 Budesonide/Formoterol 160/4.5 2 puff IH BID 05/06/18 12/27/18 [Symbicort 160/4.5] Insulin Glargine,Hum.rec.anlog 80 units SQ HS 05/06/18 12/27/18 [Magdalene Mayfield] Iron Polysaccharide Complex [Pro 180 mg PO DAILY 05/06/18 12/27/18 Fe] Lipase/Protease/Amylase [[place] Saeed 1 cap PO TIDWM 05/06/18 12/27/18 24,000 Units Capsule] Tiotropium [Spiriva] 18 mcg IH DAILY 05/06/18 12/27/18 Cholecalciferol (D-3) [Vitamin D] 1,000 unit PO BID 05/07/18 12/27/18 Oxycodone HCl/Acetaminophen 1 each PO TID PRN 05/07/18 12/27/18 [Percocet 10-325 mg Tablet] Pregabalin [Lyrica] 300 mg PO BID 05/07/18 12/27/18 SitaGLIPtin [Januvia] 100 mg PO DAILY 05/07/18 12/27/18 Zolpidem [Ambien] 10 mg PO HS 05/07/18 12/27/18 Insulin LISPRO [Humalog Kwikpen See Protocol SQ TIDWM PRN 09/22/18 12/27/18 U-100] Venlafaxine [Effexor] 37.5 mg PO BID 10/21/18 12/27/18 Amiodarone HCl 200 mg PO BID 12/11/18 12/27/18 Atorvastatin [Lipitor] 40 mg PO HS 12/11/18 12/27/18 Docusate Sodium [Dok] 200 mg PO DAILY PRN 12/11/18 12/27/18 Insulin NPH, HUMAN [HumuLIN N] 35 unit SQ QAM 12/11/18 12/27/18 Metoprolol XL (24 HR) Succ [Toprol 75 mg PO BID 12/11/18 12/27/18 Xl] Omeprazole 20 mg PO DAILY 12/11/18 12/27/18 Polyethylene Glycol 3350 17 gm PO DAILY PRN 12/11/18 12/27/18 Tamsulosin HCl 0.4 mg PO DAILY 12/11/18 12/27/18 Albuterol Sulfate [Proventil 1 puff IH Q6H PRN 12/27/18 12/27/18 Inhaler] Lipase/Protease/Amylase [[place] Saeed 1 cap PO BID 12/27/18 12/27/18 12,000 Units Capsule] Previous Rx's Medication Instructions Recorded Clopidogrel [Plavix] 75 mg PO DAILY #20 tablet 05/10/18 Nitroglycerin 0.4 mg SL Q5MIN PRN #20 tab 05/10/18 Aspirin Enteric Coated [Aspirin EC] 81 mg PO HS #0 10/22/18 Spironolactone [Aldactone] 12.5 mg PO DAILY #15 tablet 10/22/18 Furosemide [Lasix] 40 mg PO BID 15 Days #30 tablet 12/13/18 Potassium Chloride [Klor-Con 10] 20 meq PO DAILY 15 Days #15 12/13/18 tablet.er Fluconazole [Diflucan] 200 mg PO DAILY 6 Days #6 tablet 12/28/18 Allergies Allergy/AdvReac Type Severity Reaction Status Date / Time ibuprofen Allergy Hives Verified 12/27/18 11:57 ticagrelor [From Brilinta] AdvReac Difficulty Verified 12/27/18 11:57 Breathing All systems ED: reviewed and negative except as stated. Review of Systems: As Per HPI Constitutional: Reports: weakness. Denies: fever, chills Cardiovascular: Reports: palpitations, dyspnea on exertion, orthopnea, edema. Denies: chest pain Respiratory: Reports: cough, dyspnea, sputum production. Denies: wheezes Gastrointestinal: Denies: abdominal pain, nausea, vomiting Genitourinary: Denies: dysuria, hematuria Musculoskeletal: Denies: back pain Integumentary: Denies: rash Endocrine: Reports: fatigue Past Medical History - Past Medical History Attestation: Yes The following information was validated with the patient. Source: patient Medical history: Reports: arthritis, atrial fibrillation, cancer, CHF, COPD, coronary artery disease, diabetes, hypertension, myocardial infarction Surgical history: Reports: cancer surgery, cholecystectomy, coronary bypass (CABG) Psychiatric history: Reports: anxiety - Social History Smoking Status: Former smoker Smokeless Tobacco Status: No Alcohol use: Reports: none Drug use: Reports: none Physical Exam - General Limitations: no limitations General appearance: alert, in no apparent distress - Head Head exam: atraumatic, normocephalic - Eye Eye exam: Present: normal appearance, EOMI - Chest Chest inspection: Present: normal inspection, other (post CABG scar). Absent: tenderness, rash - Respiratory Respiratory exam: Present: wheezes, other (rhonchi). Absent: respiratory distress - Cardiovascular Cardiovascular exam: Present: regular rate, irregular rhythm - Abdominal Exam Abdominal exam: Present: soft, Non-Tender, distention. Absent: guarding, rebound, rigidity - Extremities Exam Extremities exam: Present: tenderness, pedal edema (2+ pitting edema to the tibial plateua bilaterallt) - Neurological Exam Neurological exam: Present: alert, oriented X3 - Psychiatric Psychiatric exam: Present: normal affect, normal mood - Skin Skin exam: Present: warm, dry, intact Course Vital Signs Temperature 98.6 F 12/30/18 15:24 Pulse Rate 81 12/30/18 15:24 Respiratory Rate 18 12/30/18 15:24 Blood Pressure 119/86 12/30/18 15:24 O2 Sat by Pulse Oximetry 95 12/30/18 15:24 Temperature 98.1 F 12/30/18 18:57 Pulse Rate 64 12/30/18 18:57 Respiratory Rate 16 12/30/18 18:57 Blood Pressure 115/73 12/30/18 18:57 O2 Sat by Pulse Oximetry 96 12/30/18 18:57 Oxygen Delivery Oxygen Delivery Room Air Medical Decision Making - [facility] Narrative Medical decision making narrative: Patient presents with lower leg swelling and worsening weakness and shortness of breath concerning for pneumonia versus CHF exacerbation. We will obtain basic labs, troponin, BNP, EKG, chest x-ray, and urinalysis for further evaluation. 1715 - EKG did not demonstrate any acute abnormalities. CXR shows resolving right sided pleural effusion. Pts labs were significant for an elevated troponin at his baseline, elevated BNP at 1753, and a mild SHRUTHI likely due to his acute urinary retention. Pt will be given lasix and admitted for acute CHF exacerbation. 1734 - pt has been accepted by Dr. Bergman - Medical Records Medical records reviewed: Yes I reviewed the patient's medical records. - Lab Data Lab results reviewed: Yes I reviewed the patient's lab results. Result diagrams: 12/30/18 15:54 12/30/18 15:54 Lab Results 12/30/18 12/30/18 12/30/18 Range/Units 15:54 15:54 15:54 WBC 9.1 (4.3-11.1) K/mcL RBC 3.63 L (4.19-5.50) M/mcL Hgb 9.6 L (12.9-16.9) g/dL Hct 32.1 L (37.5-50.1) % MCV 88.4 (83.0-100.0) fL MCH 26.4 L (28.0-33.3) pg MCHC 29.9 L (31.6-35.5) g/dL RDW 19.0 H (11.5-14.5) % Plt Count 130 L (140-400) K/mcL MPV 12.5 H (9.4-12.4) fL Immature Gran % 0.4 (0-4) % Seg Neutrophils % 80.5 % Lymphocytes % 8.4 % Monocytes % 10.3 % Eosinophils % 0.2 % Basophils % 0.2 % Neutrophils # 7.3 (1.6-8.9) K/mcL Lymphocytes # 0.8 (0.6-4.6) K/mcL Monocytes # 0.9 (0.0-1.3) K/mcL Eosinophils # 0.0 (0.0-0.6) K/mcL Basophils # 0.0 (0.0-0.2) K/mcL Sodium 141 (136-145) mEq/L Potassium 3.1 L (3.5-5.1) mEq/L Chloride 102 (98-107) mEq/L Carbon Dioxide 28 (23-29) mEq/L BUN 28 H (8-23) mg/dL Creatinine 1.35 H (0.70-1.30) mg/dL Est GFR ( Amer) > 60 (> 60) Est GFR (Non-Af Amer) 54 L (> 60) BUN/Creatinine Ratio 21 (6-26) Glucose 358 H (70-105) mg/dL Calculated Osmolality 312 H (280-300) Calcium 8.5 L (8.6-10.3) mg/dL Troponin I 0.05 H* (< 0.04) ng/mL B-Natriuretic Peptide 1753 H (Less than 100) pg/mL Urine Color (Yellow) Urine Clarity (Clear) Urine pH (5.0-8.0) pH Units Ur Specific [place] (1.010-1.025) Urine Protein (Neg-Trace) mg/dL Urine Glucose (UA) (Normal) mg/dL Urine Ketones (Negative) mg/dL Urine Blood (Negative) Urine Nitrite (Negative) Urine Bilirubin (Negative) Urine Urobilinogen (Normal) mg/dL Ur Leukocyte Esterase (Negative) Urine Microscopic RBC (0-3) per hpf Urine Microscopic WBC (0-3) per hpf Ur Squamous Epith Cells (None-Few) per lpf Urine Bacteria (None-Few) per hpf Hyaline Casts (None-Few) per lpf Ur Culture Indicated? (NO) 12/30/18 Range/Units 16:18 WBC (4.3-11.1) K/mcL RBC (4.19-5.50) M/mcL Hgb (12.9-16.9) g/dL Hct (37.5-50.1) % MCV (83.0-100.0) fL MCH (28.0-33.3) pg MCHC (31.6-35.5) g/dL RDW (11.5-14.5) % Plt Count (140-400) K/mcL MPV (9.4-12.4) fL Immature Gran % (0-4) % Seg Neutrophils % % Lymphocytes % % Monocytes % % Eosinophils % % Basophils % % Neutrophils # (1.6-8.9) K/mcL Lymphocytes # (0.6-4.6) K/mcL Monocytes # (0.0-1.3) K/mcL Eosinophils # (0.0-0.6) K/mcL Basophils # (0.0-0.2) K/mcL Sodium (136-145) mEq/L Potassium (3.5-5.1) mEq/L Chloride (98-107) mEq/L Carbon Dioxide (23-29) mEq/L BUN (8-23) mg/dL Creatinine (0.70-1.30) mg/dL Est GFR ( Amer) (> 60) Est GFR (Non-Af Amer) (> 60) BUN/Creatinine Ratio (6-26) Glucose (70-105) mg/dL Calculated Osmolality (280-300) Calcium (8.6-10.3) mg/dL Troponin I (< 0.04) ng/mL B-Natriuretic Peptide (Less than 100) pg/mL Urine Color Yellow (Yellow) Urine Clarity Clear (Clear) Urine pH 6.0 (5.0-8.0) pH Units Ur Specific [place] 1.020 (1.010-1.025) Urine Protein 30 H (Neg-Trace) mg/dL Urine Glucose (UA) >=1000 H (Normal) mg/dL Urine Ketones Negative (Negative) mg/dL Urine Blood Large H (Negative) Urine Nitrite Negative (Negative) Urine Bilirubin Negative (Negative) Urine Urobilinogen Normal (Normal) mg/dL Ur Leukocyte Esterase Small H (Negative) Urine Microscopic RBC 50-100 H (0-3) per hpf Urine Microscopic WBC 5-15 H (0-3) per hpf Ur Squamous Epith Cells Moderate H (None-Few) per lpf Urine Bacteria None Seen (None-Few) per hpf Hyaline Casts None Seen (None-Few) per lpf Ur Culture Indicated? YES A (NO) - Radiology Data Radiology results reviewed: Yes I reviewed the patient's radiology results. - EKG Data EKG #1 EKG attestation: Yes I reviewed and interpreted this EKG. EKG results narrative: EKG obtained at 1531 on 12/30/2018 Heart rate 97 bpm, QRS duration 125, QT 381, QTC 484 Atrial fibrillation with nonspecific intraventricular conduction delay. No ST segment elevations or depressions. No other obvious abnormalities. No old EKG for comparison at this time. Attestation Statement - Attestation Attestation: I, Dagoberto Castle, examined this patient and my medical decision-making was reviewed with the PEN OR PENCIL ASSEMBLY MACHINE OPERATOR/PA/Advanced Practice Nurse/Resident Physician. I agree with the documented findings, disposition and treatment plan as described except to the extent set forth below. 63-year-old male presents emergency Department with concerns of increased weakness. Patient states he was just discharged from the hospital within the past few days. He states is unable to ambulate more than 5 feet without becoming significantly short of breath. This is a decreased when he is usually capable of doing. Patient denies fever, chills, chest pain, hematochezia, melena. Patient has a history of atrial fibrillation. He was recently evaluated in the hospital for hematuria, hematochezia. Patient hemoglobin dropped at that time, he was taken off his Eliquis. Patient had a drug-eluting stent placed in September and is still on Plavix and aspirin. His main concern today is for shortness of breath. He has +2 pitting edema in the bilateral lower extremity. BNP is elevated. Troponin is elevated however it is at his baseline. Patient will be admitted to the hospitalist for further care and evaluation.I reviewed the EKG with the resident and agree with the interpretation.
[2018-12-30 16:29] LABS: Basophils % 0.2 %; Eosinophils % 0.2 %; Hematocrit 32.1 % (37.5-50.1); Hemoglobin 9.6 g/dL (12.9-16.9); Immature Granulocytes % 0.4 % (0-4); Lymphocytes # 0.8 K/mcL (0.6-4.6); Lymphocytes % 8.4 %; Mean Corpuscular HGB Conc 29.9 g/dL (31.6-35.5); Mean Corpuscular Hemoglobin 26.4 pg (28.0-33.3); Mean Corpuscular Volume 88.4 fL (83.0-100.0); Mean Platelet Volume 12.5 fL (9.4-12.4); Monocytes # 0.9 K/mcL (0.0-1.3); Monocytes % 10.3 %; Neutrophils # 7.3 K/mcL (1.6-8.9); Platelet Count 130 K/mcL (140-400); Red Blood Count 3.63 M/mcL (4.19-5.50); Segmented Neutrophils % 80.5 %; White Blood Count 9.1 K/mcL (4.3-11.1)
[2018-12-30 16:32] LABS: Bilirubin,Urine Negative (Negative); Blood,Urine Large (Negative); Clarity,Urine Clear (Clear); Color,Urine Yellow (Yellow); Glucose,Urine (UA) >=1000 mg/dL (Normal); Ketones,Urine Negative (Negative); Leukocyte Esterase,Urine Small (Negative); Nitrite,Urine Negative (Negative); Protein,Urine 30 mg/dL (Neg-Trace); Urobilinogen,Urine Normal (Normal)
[2018-12-30 16:40] LABS: Bacteria,Urine None Seen per hpf (None-Few); Hyaline Casts,Urine None Seen per lpf (None-Few); RBC,Urine 50-100 per hpf (0-3); Squamous Epithelial Cell,Urine Moderate per lpf (None-Few)
[2018-12-30 16:51] LABS: BUN/Creatinine Ratio 21 (6-26); Blood Urea Nitrogen 28 mg/dL (8-23); Calcium 8.5 mg/dL (8.6-10.3); Carbon Dioxide 28 mEq/L (23-29); Chloride 102 mEq/L (98-107); Glucose 358 mg/dL (70-105); Osmolality,Calculated 312 (280-300); Potassium 3.1 mEq/L (3.5-5.1); Sodium 141 mEq/L (136-145); eGFR For African Americans > 60 (> 60); eGFR For Non-African Americans 54 (> 60)
[2018-12-30 16:57] LABS: Troponin I 0.05 ng/mL (< 0.04)
[2018-12-30] MEDS ORDERED: Furosemide 40 MG/4 ML VIAL IVP ONE (17:18)
[2018-12-30] MEDS ORDERED: Ondansetron 4 MG/2 ML VIAL IVP PRN (17:56)
[2018-12-30] MEDS ORDERED: Naloxone 0.4 MG/ML INJ IVP PRN (17:56)
[2018-12-30] MEDS ORDERED: Potassium Chloride Elixir 20 MEQ/15 ML UDC PO ONE (18:00)
[2018-12-30] MEDS ORDERED: D5% in Water 1,000 ML IVC PRN (18:21)
[2018-12-30] MEDS ORDERED: Dextrose Gel 15 GM/37.5 ML TUBE PO PRN ×2 (18:21)
[2018-12-30] MEDS ORDERED: *HR* Dextrose 50 % in Water (Syg) 50 ML SYRINGE IVP PRN (18:21)
--- NOTE | 2018-12-30 18:30 | Internal Med History&Physical ---
Date of Encounter: 12/30/18 Time of Encounter: 18:30 Internal Medicine - H&P: HPI Chief complaint: Palpitation Admitted From: Home Plans for Post Hospital Care: Home History of present illness: Mr. Hernández is a 63 year old male with history of CAD status post PCI back in September,. fib was on Eliquis, liver cirrhosis, pancreatic insufficiency, radiation cystitis, esophageal candidiasis who came to the hospital due to ting ling in his chest started today afternoon. Patient was discharged from the hospital days ago after he was managed for gross hematuria and questionable GI bleed. He was seen by urology service and he had an indwelling King catheter placed, Eliquis was stopped and he was scheduled to follow-up with urology on Wednesday for voiding trial, his hematuria cleared and his urine looks clear yellow. Patient did not know how to use his King bag and it was noted to be full by EMS. He was also scheduled by cardiology to have electrical cardioversion today however he skipped appointment and came into the hospital. He noted new onset cough and yellowish sputum production. He denied fever, chills, night sweats. Patient does not know his medication and not sure what he had at home today. In the ED, patient was hemodynamically stable. Heart rate on the monitor was between 90-120. Chest x-ray finding of cardiomegaly and right-sided pleural effusion. Laboratory workup was significant for potassium 3.1, creatinine 1.35, glucose 358, troponin 0.05, BNP 1753. UA was positive for WBC counts, and LE. He was given 1 dose of Lasix in the ED and it Past Med Surg Social Fam HX - Past Medical History Medical history: arthritis, atrial fibrillation, cancer, CHF, COPD, coronary artery disease, diabetes, hypertension, myocardial infarction Additional medical history: prostate cancer with mets to bladder Psychiatric history: anxiety - Past Surgical History Surgical History: cancer surgery, cholecystectomy, coronary bypass (CABG) Additional surgical history: back surgery, carpal tunnel, transurethral resection bladder tumor removal surgery. cardiac stents x4 - Social History Smoking Status: Former smoker Smokeless Tobacco Status: No Alcohol use: none Drug use: none Current living situation: Home - Independent Activity Level: Independent ambulation Recent Out of Country Travel Within the Last 8 Weeks: No - Family History Father Hx Family Cardiac Disorders: Yes (CABG, CAD) Brother Hx Family Cardiac Disorders: Yes - Additional Family History Additional family history: Reviewed and noncontributory. Internal Medicine - H&P: Meds Diltiazem HCl [Cardizem LA] 360 mg PO DAILY 10/18/15 [History] Budesonide/Formoterol 160/4.5 [Symbicort 160/4.5] 2 puff IH BID 05/06/18 [History] Insulin Glargine,Hum.rec.anlog [[place] Solostar] 80 units SQ HS 05/06/18 [H istory] Iron Polysaccharide Complex [Pro Fe] 180 mg PO DAILY 05/06/18 [History] Lipase/Protease/Amylase [Creon Dr 24,000 Units Capsule] 1 cap PO TIDWM 05/06/18 [History] Tiotropium [Spiriva] 18 mcg IH DAILY 05/06/18 [History] Cholecalciferol (D-3) [Vitamin D] 1,000 unit PO BID 05/07/18 [History] Oxycodone HCl/Acetaminophen [Percocet 10-325 mg Tablet] 1 each PO TID PRN 05/07/18 [History] Pregabalin [Lyrica] 300 mg PO BID 05/07/18 [History] SitaGLIPtin [Januvia] 100 mg PO DAILY 05/07/18 [History] Zolpidem [Ambien] 10 mg PO HS 05/07/18 [History] Clopidogrel [Plavix] 75 mg PO DAILY #20 tablet 05/10/18 [Rx] Nitroglycerin 0.4 mg SL Q5MIN PRN #20 tab 05/10/18 [Rx] Insulin LISPRO [Humalog Kwikpen U-100] See Protocol SQ TIDWM PRN 09/22/18 [History] Venlafaxine [Effexor] 37.5 mg PO BID 10/21/18 [History] Aspirin Enteric Coated [Aspirin EC] 81 mg PO HS #0 10/22/18 [Rx] Spironolactone [Aldactone] 12.5 mg PO DAILY #15 tablet 10/22/18 [Rx] Amiodarone HCl 200 mg PO BID 12/11/18 [History] Atorvastatin [Lipitor] 40 mg PO HS 12/11/18 [History] Docusate Sodium [Dok] 200 mg PO DAILY PRN 12/11/18 [History] Insulin NPH, HUMAN [HumuLIN N] 35 unit SQ QAM 12/11/18 [History] Metoprolol XL (24 HR) Succ [Toprol Xl] 75 mg PO BID 12/11/18 [History] Omeprazole 20 mg PO DAILY 12/11/18 [History] Polyethylene Glycol 3350 17 gm PO DAILY PRN 12/11/18 [History] Tamsulosin HCl 0.4 mg PO DAILY 12/11/18 [History] Furosemide [Lasix] 40 mg PO BID 15 Days #30 tablet 12/13/18 [Rx] Potassium Chloride [Klor-Con 10] 20 meq PO DAILY 15 Days #15 tablet.er 12/13/18 [Rx] Albuterol Sulfate [Proventil Inhaler] 1 puff IH Q6H PRN 12/27/18 [History] Lipase/Protease/Amylase [Creon Dr 12,000 Units Capsule] 1 cap PO BID 12/27/18 [History] Fluconazole [Diflucan] 200 mg PO DAILY 6 Days #6 tablet 12/28/18 [Rx] Allergy/AdvReac Type Severity Reaction Status Date / Time ibuprofen Allergy Hives Verified 12/27/18 11:57 ticagrelor [From Brilinta] AdvReac Difficulty Verified 12/27/18 11:57 Breathing All Systems PM: A 10-system review of systems was performed and is negative for pertinent findings except as documented above in the HPI. - Constitutional Vitals: Temp Pulse Resp BP Pulse Ox 98.6 F 94 18 111/78 95 12/30/18 15:24 12/30/18 16:35 12/30/18 16:35 12/30/18 16:35 12/30/18 16:35 Exam: General: Patient is alert, oriented 3. No distress Head: Atraumatic, normal inspection, normocephalic. Eye: EOMI, PERRLA, no scleral icterus noted. ENT: Mucous membranes moist. Neck: Normal inspection, Respiratory: Bilateral scattered wheezing and rhonchi Cardiovascular: Tachycardic, regular rhythm, S1 and S2 audible. No murmurs, rubs, or gallops. GI: Soft, nondistended, normal bowel sounds. Extremities:No joint swelling, +3 lower extremity edema, or tenderness noted. Neurological: Alert, oriented 3, no focal deficits. Psychiatric: normal affect, normal mood. Skin: Dry, intact, warm. Normal color. No rashes. Internal Med - H&P Results - Labs CBC & Chem 7: 12/30/18 15:54 12/30/18 15:54 Labs: Short CBC 12/30/18 Range/Units 15:54 WBC 9.1 (4.3-11.1) K/mcL Hgb 9.6 L (12.9-16.9) g/dL Hct 32.1 L (37.5-50.1) % Plt Count 130 L (140-400) K/mcL Neutrophils # 7.3 (1.6-8.9) K/mcL BMP 12/30/18 15:54 Sodium 141 Potassium 3.1 L Chloride 102 Carbon Dioxide 28 BUN 28 H Creatinine 1.35 H Glucose 358 H Calcium 8.5 L Cardiac Enzymes 12/30/18 Range/Units 15:54 Troponin I 0.05 H* (< 0.04) ng/mL Urine 12/30/18 Range/Units 16:18 Urine Color Yellow (Yellow) Urine Clarity Clear (Clear) Urine pH 6.0 (5.0-8.0) pH Units Ur Specific [place] 1.020 (1.010-1.025) Urine Protein 30 H (Neg-Trace) mg/dL Urine Glucose (UA) >=1000 H (Normal) mg/dL - EKG Data -: EKG Interpreted by Myself Rate: normal (A. fib), tachycardia - EKG Data Prior EKG available for review: yes When compared to previous EKG: there is no significant change - Impressions ITS Impressions Chest X-Ray 12/30/18 15:45 IMPRESSION: Cardiomegaly with moderate right pleural effusion which appears slightly smaller than the comparison exam D/ / Kenrick Marin MD / Kenrick Marin MD Interpreting Provider: Kenrick Marin MD - Diagnostic Studies Chest x-ray Additional comments: Right-sided pleural effusion - Assessment and Plan (1) IDDM (insulin dependent diabetes mellitus) Current Visit: Yes Status: Acute (2) Liver cirrhosis Current Visit: No Status: Acute Qualifiers: Hepatic cirrhosis type: unspecified hepatic cirrhosis Ascites presence: with ascites Qualified Code(s): K74.60 - Unspecified cirrhosis of liver; R18.8 - Other ascites (3) NSTEMI (non-ST elevated myocardial infarction) Current Visit: Yes Status: Acute (4) CAD (coronary artery disease) Current Visit: Yes Status: Chronic Qualifiers: Coronary Disease-Associated Artery/Lesion type: bypass graft [place] vs. transplanted heart: [place] heart Associated angina: with unspecified angina Qualified Code(s): I25.709 - Atherosclerosis of coronary artery bypass graft(s), unspecified, with unspecified angina pectoris (5) Pancreatic insufficiency Current Visit: Yes Status: Chronic (6) Atrial fibrillation with RVR Current Visit: Yes Status: Acute - Summary of Assessment and Plan Summary of Assessment and Plan: Mr. Hernández is a 63 year old male with history of CAD status post PCI back in September, A. fib was on Eliquis, liver cirrhosis, pancreatic insufficiency, radiation cystitis, esophageal candidiasis. Chest discomfort: Most likely secondary to A. fib with RVR ( HR on the monitor was 90-120). Unsure if patient is compliant with his medication. Cannot rule out NE given history by elevation however the patient endorsed his discomfort is different than his previous heart attacks.Can't r/u PNA as well, will get CT chest. A.fib with RVR: Continue Cardizem, toprol, Amiodarone. Eliquis was stopped due to hematuria during the last visit. We can consider restarting as his hematuria stopped and he had no more GIB. We can do Eliquis and plavix. Will wait for cardiology recommendation. As per him, was supposed to see Dr. Leavitt today for cardioversion however he has been off Eliquis for more >48 hours. HFrEF: had generlized ansarca, on lasix 40mg at home, continue with lasix 40mg IV daily, I&O, fluid restriction. NSTEMI: Ekg with Afib, no new changes compared to last EKG. Troponin 0.05. Likely type II event. Continue to trend Troponin. Continue DAPT. Abnormal UA: patient reported weakness, UA is + for WBC and LE. UCx ordered. Zosyn started empirically. CAD S/P PCI in 09/28: Continue DAPT/BB/lipitor. IDDM: not controlled, started on levemir, LSSI. Accu-Chek TIDAC. ADA diet. Hematuria: resolved, consult urology as he was planned to see them on Wednesday for king removal and voiding trail. DVT prophylaxis: sc heparin - Time Spent With Patient Total time spent is greater than 50% in coordination of care (as documented) at patient's floor/unit and/or counseling patient:
[2018-12-30] MEDS ORDERED: Insulin DETEMIR 100 UNIT/ML X5UNITS SQ SCH (21:00)
[2018-12-30] MEDS: Metoprolol XL (24 HR) Succ 50 MG TAB.ER.24H PO SCH (21:11)
[2018-12-31 03:47] LABS: Basophils % 0.3 %; Eosinophils # 0.1 K/mcL (0.0-0.6); Hematocrit 32.8 % (37.5-50.1); Hemoglobin 9.9 g/dL (12.9-16.9); Immature Granulocytes % 0.3 % (0-4); Lymphocytes # 1.4 K/mcL (0.6-4.6); Lymphocytes % 15.3 %; Mean Corpuscular HGB Conc 30.2 g/dL (31.6-35.5); Mean Corpuscular Hemoglobin 26.8 pg (28.0-33.3); Mean Corpuscular Volume 88.6 fL (83.0-100.0); Mean Platelet Volume 12.1 fL (9.4-12.4); Monocytes # 1.1 K/mcL (0.0-1.3); Monocytes % 11.8 %; Neutrophils # 6.4 K/mcL (1.6-8.9); Platelet Count 129 K/mcL (140-400); Red Cell Distribution Width 19.1 % (11.5-14.5); Segmented Neutrophils % 71.3 %
[2018-12-31 04:04] LABS: Albumin 3.7 g/dL (3.5-5.7); Albumin/Globulin Ratio 1.6 (1.1-2.2); Bilirubin,Direct 0.2 mg/dL (0.0-0.2); Bilirubin,Indirect 0.5 mg/dL (0.0-1.2); Bilirubin,Total 0.7 mg/dL (0.3-1.0); Globulin 2.3 g/dL (2.4-3.5)
[2018-12-31 04:07] LABS: Calcium 8.5 mg/dL (8.6-10.3); Potassium 3.9 mEq/L (3.5-5.1)
[2018-12-31] MEDS ORDERED: Insulin LISPRO 300 UNITS/3 ML VIAL SQ SCH (07:30)
[2018-12-31] MEDS ORDERED: Furosemide 40 MG/4 ML VIAL IVP SCH (09:00)
[2018-12-31] MEDS ORDERED: Furosemide 40 MG TABLET PO SCH (09:00)
[2018-12-31] MEDS: Metoprolol XL (24 HR) Succ 50 MG TAB.ER.24H PO SCH ×2 (09:44→20:44)
[2018-12-31] MEDS: *HR* Amiodarone 200 MG TABLET PO SCH (09:45)
--- NOTE | 2018-12-31 12:02 | Urology Progress Note ---
Date of Encounter: 12/31/18 Time of Encounter: 12:00 - Assessment and Plan (1) Radiation cystitis Current Visit: No Status: Acute Assessment and plan: Known to our service from recent admission for radiation cystitis with gross h ematuria. Discharge from hospital with Carter catheter in place with plans to follow-up in 1 week for trial of void. Patient now readmitted for nonneurologic issues. Trauma void administered last night with discontinuation of Carter at 4 AM. She reports voiding spontaneously a few times without difficulty. Plan: Observation and absence of symptoms as patient appears to be voiding spontaneously. Objective Initial Vital Signs Temp Pulse Resp BP Pulse Ox 98.6 F 81 18 119/86 95 12/30/18 15:24 12/30/18 15:24 12/30/18 15:24 12/30/18 15:24 12/30/18 15:24 - General physical appearance Present: no distress - Respiratory Present: normal respiratory effort - Musculoskeletal Present: normal posture - Labs 12/31/18 03:31 12/31/18 03:31 Diabetes panel 12/30/18 12/31/18 12/31/18 Range/Units 15:54 03:31 03:31 Sodium 141 140 (136-145) mEq/L Potassium 3.1 L 3.9 D (3.5-5.1) mEq/L Chloride 102 102 (98-107) mEq/L Carbon Dioxide 28 30 H (23-29) mEq/L BUN 28 H 27 H (8-23) mg/dL Creatinine 1.35 H 1.47 H (0.70-1.30) mg/dL Glucose 358 H 355 H (70-105) mg/dL Calcium 8.5 L 8.5 L (8.6-10.3) mg/dL AST 19 (13-39) Units/L ALT 19 (7-52) Units/L Alkaline Phosphatase 60 (34-104) Units/L Albumin 3.7 (3.5-5.7) g/dL Calcium panel 12/30/18 12/31/18 12/31/18 Range/Units 15:54 03:31 03:31 Calcium 8.5 L 8.5 L (8.6-10.3) mg/dL Albumin 3.7 (3.5-5.7) g/dL Pituitary panel 12/30/18 12/31/18 Range/Units 15:54 03:31 Sodium 141 140 (136-145) mEq/L Potassium 3.1 L 3.9 D (3.5-5.1) mEq/L Chloride 102 102 (98-107) mEq/L Carbon Dioxide 28 30 H (23-29) mEq/L BUN 28 H 27 H (8-23) mg/dL Creatinine 1.35 H 1.47 H (0.70-1.30) mg/dL Glucose 358 H 355 H (70-105) mg/dL Calcium 8.5 L 8.5 L (8.6-10.3) mg/dL Adrenal panel 12/30/18 12/31/18 12/31/18 Range/Units 15:54 03:31 03:31 Sodium 141 140 (136-145) mEq/L Potassium 3.1 L 3.9 D (3.5-5.1) mEq/L Chloride 102 102 (98-107) mEq/L Carbon Dioxide 28 30 H (23-29) mEq/L BUN 28 H 27 H (8-23) mg/dL Creatinine 1.35 H 1.47 H (0.70-1.30) mg/dL Glucose 358 H 355 H (70-105) mg/dL Calcium 8.5 L 8.5 L (8.6-10.3) mg/dL Total Bilirubin 0.7 (0.3-1.0) mg/dL AST 19 (13-39) Units/L ALT 19 (7-52) Units/L Alkaline Phosphatase 60 (34-104) Units/L Albumin 3.7 (3.5-5.7) g/dL Consult Discharge Plan - Plan Referrals: Pennie Guardado [Primary Care Provider] -
[2018-12-31] MEDS: Insulin LISPRO 300 UNITS/3 ML VIAL SQ SCH ×4 (12:33→16:47)
--- NOTE | 2018-12-31 13:56 | Internal Med Progress Note ---
Hospitalist Progress Note - Encounter Date of Encounter: 12/31/18 Time of Encounter: 08:30 - Subjective Interval History: No major events overnight. Patient was seen this a.m. He denied fever, chills or night sweats. He has no nausea, vomiting or abdominal pain. Patient denied chest pain, shortness of breath or palpitation. - Exam Vitals: Temp Pulse Resp BP Pulse Ox 98.2 F 87 15 96/61 93 12/31/18 11:38 12/31/18 11:38 12/31/18 11:38 12/31/18 11:38 12/31/18 11:38 Exam: General: Patient is alert, oriented 3. No distress Head: Atraumatic, normal inspection, normocephalic. Eye: EOMI, PERRLA, no scleral icterus noted. ENT: Mucous membranes moist. Neck: Normal inspection, Respiratory: CTA Cardiovascular: Tachycardic, regular rhythm, S1 and S2 audible. No murmurs, rubs, or gallops. GI: Soft, nondistended, normal bowel sounds. Extremities:No joint swelling, +1 lower extremity edema, or tenderness noted. Neurological: Alert, oriented 3, no focal deficits. Psychiatric: normal affect, normal mood. Skin: Dry, intact, warm. Normal color. No rashes. - Assessment and Plan (1) IDDM (insulin dependent diabetes mellitus) Current Visit: Yes Status: Acute (2) Liver cirrhosis Current Visit: Yes Status: Chronic (3) NSTEMI (non-ST elevated myocardial infarction) Current Visit: Yes Status: Resolved (4) CAD (coronary artery disease) Current Visit: Yes Status: Chronic (5) Pancreatic insufficiency Current Visit: Yes Status: Chronic (6) Atrial fibrillation with RVR Current Visit: Yes Status: Acute - Summary of Assessment and Plan Summary of Assessment and Plan: Mr. Hernández is a 63 year old male with history of CAD status post PCI back in September, A. fib was on Eliquis, liver cirrhosis, pancreatic insufficiency, radiation cystitis, esophageal candidiasis. NSTEMI: Troponin peaked to 0.07, Most likely type II event secondary to A. fib with RVR ( HR on the monitor was 90-120). Today HR is normal and patient is asymptomatic. Unsure if patient is compliant with his medication. CT chest without PNA but findings of moderate right pleural effusion with mass like consolidation within the anterior right lung base. A.fib with RVR: Continue Cardizem, toprol, Amiodarone. Eliquis was stopped due to hematuria during the last visit. We can consider restarting as his hematuria stopped and he had no more GIB. We can do Eliquis and plavix. Will wait for cardiology recommendation. As per him, was supposed to see Dr. Leavitt last Wednesday for cardioversion however he has been off Eliquis for more >48 hours. acute on chronic HFrEF: had generlized ansarca, on lasix 40mg at home, continue with lasix 40mg IV daily, I&O, fluid restriction. Moderate Right sided pleural effusion: Unknown etiology, consult pulmonary. Continue Lasix and IS. Abnormal UA: patient reported weakness, UA is + for WBC and LE. UCx ordered. Zosyn started empirically day 2. CAD S/P PCI in 09/28: Continue DAPT/BB/lipitor. IDDM: not controlled, He didn't take his medications for few days at home. on levemir, Lispro TIDAc, LSSI. Accu-Chek TIDAC. ADA diet. Hematuria: resolved. DVT prophylaxis: sc heparin - Time Spent with Patient Total time spent is greater than 50% in coordination of care (as documented) at patient's floor/unit and/or counseling patient: Plan of Care Discussed with: patient Internal Medicine: Result - Labs CBC & Chem 7: 12/31/18 03:31 12/31/18 03:31 Labs: Short CBC 12/30/18 12/31/18 Range/Units 15:54 03:31 WBC 9.1 9.0 (4.3-11.1) K/mcL Hgb 9.6 L 9.9 L (12.9-16.9) g/dL Hct 32.1 L 32.8 L (37.5-50.1) % Plt Count 130 L 129 L (140-400) K/mcL Neutrophils # 7.3 6.4 (1.6-8.9) K/mcL BMP 12/30/18 12/31/18 15:54 03:31 Sodium 141 140 Potassium 3.1 L 3.9 D Chloride 102 102 Carbon Dioxide 28 30 H BUN 28 H 27 H Creatinine 1.35 H 1.47 H Glucose 358 H 355 H Calcium 8.5 L 8.5 L Cardiac Enzymes 12/30/18 12/30/18 12/31/18 Range/Units 15:54 21:51 03:31 Troponin I 0.05 H* 0.06 H* 0.07 H* (< 0.04) ng/mL 12/31/18 Range/Units 09:27 Troponin I 0.06 H* (< 0.04) ng/mL Liver Function 12/31/18 Range/Units 03:31 Total Bilirubin 0.7 (0.3-1.0) mg/dL Direct Bilirubin 0.2 (0.0-0.2) mg/dL AST 19 (13-39) Units/L ALT 19 (7-52) Units/L Alkaline Phosphatase 60 (34-104) Units/L Albumin 3.7 (3.5-5.7) g/dL Urine 12/30/18 Range/Units 16:18 Urine Color Yellow (Yellow) Urine Clarity Clear (Clear) Urine pH 6.0 (5.0-8.0) pH Units Ur Specific [place] 1.020 (1.010-1.025) Urine Protein 30 H (Neg-Trace) mg/dL Urine Glucose (UA) >=1000 H (Normal) mg/dL - Impressions Impressions Chest X-Ray 12/30/18 15:45 IMPRESSION: Cardiomegaly with moderate right pleural effusion which appears slightly smaller than the comparison exam D/ / Kenrick Marin MD / Kenrick Marin MD Interpreting Provider: eKnrick Marin MD Chest CT 12/30/18 22:15 IMPRESSION: Intrathoracic findings are similar to the prior study 12/21/2018 showing at least moderate right pleural effusion with masslike consolidation within the anterior right lung base; findings are not well evaluated without intravenous contrast. Follow-up to resolution is recommended to exclude underlying mass. Upper abdominal ascites and mesenteric edema. D/ / Candice Mireles Cha, MD / Candice Mireles Cha, MD Interpreting Provider: Candice Mireles Cha, MD Consult Discharge Plan - Plan Referrals: Pennie Guardado [Primary Care Provider] - (2) Liver cirrhosis Qualifiers: Hepatic cirrhosis type: unspecified hepatic cirrhosis Ascites presence: with ascites Qualified Code(s): K74.60 - Unspecified cirrhosis of liver; R18.8 - Other ascites (4) CAD (coronary artery disease) Qualifiers: Coronary Disease-Associated Artery/Lesion type: bypass graft [place] vs. tra nsplanted heart: [place] heart Associated angina: with unspecified angina Qualified Code(s): I25.709 - Atherosclerosis of coronary artery bypass graft(s), unspecified, with unspecified angina pectoris
--- NOTE | 2018-12-31 14:19 | Cardiology Consult Note ---
Date of Encounter: 12/31/18 Time of Encounter: 10:00 Assessment and Plan (1) Acute on chronic systolic CHF (congestive heart failure), NYHA class 3 Current Visit: Yes Status: Acute Recommend diuresis. Will add low dose spironolactone. Monitor Na, K closely. Pt with history of noncompliance- unclear if taking meds at home. Sodium restriction, daily weights. Will restart ARB as BP tolerates. (2) CAD (coronary artery disease) Current Visit: Yes Status: Chronic Pt with known CAD. Most recent cath at [facility] in October 2018. Troponins flat, adynamic. Do not think ACS. Likely elevated in setting of chronic CHF. Continue medical therapy including Plavix. Qualifiers: Coronary Disease-Associated Artery/Lesion type: bypass graft [place] vs. transplanted heart: [place] heart Associated angina: with unspecified angina Qualified Code(s): I25.709 - Atherosclerosis of coronary artery bypass graft(s), unspecified, with unspecified angina pectoris (3) Ischemic cardiomyopathy Current Visit: Yes Status: Chronic Will evaluation as outpatient need for primary prevention ICD. (4) Permanent atrial fibrillation Current Visit: Yes Status: Chronic Continue rate control. Will d/c diltiazem in setting of cardiomyopathy and increase metoprolol. Currently off chronic anticoagulation due to gross hematuria, possible GIB. Will assess candidacy for possible Watchman device as outpatient. Has f/u with Dr. Leavitt already scheduled. Discussion w patient/family: The assessment and plan as outlined above was discussed with the patient and/or family members who expressed understanding and agreement. All questions were answered. Thank you for involving us in the care of your patient. Please call with any questions. History of Present Illness Consult date: 12/31/18 Requesting physician: Kalia Ulloa Consult reason: chest pain, a fib Chief complaint: chest pain History of present illness: Mr. Hernández is a 63 year old male with CAD s/p CABG, s/p PCI, chronic a fib, cirr hosis presents to [facility] c/o chest discomfort, dyspnea. Pt recently discharged from [facility] 2 days ago- was hospitalized for gross hematuria and possible GIB. During that admission, Eliquis was d/c'ed and pt was to followup with urology as outpatient. Not seen by cardiology during admission. Pt states was at home and had onset of chest "tingling" associated with SOB. Presented to ED for further evaluation/tx. Pt states felt better after O2 applied as well as given IV Lasix for diuresis. Feels improved today without complaints. Troponins minimally elevated, adynamic 0.05, 0.06, 0.07. Pt has known history of CAD s/p CABG s/p PCI. Pt had CABG x 4 in 2007 and multiple PCIs. Most recently had PCI with rotablator at [facility] in October 2018 with ANGELINA to L Cx and POBA of LM. Unfortunately, pt held his Plavix a few weeks after his PCI to have teeth pulled. Pt returned to [facility] in Nov 2018 with CP/SOB and was diagnosed with nonSTEMI. Pt transferred to [facility]. Pt asymptomatic at [facility], therefore no cardiac catheterization performed. Symptoms attributed to likely stent thrombosis due to premature discontinuation of Plavix. Continued medical therapy recommended with resumption of Plavix. Repeat echocardiogram at [facility] demonstrated EF 20-25%. Echocardiogram 12/09/18: LVEF 30-35%. Severe global left ventricular systolic dysfunction. Mildly dilated left ventricle. Mild right ventricular dilatation with moderate to severe hypokinesis. No improvement of LVEF with worsening RV function c/w 10/22/18 study. 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 cardiac stents x4 - Social History Smoking Status: Former smoker Smokeless Tobacco Status: No Alcohol use: none Drug use: none - Family History Father Hx Family Cardiac Disorders: Yes (CABG, CAD) Brother Hx Family Cardiac Disorders: Yes Medications and Allergies Diltiazem HCl [Cardizem LA] 360 mg PO DAILY 10/18/15 [History] Budesonide/Formoterol 160/4.5 [Symbicort 160/4.5] 2 puff IH BID 05/06/18 [History] Insulin Glargine,Hum.rec.anlog [Magdalene Mayfield] 80 units SQ HS 05/06/18 [History] Iron Polysaccharide Complex [Pro Fe] 180 mg PO DAILY 05/06/18 [History] Lipase/Protease/Amylase [Creelvi Dr 24,000 Units Capsule] 1 cap PO TIDWM 05/06/18 [History] Tiotropium [Spiriva] 18 mcg IH DAILY 05/06/18 [History] Cholecalciferol (D-3) [Vitamin D] 1,000 unit PO BID 05/07/18 [History] Oxycodone HCl/Acetaminophen [Percocet 10-325 mg Tablet] 1 each PO TID PRN 05/07/18 [History] Pregabalin [Lyrica] 300 mg PO BID 05/07/18 [History] SitaGLIPtin [Januvia] 100 mg PO DAILY 05/07/18 [History] Zolpidem [Ambien] 10 mg PO HS PRN 05/07/18 [History] Clopidogrel [Plavix] 75 mg PO DAILY #20 tablet 05/10/18 [Rx] Nitroglycerin 0.4 mg SL Q5MIN PRN #20 tab 05/10/18 [Rx] Insulin LISPRO [Humalog Kwikpen U-100] See Protocol SQ TIDWM PRN 09/22/18 [History] Venlafaxine [Effexor] 37.5 mg PO BID 10/21/18 [History] Aspirin Enteric Coated [Aspirin EC] 81 mg PO HS #0 10/22/18 [Rx] Spironolactone [Aldactone] 12.5 mg PO DAILY #15 tablet 10/22/18 [Rx] Amiodarone HCl 200 mg PO BID 12/11/18 [History] Atorvastatin [Lipitor] 40 mg PO HS 12/11/18 [History] Docusate Sodium [Dok] 200 mg PO DAILY PRN 12/11/18 [History] Insulin NPH, HUMAN [HumuLIN N] 35 unit SQ QAM 12/11/18 [History] Metoprolol XL (24 HR) Succ [Toprol Xl] 75 mg PO BID 12/11/18 [History] Omeprazole 20 mg PO DAILY 12/11/18 [History] Polyethylene Glycol 3350 17 gm PO DAILY PRN 12/11/18 [History] Tamsulosin HCl 0.4 mg PO DAILY 12/11/18 [History] Furosemide [Lasix] 40 mg PO BID 15 Days #30 tablet 12/13/18 [Rx] Potassium Chloride [Klor-Con 10] 20 meq PO DAILY 15 Days #15 tablet.er 12/13/18 [Rx] Albuterol Sulfate [Proventil Inhaler] 1 puff IH Q6H PRN 12/27/18 [History] Lipase/Protease/Amylase [[place] Saeed 12,000 Units Capsule] 1 cap PO BID 12/27/18 [History] Fluconazole [Diflucan] 200 mg PO DAILY 6 Days #6 tablet 12/28/18 [Rx] Allergy/AdvReac Type Severity Reaction Status Date / Time ibuprofen Allergy Hives Verified 12/27/18 11:57 ticagrelor [From Brilinta] AdvReac Difficulty Verified 12/27/18 11:57 Breathing All Systems Review: The remainder of the systems were reviewed and are negative - Cardiovascular Cardiovascular: as per HPI Physical Examination Vital Signs, Last 4 Hours Temp Pulse Resp BP Pulse Ox 12/31/18 11:38 98.2 F 87 15 96/61 93 General: Conversant HEENT: Atraumatic, Normocephaly, Mucus Membranes Moist Neck: No JVD, Normal carotid pulses Cardiac: Reg Rate and Rhythm, Normal S1 and S2, No Murmur Lungs: Other (decreased BS b/l throughout) Neuro: Alert and responsive, No focal deficits noted Abdomen: Soft, Non-Tender Skin: No rashes noted on visualized skin Extremities: No Clubbing, No Cyanosis, Other (2+ b/l LE edema) Results 12/31/18 03:31 12/31/18 03:31 Lab Results 12/30/18 12/30/18 12/30/18 15:54 15:54 15:54 WBC 9.1 Hgb 9.6 L Hct 32.1 L Plt Count 130 L Sodium 141 Potassium 3.1 L Chloride 102 Carbon Dioxide 28 BUN 28 H Creatinine 1.35 H Glucose 358 H Calcium 8.5 L Total Bilirubin AST ALT Alkaline Phosphatase Troponin I 0.05 H* B-Natriuretic Peptide 1753 H 12/30/18 12/31/18 12/31/18 21:51 03:31 03:31 WBC 9.0 Hgb 9.9 L Hct 32.8 L Plt Count 129 L Sodium 140 Potassium 3.9 D Chloride 102 Carbon Dioxide 30 H BUN 27 H Creatinine 1.47 H Glucose 355 H Calcium 8.5 L Total Bilirubin AST ALT Alkaline Phosphatase Troponin I 0.06 H* B-Natriuretic Peptide 12/31/18 12/31/18 12/31/18 03:31 03:31 09:27 WBC Hgb Hct Plt Count Sodium Potassium Chloride Carbon Dioxide BUN Creatinine Glucose Calcium Total Bilirubin 0.7 AST 19 ALT 19 Alkaline Phosphatase 60 Troponin I 0.07 H* 0.06 H* B-Natriuretic Peptide - EKG Interpretation EKG results cardiology: personally reviewed (EKG- a fib with HR 97bpm, IVCD with QRS 125ms, nonspecific ST-T wave changes) Consult Discharge Plan - Plan Referrals: Pennie Guardado [Primary Care Provider] -
--- NOTE | 2018-12-31 15:06 | Electrocardiograph Report ---
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
[2018-12-31] MEDS: Spironolactone 25 MG TABLET PO SCH (16:47)
[2018-12-31] MEDS: *HR* OxyCODONE/APAP 10/325 TABLET PO PRN (16:52)
[2018-12-31] MEDS: Budesonide/Formoterol 160/4.5 1 PUFF INH IH SCH (19:21)
[2018-12-31] MEDS: Cholecalciferol (D-3) 1,000 UNIT (25MCG) TABLET PO SCH (20:44)
[2018-12-31] MEDS: Pregabalin 75 MG CAPSULE PO SCH (20:44)
[2018-12-31] MEDS: Piperacillin/Tazobactam 3.375 GM in 0.9 % Sodium Chloride Mini Bag 100 ML IVPB SCH (20:47)
[2018-12-31] MEDS ORDERED: Aspirin Enteric Coated 81 MG Tablet PO SCH (21:00)
[2018-12-31] MEDS ORDERED: Insulin DETEMIR 100 UNIT/ML X5UNITS SQ SCH (21:00)
[2019-01-01 02:35] LABS: Hematocrit 32.5 % (37.5-50.1); Hemoglobin 9.6 g/dL (12.9-16.9); Mean Corpuscular HGB Conc 29.5 g/dL (31.6-35.5); Mean Corpuscular Hemoglobin 26.4 pg (28.0-33.3); Mean Corpuscular Volume 89.3 fL (83.0-100.0); Mean Platelet Volume 12.3 fL (9.4-12.4); Platelet Count 130 K/mcL (140-400); Red Blood Count 3.64 M/mcL (4.19-5.50); White Blood Count 9.1 K/mcL (4.3-11.1)
[2019-01-01 02:49] LABS: BUN/Creatinine Ratio 23 (6-26); Blood Urea Nitrogen 30 mg/dL (8-23); Calcium 8.1 mg/dL (8.6-10.3); Carbon Dioxide 24 mEq/L (23-29); Chloride 104 mEq/L (98-107); Glucose 347 mg/dL (70-105); Osmolality,Calculated 308 (280-300); Potassium 3.3 mEq/L (3.5-5.1); Sodium 139 mEq/L (136-145); eGFR For African Americans > 60 (> 60); eGFR For Non-African Americans 56 (> 60)
[2019-01-01] MEDS: Piperacillin/Tazobactam 3.375 GM in 0.9 % Sodium Chloride Mini Bag 100 ML IVPB SCH (05:51)
--- NOTE | 2019-01-01 06:43 | Pulmonology Consult Note ---
Date of Encounter: 01/01/19 Time of Encounter: 06:41 Assessment and Plan (1) Pleural effusion Current Visit: No Status: Acute Patient has a right-sided pleural effusion likely significant hydrostatic pulmonary edema for the patient to arrange for IR to drain the pleural effusion tomorrow. And he says he wants to go home. This can be taken care of as an outpatient as he is in no respiratory distress. I think is important did sample the fluid at some point to drain it and to reevaluate his CT scan because he has some concern for a right pleural-based mass and given his history of malignancy and former smoking status he would be at risk for primary lung malignancy and so it is important that he follow-up with this. Please schedule the patient in pulmonary clinic in the next 1-2 weeks and we can go from there. I will defer management of his heart failure to the cardiology service was following appears that he is improving. (2) Atelectasis of right lung Current Visit: Yes Status: Acute (3) Acute on chronic systolic CHF (congestive heart failure), NYHA class 3 Current Visit: Yes Status: Acute History of Present Illness Consult date: 01/01/19 Requesting physician: Kalia Ulloa Reason for consult: pleural effusion Chief complaint: Difficulty in breathing History of present illness: 61-year-old gentleman past medical history of ischemic cardiomyopathy with heart failure with reduced ejection fraction he also has COPD former smoker history of prostate and bladder cancer also A. fib and not currently anticoagulated because of recent hematuria. He was admitted for worsening heart failure. Found to have right-sided pleural effusion which was noted several months ago. Pulmonary was consulted for further evaluation. When I spoke with the patient he is anxious to return home he denies any difficulty breathing right now he does have some lower extremity swelling that he tells me. Otherwise the review of systems is negative Past Med Surg Social Fam HX - Past Medical History Medical history: arthritis, atrial fibrillation, cancer, CHF, COPD, coronary artery disease, diabetes, hypertension, myocardial infarction Additional medical history: prostate cancer with mets to bladder Psychiatric history: anxiety - Past Surgical History Surgical History: cancer surgery, cholecystectomy, coronary bypass (CABG) Additional surgical history: back surgery, carpal tunnel, transurethral resection bladder tumor removal surgery. cardiac stents x4 - Social History Smoking Status: Former smoker Smokeless Tobacco Status: No Alcohol use: none Drug use: none - Family History Father Hx Family Cardiac Disorders: Yes (CABG, CAD) Brother Hx Family Cardiac Disorders: Yes Medications and Allergies Diltiazem HCl [Cardizem LA] 360 mg PO DAILY 10/18/15 [History] Budesonide/Formoterol 160/4.5 [Symbicort 160/4.5] 2 puff IH BID 05/06/18 [Hist ory] Insulin Glargine,Hum.rec.anlog [[place] Solostar] 80 units SQ HS 05/06/18 [History] Iron Polysaccharide Complex [Pro Fe] 180 mg PO DAILY 05/06/18 [History] Lipase/Protease/Amylase [Creon Dr 24,000 Units Capsule] 1 cap PO TIDWM 05/06/18 [History] Tiotropium [Spiriva] 18 mcg IH DAILY 05/06/18 [History] Cholecalciferol (D-3) [Vitamin D] 1,000 unit PO BID 05/07/18 [History] Oxycodone HCl/Acetaminophen [Percocet 10-325 mg Tablet] 1 each PO TID PRN 05/07/18 [History] Pregabalin [Lyrica] 300 mg PO BID 05/07/18 [History] SitaGLIPtin [Januvia] 100 mg PO DAILY 05/07/18 [History] Zolpidem [Ambien] 10 mg PO HS PRN 05/07/18 [History] Clopidogrel [Plavix] 75 mg PO DAILY #20 tablet 05/10/18 [Rx] Nitroglycerin 0.4 mg SL Q5MIN PRN #20 tab 05/10/18 [Rx] Insulin LISPRO [Humalog Kwikpen U-100] See Protocol SQ TIDWM PRN 09/22/18 [History] Venlafaxine [Effexor] 37.5 mg PO BID 10/21/18 [History] Aspirin Enteric Coated [Aspirin EC] 81 mg PO HS #0 10/22/18 [Rx] Spironolactone [Aldactone] 12.5 mg PO DAILY #15 tablet 10/22/18 [Rx] Amiodarone HCl 200 mg PO BID 12/11/18 [History] Atorvastatin [Lipitor] 40 mg PO HS 12/11/18 [History] Docusate Sodium [Dok] 200 mg PO DAILY PRN 12/11/18 [History] Insulin NPH, HUMAN [HumuLIN N] 35 unit SQ QAM 12/11/18 [History] Metoprolol XL (24 HR) Succ [Toprol Xl] 75 mg PO BID 12/11/18 [History] Omeprazole 20 mg PO DAILY 12/11/18 [History] Polyethylene Glycol 3350 17 gm PO DAILY PRN 12/11/18 [History] Tamsulosin HCl 0.4 mg PO DAILY 12/11/18 [History] Furosemide [Lasix] 40 mg PO BID 15 Days #30 tablet 12/13/18 [Rx] Potassium Chloride [Klor-Con 10] 20 meq PO DAILY 15 Days #15 tablet.er 12/13/18 [Rx] Albuterol Sulfate [Proventil Inhaler] 1 puff IH Q6H PRN 12/27/18 [History] Lipase/Protease/Amylase [Creon Dr 12,000 Units Capsule] 1 cap PO BID 12/27/18 [History] Fluconazole [Diflucan] 200 mg PO DAILY 6 Days #6 tablet 12/28/18 [Rx] Allergy/AdvReac Type Severity Reaction Status Date / Time ibuprofen Allergy Hives Verified 12/27/18 11:57 ticagrelor [From Brilinta] AdvReac Difficulty Verified 12/27/18 11:57 Breathing All Systems: The remainder of the systems were reviewed and are negative Physical Examination Vital Signs: Vital Signs, Last 4 Hours Temp Pulse Resp BP Pulse Ox 01/01/19 03:12 97.7 F 83 14 95/63 92 General appearance: no acute distress Eyes: nonicteric ENT: oropharynx moist Neck: supple, JVD Auscultation: bilateral: diminished breath sounds, rales Cardiovascular: irregular rhythm Gastrointestinal: normoactive bowel sounds, soft Integumentary: normal Extremities: no cyanosis, no clubbing, edema (2+ bilateral pitting edema) Musculoskeletal: no deformities normal mental status, non-focal exam mood appropriate Results - Laboratory Findings CBC and BMP: 01/01/19 01:38 01/01/19 01:38 Abnormal lab findings: Abnormal lab results RBC 3.64 M/mcL (4.19-5.50) L 01/01/19 01:38 Hgb 9.6 g/dL (12.9-16.9) L 01/01/19 01:38 Hct 32.5 % (37.5-50.1) L 01/01/19 01:38 MCH 26.4 pg (28.0-33.3) L 01/01/19 01:38 MCHC 29.5 g/dL (31.6-35.5) L 01/01/19 01:38 RDW 19.0 % (11.5-14.5) H 01/01/19 01:38 Plt Count 130 K/mcL (140-400) L 01/01/19 01:38 MPV 12.5 fL (9.4-12.4) H 12/30/18 15:54 Potassium 3.3 mEq/L (3.5-5.1) L 01/01/19 01:38 Carbon Dioxide 30 mEq/L (23-29) H 12/31/18 03:31 BUN 30 mg/dL (8-23) H 01/01/19 01:38 Creatinine 1.47 mg/dL (0.70-1.30) H 12/31/18 03:31 Est GFR ( Amer) 59 (> 60) L 12/31/18 03:31 Est GFR (Non-Af Amer) 56 (> 60) L 01/01/19 01:38 Glucose 347 mg/dL (70-105) H 01/01/19 01:38 POC Glucose 303 mg/dL (70-99) H 12/31/18 20:29 Calculated Osmolality 308 (280-300) H 01/01/19 01:38 Calcium 8.1 mg/dL (8.6-10.3) L 01/01/19 01:38 Troponin I 0.06 ng/mL (< 0.04) H* 12/31/18 09:27 B-Natriuretic Peptide 1753 pg/mL (Less than 100) H 12/30/18 15:54 Serum Total Protein 6.0 g/dL (6.4-8.9) L 12/31/18 03:31 Globulin 2.3 g/dL (2.4-3.5) L 12/31/18 03:31 Urine Protein 30 mg/dL (Neg-Trace) H 12/30/18 16:18 Urine Glucose (UA) >=1000 mg/dL (Normal) H 12/30/18 16:18 Urine Blood Large (Negative) H 12/30/18 16:18 Ur Leukocyte Esterase Small (Negative) H 12/30/18 16:18 Urine Microscopic RBC 50-100 per hpf (0-3) H 12/30/18 16:18 Urine Microscopic WBC 5-15 per hpf (0-3) H 12/30/18 16:18 Ur Squamous Epith Cells Moderate per lpf (None-Few) H 12/30/18 16:18 Ur Culture Indicated? YES (NO) A 12/30/18 16:18 - Microbiology Findings Microbiology Findings: Microbiology, Last 48 Hours 12/31/18 20:36 Sputum Culture - Preliminary Sputum 12/30/18 16:18 Urine Culture - Preliminary Urine,Clean Catch Culture is incubating. - Clinical Findings Intake & Output: Intake & Output 12/31/18 12/31/18 01/01/19 15:59 23:59 07:59 Intake Total 360 / 360 100 / 100 Output Total 200 / 500 0 / 500 Balance 160 / -140 0 / -140 100 / 100 Weight 118.6 kg Consult Discharge Plan - Plan Referrals: Pennie Guardado [Primary Care Provider] -
[2019-01-01 07:13] VITALS: BP 110/65
[2019-01-01] MEDS: Budesonide/Formoterol 160/4.5 1 PUFF INH IH SCH (07:25)
[2019-01-01] MEDS ORDERED: Potassium Chloride Elixir 20 MEQ/15 ML UDC PO ONE (07:54)
[2019-01-01] MEDS: Insulin LISPRO 300 UNITS/3 ML VIAL SQ SCH ×2 (08:26→08:27)
[2019-01-01] MEDS: Metoprolol XL (24 HR) Succ 50 MG TAB.ER.24H PO SCH (08:30)
[2019-01-01] MEDS: Cholecalciferol (D-3) 1,000 UNIT (25MCG) TABLET PO SCH (08:31)
[2019-01-01] MEDS: *HR* Amiodarone 200 MG TABLET PO SCH (08:32)
[2019-01-01] MEDS: Spironolactone 25 MG TABLET PO SCH (08:32)
[2019-01-01] MEDS: Pregabalin 75 MG CAPSULE PO SCH (08:32)
[2019-01-01] MEDS: *HR* OxyCODONE/APAP 10/325 TABLET PO PRN (08:35)
[2019-01-01] MEDS ORDERED: Fluconazole 100 MG TABLET PO SCH (09:00)
[2019-01-01] MEDS ORDERED: Iron Polysaccharide Complex 150 MG CAPSULE PO SCH (09:00)
[2019-01-01] MEDS ORDERED: Diltiazem CD (24hr) 180 MG CAPSULE PO SCH (09:00)
[2019-01-01] MEDS ORDERED: Tiotropium 18 MCG inhalation IH SCH (09:00)
[2019-01-01] MEDS ORDERED: Furosemide 40 MG/4 ML VIAL IVP ONE (10:06)
--- NOTE | 2019-01-01 11:06 | Urology Progress Note ---
Date of Encounter: 01/01/19 Time of Encounter: 11:05 - Assessment and Plan (1) Gross hematuria Current Visit: No Status: Acute Assessment and plan: Urine is clear. He is voiding well. Urology will follow along. Please call with any questions. (2) Prostate cancer Current Visit: No Status: Acute Progress Note Narrative: He says he is doing well today. He is voiding well. No issues at this time. Objective Initial Vital Signs Temp Pulse Resp BP Pulse Ox 98.6 F 81 18 119/86 95 12/30/18 15:24 12/30/18 15:24 12/30/18 15:24 12/30/18 15:24 12/30/18 15:24 - General physical appearance Present: well developed, well nourished, no distress - Respiratory Present: normal respiratory effort - Genitourinary Urine Appearance: Present: Clear - Labs 01/01/19 01:38 01/01/19 01:38 Diabetes panel 01/01/19 Range/Units 01:38 Sodium 139 (136-145) mEq/L Potassium 3.3 L (3.5-5.1) mEq/L Chloride 104 (98-107) mEq/L Carbon Dioxide 24 (23-29) mEq/L BUN 30 H (8-23) mg/dL Creatinine 1.30 (0.70-1.30) mg/dL Glucose 347 H (70-105) mg/dL Calcium 8.1 L (8.6-10.3) mg/dL Calcium panel 01/01/19 Range/Units 01:38 Calcium 8.1 L (8.6-10.3) mg/dL Pituitary panel 01/01/19 Range/Units 01:38 Sodium 139 (136-145) mEq/L Potassium 3.3 L (3.5-5.1) mEq/L Chloride 104 (98-107) mEq/L Carbon Dioxide 24 (23-29) mEq/L BUN 30 H (8-23) mg/dL Creatinine 1.30 (0.70-1.30) mg/dL Glucose 347 H (70-105) mg/dL Calcium 8.1 L (8.6-10.3) mg/dL Adrenal panel 01/01/19 Range/Units 01:38 Sodium 139 (136-145) mEq/L Potassium 3.3 L (3.5-5.1) mEq/L Chloride 104 (98-107) mEq/L Carbon Dioxide 24 (23-29) mEq/L BUN 30 H (8-23) mg/dL Creatinine 1.30 (0.70-1.30) mg/dL Glucose 347 H (70-105) mg/dL Calcium 8.1 L (8.6-10.3) mg/dL Consult Discharge Plan - Plan Referrals: Pennie Guardado [Primary Care Provider] -
--- NOTE | 2019-01-01 11:21 | Discharge Summary ---
- NOTES TO OUTPATIENT PROVIDER Notes to Outpatient Provider: Patient was admitted for chest discomfort and he was found in atrial fibrillation with RVR likely due to medication noncompliance. He had mild troponin elevation and cardiology recommended no intervention. He has to follow-up with cardiology for possible electrical cardioversion as he missed his appointment. He is not on anticoagulation due to recent hematuria which resolved now and will leave the decision to start it to our outpatient cardiology. He has a gram-positive cocci in his sputum for which he will be discharged on Augmentin for 5 days. He had right-sided pleural effusion which is a chronic and pulmonary suggested thoracocentesis to rule out underlying mass. He will follow up with pulmonary in 2 weeks. Orders not resulted at time of discharge: Pending orders 12/30/18 18:19 Culture,Sputum with Gram Stain [RM] Routine Date of Encounter: 01/01/19 Time of Encounter: 10:00 - Discharge Diagnosis (1) Atrial fibrillation with RVR Priority: Primary Status: Acute (2) IDDM (insulin dependent diabetes mellitus) Priority: Secondary Status: Chronic (3) Liver cirrhosis Priority: Secondary Status: Chronic Qualifiers: Hepatic cirrhosis type: unspecified hepatic cirrhosis Ascites presence: with ascites Qualified Code(s): K74.60 - Unspecified cirrhosis of liver; R18.8 - Other ascites (4) NSTEMI (non-ST elevated myocardial infarction) Priority: Secondary Status: Resolved (5) CAD (coronary artery disease) Priority: Secondary Status: Chronic Qualifiers: Coronary Disease-Associated Artery/Lesion type: bypass graft [place] vs. transplanted heart: [place] heart Associated angina: with unspecified angina Qualified Code(s): I25.709 - Atherosclerosis of coronary artery bypass graft(s), unspecified, with unspecified angina pectoris (6) Pancreatic insufficiency Priority: Secondary Status: Chronic (7) Pleural effusion Priority: Secondary Status: Chronic Hospital course: Mr. Hernández is a 63 year old male with history of CAD status post PCI back in September, HFrEF, A. fib Not on AC due recent hematuria and GIB, Chronic pleural effusion, liver cirrhosis, pancreatic insufficiency, radiation cystitis, esophageal candidiasis who was managed for A.fib with RVR likely due to medications non-compliance. He also has mild troponin elevation and cardiology service recommended outpatient follow-up for possible electrical cardioversion. Patient had chronic right pleural effusion and pulmonary service was consulted and they recommended thoracocentesis however patient preferred to do it as outpatient. His sputum sample grew gram-positive cocci for which he will be discharged on 5 days of Augmentin. Today, he is a clinically and hemodynamically stable. Afebrile and he will be discharged home in stable condition. He will follow with cardiology, pulmonary and his PCP within the next week. Discharge discussed with: patient - Time Spent with Patient Total time spent providing and/or coordinating discharge services: 50 minutes - Discharge Medications Prescriptions: New Amoxicillin/Clavulanate [Augmentin] 875 mg PO BIDWM #10 tablet Continued Iron Polysaccharide Complex [Pro Fe] 180 mg PO DAILY Tiotropium [Spiriva] 18 mcg IH DAILY Budesonide/Formoterol 160/4.5 [Symbicort 160/4.5] 2 puff IH BID Lipase/Protease/Amylase [Creon Dr 24,000 Units Capsule] 1 cap PO TIDWM Insulin Glargine,Hum.rec.anlog [[place] Solostar] 80 units SQ HS Pregabalin [Lyrica] 300 mg PO BID Oxycodone HCl/Acetaminophen [Percocet 10-325 mg Tablet] 1 each PO TID PRN PRN Reason: Pain SitaGLIPtin [Januvia] 100 mg PO DAILY Zolpidem [Ambien] 10 mg PO HS PRN PRN Reason: Sleep Cholecalciferol (D-3) [Vitamin D] 1,000 unit PO BID Nitroglycerin 0.4 mg SL Q5MIN PRN #20 tab PRN Reason: Chest Pain Clopidogrel [Plavix] 75 mg PO DAILY #20 tablet Insulin LISPRO [Humalog Kwikpen U-100] See Protocol SQ TIDWM PRN PRN Reason: SLIDING SCALE Venlafaxine [Effexor] 37.5 mg PO BID Spironolactone [Aldactone] 12.5 mg PO DAILY #15 tablet Aspirin Enteric Coated [Aspirin EC] 81 mg PO HS #0 Insulin NPH, HUMAN [HumuLIN N] 35 unit SQ QAM Amiodarone HCl 200 mg PO BID Atorvastatin [Lipitor] 40 mg PO HS Docusate Sodium [Dok] 200 mg PO DAILY PRN PRN Reason: Constipation Metoprolol XL (24 HR) Succ [Toprol Xl] 75 mg PO BID Omeprazole 20 mg PO DAILY Polyethylene Glycol 3350 17 gm PO DAILY PRN PRN Reason: Constipation Tamsulosin HCl 0.4 mg PO DAILY Potassium Chloride [Klor-Con 10] 20 meq PO DAILY 15 Days #15 tablet.er Furosemide [Lasix] 40 mg PO BID 15 Days #30 tablet Albuterol Sulfate [Proventil Inhaler] 1 puff IH Q6H PRN PRN Reason: Shortness Of Breath Lipase/Protease/Amylase [[place] aSeed 12,000 Units Capsule] 1 cap PO BID Fluconazole [Diflucan] 200 mg PO DAILY 2 Days #6 tablet Discontinued Diltiazem HCl [Cardizem LA] 360 mg PO DAILY Home Medications: Budesonide/Formoterol 160/4.5 [Symbicort 160/4.5] 2 puff IH BID 05/06/18 [History] Insulin Glargine,Hum.rec.anlog [[place] Solostar] 80 units SQ HS 05/06/18 [History] Iron Polysaccharide Complex [Pro Fe] 180 mg PO DAILY 05/06/18 [History] Lipase/Protease/Amylase [[place] Saeed 24,000 Units Capsule] 1 cap PO TIDWM 05/06/18 [History] Tiotropium [Spiriva] 18 mcg IH DAILY 05/06/18 [History] Cholecalciferol (D-3) [Vitamin D] 1,000 unit PO BID 05/07/18 [History] Oxycodone HCl/Acetaminophen [Percocet 10-325 mg Tablet] 1 each PO TID PRN 05/07/18 [History] Pregabalin [Lyrica] 300 mg PO BID 05/07/18 [History] SitaGLIPtin [Januvia] 100 mg PO DAILY 05/07/18 [History] Zolpidem [Ambien] 10 mg PO HS PRN 05/07/18 [History] Clopidogrel [Plavix] 75 mg PO DAILY #20 tablet 05/10/18 [Rx] Nitroglycerin 0.4 mg SL Q5MIN PRN #20 tab 05/10/18 [Rx] Insulin LISPRO [Humalog Kwikpen U-100] See Protocol SQ TIDWM PRN 09/22/18 [History] Venlafaxine [Effexor] 37.5 mg PO BID 10/21/18 [History] Aspirin Enteric Coated [Aspirin EC] 81 mg PO HS #0 10/22/18 [Rx] Spironolactone [Aldactone] 12.5 mg PO DAILY #15 tablet 10/22/18 [Rx] Amiodarone HCl 200 mg PO BID 12/11/18 [History] Atorvastatin [Lipitor] 40 mg PO HS 12/11/18 [History] Docusate Sodium [Dok] 200 mg PO DAILY PRN 12/11/18 [History] Insulin NPH, HUMAN [HumuLIN N] 35 unit SQ QAM 12/11/18 [History] Metoprolol XL (24 HR) Succ [Toprol Xl] 75 mg PO BID 12/11/18 [History] Omeprazole 20 mg PO DAILY 12/11/18 [History] Polyethylene Glycol 3350 17 gm PO DAILY PRN 12/11/18 [History] Tamsulosin HCl 0.4 mg PO DAILY 12/11/18 [History] Furosemide [Lasix] 40 mg PO BID 15 Days #30 tablet 12/13/18 [Rx] Potassium Chloride [Klor-Con 10] 20 meq PO DAILY 15 Days #15 tablet.er 12/13/18 [Rx] Albuterol Sulfate [Proventil Inhaler] 1 puff IH Q6H PRN 12/27/18 [History] Lipase/Protease/Amylase [Creon Dr 12,000 Units Capsule] 1 cap PO BID 12/27/18 [History] Amoxicillin/Clavulanate [Augmentin] 875 mg PO BIDWM #10 tablet 01/01/19 [Rx] Fluconazole [Diflucan] 200 mg PO DAILY 2 Days #6 tablet 01/01/19 [Rx] Allergies/Adverse Reactions: Allergy/AdvReac Type Severity Reaction Status Date / Time ibuprofen Allergy Hives Verified 12/27/18 11:57 ticagrelor [From Brilinta] AdvReac Difficulty Verified 12/27/18 11:57 Breathing Date of admission: 12/30/18 17:49 Primary care physician: Pennie Guardado Consults: 12/30/18 18:18 Consult to Cardiology [CONS] Routine Comment: Consulting Provider: Cardiology Ayleen Reason for Consult: chest pain, A.fib with RVR, Call Completed: No Consult to Urology [CONS] Routine Consulting Provider: Urology Ayleen Reason for Consult: Had king supposed to be removed on [place] in the office Call Completed: No 12/31/18 13:45 Consult to Pulmonology [CONS] Routine Consulting Provider: Pulm [facility] Ayleen Reason for Consult: moderate right pleural effusion with masslike consolidation within the anterior right lung base. Recommendations? Call Completed: No - Constitutional Vitals: Temp Pulse Resp BP Pulse Ox 97.9 F 76 16 110/65 96 01/01/19 07:11 01/01/19 07:11 01/01/19 07:25 01/01/19 07:11 01/01/19 07:25 Exam: General: Patient is alert, oriented 3. No distress Head: Atraumatic, normal inspection, normocephalic. Eye: EOMI, PERRLA, no scleral icterus noted. ENT: Mucous membranes moist. Neck: Normal inspection, Respiratory: CTA, diminished lung sounds on RLL Cardiovascular: Tachycardic, regular rhythm, S1 and S2 audible. No murmurs, rubs, or gallops. GI: Soft, nondistended, normal bowel sounds. Extremities:No joint swelling, +1 lower extremity edema, or tenderness noted. Neurological: Alert, oriented 3, no focal deficits. Psychiatric: normal affect, normal mood. Skin: Dry, intact, warm. Normal color. No rashes. - Patient Status Disposition: Home, Self-Care Condition: Good Functional capacity at discharge: independent ambulation Overall status at discharge: patient is back to baseline - Discharge Instructions Follow Up With: Pennie Guardado [Primary Care Provider] - Lebron Leavitt [Partnered Physician] - (please call Dr. Leavitt to arrange for outpatient appointment) Estevan Georges MD [Partnered Physician] - (call to schedule for pleural fluids removal.) - Diet and Activity Activity: increase activity as tolerated Diet: diabetic diet, low salt diet
--- NOTE | 2019-01-01 11:44 | Cardiology Progress Note ---
Date of Encounter: 01/01/19 Time of Encounter: 11:30 Assessment and Plan (1) Acute on chronic systolic CHF (congestive heart failure), NYHA class 3 Current Visit: Yes Status: Acute Pt symptomatically improved today. Wants to go home. Continue spironolactone. Monitor Na, K closely. Pt with history of noncompliance- unclear if taking meds at home. Sodium restriction, daily weights. Restart ARB as BP tolerates. (2) CAD (coronary artery disease) Current Visit: Yes Status: Chronic Pt with known CAD. Most recent cath at [facility] in October 2018. Troponins flat, adynamic. Do not think ACS. Likely elevated in setting of chronic CHF. Continue medical therapy including Plavix. Qualifiers: Coronary Disease-Associated Artery/Lesion type: bypass graft [place] vs. transplanted heart: [place] heart Associated angina: with unspecified angina Qualified Code(s): I25.709 - Atherosclerosis of coronary artery bypass graft(s), unspecified, with unspecified angina pectoris (3) Ischemic cardiomyopathy Current Visit: Yes Status: Chronic Will evaluation as outpatient need for primary prevention ICD. (4) Permanent atrial fibrillation Current Visit: Yes Status: Chronic Continue rate control. Will d/c diltiazem in setting of cardiomyopathy and increase metoprolol. Currently off chronic anticoagulation due to gross hematuria, possible GIB. Will assess candidacy for possible Watchman device as outpatient. Has f/u with Dr. Leavitt already scheduled. Discussion w patient/family: The assessment and plan as outlined above was discussed with the patient and/or family members who expressed understanding and agreement. All questions were answered. Thank you for involving us in the care of your patient. Please call with any questions. Subjective Principal diagnosis: CHF Interval history: Pt sitting up in bed, ready to go home. States feels much better today. No CP, SOB. Objective General: Conversant, No Apparent Distress HEENT: Atraumatic, Normocephaly, Mucus Membranes Moist Neck: No JVD, Normal carotid pulses Cardiac: Reg Rate and Rhythm, Normal S1 and S2, No Murmur Lungs: Other (decreased BS throughout b/l) Neuro: Alert and responsive, No focal deficits noted Abdomen: Soft, Non-Tender Extremities: No Clubbing, No Cyanosis, Normal Pulses (2+ B/L LE edema) Results 01/01/19 01:38 01/01/19 01:38 Lab Results 01/01/19 01/01/19 01:38 01:38 WBC 9.1 Hgb 9.6 L Hct 32.5 L Plt Count 130 L Sodium 139 Potassium 3.3 L Chloride 104 Carbon Dioxide 24 BUN 30 H Creatinine 1.30 Glucose 347 H Calcium 8.1 L Consult Discharge Plan - Plan Referrals: Pennie Guardado [Primary Care Provider] - Estevan Georges MD [Partnered Physician] - (call to schedule for pleural fluids removal.) Lebron Leavitt [Partnered Physician] - (please call Dr. Leavitt to arrange for outpatient appointment) Prescriptions: Amoxicillin/Clavulanate [Augmentin] 875 mg PO BIDWM #10 tablet Transmission Status: Received by [facility]
== END 2019-01-01 11:53 | disposition home or self-care (01) ==
LOC: 3BNU 15:16 → EMEROOARM 15:16 → SUATTDRO 17:49 → 3BNU 18:27
PROVIDERS: ADMIT Internal Medicine; ATTEND Internal Medicine

== ENCOUNTER 2019-01-09 21:57 | Inpatient (IN) ==
[2019-01-09 22:53] LABS: Basophils % 0.6 %; Eosinophils # 0.1 K/mcL (0.0-0.6); Eosinophils % 1.2 %; Hematocrit 31.7 % (37.5-50.1); Hemoglobin 9.7 g/dL (12.9-16.9); Immature Granulocytes % 0.3 % (0-4); Lymphocytes # 1.2 K/mcL (0.6-4.6); Lymphocytes % 16.6 %; Mean Corpuscular HGB Conc 30.6 g/dL (31.6-35.5); Mean Corpuscular Hemoglobin 26.2 pg (28.0-33.3); Mean Corpuscular Volume 85.7 fL (83.0-100.0); Mean Platelet Volume 12.6 fL (9.4-12.4); Monocytes # 0.7 K/mcL (0.0-1.3); Monocytes % 10.5 %; Neutrophils # 4.9 K/mcL (1.6-8.9); Platelet Count 110 K/mcL (140-400); Red Cell Distribution Width 18.4 % (11.5-14.5); Segmented Neutrophils % 70.8 %; White Blood Count 6.9 K/mcL (4.3-11.1)
[2019-01-09 23:12] LABS: BUN/Creatinine Ratio 17 (6-26); Blood Urea Nitrogen 20 mg/dL (8-23); Calcium 8.7 mg/dL (8.6-10.3); Carbon Dioxide 23 mEq/L (23-29); Chloride 105 mEq/L (98-107); Glucose 272 mg/dL (70-105); Osmolality,Calculated 302 (280-300); Potassium 3.3 mEq/L (3.5-5.1); Sodium 140 mEq/L (136-145); eGFR For African Americans > 60 (> 60); eGFR For Non-African Americans > 60 (> 60)
[2019-01-09 23:13] LABS: Troponin I 0.03 ng/mL (< 0.04)
[2019-01-09] MEDS ORDERED: Furosemide 40 MG/4 ML VIAL IVP ONE (23:44)
[2019-01-10] MEDS ORDERED: Nitroglycerin 0.4 MG TAB.SUBL SL PRN (00:31)
[2019-01-10] MEDS ORDERED: Ipratropium/Albuterol Neb 3 ML IH PRN (00:35)
[2019-01-10] MEDS ORDERED: Potassium Chloride Elixir 20 MEQ/15 ML UDC PO ONE (00:50)
[2019-01-10] MEDS ORDERED: *HR* Dextrose 50 % in Water (Syg) 50 ML SYRINGE IVP PRN (00:56)
[2019-01-10] MEDS ORDERED: Dextrose Gel 15 GM/37.5 ML TUBE PO PRN ×2 (00:56)
[2019-01-10] MEDS: *HR* OxyCODONE/APAP 10/325 TABLET PO PRN ×2 (01:06→20:11)
[2019-01-10] MEDS: *HR* Heparin 5,000 UNIT/ML VIAL SQ SCH ×2 (05:58→16:17)
[2019-01-10] MEDS: *HR* Amiodarone 200 MG TABLET PO SCH ×2 (07:44→20:10)
[2019-01-10] MEDS: Spironolactone 25 MG TABLET PO SCH (07:44)
[2019-01-10] MEDS: Pregabalin 75 MG CAPSULE PO SCH ×2 (07:44→20:11)
[2019-01-10] MEDS: Metoprolol XL (24 HR) Succ 25 MG TAB.ER.24H PO SCH (07:45)
[2019-01-10] MEDS: Cholecalciferol (D-3) 1,000 UNIT (25MCG) TABLET PO SCH ×2 (07:45→20:10)
[2019-01-10] MEDS: Insulin LISPRO 300 UNITS/3 ML VIAL SQ SCH ×4 (07:45→20:14)
[2019-01-10] MEDS ORDERED: Tiotropium 18 MCG inhalation IH SCH (09:00)
[2019-01-10] MEDS ORDERED: (Iron Polysaccharide Complex [Pro Fe] 180 MG) PO SCH (09:00)
[2019-01-10] MEDS ORDERED: Furosemide 40 MG/4 ML VIAL IVP SCH ×2 (09:00→17:00)
[2019-01-10] MEDS: Budesonide/Formoterol 160/4.5 1 PUFF INH IH SCH ×2 (09:49→21:03)
[2019-01-10] MEDS: Bumetanide 1 MG/4 ML VIAL IVP SCH (16:16)
[2019-01-10] MEDS: Aspirin Enteric Coated 81 MG Tablet PO SCH (20:10)
[2019-01-11 02:32] LABS: Calcium 8.8 mg/dL (8.6-10.3); Potassium 3.7 mEq/L (3.5-5.1)
[2019-01-11 04:36] LABS: Hemoglobin 9.9 g/dL (12.9-16.9); Red Cell Distribution Width 18.6 % (11.5-14.5)
[2019-01-11 04:38] LABS: Basophils # 0.1 K/mcL (0.0-0.2); Basophils % 1.1 %; Eosinophils # 0.2 K/mcL (0.0-0.6); Eosinophils % 2.5 %; Hematocrit 33.3 % (37.5-50.1); Immature Granulocytes % 0.3 % (0-4); Immature Platelets 10.2 % (1.1-6.1); Lymphocytes # 1.3 K/mcL (0.6-4.6); Lymphocytes % 21.1 %; Mean Corpuscular HGB Conc 29.7 g/dL (31.6-35.5); Mean Corpuscular Hemoglobin 26.3 pg (28.0-33.3); Mean Corpuscular Volume 88.3 fL (83.0-100.0); Mean Platelet Volume 13.2 fL (9.4-12.4); Monocytes # 0.7 K/mcL (0.0-1.3); Monocytes % 10.3 %; Neutrophils # 4.1 K/mcL (1.6-8.9); Red Blood Count 3.77 M/mcL (4.19-5.50); Segmented Neutrophils % 64.7 %; White Blood Count 6.3 K/mcL (4.3-11.1)
[2019-01-11 05:45] LABS: Platelet Count 95 K/mcL (140-400)
[2019-01-11] MEDS: *HR* Heparin 5,000 UNIT/ML VIAL SQ SCH ×2 (06:07→17:01)
[2019-01-11] MEDS: Bumetanide 1 MG/4 ML VIAL IVP SCH ×2 (07:53→17:01)
[2019-01-11] MEDS: Cholecalciferol (D-3) 1,000 UNIT (25MCG) TABLET PO SCH ×2 (07:54→21:20)
[2019-01-11] MEDS: Iron Polysaccharide Complex 150 MG CAPSULE PO SCH (07:54)
[2019-01-11] MEDS: *HR* Amiodarone 200 MG TABLET PO SCH ×2 (07:54→21:20)
[2019-01-11] MEDS: Spironolactone 25 MG TABLET PO SCH (07:54)
[2019-01-11] MEDS: Pregabalin 75 MG CAPSULE PO SCH ×2 (07:54→21:20)
[2019-01-11] MEDS: Insulin LISPRO 300 UNITS/3 ML VIAL SQ SCH ×4 (07:55→21:31)
[2019-01-11] MEDS: Metoprolol XL (24 HR) Succ 25 MG TAB.ER.24H PO SCH (07:55)
[2019-01-11] MEDS ORDERED: Albumin 25% 25gram/100mL 25 GM/100 ML IV.SOLN ONE (08:07)
[2019-01-11] MEDS: *HR* OxyCODONE/APAP 10/325 TABLET PO PRN ×2 (08:11→17:10)
[2019-01-11] MEDS: Albumin 25% 25gram/100mL 25 GM/100 ML IV.SOLN IVC SCH ×2 (08:11→11:49)
[2019-01-11 08:47] LABS: INR 1.4
[2019-01-11] MEDS: Tiotropium 18 MCG inhalation IH SCH (10:58)
[2019-01-11] MEDS: Budesonide/Formoterol 160/4.5 1 PUFF INH IH SCH ×2 (10:58→19:54)
[2019-01-11] MEDS: Insulin DETEMIR 100 UNIT/ML X5UNITS SQ SCH ×2 (11:48→21:20)
[2019-01-11 13:50] LABS: Glucose,Pleural Fluid 278 mg/dL (No Ref Range); LDH,Pleural Fluid 79 Units/L (No Ref Range); Total Protein,Pleural Fluid < 3.0 g/dL
[2019-01-11 14:44] LABS: Appearance of Pleural Fl Clear (Clear)
[2019-01-11 14:45] LABS: RBC,Pleural Fluid < 0.002 M/mcL
[2019-01-11 16:20] LABS: Basophils,Pleural Fluid 0 %; Eosinophils,Pleural Fluid 0 %
[2019-01-11 19:54] LABS: Potassium 4.1 mEq/L (3.5-5.1)
[2019-01-11] MEDS ORDERED: Albumin 25% 25gram/100mL 25 GM/100 ML IV.SOLN IVPB ONE (20:22)
[2019-01-11] MEDS: Aspirin Enteric Coated 81 MG Tablet PO SCH (21:20)
[2019-01-12 04:54] LABS: BUN/Creatinine Ratio 21 (6-26); Blood Urea Nitrogen 28 mg/dL (8-23); Calcium 8.7 mg/dL (8.6-10.3); Carbon Dioxide 24 mEq/L (23-29); Chloride 107 mEq/L (98-107); Glucose 258 mg/dL (70-105); Osmolality,Calculated 302 (280-300); Potassium 3.9 mEq/L (3.5-5.1); Sodium 139 mEq/L (136-145); eGFR For African Americans > 60 (> 60); eGFR For Non-African Americans 53 (> 60)
[2019-01-12] MEDS: *HR* Heparin 5,000 UNIT/ML VIAL SQ SCH ×2 (05:37→19:38)
[2019-01-12] MEDS: Tiotropium 18 MCG inhalation IH SCH (07:33)
[2019-01-12] MEDS: Budesonide/Formoterol 160/4.5 1 PUFF INH IH SCH ×2 (07:33→20:13)
[2019-01-12] MEDS: Metoprolol XL (24 HR) Succ 25 MG TAB.ER.24H PO SCH (08:05)
[2019-01-12] MEDS: Iron Polysaccharide Complex 150 MG CAPSULE PO SCH (08:05)
[2019-01-12] MEDS: *HR* Amiodarone 200 MG TABLET PO SCH ×2 (08:05→19:38)
[2019-01-12] MEDS: Cholecalciferol (D-3) 1,000 UNIT (25MCG) TABLET PO SCH ×2 (08:05→19:37)
[2019-01-12] MEDS: Spironolactone 25 MG TABLET PO SCH (08:05)
[2019-01-12] MEDS: Pregabalin 75 MG CAPSULE PO SCH ×2 (08:05→19:37)
[2019-01-12] MEDS: Bumetanide 1 MG/4 ML VIAL IVP SCH ×2 (08:06→17:18)
[2019-01-12] MEDS: Insulin DETEMIR 100 UNIT/ML X5UNITS SQ SCH ×2 (08:06→20:09)
[2019-01-12] MEDS: Insulin LISPRO 300 UNITS/3 ML VIAL SQ SCH ×4 (08:06→20:10)
[2019-01-12] MEDS: *HR* OxyCODONE/APAP 10/325 TABLET PO PRN ×2 (08:15→19:48)
[2019-01-12] MEDS ORDERED: Insulin DETEMIR 100 UNIT/ML X5UNITS SQ ONE (12:06)
[2019-01-12] MEDS: Albumin 25% 25gram/100mL 25 GM/100 ML IV.SOLN IVPB SCH (17:19)
[2019-01-12 18:04] LABS: Bilirubin,Urine Negative (Negative); Blood,Urine Negative (Negative); Clarity,Urine Clear (Clear); Color,Urine Yellow (Yellow); Glucose,Urine (UA) >=1000 mg/dL (Normal); Ketones,Urine Negative (Negative); Leukocyte Esterase,Urine Negative (Negative); Nitrite,Urine Negative (Negative); PH,Urine 5.5 pH Units (5.0-8.0); Protein,Urine 30 mg/dL (Neg-Trace); Specific Gravity,Urine 1.026 (1.010-1.025); Urobilinogen,Urine Normal (Normal)
[2019-01-12 18:07] LABS: Bacteria,Urine None Seen per hpf (None-Few); Hyaline Casts,Urine None Seen per lpf (None-Few); Squamous Epithelial Cell,Urine Moderate per lpf (None-Few); WBC,Urine 0-3 per hpf (0-3)
[2019-01-12] MEDS: Aspirin Enteric Coated 81 MG Tablet PO SCH (19:38)
[2019-01-12] MEDS ORDERED: Insulin DETEMIR 100 UNIT/ML X5UNITS SQ SCH (21:00)
[2019-01-13] MEDS: Albumin 25% 25gram/100mL 25 GM/100 ML IV.SOLN IVPB SCH (05:22)
[2019-01-13] MEDS: *HR* Heparin 5,000 UNIT/ML VIAL SQ SCH (05:25)
[2019-01-13 05:50] LABS: BUN/Creatinine Ratio 22 (6-26); Blood Urea Nitrogen 28 mg/dL (8-23); Calcium 8.7 mg/dL (8.6-10.3); Carbon Dioxide 25 mEq/L (23-29); Chloride 106 mEq/L (98-107); Creatine Kinase 32 Units/L (30-223); Glucose 319 mg/dL (70-105); Magnesium 1.8 mg/dL (1.6-2.6); Osmolality,Calculated 306 (280-300); Phosphorous 3.6 mg/dL (2.7-4.5); Sodium 139 mEq/L (136-145); Uric Acid 7.2 mg/dL (2.3-7.6); eGFR For African Americans > 60 (> 60); eGFR For Non-African Americans 57 (> 60)
[2019-01-13 06:48] LABS: Fluid Source for Albumin PLERUAL
[2019-01-13] MEDS: Budesonide/Formoterol 160/4.5 1 PUFF INH IH SCH (07:51)
[2019-01-13] MEDS: Tiotropium 18 MCG inhalation IH SCH (07:51)
[2019-01-13] MEDS: Pregabalin 75 MG CAPSULE PO SCH (09:07)
[2019-01-13] MEDS: Iron Polysaccharide Complex 150 MG CAPSULE PO SCH (09:07)
[2019-01-13] MEDS: Cholecalciferol (D-3) 1,000 UNIT (25MCG) TABLET PO SCH (09:07)
[2019-01-13] MEDS: Spironolactone 25 MG TABLET PO SCH (09:07)
[2019-01-13] MEDS: Metoprolol XL (24 HR) Succ 25 MG TAB.ER.24H PO SCH (09:07)
[2019-01-13] MEDS: *HR* Amiodarone 200 MG TABLET PO SCH (09:07)
[2019-01-13] MEDS: Insulin LISPRO 300 UNITS/3 ML VIAL SQ SCH ×2 (09:08→12:26)
[2019-01-13] MEDS: Bumetanide 1 MG/4 ML VIAL IVP SCH (09:08)
[2019-01-13] MEDS: Insulin DETEMIR 100 UNIT/ML X5UNITS SQ SCH (09:15)
[2019-01-13] MEDS ORDERED: Insulin DETEMIR 100 UNIT/ML X5UNITS SQ ONE (11:40)
[2019-01-13 14:20] VITALS: BP 102/61
[2019-01-13] MEDS ORDERED: Insulin DETEMIR 100 UNIT/ML X5UNITS SQ SCH (21:00)
== END 2019-01-13 16:30 | disposition home or self-care (01) | DRG 291 ==
LOC: EMEROOARM 21:57 → CDU 21:57 → SUATTDRO 01-10 00:06 → CDU 01-10 00:33 → 2ANU 01-10 15:05
PROVIDERS: ADMIT Internal Medicine; ATTEND Internal Medicine

== ENCOUNTER 2019-01-15 00:06 | Inpatient (IN) ==
[2019-01-15] MEDS ORDERED: *HR* Metoprolol 5 MG/5 ML VIAL IVP ONE ×3 (01:43→06:02)
[2019-01-15 02:03] LABS: Basophils # 0.1 K/mcL (0.0-0.2); Basophils % 0.8 %; Eosinophils # 0.1 K/mcL (0.0-0.6); Eosinophils % 0.8 %; Hematocrit 31.8 % (37.5-50.1); Hemoglobin 9.5 g/dL (12.9-16.9); Immature Granulocytes % 0.6 % (0-4); Lymphocytes # 1.2 K/mcL (0.6-4.6); Lymphocytes % 16.9 %; Mean Corpuscular HGB Conc 29.9 g/dL (31.6-35.5); Mean Corpuscular Hemoglobin 26.2 pg (28.0-33.3); Mean Corpuscular Volume 87.6 fL (83.0-100.0); Mean Platelet Volume 13.3 fL (9.4-12.4); Monocytes # 0.8 K/mcL (0.0-1.3); Monocytes % 10.6 %; Platelet Count 149 K/mcL (140-400); Red Blood Count 3.63 M/mcL (4.19-5.50); Red Cell Distribution Width 18.7 % (11.5-14.5); Segmented Neutrophils % 70.3 %; White Blood Count 7.2 K/mcL (4.3-11.1)
[2019-01-15 02:21] LABS: Alanine Aminotransferase 15 Units/L (7-52); Albumin 4.1 g/dL (3.5-5.7); Albumin/Globulin Ratio 1.9 (1.1-2.2); Alkaline Phosphatase 69 Units/L (34-104); Aspartate Amino Transferase 16 Units/L (13-39); BUN/Creatinine Ratio 18 (6-26); Bilirubin,Direct 0.2 mg/dL (0.0-0.2); Bilirubin,Indirect 0.4 mg/dL (0.0-1.2); Bilirubin,Total 0.6 mg/dL (0.3-1.0); Blood Urea Nitrogen 23 mg/dL (8-23); Calcium 8.8 mg/dL (8.6-10.3); Carbon Dioxide 21 mEq/L (23-29); Chloride 105 mEq/L (98-107); Globulin 2.2 g/dL (2.4-3.5); Glucose 421 mg/dL (70-105); Lipase 20 Units/L (11-82); Osmolality,Calculated 308 (280-300); Sodium 138 mEq/L (136-145); Total Protein 6.3 g/dL (6.4-8.9); Troponin I 0.06 ng/mL (< 0.04); eGFR For African Americans > 60 (> 60); eGFR For Non-African Americans 56 (> 60)
[2019-01-15] MEDS ORDERED: Insulin Regular, Human 100 UNIT/ML SQ ONE (03:32)
[2019-01-15 03:47] LABS: Bilirubin,Urine Negative (Negative); Blood,Urine Negative (Negative); Clarity,Urine Clear (Clear); Color,Urine Yellow (Yellow); Glucose,Urine (UA) >=1000 mg/dL (Normal); Ketones,Urine Negative (Negative); Leukocyte Esterase,Urine Negative (Negative); Nitrite,Urine Negative (Negative); Protein,Urine 100 mg/dL (Neg-Trace); Specific Gravity,Urine > 1.030 (1.010-1.025); Urobilinogen,Urine Normal (Normal)
[2019-01-15 03:49] LABS: Bacteria,Urine None Seen per hpf (None-Few); Hyaline Casts,Urine None Seen per lpf (None-Few); WBC,Urine 0-3 per hpf (0-3)
[2019-01-15 04:13] LABS: Squamous Epithelial Cell,Urine Few per lpf (None-Few)
[2019-01-15] MEDS ORDERED: Insulin LISPRO 300 UNITS/3 ML VIAL SQ ONE (04:45)
[2019-01-15] MEDS ORDERED: *HR* Dextrose 50 % in Water (Syg) 50 ML SYRINGE IVP PRN (04:49)
[2019-01-15] MEDS ORDERED: Dextrose Gel 15 GM/37.5 ML TUBE PO PRN ×2 (04:49)
[2019-01-15] MEDS ORDERED: D5% in Water 1,000 ML IVC PRN (04:49)
[2019-01-15] MEDS: Insulin LISPRO 300 UNITS/3 ML VIAL SQ SCH ×7 (05:35→21:29)
[2019-01-15] MEDS ORDERED: Naloxone 0.4 MG/ML INJ IVP PRN (05:58)
[2019-01-15] MEDS: *HR* OxyCODONE/APAP 10/325 TABLET PO PRN ×2 (07:09→12:51)
[2019-01-15] MEDS ORDERED: Insulin LISPRO 300 UNITS/3 ML VIAL SQ SCH (07:30)
[2019-01-15] MEDS ORDERED: Insulin DETEMIR 100 UNIT/ML X5UNITS SQ ONE (07:50)
[2019-01-15] MEDS ORDERED: Bumetanide 1 MG TABLET PO SCH (09:00)
[2019-01-15] MEDS: Metoprolol XL (24 HR) Succ 25 MG TAB.ER.24H PO SCH ×2 (10:22→21:33)
[2019-01-15] MEDS: Iron Polysaccharide Complex 150 MG CAPSULE PO SCH (10:22)
[2019-01-15] MEDS: Pregabalin 75 MG CAPSULE PO SCH ×2 (10:22→21:32)
[2019-01-15] MEDS: *HR* Amiodarone 200 MG TABLET PO SCH ×2 (10:22→21:33)
[2019-01-15] MEDS: Spironolactone 25 MG TABLET PO SCH (10:22)
[2019-01-15] MEDS: Bumetanide 1 MG/4 ML VIAL IVP SCH (10:24)
[2019-01-15] MEDS: Budesonide/Formoterol 160/4.5 1 PUFF INH IH SCH ×2 (10:45→20:11)
[2019-01-15] MEDS: Tiotropium 18 MCG inhalation IH SCH (10:45)
[2019-01-15] MEDS ORDERED: *HR* Heparin 5,000 UNIT/ML VIAL IVP PRN ×2 (13:33)
[2019-01-15] MEDS ORDERED: *HR* Heparin 5,000 UNIT/ML VIAL IVP ONE (13:33)
[2019-01-15] MEDS ORDERED: Menthol 9.1 MG LOZENGE PO PRN (13:50)
[2019-01-15 14:11] LABS: Hematocrit 31.5 % (37.5-50.1); Hemoglobin 9.3 g/dL (12.9-16.9); Mean Corpuscular HGB Conc 29.5 g/dL (31.6-35.5); Mean Corpuscular Hemoglobin 25.6 pg (28.0-33.3); Mean Corpuscular Volume 86.8 fL (83.0-100.0); Mean Platelet Volume 11.7 fL (9.4-12.4); Platelet Count 135 K/mcL (140-400); Red Blood Count 3.63 M/mcL (4.19-5.50); Red Cell Distribution Width 18.6 % (11.5-14.5); White Blood Count 6.2 K/mcL (4.3-11.1)
[2019-01-15 14:18] LABS: Heparin anti-factor XA UFH 0.04 IU/mL (0.30-0.70)
[2019-01-15 14:19] LABS: INR 1.5; Prothrombin Time 17.4 Seconds (9.4-12.1)
[2019-01-15] MEDS: Heparin 25,000 UNIT/250 ML D5W 25,000 UNIT/250 ML IV.SOLN IVC SCH (15:07)
[2019-01-15 16:43] LABS: BUN/Creatinine Ratio 18 (6-26); Blood Urea Nitrogen 24 mg/dL (8-23); Calcium 8.8 mg/dL (8.6-10.3); Carbon Dioxide 26 mEq/L (23-29); Chloride 108 mEq/L (98-107); Glucose 82 mg/dL (70-105); Magnesium 1.8 mg/dL (1.6-2.6); Osmolality,Calculated 295 (280-300); Potassium 3.7 mEq/L (3.5-5.1); Sodium 141 mEq/L (136-145); eGFR For African Americans > 60 (> 60); eGFR For Non-African Americans 56 (> 60)
[2019-01-15] MEDS ORDERED: *HR* Heparin 5,000 UNIT/ML VIAL SQ SCH (18:00)
[2019-01-15] MEDS: Insulin DETEMIR 100 UNIT/ML X5UNITS SQ SCH (21:15)
[2019-01-15] MEDS: Aspirin Enteric Coated 81 MG Tablet PO SCH (21:33)
[2019-01-15] MEDS: Melatonin 3 MG TABLET PO SCH (21:33)
[2019-01-16 04:22] LABS: Hematocrit 34.2 % (37.5-50.1); Hemoglobin 10.1 g/dL (12.9-16.9); Mean Corpuscular HGB Conc 29.5 g/dL (31.6-35.5); Mean Corpuscular Hemoglobin 25.8 pg (28.0-33.3); Mean Corpuscular Volume 87.5 fL (83.0-100.0); Mean Platelet Volume 13.4 fL (9.4-12.4); Platelet Count 144 K/mcL (140-400); Red Blood Count 3.91 M/mcL (4.19-5.50); Red Cell Distribution Width 18.7 % (11.5-14.5); White Blood Count 6.7 K/mcL (4.3-11.1)
[2019-01-16 04:32] LABS: INR 1.4; Prothrombin Time 15.9 Seconds (9.4-12.1)
[2019-01-16 04:33] LABS: Alanine Aminotransferase 14 Units/L (7-52); Albumin/Globulin Ratio 1.7 (1.1-2.2); Alkaline Phosphatase 65 Units/L (34-104); Aspartate Amino Transferase 18 Units/L (13-39); BUN/Creatinine Ratio 18 (6-26); Bilirubin,Direct 0.2 mg/dL (0.0-0.2); Bilirubin,Indirect 0.5 mg/dL (0.0-1.2); Bilirubin,Total 0.7 mg/dL (0.3-1.0); Blood Urea Nitrogen 25 mg/dL (8-23); Calcium 8.8 mg/dL (8.6-10.3); Carbon Dioxide 24 mEq/L (23-29); Chloride 105 mEq/L (98-107); Globulin 2.3 g/dL (2.4-3.5); Glucose 180 mg/dL (70-105); Osmolality,Calculated 297 (280-300); Potassium 3.9 mEq/L (3.5-5.1); Sodium 139 mEq/L (136-145); Total Protein 6.3 g/dL (6.4-8.9); eGFR For African Americans > 60 (> 60); eGFR For Non-African Americans 52 (> 60)
[2019-01-16] MEDS: Metoprolol XL (24 HR) Succ 25 MG TAB.ER.24H PO SCH ×2 (07:35→23:00)
[2019-01-16] MEDS: Iron Polysaccharide Complex 150 MG CAPSULE PO SCH (07:36)
[2019-01-16] MEDS: *HR* Amiodarone 200 MG TABLET PO SCH ×2 (07:36→20:42)
[2019-01-16] MEDS: Spironolactone 25 MG TABLET PO SCH (07:36)
[2019-01-16] MEDS: Pregabalin 75 MG CAPSULE PO SCH ×2 (07:37→20:41)
[2019-01-16] MEDS: Bumetanide 1 MG/4 ML VIAL IVP SCH (07:37)
[2019-01-16] MEDS: Insulin LISPRO 300 UNITS/3 ML VIAL SQ SCH ×4 (07:37→20:15)
[2019-01-16] MEDS: Tiotropium 18 MCG inhalation IH SCH (07:50)
[2019-01-16] MEDS: Budesonide/Formoterol 160/4.5 1 PUFF INH IH SCH ×2 (07:50→20:22)
[2019-01-16] MEDS: Heparin 25,000 UNIT/250 ML D5W 25,000 UNIT/250 ML IV.SOLN IVC SCH (09:14)
[2019-01-16] MEDS ORDERED: Perflutren Lipid Microsphere 1.3 ML in 0.9 % Sodium Chloride 8.7 ML IVP ONE (14:16)
[2019-01-16] MEDS ORDERED: Perflutren Lipid Microsphere 2 ML VIAL ONE (14:20)
[2019-01-16] MEDS: *HR* OxyCODONE/APAP 10/325 TABLET PO PRN ×2 (15:06→23:00)
[2019-01-16] MEDS ORDERED: Albumin 25% 25gram/100mL 25 GM/100 ML IV.SOLN IVPB SCH (16:00)
[2019-01-16] MEDS: Albumin 25% 25gram/100mL 25 GM/100 ML IV.SOLN IVPB SCH ×3 (16:18→20:43)
[2019-01-16] MEDS: *HR* Heparin 5,000 UNIT/ML VIAL SQ SCH (18:11)
[2019-01-16] MEDS: Melatonin 3 MG TABLET PO SCH (20:41)
[2019-01-16] MEDS: Aspirin Enteric Coated 81 MG Tablet PO SCH (20:42)
[2019-01-16] MEDS: Insulin DETEMIR 100 UNIT/ML X5UNITS SQ SCH (20:42)
[2019-01-17] MEDS: Albumin 25% 25gram/100mL 25 GM/100 ML IV.SOLN IVPB SCH ×2 (01:15→15:13)
[2019-01-17] MEDS: *HR* Heparin 5,000 UNIT/ML VIAL SQ SCH ×2 (05:58→17:08)
[2019-01-17] MEDS: Budesonide/Formoterol 160/4.5 1 PUFF INH IH SCH ×2 (07:23→19:40)
[2019-01-17] MEDS: Tiotropium 18 MCG inhalation IH SCH (07:23)
[2019-01-17 08:39] LABS: RBC,Pleural Fluid 0.078 M/mcL
[2019-01-17] MEDS: Spironolactone 25 MG TABLET PO SCH (08:41)
[2019-01-17] MEDS: *HR* Amiodarone 200 MG TABLET PO SCH ×2 (08:41→21:50)
[2019-01-17] MEDS: Insulin LISPRO 300 UNITS/3 ML VIAL SQ SCH ×5 (08:42→21:52)
[2019-01-17] MEDS: Iron Polysaccharide Complex 150 MG CAPSULE PO SCH (08:42)
[2019-01-17] MEDS: Pregabalin 75 MG CAPSULE PO SCH ×2 (08:42→21:51)
[2019-01-17] MEDS: Bumetanide 1 MG/4 ML VIAL IVP SCH ×2 (08:42→17:08)
[2019-01-17 08:43] LABS: Appearance of Pleural Fl Cloudy (Clear)
[2019-01-17] MEDS: Metoprolol XL (24 HR) Succ 25 MG TAB.ER.24H PO SCH (08:43)
[2019-01-17 09:01] LABS: Glucose,Pleural Fluid 200 mg/dL (No Ref Range); LDH,Pleural Fluid 350 Units/L (No Ref Range); Total Protein,Pleural Fluid < 3.0 g/dL
[2019-01-17 09:09] LABS: Magnesium 1.9 mg/dL (1.6-2.6); Potassium 4.2 mEq/L (3.5-5.1)
[2019-01-17 09:19] LABS: Basophils,Pleural Fluid 0 %; Eosinophils,Pleural Fluid 0 %
[2019-01-17 13:21] LABS: Protein/Creatinine Ratio,Urine 0.4 mg/mg (0.00-0.20)
[2019-01-17 13:23] LABS: Creatinine,Urine 85 mg/dL; Microalbum/Creatinine Ratio,Ur 211 mcg/mg (Less than 30); Microalbumin,Urine 179 mg/L
[2019-01-17] MEDS ORDERED: Insulin LISPRO 300 UNITS/3 ML VIAL SQ SCH (16:30)
[2019-01-17] MEDS: *HR* OxyCODONE/APAP 10/325 TABLET PO PRN (17:07)
[2019-01-17] MEDS ORDERED: Albumin 25% 25gram/100mL 25 GM/100 ML IV.SOLN IVPB SCH (21:00)
[2019-01-17] MEDS: Melatonin 3 MG TABLET PO SCH (21:50)
[2019-01-17] MEDS: Aspirin Enteric Coated 81 MG Tablet PO SCH (21:50)
[2019-01-17] MEDS: Insulin DETEMIR 100 UNIT/ML X5UNITS SQ SCH (21:51)
[2019-01-17] MEDS: Metoprolol XL (24 HR) Succ 50 MG TAB.ER.24H PO SCH (21:51)
[2019-01-18 05:12] LABS: Hematocrit 29.3 % (37.5-50.1); Hemoglobin 8.8 g/dL (12.9-16.9); Mean Corpuscular Hemoglobin 25.7 pg (28.0-33.3); Mean Corpuscular Volume 85.4 fL (83.0-100.0); Mean Platelet Volume 12.2 fL (9.4-12.4); Platelet Count 125 K/mcL (140-400); Red Blood Count 3.43 M/mcL (4.19-5.50); Red Cell Distribution Width 18.6 % (11.5-14.5); White Blood Count 6.7 K/mcL (4.3-11.1)
[2019-01-18 05:30] LABS: Calcium 8.7 mg/dL (8.6-10.3)
[2019-01-18] MEDS: *HR* Heparin 5,000 UNIT/ML VIAL SQ SCH ×2 (05:58→16:28)
[2019-01-18] MEDS: Albumin 25% 25gram/100mL 25 GM/100 ML IV.SOLN IVPB SCH ×2 (05:59→14:20)
[2019-01-18] MEDS: Budesonide/Formoterol 160/4.5 1 PUFF INH IH SCH ×2 (07:53→19:57)
[2019-01-18] MEDS: Tiotropium 18 MCG inhalation IH SCH (07:53)
[2019-01-18] MEDS: *HR* Amiodarone 200 MG TABLET PO SCH ×2 (08:47→22:17)
[2019-01-18] MEDS: Metoprolol XL (24 HR) Succ 50 MG TAB.ER.24H PO SCH ×2 (08:47→22:17)
[2019-01-18] MEDS: Iron Polysaccharide Complex 150 MG CAPSULE PO SCH (08:47)
[2019-01-18] MEDS: Pregabalin 75 MG CAPSULE PO SCH ×2 (08:47→22:17)
[2019-01-18] MEDS: Insulin LISPRO 300 UNITS/3 ML VIAL SQ SCH ×7 (08:47→22:18)
[2019-01-18] MEDS: Bumetanide 1 MG/4 ML VIAL IVP SCH ×2 (08:47→16:27)
[2019-01-18] MEDS: *HR* OxyCODONE/APAP 10/325 TABLET PO PRN (09:04)
[2019-01-18] MEDS: Cefepime HCl 1,000 MG in 0.9 % Sodium Chloride Mini Bag 100 ML IVPB SCH (16:27)
[2019-01-18] MEDS: Aspirin Enteric Coated 81 MG Tablet PO SCH (22:17)
[2019-01-18] MEDS: Melatonin 3 MG TABLET PO SCH (22:17)
[2019-01-18] MEDS: Insulin DETEMIR 100 UNIT/ML X5UNITS SQ SCH (22:18)
[2019-01-19] MEDS: Cefepime HCl 1,000 MG in 0.9 % Sodium Chloride Mini Bag 100 ML IVPB SCH ×3 (00:47→17:00)
[2019-01-19 04:56] LABS: Hematocrit 29.4 % (37.5-50.1); Hemoglobin 8.8 g/dL (12.9-16.9); Mean Corpuscular HGB Conc 29.9 g/dL (31.6-35.5); Mean Corpuscular Hemoglobin 26.1 pg (28.0-33.3); Mean Corpuscular Volume 87.2 fL (83.0-100.0); Mean Platelet Volume 12.8 fL (9.4-12.4); Platelet Count 134 K/mcL (140-400); Red Blood Count 3.37 M/mcL (4.19-5.50); Red Cell Distribution Width 18.8 % (11.5-14.5); White Blood Count 6.6 K/mcL (4.3-11.1)
[2019-01-19 05:09] LABS: Potassium 4.6 mEq/L (3.5-5.1)
[2019-01-19] MEDS: *HR* Heparin 5,000 UNIT/ML VIAL SQ SCH ×2 (05:43→17:00)
[2019-01-19] MEDS: Albumin 25% 25gram/100mL 25 GM/100 ML IV.SOLN IVPB SCH ×2 (05:43→15:26)
[2019-01-19] MEDS: Iron Polysaccharide Complex 150 MG CAPSULE PO SCH (08:18)
[2019-01-19] MEDS: Bumetanide 1 MG/4 ML VIAL IVP SCH ×2 (08:18→17:00)
[2019-01-19] MEDS: *HR* Amiodarone 200 MG TABLET PO SCH ×2 (08:18→21:56)
[2019-01-19] MEDS: Pregabalin 75 MG CAPSULE PO SCH ×2 (08:18→21:54)
[2019-01-19] MEDS: Insulin LISPRO 300 UNITS/3 ML VIAL SQ SCH ×6 (08:19→16:50)
[2019-01-19] MEDS: Metoprolol XL (24 HR) Succ 50 MG TAB.ER.24H PO SCH ×2 (08:19→21:56)
[2019-01-19] MEDS: *HR* OxyCODONE/APAP 10/325 TABLET PO PRN ×2 (08:28→21:56)
[2019-01-19] MEDS: Budesonide/Formoterol 160/4.5 1 PUFF INH IH SCH ×2 (10:16→20:04)
[2019-01-19] MEDS: Tiotropium 18 MCG inhalation IH SCH (10:17)
[2019-01-19] MEDS ORDERED: *HR* HYDROcodone/Acet 5/325 mg TABLET PO ONE (11:33)
[2019-01-19] MEDS: metOLazone 2.5 MG TABLET PO SCH (12:36)
[2019-01-19 19:25] LABS: Mixed Venous Blood pCO2 47 mmHg (44-46); Mixed Venous Blood pH 7.35 pH Units (7.34-7.36); Mixed Venous Blood pO2 21 mmHg (35-45)
[2019-01-19 19:58] LABS: ABG Base Excess 0 mEq/L (-2 to 3); ABG HCO3 25 mEq/L (21-27); ABG Oxygen Saturation 90 % (95-98); ABG PCO2 39 mmHg (35-45); ABG PH 7.41 pH Units (7.32-7.45); ABG PO2 58 mmHg (85-104); ABG TCO2 26 mEq/L (20-26)
[2019-01-19] MEDS: Aspirin Enteric Coated 81 MG Tablet PO SCH (21:54)
[2019-01-19] MEDS: Melatonin 3 MG TABLET PO SCH (21:55)
[2019-01-20] MEDS: Insulin LISPRO 300 UNITS/3 ML VIAL SQ SCH ×5 (00:55→12:13)
[2019-01-20] MEDS: Cefepime HCl 1,000 MG in 0.9 % Sodium Chloride Mini Bag 100 ML IVPB SCH ×2 (01:11→08:32)
[2019-01-20 02:02] LABS: Hematocrit 28.9 % (37.5-50.1); Hemoglobin 8.7 g/dL (12.9-16.9); Mean Corpuscular HGB Conc 30.1 g/dL (31.6-35.5); Mean Corpuscular Hemoglobin 25.8 pg (28.0-33.3); Mean Corpuscular Volume 85.8 fL (83.0-100.0); Mean Platelet Volume 12.7 fL (9.4-12.4); Platelet Count 151 K/mcL (140-400); Red Blood Count 3.37 M/mcL (4.19-5.50); White Blood Count 7.3 K/mcL (4.3-11.1)
[2019-01-20 02:19] LABS: Calcium 9.3 mg/dL (8.6-10.3); Potassium 4.2 mEq/L (3.5-5.1)
[2019-01-20] MEDS: Insulin DETEMIR 100 UNIT/ML X5UNITS SQ SCH (06:24)
[2019-01-20] MEDS: Albumin 25% 25gram/100mL 25 GM/100 ML IV.SOLN IVPB SCH (06:40)
[2019-01-20] MEDS: *HR* Heparin 5,000 UNIT/ML VIAL SQ SCH (06:41)
[2019-01-20] MEDS: Budesonide/Formoterol 160/4.5 1 PUFF INH IH SCH (07:38)
[2019-01-20] MEDS: Bumetanide 1 MG/4 ML VIAL IVP SCH (08:31)
[2019-01-20] MEDS: *HR* Amiodarone 200 MG TABLET PO SCH (08:32)
[2019-01-20] MEDS: Iron Polysaccharide Complex 150 MG CAPSULE PO SCH (08:32)
[2019-01-20] MEDS: Metoprolol XL (24 HR) Succ 50 MG TAB.ER.24H PO SCH (08:32)
[2019-01-20] MEDS: Pregabalin 75 MG CAPSULE PO SCH (08:32)
[2019-01-20] MEDS: metOLazone 2.5 MG TABLET PO SCH (08:32)
[2019-01-20] MEDS: Tiotropium 18 MCG inhalation IH SCH (11:22)
[2019-01-20 11:41] VITALS: BP 107/64
[2019-01-20] MEDS ORDERED: Bumetanide 1 MG/4 ML VIAL IVP SCH (17:00)
== END 2019-01-20 15:30 | disposition short-term general hospital (02) | DRG 280 ==
LOC: EMEROOARM 00:06 → 2ANU 00:06 → SUATTDRO 03:37 → 2ANU 04:30 → SUATTDRO 01-17 11:15
PROVIDERS: ADMIT Internal Medicine; ATTEND Family Medicine

== ENCOUNTER 2019-02-02 22:58 | Inpatient (IN) ==
[2019-02-02] MEDS ORDERED: methylPREDNISolone 125 MG/2 ML VIAL IVP ONE (23:12)
[2019-02-02] MEDS ORDERED: Ipratropium/Albuterol Neb 3 ML IH ONE (23:12)
[2019-02-02] MEDS ORDERED: Amiodarone Premix 150 MG/100 ML BAG IVPB ONE (23:15)
[2019-02-02] MEDS ORDERED: Amiodarone Premix 360 MG/200 ML BAG IVC ONE (23:15)
[2019-02-02] MEDS ORDERED: *HR* Heparin 5,000 UNIT/ML VIAL IVP ONE (23:18)
[2019-02-02] MEDS ORDERED: *HR* Heparin 5,000 UNIT/ML VIAL IVP PRN ×2 (23:18)
[2019-02-02] MEDS ORDERED: Ondansetron 4 MG/2 ML VIAL IVP ONE (23:21)
[2019-02-02] MEDS ORDERED: 0.9 % Sodium Chloride 1,000 ML IVC ONE (23:22)
[2019-02-02] MEDS ORDERED: Heparin 25,000 UNIT/250 ML D5W 25,000 UNIT/250 ML IV.SOLN IVC SCH (23:30)
[2019-02-03 01:05] LABS: Basophils # 0.1 K/mcL (0.0-0.2); Basophils % 0.8 %; Eosinophils % 0.2 %; Hematocrit 30.7 % (37.5-50.1); Hemoglobin 9.4 g/dL (12.9-16.9); Immature Granulocytes % 0.3 % (0-4); Lymphocytes # 1.2 K/mcL (0.6-4.6); Lymphocytes % 12.6 %; Mean Corpuscular HGB Conc 30.6 g/dL (31.6-35.5); Mean Corpuscular Hemoglobin 25.5 pg (28.0-33.3); Mean Corpuscular Volume 83.4 fL (83.0-100.0); Monocytes # 0.9 K/mcL (0.0-1.3); Monocytes % 10.1 %; Neutrophils # 7.1 K/mcL (1.6-8.9); Nucleated Red Blood Cells 0.2 /100 WBC (0); Platelet Count 173 K/mcL (140-400); Red Blood Count 3.68 M/mcL (4.19-5.50); Red Cell Distribution Width 17.9 % (11.5-14.5); White Blood Count 9.3 K/mcL (4.3-11.1)
[2019-02-03 01:13] LABS: INR 1.8; Prothrombin Time 20.3 Seconds (9.4-12.1)
[2019-02-03 01:15] LABS: Activated Partial Thrombo Time 30.7 Seconds (26.0-36.0); Heparin anti-factor XA UFH 0.18 IU/mL (0.30-0.70)
[2019-02-03 01:26] LABS: Albumin 4.5 g/dL (3.5-5.7); Albumin/Globulin Ratio 1.7 (1.1-2.2); Bilirubin,Direct 0.4 mg/dL (0.0-0.2); Bilirubin,Total 1.4 mg/dL (0.3-1.0); Calcium 9.3 mg/dL (8.6-10.3); Globulin 2.7 g/dL (2.4-3.5); Potassium 3.6 mEq/L (3.5-5.1); Total Protein 7.2 g/dL (6.4-8.9)
[2019-02-03 01:34] LABS: Troponin I 0.08 ng/mL (< 0.04)
[2019-02-03 01:50] LABS: Bilirubin,Urine Moderate (Negative); Blood,Urine Large (Negative); Clarity,Urine Cloudy (Clear); Color,Urine Red (Yellow); Glucose,Urine (UA) 100 mg/dL (Normal); Ketones,Urine Trace mg/dL (Negative); Leukocyte Esterase,Urine Small (Negative); Nitrite,Urine Negative (Negative); Protein,Urine >=1000 mg/dL (Neg-Trace); Specific Gravity,Urine 1.029 (1.010-1.025); Urobilinogen,Urine Normal (Normal)
[2019-02-03 02:00] LABS: Thyroid Stimulating Hormone 7.213 mcIU/mL (0.340-5.600)
[2019-02-03] MEDS ORDERED: *HR* Metoprolol 5 MG/5 ML VIAL IVP ONE (03:05)
[2019-02-03] MEDS ORDERED: Furosemide 40 MG/4 ML VIAL IVP ONE (03:06)
[2019-02-03] MEDS: Amiodarone Premix 360 MG/200 ML BAG IVC SCH ×2 (06:37→18:06)
[2019-02-03] MEDS ORDERED: Ondansetron 4 MG/2 ML VIAL IVP PRN (07:45)
[2019-02-03] MEDS ORDERED: Naloxone 0.4 MG/ML INJ IVP PRN (07:45)
[2019-02-03] MEDS ORDERED: *HR* OxyCODONE/APAP 10/325 TABLET PO PRN (07:53)
[2019-02-03] MEDS ORDERED: *HR* Metoprolol 5 MG/5 ML VIAL IVP PRN (07:58)
[2019-02-03] MEDS ORDERED: Insulin LISPRO 300 UNITS/3 ML VIAL SQ SCH (08:00)
[2019-02-03] MEDS ORDERED: Insulin Regular, Human 100 UNIT/ML SQ ONE (08:01)
[2019-02-03] MEDS ORDERED: *HR* Amiodarone 200 MG TABLET PO SCH (09:00)
[2019-02-03] MEDS: Insulin DETEMIR 100 UNIT/ML X5UNITS SQ SCH ×2 (09:19→23:55)
[2019-02-03] MEDS: Pregabalin 75 MG CAPSULE PO SCH (09:19)
[2019-02-03] MEDS: *HR* Amiodarone 200 MG TABLET PO SCH ×2 (09:20→23:55)
[2019-02-03] MEDS: cefTRIAXone 1,000 MG in Water for inj. (sterile) 10 ML IVP SCH ×2 (09:21→10:25)
[2019-02-03 09:36] LABS: ABG Base Excess 0 mEq/L (-2 to 3); ABG HCO3 24 mEq/L (21-27); ABG Oxygen Saturation 94 % (95-98); ABG PCO2 35 mmHg (35-45); ABG PH 7.44 pH Units (7.32-7.45); ABG PO2 67 mmHg (85-104); ABG TCO2 25 mEq/L (20-26)
[2019-02-03] MEDS: Metoprolol XL (24 HR) Succ 50 MG TAB.ER.24H PO SCH ×2 (09:37→23:55)
[2019-02-03] MEDS: Levalbuterol Neb 1.25 MG/3 ML IH SCH ×3 (10:07→21:04)
[2019-02-03] MEDS: Tiotropium 18 MCG inhalation IH SCH ×2 (10:07→10:13)
[2019-02-03] MEDS: Budesonide/Formoterol 160/4.5 1 PUFF INH IH SCH ×2 (10:07→21:05)
[2019-02-03] MEDS: MethylPREDNISolone 40 MG/ML VIAL IVP SCH ×2 (10:24→17:54)
[2019-02-03 10:47] LABS: RBC,Pleural Fluid < 0.002 M/mcL
[2019-02-03 10:58] LABS: Appearance of Pleural Fl Clear (Clear)
[2019-02-03 11:20] LABS: Glucose,Pleural Fluid 315 mg/dL (No Ref Range); LDH,Pleural Fluid 104 Units/L (No Ref Range); Total Protein,Pleural Fluid < 3.0 g/dL
[2019-02-03] MEDS ORDERED: Albumin 25% 25gram/100mL 25 GM/100 ML IV.SOLN IVPB ONE ×2 (11:29→18:00)
[2019-02-03] MEDS ORDERED: Insulin DETEMIR 100 UNIT/ML X5UNITS SQ ONE (12:24)
[2019-02-03 12:41] LABS: Basophils,Pleural Fluid 0 %; Eosinophils,Pleural Fluid 0 %
[2019-02-03] MEDS ORDERED: Insulin Regular, Human 100 UNIT/ML SQ STA (12:57)
[2019-02-03] MEDS: Insulin LISPRO 300 UNITS/3 ML VIAL SQ SCH ×2 (13:07→23:55)
[2019-02-03] MEDS ORDERED: 0.9 % Sodium Chloride 250 ML ONE (13:28)
[2019-02-03] MEDS ORDERED: 0.9 % Sodium Chloride 250 ML IV ONE (13:39)
[2019-02-03] MEDS ORDERED: Vancomycin 1,750 MG in 0.9 % Sodium Chloride 250 ML IVPB SCH (15:32)
[2019-02-03] MEDS ORDERED: 0.9 % Sodium Chloride 250 ML IVC ONE (15:34)
[2019-02-03] MEDS ORDERED: Insulin LISPRO 300 UNITS/3 ML VIAL SQ STA (17:14)
[2019-02-03 19:37] LABS: Adenovirus Not Detected (Not Detect); Bordetella Pertussis Not Detected (Not Detect); Chlamydophila pneumoniae Not Detected (Not Detect); Coronavirus 229E Not Detected (Not Detect); Coronavirus HKU1 Not Detected (Not Detect); Coronavirus NL63 Not Detected (Not Detect); Coronavirus OC43 Not Detected (Not Detect); Human Metapneumovirus Not Detected (Not Detect); Human Rhinovirus/Enterovirus Not Detected (Not Detect); Influenza A Subtype 2009 H1 Not Detected (Not Detect); Influenza A Untypeable Not Detected (Not Detect); Influenza B Not Detected (Not Detect); Mycoplasma pneumoniae Not Detected (Not Detect); Parainfluenza Virus 1 Not Detected (Not Detect); Parainfluenza Virus 2 Not Detected (Not Detect); Parainfluenza Virus 3 Not Detected (Not Detect); Parainfluenza Virus 4 Not Detected (Not Detect); Respiratory Syncytial Virus Not Detected (Not Detect)
[2019-02-03] MEDS ORDERED: Aspirin Enteric Coated 81 MG Tablet PO SCH (21:00)
[2019-02-03] MEDS: Melatonin 3 MG TABLET PO SCH (23:55)
[2019-02-03] MEDS: Piperacillin/Tazobactam 3.375 GM in 0.9 % Sodium Chloride Mini Bag 100 ML IVPB SCH (23:56)
[2019-02-04] MEDS: MethylPREDNISolone 40 MG/ML VIAL IVP SCH ×2 (01:00→20:58)
[2019-02-04 01:51] LABS: Basophils % 0.1 %; Mean Platelet Volume 13.4 fL (9.4-12.4); Red Cell Distribution Width 17.8 % (11.5-14.5)
[2019-02-04 01:53] LABS: Hematocrit 28.8 % (37.5-50.1); Hemoglobin 9.1 g/dL (12.9-16.9); Immature Granulocytes % 0.7 % (0-4); Immature Platelets 12.2 % (1.1-6.1); Lymphocytes # 0.5 K/mcL (0.6-4.6); Lymphocytes % 3.5 %; Mean Corpuscular HGB Conc 31.6 g/dL (31.6-35.5); Mean Corpuscular Hemoglobin 25.7 pg (28.0-33.3); Mean Corpuscular Volume 81.4 fL (83.0-100.0); Monocytes # 0.5 K/mcL (0.0-1.3); Monocytes % 3.7 %; Neutrophils # 12.5 K/mcL (1.6-8.9); Nucleated Red Blood Cells 0.3 /100 WBC (0); Platelet Count 148 K/mcL (140-400); Red Blood Count 3.54 M/mcL (4.19-5.50); White Blood Count 13.6 K/mcL (4.3-11.1)
[2019-02-04 02:23] LABS: Calcium 8.7 mg/dL (8.6-10.3); Platelet Estimate Normal (Normal); Potassium 4.6 mEq/L (3.5-5.1)
[2019-02-04] MEDS: Piperacillin/Tazobactam 3.375 GM in 0.9 % Sodium Chloride Mini Bag 100 ML IVPB SCH ×2 (03:24→20:58)
[2019-02-04] MEDS: Levalbuterol Neb 1.25 MG/3 ML IH SCH ×4 (04:33→22:20)
[2019-02-04] MEDS: Budesonide/Formoterol 160/4.5 1 PUFF INH IH SCH ×2 (10:19→22:20)
[2019-02-04] MEDS: Tiotropium 18 MCG inhalation IH SCH (10:19)
[2019-02-04] MEDS ORDERED: 0.9 % Sodium Chloride 500 ML ONE (11:44)
[2019-02-04] MEDS ORDERED: 0.9 % Sodium Chloride Mini Bag 100 ML ONE (18:00)
[2019-02-04] MEDS: *HR* Amiodarone 200 MG TABLET PO SCH ×2 (20:54→20:59)
[2019-02-04] MEDS: Melatonin 3 MG TABLET PO SCH (20:54)
[2019-02-04] MEDS: Metoprolol XL (24 HR) Succ 50 MG TAB.ER.24H PO SCH ×2 (20:55→21:01)
[2019-02-04] MEDS: Insulin LISPRO 300 UNITS/3 ML VIAL SQ SCH ×3 (20:57→21:55)
[2019-02-04] MEDS: Insulin DETEMIR 100 UNIT/ML X5UNITS SQ SCH ×2 (21:00→21:56)
[2019-02-04] MEDS: Iron Polysaccharide Complex 150 MG CAPSULE PO SCH (21:00)
[2019-02-04] MEDS: Pregabalin 75 MG CAPSULE PO SCH (21:01)
[2019-02-04] MEDS ORDERED: Vancomycin 1 EACH in 0.9 % Sodium Chloride 500 ML IVPB SCH (22:00)
[2019-02-05] MEDS ORDERED: Insulin Human Regular 10 UNIT in 0.9 % Sodium Chloride 10 ML IV ONE ×2 (00:23→19:48)
[2019-02-05] MEDS: MethylPREDNISolone 40 MG/ML VIAL IVP SCH ×4 (00:47→18:33)
[2019-02-05] MEDS: Piperacillin/Tazobactam 3.375 GM in 0.9 % Sodium Chloride Mini Bag 100 ML IVPB SCH ×3 (00:47→17:13)
[2019-02-05 02:47] LABS: Fluid Source for Albumin PLEURAL
[2019-02-05 03:24] LABS: Hematocrit 31.2 % (37.5-50.1); Hemoglobin 9.8 g/dL (12.9-16.9)
[2019-02-05] MEDS: Levalbuterol Neb 1.25 MG/3 ML IH SCH ×4 (04:10→21:59)
[2019-02-05 08:07] LABS: Hematocrit 29.1 % (37.5-50.1); Hemoglobin 9.2 g/dL (12.9-16.9); Mean Corpuscular HGB Conc 31.6 g/dL (31.6-35.5); Mean Corpuscular Volume 82.2 fL (83.0-100.0); Mean Platelet Volume 12.7 fL (9.4-12.4); Platelet Count 174 K/mcL (140-400); Red Blood Count 3.54 M/mcL (4.19-5.50); Red Cell Distribution Width 17.9 % (11.5-14.5)
[2019-02-05 08:29] LABS: Magnesium 2.1 mg/dL (1.6-2.6)
[2019-02-05] MEDS: Pregabalin 75 MG CAPSULE PO SCH (08:42)
[2019-02-05] MEDS: Iron Polysaccharide Complex 150 MG CAPSULE PO SCH (08:42)
[2019-02-05] MEDS: *HR* Amiodarone 200 MG TABLET PO SCH ×2 (08:43→21:00)
[2019-02-05] MEDS: Metoprolol XL (24 HR) Succ 50 MG TAB.ER.24H PO SCH ×2 (08:43→20:59)
[2019-02-05] MEDS: Insulin LISPRO 300 UNITS/3 ML VIAL SQ SCH ×4 (08:44→21:01)
[2019-02-05] MEDS: Insulin DETEMIR 100 UNIT/ML X5UNITS SQ SCH ×2 (08:44→21:01)
[2019-02-05] MEDS: Budesonide/Formoterol 160/4.5 1 PUFF INH IH SCH ×2 (10:08→21:59)
[2019-02-05] MEDS: Tiotropium 18 MCG inhalation IH SCH (10:09)
[2019-02-05] MEDS ORDERED: Aminoglycoside Consult 1 EACH MC ONE (17:01)
[2019-02-05] MEDS: Melatonin 3 MG TABLET PO SCH (21:00)
[2019-02-06] MEDS ORDERED: Insulin Human Regular 10 UNIT in 0.9 % Sodium Chloride 10 ML IV ONE ×2 (00:52→03:27)
[2019-02-06] MEDS: Piperacillin/Tazobactam 3.375 GM in 0.9 % Sodium Chloride Mini Bag 100 ML IVPB SCH ×2 (00:55→09:11)
[2019-02-06] MEDS: MethylPREDNISolone 40 MG/ML VIAL IVP SCH (04:01)
[2019-02-06] MEDS: Levalbuterol Neb 1.25 MG/3 ML IH SCH ×3 (04:34→15:47)
[2019-02-06 06:29] LABS: Hematocrit 27.6 % (37.5-50.1); Hemoglobin 8.6 g/dL (12.9-16.9); Mean Corpuscular HGB Conc 31.2 g/dL (31.6-35.5); Mean Corpuscular Hemoglobin 25.7 pg (28.0-33.3); Mean Corpuscular Volume 82.4 fL (83.0-100.0); Mean Platelet Volume 13.6 fL (9.4-12.4); Platelet Count 168 K/mcL (140-400); Red Blood Count 3.35 M/mcL (4.19-5.50); Red Cell Distribution Width 17.7 % (11.5-14.5); White Blood Count 11.2 K/mcL (4.3-11.1)
[2019-02-06 06:52] LABS: Calcium 8.9 mg/dL (8.6-10.3); Magnesium 2.2 mg/dL (1.6-2.6); Potassium 4.3 mEq/L (3.5-5.1)
[2019-02-06] MEDS ORDERED: Dextrose Gel 15 GM/37.5 ML TUBE PO PRN ×2 (08:57)
[2019-02-06] MEDS ORDERED: *HR* Dextrose 50 % in Water (Syg) 50 ML SYRINGE IVP PRN (08:57)
[2019-02-06] MEDS ORDERED: D5% in Water 1,000 ML IVC PRN (08:57)
[2019-02-06] MEDS: Metoprolol XL (24 HR) Succ 50 MG TAB.ER.24H PO SCH (09:12)
[2019-02-06] MEDS: *HR* Amiodarone 200 MG TABLET PO SCH (09:12)
[2019-02-06] MEDS: Pregabalin 75 MG CAPSULE PO SCH (09:12)
[2019-02-06] MEDS: Insulin DETEMIR 100 UNIT/ML X5UNITS SQ SCH (09:16)
[2019-02-06] MEDS: Insulin LISPRO 300 UNITS/3 ML VIAL SQ SCH ×2 (10:39→12:08)
[2019-02-06] MEDS: Tiotropium 18 MCG inhalation IH SCH (11:02)
[2019-02-06] MEDS: Budesonide/Formoterol 160/4.5 1 PUFF INH IH SCH (11:02)
[2019-02-06] MEDS ORDERED: Iron Polysaccharide Complex 150 MG CAPSULE PO SCH (12:00)
[2019-02-06 12:11] VITALS: BP 110/75
[2019-02-06] MEDS ORDERED: Insulin LISPRO 300 UNITS/3 ML VIAL SQ SCH ×2 (16:30→21:00)
[2019-02-06] MEDS ORDERED: Insulin DETEMIR 100 UNIT/ML X5UNITS SQ SCH (21:00)
[2019-02-07] MEDS ORDERED: predniSONE 20 MG TABLET PO SCH (09:00)
== END 2019-02-06 17:02 | disposition left against medical advice (07) | DRG 698 ==
LOC: EMEROOARM 22:58 → 2NNU 22:58 → CDU 02-03 07:09 → SUATTDRO 02-03 08:12 → 2ANU 02-04 17:29
PROVIDERS: ADMIT Internal Medicine; ATTEND Internal Medicine